=== PATIENT | female | born 1945 | race Caucasian/White ===

== ENCOUNTER → 2017-07-26 | Outpatient (CLI) | payer MEDICARE, BC ==
--- NOTE | 2017-07-27 11:03 | MM ---
Reason for exam: screening (asymptomatic). Last mammogram was performed 1 year ago. History: Patient is postmenopausal. Took estrogen for 8 years. Took progesterone for 8 years. Physical Findings: A clinical breast exam by your physician is recommended on an annual basis and results should be correlated with mammographic findings. MG 3D Screening Mammo W/Cad Bilateral CC and MLO view(s) were taken. Prior study comparison: July 13, 2016, bilateral MG 3d screening mammo w/cad. July 09, 2015, bilateral MG screening mammo w CAD. There are scattered fibroglandular densities. There is no discrete abnormality. No significant changes when compared with prior studies. ASSESSMENT: Negative, BI-RAD 1 RECOMMENDATION: Routine screening mammogram of both breasts in 1 year.
== END | disposition home or self-care (01) ==
LOC: RADMAMWWP 10:38
PROVIDERS: ATTEND Internal Medicine Geriatric Medicine
DX: Z12.31 Encounter for screening mammogram for malignant neoplasm of breast (principal)
CPT/HCPCS: 77063; G0202

== ENCOUNTER → 2018-08-17 | Outpatient (CLI) | payer MEDICARE, BC ==
--- NOTE | 2018-08-18 11:09 | MM ---
Reason for exam: screening (asymptomatic). Last mammogram was performed 1 year and 1 month ago. History: Patient is postmenopausal. Took estrogen for 8 years. Took progesterone for 8 years. Physical Findings: A clinical breast exam by your physician is recommended on an annual basis and results should be correlated with mammographic findings. MG 3D Screening Mammo W/Cad Bilateral CC and MLO view(s) were taken. Prior study comparison: July 26, 2017, bilateral MG 3d screening mammo w/cad. July 13, 2016, bilateral MG 3d screening mammo w/cad. There are scattered fibroglandular densities. Stable benign calcifications. There is no discrete abnormality. No significant changes when compared with prior studies. ASSESSMENT: Benign, BI-RAD 2 RECOMMENDATION: Routine screening mammogram of both breasts in 1 year.
== END ==
LOC: RADMAMWWP 07:04
PROVIDERS: ATTEND Internal Medicine Geriatric Medicine
DX: Z12.31 Encounter for screening mammogram for malignant neoplasm of breast (principal)
CPT/HCPCS: 77063; 77067

== ENCOUNTER → 2018-11-29 | Outpatient (CLI) | payer MEDICARE, BC ==
--- NOTE | 2018-11-29 09:19 | US ---
EXAMINATION TYPE: US abdomen complete DATE OF EXAM: 11/29/2018 COMPARISON: NONE CLINICAL HISTORY: R10.9 Abdominal pain. RUQ pain after greasy foods, vomiting EXAM MEASUREMENTS: Liver Length: 18.8 cm Gallbladder Wall: 0.3 cm CBD: 0.6 cm Spleen: 10.5 cm Right Kidney: 10.4 x 4.0 x 5.6 cm Left Kidney: 9.9 x 5.4 x 4.3 cm Technical limitations due to patient's body habitus and large amount of overlying bowel content Pancreas: Obscured by bowel gas Liver: enlarged, attenuating, heterogeneous Gallbladder: mobile stones Evidence for sonographic Boateng's sign: no CBD: wnl Spleen: appears wnl Right Kidney: no evidence of hydronephrosis Left Kidney: no evidence of hydronephrosis Upper IVC: wnl Abd Aorta: wnl IMPRESSION: 1. Hepatomegaly with heterogeneous appearance of liver can be seen with hepatic steatosis, diffuse he patocellular disease or hepatitis correlate clinically. 2. Cholelithiasis. Common bile duct measures at the upper limits of normal and 6 mm.
== END | disposition home or self-care (01) ==
LOC: RADUSWWP 08:29
PROVIDERS: ATTEND Internal Medicine Geriatric Medicine
DX: K80.20 Calculus of gallbladder without cholecystitis without obstruction (principal); R16.0 Hepatomegaly, not elsewhere classified
CPT/HCPCS: 76700

== ENCOUNTER → 2019-09-17 | Outpatient (CLI) | payer MEDICARE ==
--- NOTE | 2019-09-18 08:57 | MM ---
Reason for exam: screening (asymptomatic). Last mammogram was performed 1 year and 1 month ago. History: Patient is postmenopausal. Took estrogen for 8 years. Took progesterone for 8 years. Physical Findings: A clinical breast exam by your physician is recommended on an annual basis and results should be correlated with mammographic findings. MG 3D Screening Mammo W/Cad Bilateral CC and MLO view(s) were taken. Prior study comparison: August 17, 2018, bilateral MG 3d screening mammo w/cad. July 26, 2017, bilateral MG 3d screening mammo w/cad. There are scattered fibroglandular densities. Finding: There are typically benign round, regional, grouped calcifications in both breasts. There is no discrete abnormality. ASSESSMENT: Benign, BI-RAD 2 RECOMMENDATION: Routine screening mammogram of both breasts in 1 year.
== END | disposition home or self-care (01) ==
LOC: RADMAMWWP 10:41
PROVIDERS: ATTEND Internal Medicine Geriatric Medicine
DX: Z12.31 Encounter for screening mammogram for malignant neoplasm of breast (principal)
CPT/HCPCS: 77063; 77067

== ENCOUNTER → 2020-10-22 | Outpatient (CLI) | payer MEDICARE ==
--- NOTE | 2020-10-22 14:36 | XR ---
Lumbar spine HISTORY: Low back pain 3 views of the lumbar spine There is marked degenerative disc change present. There is likely an underlying scoliotic curvature i n the thoracic lumbar spine. Lumbar vertebral bodies show preserved height. There is multilevel loss of disc height and vacuum disc phenomenon. Extensive spondylosis is present, sclerosis present in the posterior elements. Postop change noted to the left hip. Surgical clips present right upper quadrant . IMPRESSION: Degenerative disc disease, facet arthropathy, probable underlying scoliosis. Consider spi nal stenosis. Alternate imaging may be of benefit.
== END | disposition home or self-care (01) ==
LOC: RADXRMAIN 12:43
PROVIDERS: ATTEND Internal Medicine Geriatric Medicine
DX: M51.36 Other intervertebral disc degeneration, lumbar region (principal); M47.816 Spondylosis without myelopathy or radiculopathy, lumbar region
CPT/HCPCS: 72100

== ENCOUNTER → 2020-11-21 | Outpatient (CLI) | payer MEDICARE ==
--- NOTE | 2020-11-27 10:28 | MM ---
Reason for exam: screening (asymptomatic). Last mammogram was performed 1 year and 2 months ago. History: Patient is postmenopausal. Took estrogen for 8 years. Took progesterone for 8 years. Physical Findings: A clinical breast exam by your physician is recommended on an annual basis and results should be correlated with mammographic findings. MG 3D Screening Mammo W/Cad Bilateral CC and MLO view(s) were taken. Prior study comparison: September 17, 2019, bilateral MG 3d screening mammo w/cad. August 17, 2018, bilateral MG 3d screening mammo w/cad. There are scattered fibroglandular densities. Benign dermal calcifications at the right axilla. No significant changes when compared with prior studies. ASSESSMENT: Negative, BI-RAD 1 RECOMMENDATION: Routine screening mammogram of both breasts in 1 year.
== END | disposition home or self-care (01) ==
LOC: RADMAMWWP 13:18
PROVIDERS: ATTEND Internal Medicine Geriatric Medicine
DX: Z12.31 Encounter for screening mammogram for malignant neoplasm of breast (principal)
CPT/HCPCS: 77063; 77067

== ENCOUNTER → 2021-03-04 | Outpatient (CLI) | payer MEDICARE | END | disposition home or self-care (01) | LOC: LABWHC1 09:18 | PROVIDERS: ATTEND Neurological Surgery | DX: Z20.822 Contact with and (suspected) exposure to COVID-19 (principal); M48.062 Spinal stenosis, lumbar region with neurogenic claudication; M51.06 Intervertebral disc disorders with myelopathy, lumbar region; M47.896 Other spondylosis, lumbar region | CPT/HCPCS: U0003; C9803 ==

== ENCOUNTER → 2022-01-08 | Outpatient (CLI) | payer MEDICARE ==
--- NOTE | 2022-01-11 10:01 | BD ---
EXAMINATION TYPE: Axial Bone Density DATE OF EXAM: 01/08/2022 COMPARISON: DEXA scan 2015 CLINICAL HISTORY: 76 years year old Female. ICD-10 CODE: M81.0 OSTEOPOROSIS Height: 64 Weight: 253.5 FRAX RISK QUESTIONS: Alcohol (3 or more units per day): NO Family History (Parent hip fracture): NO Glucocorticoids (More than 3mos): NO (History of Fracture in Adulthood: NO Secondary Osteoporosis: 1. Type 1 Diabetes: NO 2. Hyperthyroidism: NO 3. Menopause before 45: NO 4. Malnutrition: NO 5. Chronic liver disease: NO Rheumatoid Arthritis: NO Current Tobacco Use: NO RISK FACTORS HISTORY OF: Hip Fracture (Right/Left): NO Spine Fracture: NO History of Wrist Fracture: YES LEFT When: 1957 AND 2017 Surgery to Spine/Hip(right/left)/Wrist (right/left): LT HIP 2012, SPINE 2020 Family History of Osteoporosis: NO Active: NO Diet low in dairy products/other sources of calcium: NO Postmenopausal woman: YES Take estrogen and/or progesterone medications: NO Lost more than 2 inches in height since high school: YES Frequent falls: NO Poor Health: YES Hyperparathyroidism: NO Adrenal Insufficiency: NO MEDICATIONS: Prednisone or other steroids: NO Thyroid Medications: NO Osteoporosis Medications: NO Additional Medications: ZINC, MAGNESIUM, MED LIST SCANNED INTO PACS Additional History: EXAM MEASUREMENTS: Bone mineral density about the R hip (g/cm2): 0.954 T Score values are as follows: -----R Neck: -0.6 -----R Total: -0.3 Bone mineral density has: DECREASED 9.5 % since study of: 08/02/2016 Bone mineral density about the R Wrist (g/cm2): 0.549 T Score values are as follows: -----Dist. R+U: 1.9 -----Prox. R+U: 1.0 -----Radius total: 1.8 BASELINE WRIST STUDY FRAX%s: The graph provided illustrates a 10.7% chance for a major osteoporotic fx and a 1.6% chance f or the hips probability for fx in 10 years time. IMPRESSION: Normal (Values between +1 and -1 indicate normal bone mass). Consider repeating this study in 5 year s or sooner if there is some new clinical indication. NOTE: T-SCORE=SD OF THE YOUNG ADULT MEAN.
--- NOTE | 2022-01-12 13:55 | MM ---
Reason for Exam: Screening (asymptomatic). Last mammogram was performed 1 year(s) and 2 month(s) ago. Patient History: Menarche at age 12. First Full-Term at age 22. Postmenopausal. Patient used Estrogen for 8 years. Patient used Progesterone for 8 years. Risk Values: Anitha 5 year model risk: 1.4%. NCI Lifetime model risk: 2.5%. Film Views: Bilateral CC views were taken. Bilateral MLO views were taken. Prior Study Comparison: 08/17/2018 Bilateral Screening Mammogram, [facility]. 09/17/2019 Bilateral Screening Mammogram, [facility]. 11/21/2020 Bilateral Screening Mammogram, [facility]. Tissue Density: There are scattered fibroglandular densities. Findings: Analyzed By CAD. There are benign appearing regional round calcifications bilaterally. No discrete abnormality. Overall Assessment: Benign, BI-RAD 2 Management: Screening Mammogram of both breasts in 1 year.
== END | disposition home or self-care (01) ==
LOC: RADBDWWP 15:23
PROVIDERS: ATTEND Internal Medicine Geriatric Medicine
DX: Z12.31 Encounter for screening mammogram for malignant neoplasm of breast (principal); Z78.0 Asymptomatic menopausal state
CPT/HCPCS: 77063; 77067; 77080

== ENCOUNTER → 2024-05-28 | Outpatient (CLI) | payer MEDICARE ==
--- NOTE | 2024-05-28 15:34 | US ---
EXAMINATION TYPE: US kidneys/renal and bladder DATE OF EXAM: 05/28/2024 COMPARISON: NONE CLINICAL INDICATION: Female, 78 years old with history of N39.9 DISORDER OF URINARY SYSTEM, UNSPECIFI ED; urinary incontinence EXAM MEASUREMENTS: Right Kidney: 10.0 x 4.6 x 4.4 cm Left Kidney: 9.1 x 4.7 x 5.7 cm Right Kidney: superior pole lesion which is hypoechoic = 2.9 x 2.3 x 1.9cm Left Kidney: No hydronephrosis or masses seen, smaller in size Bladder: wnl Bilateral Jets seen: yes There is no evidence for hydronephrosis at this point in time. No nephrolithiasis is seen. The urin tashi bladder is anechoic. Bilateral ureteral jets are seen. IMPRESSION: 1. No evidence for obstructive uropathy. 2. Hypoechoic right upper pole renal structure possibly representing cysts. Consider MRI renal mass protocol or CT renal mass protocol. [facility], , 05/28/2024 3:32 PM
== END | disposition home or self-care (01) ==
LOC: RADUSWWP 14:11
PROVIDERS: ATTEND Urology
DX: N39.9 Disorder of urinary system, unspecified
CPT/HCPCS: 76770

== ENCOUNTER 2024-08-08 11:14 | Emergency (ER) | payer MEDICARE ==
--- NOTE | 2024-08-08 11:56 | ED ---
Skin/Abscess/FB HPI - General Stated complaint: hematoma drainage Time Seen by Provider: 08/08/24 11:55 Source: RN notes reviewed - History of Present Illness Initial comments: This is an 78-year-old female presenting with hematoma to right chest wall x 6 weeks. States she was seen by her PCP Dr. Bernal for this 2 weeks ago and she was told this was a hematoma caused by an injury. States hematoma is growing in size and becoming painful and believes it needs to be drained. Denies drainage, fever, chills. Denies blood thinners. No known injury or trauma. - Related Data Allergies Allergy/AdvReac Type Severity Reaction Status Date / Time No Known Allergies Allergy Verified 08/08/24 12:20 Review of Systems ROS Statement: Those systems with pertinent positive or pertinent negative responses have been documented in the HPI. ROS Other: All systems not noted in ROS Statement are negative. General Exam - General Exam Comments Initial Comments: Visual Physical Exam General: Well-appearing, nontoxic, no acute distress. Head: Normocephalic, atraumatic Eyes: PERRLA, EOMI ENT: Airway patent Chest: Nonlabored breathing Skin: No visual rash, normal skin tone Neuro: Alert and oriented 3 Musculoskeletal: No gross abnormalities General appearance: alert, in no apparent distress Head exam: Present: atraumatic, normocephalic, normal inspection Eye exam: Present: normal appearance, PERRL, EOMI. Absent: scleral icterus, conjunctival injection, periorbital swelling Respiratory exam: Present: normal lung sounds bilaterally. Absent: respiratory distress, wheezes, rales, rhonchi, stridor Cardiovascular Exam: Present: regular rate, normal rhythm, normal heart sounds. Absent: systolic murmur, diastolic murmur, rubs, gallop, clicks Neurological exam: Present: alert, oriented X3 Psychiatric exam: Present: normal affect, normal mood Skin exam: Present: warm, dry, intact, normal color, other (There is a fluctuant mass that is approximately 5 x 5 cm in size present on right chest wall near axilla. Minimal tenderness to palpation, no erythema, warmth, or drainage. No overlying skin changes). Absent: rash Course Vital Signs 08/08/24 12:14 Temperature 98.4 F Pulse Rate 77 Respiratory 16 Rate Blood Pressure 132/71 O2 Sat by Pulse 97 Oximetry Medical Decision Making - Medical Decision Making I completed the quick note portion of this chart signed María Mckeon PA-C Was pt. sent in by a medical professional or institution ([facility], [employer], urgent care, hospital, or prison...) When possible be specific @ -No Did you speak to anyone other than the patient for history (EMS, parent, family, police, friend...)? What history was obtained from this source @ -No Did you review nursing and triage notes (agree or disagree)? Why? @ -I reviewed and agree with nursing and triage notes Were old charts reviewed (outside hosp., previous admission, EMS record, old EKG, old radiological studies, urgent care reports/EKG's, prison records)? Report findings @ -No old charts were reviewed Differential Diagnosis (chest pain, altered mental status, abdominal pain women, abdominal pain men, vaginal bleeding, weakness, fever, dyspnea, syncope, headache, dizziness, GI bleed, back pain, seizure, CVA, palpatations, mental health, musculoskeletal)? @ -Differential Musculoskeletal Seroma, abscess, hematoma, muscular strain, contusion, ligament sprain, fracture, arthritis, septic arthritis, bursitis, cellulitis, muscle spasm, nerve compression, DVT, arterial occlusion, herpes zoster, electrolyte abnormality, tumor.... This is not meant to be in all inclusive list EKG interpreted by me (3pts min.). @ -None X-rays interpreted by me (1pt min.). @ -None done CT interpreted by me (1pt min.). @ -CT revealed multiloculated fluid collection extending into pectoralis muscle U/S interpreted by me (1pt. min.). @ -Ultrasound reveals complex fluid collection right chest wall What testing was considered but not performed or refused? (CT, X-rays, U/S, labs)? Why? @ -None What meds were considered but not given or refused? Why? @ -None Did you discuss the management of the patient with other professionals (pro fessionals i.e. [facility], [employer], lab, RT, psych nurse, socially responsible investment adviser, inventory control planner, teacher, liaison officer, ed case manager)? Give summary @ -No Was smoking cessation discussed for >3mins.? @ -No Was critical care preformed (if so, how long)? @ -No Were there social determinants of health that impacted care today? How? (Homelessness, low income, unemployed, alcoholism, drug addiction, transportation, low edu. Level, literacy, decrease access to med. care, long-term, rehab)? @ -No Was there de-escalation of care discussed even if they declined (Discuss DNR or withdrawal of care, Hospice)? DNR status @ -No What co-morbidities impacted this encounter? (DM, HTN, Smoking, COPD, CAD, Cancer, CVA, ARF, Chemo, Hep., AIDS, mental health diagnosis, sleep apnea, morbid obesity)? @ -None Was patient admitted / discharged? Hospital course, mention meds given and route, prescriptions, significant lab abnormalities, going to OR and other pertinent info. @ -Discharge. This is an 78-year-old female presenting with mass on right chest wall x 6 weeks. Neurovascularly intact. Examination reveals fluctuant mass with no erythema, drainage, or warmth. No sign of bacterial infection. Ultrasound reveals complex fluid collection right chest wall, CT recommended for further evaluation at this time. CT revealed multiloculated fluid collection extending into the pectoralis muscle. Results discussed with patient. Di agnosis of seroma discussed with patient. Appropriate return precautions and follow-up care discussed. Case was discussed with my ED attending Dr. Diaz. Undiagnosed new problem with uncertain prognosis? @ -No Drug Therapy requiring intensive monitoring for toxicity (Heparin, Nitro, Insulin, Cardizem)? @ -No Were any procedures done? @ -No Diagnosis/symptom? @ -Seroma of chest wall Acute, or Chronic, or Acute on Chronic? @ -Acute Uncomplicated (without systemic symptoms) or Complicated (systemic symptoms)? @ -Uncomplicated Side effects of treatment? @ -No Exacerbation, Progression, or Severe Exacerbation? @ -No Poses a threat to life or bodily function? How? (Chest pain, [place], [place], pneumonia, PE, COPD, DKA, ARF, appy, cholecystitis, CVA, Diverticulitis, Homicidal, Suicidal, threat to staff... and all critical care pts) @ -No - Lab Data Result diagrams: 08/08/24 12:47 08/08/24 12:47 Lab Results 08/08/24 08/08/24 08/08/24 Range/Units 12:47 12:47 12:47 WBC 10.6 (3.8-10.6) k/uL RBC 4.17 (3.80-5.40) m/uL Hgb 13.0 (11.4-16.0) gm/dL Hct 39.5 (34.0-46.0) % MCV 94.9 (80.0-100.0) fL MCH 31.3 (25.0-35.0) pg MCHC 33.0 (31.0-37.0) g/dL RDW 12.7 (11.5-15.5) % Plt Count 282 (150-450) k/uL MPV 7.0 Neutrophils % 80 % Lymphocytes % 13 % Monocytes % 4 % Eosinophils % 2 % Basophils % 0 % Neutrophils # 8.5 H (1.3-7.7) k/uL Lymphocytes # 1.4 (1.0-4.8) k/uL Monocytes # 0.4 (0-1.0) k/uL Eosinophils # 0.2 (0-0.7) k/uL Basophils # 0.0 (0-0.2) k/uL PT 10.3 (10.0-12.5) sec INR 0.9 (<1.2) APTT 26.0 (22.0-30.0) sec Sodium 131 L (137-145) mmol/L Potassium 3.7 (3.5-5.1) mmol/L Chloride 93 L (98-107) mmol/L Carbon Dioxide 29 (22-30) mmol/L Anion Gap 9 mmol/L BUN 22 H (7-17) mg/dL Creatinine 0.73 (0.52-1.04) mg/dL Est GFR (CKD-EPI)AfAm >90 (>60 ml/min/1.73 sqM) Est GFR (CKD-EPI)NonAf 78 (>60 ml/min/1.73 sqM) Glucose 121 H (74-99) mg/dL Calcium 10.2 (8.4-10.2) mg/dL Total Bilirubin 0.8 (0.2-1.3) mg/dL AST 25 (14-36) U/L ALT 25 (4-34) U/L Alkaline Phosphatase 66 (38-126) U/L Total Protein 7.0 (6.3-8.2) g/dL Albumin 4.4 (3.5-5.0) g/dL Disposition Clinical Impression: Seroma Disposition: HOME SELF-CARE Condition: Stable Instructions (If sedation given, give patient instructions): Seroma (DC) Additional Instructions: Follow-up with Dr. Yip. Please return to the Emergency Department if sympto ms worsen or any other concerns. Is patient prescribed a controlled substance at d/c from ED?: No Referrals: Kulwant Bernal MD [Primary Care Provider] - 1-2 days Giovanny Yip MD [STAFF PHYSICIAN] - 1-2 days Time of Disposition: 17:26
[2024-08-08 12:20] VITALS: BP 132/71; PULSE 77; RESP 16; TEMP 98.4
[2024-08-08 13:03] LABS: Basophils % (A) 0 %; Eosinophils # (A) 0.2 k/uL (0-0.7); Eosinophils % (A) 2 %; HCT 39.5 % (34.0-46.0); Lymphocytes # (A) 1.4 k/uL (1.0-4.8); Lymphocytes % (A) 13 %; MCH 31.3 pg (25.0-35.0); MCV 94.9 fL (80.0-100.0); Monocytes # (A) 0.4 k/uL (0-1.0); Monocytes % (A) 4 %; Neutrophils # (A) 8.5 k/uL (1.3-7.7); Neutrophils % (A) 80 %; Platelet Count 282 k/uL (150-450); RBC 4.17 m/uL (3.80-5.40); RDW 12.7 % (11.5-15.5); WBC 10.6 k/uL (3.8-10.6)
[2024-08-08 13:07] LABS: ALT 25 U/L (4-34); AST 25 U/L (14-36); African American GFR (CKD) >90 (>60 ml/min/1.73 sqM); Albumin 4.4 g/dL (3.5-5.0); Alkaline Phosphatase 66 U/L (38-126); Anion Gap 9 mmol/L; Blood Urea Nitrogen 22 mg/dL (7-17); Calcium 10.2 mg/dL (8.4-10.2); Carbon Dioxide 29 mmol/L (22-30); Chloride 93 mmol/L (98-107); Glucose 121 mg/dL (74-99); Non-African American GFR(CKD) 78 (>60 ml/min/1.73 sqM); Potassium 3.7 mmol/L (3.5-5.1); Sodium 131 mmol/L (137-145); Total Bilirubin 0.8 mg/dL (0.2-1.3)
[2024-08-08 13:43] LABS: INR 0.9 (<1.2); Prothrombin Time 10.3 sec (10.0-12.5)
--- NOTE | 2024-08-08 15:21 | US ---
EXAMINATION TYPE: US mass soft tissue chest/back DATE OF EXAM: 08/08/2024 COMPARISON: NONE CLINICAL INDICATION: Female, 78 years old with history of mass right axilla/upper chest; Patient stat es 5/6 weeks ago there was bruising and a lump at upper right chest. No injury. TECHNIQUE: Sonographic images taken with grayscale and color Doppler imaging of the upper chest. FINDINGS: Area of concern scanned. Complex fluid collection identified. IMPRESSION: Complex fluid collection area of concern in the right axilla. Correlate clinically findings could rep resent resolving hematoma/seroma. Further evaluation with cross-sectional imaging with IV contrast re commended. [facility], , 08/08/2024 3:19 PM
[2024-08-08] MEDS ORDERED: RX INFO: IV CONTRAST WAS GIVEN 1 EACH MISC MISCELLANE PRN (15:33)
--- NOTE | 2024-08-08 16:20 | CT ---
EXAMINATION TYPE: CT chest w con DATE OF EXAM: 08/08/2024 4:06 PM COMPARISON: Ultrasound same day. CLINICAL INDICATION: Female, 78 years old with history of mass on right chest wall/axilla; PHH, Mass on right chest wall/axilla. TECHNIQUE: Multiple axial images were obtained through the chest. Sagittal and coronal reformats were created for review. MIP was performed on a separate workstation. Contrast used:100 ml mL of Isovue 300 with IV Contrast (None if empty) Oral contrast used: (None if empty) CT DLP: 458.6 mGycm, Automated exposure control for dose reduction was used. FINDINGS: LUNGS/ PLEURA: No focal consolidation, pneumothorax or pleural effusion. AIRWAY: Patent and unremarkable. HEART: Size within normal limits. MEDIASTINUM: No gross evidence of adenopathy. VASCULATURE: No aortic aneurysm. MUSCULOSKELETAL: No acute osseous abnormalities severe degeneration changes of the shoulder with acet abularization and possible joint effusion extending into the chest seen on axial imaging.. Left shoul lauren arthroplasty changes. Moderate to severe degeneration changes of the spine. SOFT TISSUES/LYMPH NODES: Multiloculated right axillary/anterior chest wall fluid collection extendin g into the right pectoralis muscle. This is simple fluid density. Given patient history this is favor ed represent seroma and/or resolving hematoma. LOWER NECK: No significant findings. UPPER ABDOMEN: The gallbladder is surgically absent. IMPRESSION: Multiloculated right axillary/anterior chest wall fluid collection extending into the right pectorali s muscle. Given the severe degeneration changes of the right shoulder findings favored to represent s equela of right shoulder joint effusion. MRI recommended right shoulder for confirmation on an outpat ient basis. No evidence for acute thoracic process. [facility], , 08/08/2024 4:18 PM
== END 2024-08-08 17:41 | disposition home or self-care (01) ==
LOC: EC 11:14
DX: L76.34 Postprocedural seroma of skin and subcutaneous tissue following other procedure (principal)
CPT/HCPCS: 36415; 80053; 85025; 85610; 85730; 76604; 71260; 99284; Q9967

== ENCOUNTER 2025-01-30 11:10 | Inpatient (IN) | payer MEDICARE ==
--- NOTE | 2025-01-30 11:22 | ED ---
Fall HPI - General Stated Complaint: Fall Time Seen by Provider: 01/30/25 11:18 Source: RN notes reviewed, old records reviewed Mode of arrival: ambulatory Limitations: no limitations - History of Present Illness Initial Comments: This is an 79-year-old female who is present after fall. Patient states sometime in the middle of the night last night she would assume after midnight but early had a fall who laid on the ground for multiple hours. Left knee pain symptomatic abrasions to her inner thighs and did hit her head unsure of loss of consciousness but she does think likely so. 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 Witnessed: no Place Fall Occurred: home Prolonged Down Time?: no Symptoms Prior to Fall: none Location: head Location - Extremities: Left: Knee Severity: severe Severity scale (1-10): 10 Context: tripped/slipped Associated Symptoms: headache - Related Data Home Medications Medication Instructions Recorded Confirmed ALPRAZolam [Xanax] 0.25 mg PO BID 01/30/25 01/30/25 Acetaminophen/Diphenhydramine 1 tab PO HS 01/30/25 01/30/25 [Tylenol PM 500-25mg] Ascorbic Acid [Vitamin C] 500 mg PO DAILY 01/30/25 01/30/25 Baclofen 10 mg PO BID 01/30/25 01/30/25 Cholecalciferol [Vitamin D3 (125 125 mcg PO DAILY 01/30/25 01/30/25 Mcg = 5000 Iu)] Cyanocobalamin (Vitamin B-12) 1,000 mcg PO DAILY 01/30/25 01/30/25 [Vitamin B-12] Diclofenac Sodium Gel [Voltaren 1% 1 applic TOPICAL BID 01/30/25 01/30/25 Gel] Famotidine [Pepcid] 20 mg PO DAILY 01/30/25 01/30/25 Fesoterodine Fumarate 8 mg PO HS 01/30/25 01/30/25 [Fesoterodine Fumarate ER] Folic Acid 0.4 mg PO DAILY 01/30/25 01/30/25 Gabapentin [Neurontin] 600 mg PO BID 01/30/25 01/30/25 HYDROcodone/APAP 10-325MG [[place] 1 tab PO Q6HR PRN 01/30/25 01/30/25 10-325] Hydrocortisone Cream 1 applic TOPICAL DAILY PRN 01/30/25 01/30/25 [Hydrocortisone 2.5% Cream] Latanoprost [Latanoprost 0.005%] 1 drop BOTH EYES HS 01/30/25 01/30/25 Lovastatin [Mevacor] 20 mg PO W/SUPPER 01/30/25 01/30/25 Magnesium Oxide [Magnesium] 500 mg PO DAILY 01/30/25 01/30/25 Naproxen Sodium [Aleve] 220 mg PO BID 01/30/25 01/30/25 Nystatin 100,000 Unit/gm Powd 1 applic TOPICAL BID 01/30/25 01/30/25 [Mycostatin Powder] Olopatadine HCl [Pataday] 1 drop BOTH EYES DAILY 01/30/25 01/30/25 Selenomethionine [Selenium] 200 mcg PO DAILY 01/30/25 01/30/25 Theraworx Muscle And Spasm Relief 1 applic TOPICAL HS 01/30/25 01/30/25 Foam Triamcinolone 0.5% Cream [Kenalog 1 applic TOPICAL BID 01/30/25 01/30/25 0.5% Cream] Ubidecarenone [Co Q-10] 30 mg PO DAILY 01/30/25 01/30/25 Zinc 15mg 1 tab PO DAILY 01/30/25 01/30/25 hydroCHLOROthiazide [Hydrodiuril] 25 mg PO DAILY 01/30/25 01/30/25 Allergies Allergy/AdvReac Type Severity Reaction Status Date / Time No Known Allergies Allergy Verified 08/08/24 12:20 Review of Systems ROS Statement: Those systems with pertinent positive or pertinent negative responses have been documented in the HPI. ROS Other: All systems not noted in ROS Statement are negative. Past Medical History Past Medical History: Hypertension Additional Past Medical History / Comment(s): neuropathy, chronic back issues History of Any Multi-Drug Resistant Organisms: None Reported Past Surgical History: Orthopedic Surgery Past Psychological History: No Psychological Hx Reported Smoking Status: Never smoker Past Alcohol Use History: None Reported Past Drug Use History: None Reported General Exam - General Exam Comments Initial Comments: Significant facial swelling right eye ecchymosis right eye swollen shut Significant abrasions in her thighs General appearance: alert, in no apparent distress Head exam: Present: atraumatic, normocephalic, normal inspection Eye exam: Present: normal appearance, PERRL, EOMI. Absent: scleral icterus, conjunctival injection, periorbital swelling ENT exam: Present: normal exam, mucous membranes moist Neck exam: Present: normal inspection. Absent: tenderness, meningismus, lymphadenopathy Respiratory exam: Present: normal lung sounds bilaterally. Absent: respiratory distress, wheezes, rales, rhonchi, stridor Cardiovascular Exam: Present: normal rhythm, tachycardia, normal heart sounds. Absent: systolic murmur, diastolic murmur, rubs, gallop, clicks GI/Abdominal exam: Present: soft, normal bowel sounds. Absent: distended, tenderness, guarding, rebound, rigid Extremities exam: Present: normal inspection, full ROM, normal capillary refill. Absent: tenderness, pedal edema, joint swelling, calf tenderness Back exam: Present: normal inspection Neurological exam: Present: alert, oriented X3, CN II-XII intact Psychiatric exam: Present: normal affect, normal mood Skin exam: Present: warm, dry, intact, normal color. Absent: rash Course Vital Signs 01/30/25 01/30/25 01/30/25 11:19 11:40 12:22 Temperature 97.7 F Pulse Rate 104 H 105 H 101 H Respiratory 20 24 16 Rate Blood Pressure 109/86 86/65 102/73 O2 Sat by Pulse 95 98 98 Oximetry 01/30/25 01/30/25 12:51 13:18 Temperature Pulse Rate 101 H 91 Respiratory 26 H 18 Rate Blood Pressure 102/73 99/42 O2 Sat by Pulse 96 Oximetry - Reevaluation(s) Reevaluation #1: 01/30/25 14:20 Medical records reviewed 01/30/25 14:20 Patient has no significant prior cardiac history Reevaluation #2: 01/30/25 14:20 Patient denies current chest pain Patient's pain is improved persistent left knee pain Reevaluation #3: 01/30/25 14:20 Patient informed of results questions answered Reevaluation #4: Was pt. sent in by a medical professional or institution (, PA, AGENCY DEVELOPMENT MANAGER, urgent care, hospital, or long term...) When possible be specific @ -no Did you speak to anyone other than the patient for history (EMS, parent, family, police, friend...)? What history was obtained from this source @ -no Did you review nursing and triage notes (agree or disagree)? Why? @ -agree Are old charts reviewed (outside hosp., previous admission, EMS record, old EKG, old radiological studies, urgent care reports/EKG's, long term records)? Report findings @ -yes Differential Diagnosis (chest pain, altered mental status, abdominal pain women, abdominal pain men, vaginal bleeding, weakness, fever, dyspnea, syncope, headache, dizziness, GI bleed, back pain, seizure, CVA, palpatations, mental health, musculoskeletal)? @ -prior EKG interpreted by me (3pts min.). @ -yes X-rays interpreted by me (1pt min.). @ -yes negative for acute disease CT interpreted by me (1pt min.). @ -US negative for acute disease U/S interpreted by me (1pt. min.). @ -no What testing was considered but not performed or refused? (CT, X-rays, U/S, labs)? Why? @ -none What meds were considered but not given or refused? Why? @ -none Did you discuss the management of the patient with other professionals (professionals i.e. , PA, AGENCY DEVELOPMENT MANAGER, lab, RT, psych nurse, sexual assault social worker, retail department supervisor, teacher, community cultural development officer, egg caser)? Give summary @ -no Was smoking cessation discussed for >3mins.? @ -no Was critical care preformed (if so, how long)? @ -yes31 Were there social determinants of health that impacted care today? How? (Homelessness, low income, unemployed, alcoholism, drug addiction, [employer], low edu. Level, literacy, decrease access to med. care, long-term, rehab)? @ -none Was there de-escalation of care discussed even if they declined (Discuss DNR or withdrawal of care, Hospice)? DNR status @ -no What co-morbidities impacted this encounter? (DM, HTN, Smoking, COPD, CAD, Cancer, CVA, ARF, Chemo, Hep., AIDS, mental health diagnosis, sleep apnea, morbid obesity)? @ -none Was patient admitted / discharged? Hospital course, mention meds given and route, prescriptions, significant lab abnormalities, going to OR and other pertinent info. @ - 79 female to the ER for evaluation at this point patient will be admitted for acute non-STEMI elevated troponin and c fall. Significant rhabdomyolysis with debility, fall with injury but no traumatic injury noted Admitted Undiagnosed new problem with uncertain prognosis? @ -no Drug Therapy requiring intensive monitoring for toxicity (Heparin, Nitro, Insulin, Cardizem)? @ -no Were any procedures done? @ -no Diagnosis/symptom? @ -Fall, weakness, rhabdomyolysis, elevated troponin Acute, or Chronic, or Acute on Chronic? @ -Acute Uncomplicated (without systemic symptoms) or Complicated (systemic symptoms)? @ -Complicated Side effects of treatment? @ -no Exacerbation, Progression, or Severe Exacerbation? @ -exacerbation Poses a threat to life or bodily function? How? (Chest pain, [place], [place], pneumonia, PE, COPD, DKA, ARF, appy, cholecystitis, CVA, Diverticulitis, Homicidal, Suicidal, threat to staff... and all critical care pts) @ -yes extremes of age Reevaluation #5: Differential Weakness: Hypoglycemia, shock, sepsis, hyponatremia, anemia, infection, FL, ETOH, adverse medicine reaction, overdose, stroke, this is not meant to be an all-inclusive list. - Consultations Consultation #1: Spoke with Dr. Chung who will take patient to the Information Systems Manager regarding troponin and EKG changes Consultation #2: Spoke with [facility] who agrees to admit this patient Medical Decision Making - Medical Decision Making 79 female to the ER for evaluation at this point patient will be admitted for acute non-STEMI elevated troponin and c fall. Fall with injury but no traumatic injury noted - Lab Data Result diagrams: 02/09/25 08:19 02/09/25 08:19 Lab Results 01/30/25 01/30/25 01/30/25 Range/Units 11:27 11:27 11:27 WBC 25.36 H (4.50-10.00) 10*3/uL RBC 5.05 (4.10-5.20) 10*6/uL Hgb 15.7 H (12.0-15.0) g/dL Hct 47.0 H (37.2-46.3) % MCV 93.1 (80.0-97.0) fL MCH 31.1 (27.0-32.0) pg MCHC 33.4 (32.0-37.0) g/dL Plt Count 301 (140-440) 10*3/uL MPV 9.8 (9.5-12.2) fL Immature Gran % (Auto) 0.9 % Neutrophils % 91.7 % Lymphocytes % 2.1 % Monocytes % 5.1 % Eosinophils % 0.0 % Basophils % 0.2 % Immature Gran # 0.23 H (0.00-0.04) 10*3/uL Neutrophils # 23.27 H (1.80-7.70) 10*3/uL Lymphocytes # 0.52 L (0.90-5.00) 10*3/uL Monocytes # 1.30 H (0.20-1.00) 10*3/uL Eosinophils # 0.00 L (0.04-0.35) 10*3/uL Basophils # 0.04 (0.00-0.10) 10*3/uL PT 10.3 (10.0-12.5) sec INR 0.9 (<1.2) APTT 22.4 (22.0-30.0) sec Sodium 136 L (137-145) mmol/L Potassium 4.5 (3.5-5.1) mmol/L Chloride 96 L (98-107) mmol/L Carbon Dioxide 20 L (22-30) mmol/L Anion Gap 20 mmol/L BUN 33 H (7-17) mg/dL Creatinine 1.38 H (0.52-1.04) mg/dL Est GFR (CKD-EPI)AfAm 41 (>60 ml/min/1.73 sqM) Est GFR (CKD-EPI)NonAf 36 (>60 ml/min/1.73 sqM) Glucose 162 H (74-99) mg/dL Lactic Ac Sepsis Rflx Plasma Lactic Acid Ajay (0.7-2.0) mmol/L Calcium 11.1 H (8.4-10.2) mg/dL Phosphorus 4.6 H (2.5-4.5) mg/dL Magnesium 2.6 H (1.6-2.3) mg/dL Total Bilirubin 1.4 H (0.2-1.3) mg/dL AST 514 H (14-36) U/L ALT 133 H (4-34) U/L Alkaline Phosphatase 77 (38-126) U/L Creatine Kinase 88367 H* (30-135) U/L Troponin I (0.000-0.034) ng/mL NT-Pro-B Natriuret Pep 1540 pg/mL Total Protein 8.6 H (6.3-8.2) g/dL Albumin 5.1 H (3.5-5.0) g/dL Urine Color Urine Appearance (Clear) Urine pH (5.0-8.0) Ur Specific [place] (1.001-1.035) Urine Protein (Negative) Urine Glucose (UA) (Negative) Urine Ketones (Negative) Urine Blood (Negative) Urine Nitrite (Negative) Urine Bilirubin (Negative) Urine Urobilinogen (<2.0) mg/dL Ur Leukocyte Esterase (Negative) Urine RBC (0-5) /hpf Urine WBC (0-5) /hpf Ur Squamous Epith Cells (0-4) /hpf Urine Bacteria (None) /hpf Hyaline Casts (0-2) /lpf Urine Mucus (None) /hpf Urine Yeast (Budding) (None) /hpf 01/30/25 01/30/25 01/30/25 Range/Units 11:27 11:27 11:47 WBC (4.50-10.00) 10*3/uL RBC (4.10-5.20) 10*6/uL Hgb (12.0-15.0) g/dL Hct (37.2-46.3) % MCV (80.0-97.0) fL MCH (27.0-32.0) pg MCHC (32.0-37.0) g/dL Plt Count (140-440) 10*3/uL MPV (9.5-12.2) fL Immature Gran % (Auto) % Neutrophils % % Lymphocytes % % Monocytes % % Eosinophils % % Basophils % % Immature Gran # (0.00-0.04) 10*3/uL Neutrophils # (1.80-7.70) 10*3/uL Lymphocytes # (0.90-5.00) 10*3/uL Monocytes # (0.20-1.00) 10*3/uL Eosinophils # (0.04-0.35) 10*3/uL Basophils # (0.00-0.10) 10*3/uL PT (10.0-12.5) sec INR (<1.2) APTT (22.0-30.0) sec Sodium (137-145) mmol/L Potassium (3.5-5.1) mmol/L Chloride (98-107) mmol/L Carbon Dioxide (22-30) mmol/L Anion Gap mmol/L BUN (7-17) mg/dL Creatinine (0.52-1.04) mg/dL Est GFR (CKD-EPI)AfAm (>60 ml/min/1.73 sqM) Est GFR (CKD-EPI)NonAf (>60 ml/min/1.73 sqM) Glucose (74-99) mg/dL Lactic Ac Sepsis Rflx Plasma Lactic Acid Ajay 4.6 H* (0.7-2.0) mmol/L Calcium (8.4-10.2) mg/dL Phosphorus (2.5-4.5) mg/dL Magnesium (1.6-2.3) mg/dL Total Bilirubin (0.2-1.3) mg/dL AST (14-36) U/L ALT (4-34) U/L Alkaline Phosphatase (38-126) U/L Creatine Kinase (30-135) U/L Troponin I 6.070 H* (0.000-0.034) ng/mL NT-Pro-B Natriuret Pep pg/mL Total Protein (6.3-8.2) g/dL Albumin (3.5-5.0) g/dL Urine Color Yellow Urine Appearance Cloudy H (Clear) Urine pH 5.5 (5.0-8.0) Ur Specific [place] 1.024 (1.001-1.035) Urine Protein 1+ H (Negative) Urine Glucose (UA) Negative (Negative) Urine Ketones Negative (Negative) Urine Blood Large H (Negative) Urine Nitrite Negative (Negative) Urine Bilirubin Negative (Negative) Urine Urobilinogen <2.0 (<2.0) mg/dL Ur Leukocyte Esterase Large H (Negative) Urine RBC 13 H (0-5) /hpf Urine WBC >182 H (0-5) /hpf Ur Squamous Epith Cells 1 (0-4) /hpf Urine Bacteria Rare H (None) /hpf Hyaline Casts 10 H (0-2) /lpf Urine Mucus Rare H (None) /hpf Urine Yeast (Budding) Occasional H (None) /hpf 01/30/25 Range/Units 12:02 WBC (4.50-10.00) 10*3/uL RBC (4.10-5.20) 10*6/uL Hgb (12.0-15.0) g/dL Hct (37.2-46.3) % MCV (80.0-97.0) fL MCH (27.0-32.0) pg MCHC (32.0-37.0) g/dL Plt Count (140-440) 10*3/uL MPV (9.5-12.2) fL Immature Gran % (Auto) % Neutrophils % % Lymphocytes % % Monocytes % % Eosinophils % % Basophils % % Immature Gran # (0.00-0.04) 10*3/uL Neutrophils # (1.80-7.70) 10*3/uL Lymphocytes # (0.90-5.00) 10*3/uL Monocytes # (0.20-1.00) 10*3/uL Eosinophils # (0.04-0.35) 10*3/uL Basophils # (0.00-0.10) 10*3/uL PT (10.0-12.5) sec INR (<1.2) APTT (22.0-30.0) sec Sodium (137-145) mmol/L Potassium (3.5-5.1) mmol/L Chloride (98-107) mmol/L Carbon Dioxide (22-30) mmol/L Anion Gap mmol/L BUN (7-17) mg/dL Creatinine (0.52-1.04) mg/dL Est GFR (CKD-EPI)AfAm (>60 ml/min/1.73 sqM) Est GFR (CKD-EPI)NonAf (>60 ml/min/1.73 sqM) Glucose (74-99) mg/dL Lactic Ac Sepsis Rflx Y Plasma Lactic Acid Ajay (0.7-2.0) mmol/L Calcium (8.4-10.2) mg/dL Phosphorus (2.5-4.5) mg/dL Magnesium (1.6-2.3) mg/dL Total Bilirubin (0.2-1.3) mg/dL AST (14-36) U/L ALT (4-34) U/L Alkaline Phosphatase (38-126) U/L Creatine Kinase (30-135) U/L Troponin I (0.000-0.034) ng/mL NT-Pro-B Natriuret Pep pg/mL Total Protein (6.3-8.2) g/dL Albumin (3.5-5.0) g/dL Urine Color Urine Appearance (Clear) Urine pH (5.0-8.0) Ur Specific [place] (1.001-1.035) Urine Protein (Negative) Urine Glucose (UA) (Negative) Urine Ketones (Negative) Urine Blood (Negative) Urine Nitrite (Negative) Urine Bilirubin (Negative) Urine Urobilinogen (<2.0) mg/dL Ur Leukocyte Esterase (Negative) Urine RBC (0-5) /hpf Urine WBC (0-5) /hpf Ur Squamous Epith Cells (0-4) /hpf Urine Bacteria (None) /hpf Hyaline Casts (0-2) /lpf Urine Mucus (None) /hpf Urine Yeast (Budding) (None) /hpf - EKG Data -: EKG Interpreted by Me (EKG is sinus tachycardia 107 ME 164 QRS 83 QTc 395) Rate: normal (EKG is sinus tachycardia 100 ME 156 QRS 97 QTc 431) - Radiology Data Radiology results: report reviewed (CT brain C-spine chest and pelvis x-rays negative for acute disease), image reviewed Critical Care Time Critical Care Time: Yes Total Critical Care Time: 31 Disposition Clinical Impression: Fall, CHF (congestive heart failure), Pulmonary edema, Left knee pain, Contusion of face, Contusion of right eyelid, NSTEMI (non-ST elevated myocardial infarction), UTI (urinary tract infection), Weakness, Rhabdomyolysis, Leukocytosis Disposition: ADMITTED IP TO THIS [facility] Condition: Serious Is patient prescribed a controlled substance at d/c from ED?: No Time of Disposition: 13:10
[2025-01-30] MEDS: SODIUM CHLORIDE 0.9% 1,000 ML IV ONE ×2 (11:31→13:32)
[2025-01-30] MEDS: ONDANSETRON 4 MG/2 ML VIAL IVP STA (11:32)
[2025-01-30] MEDS: MORPHINE SULFATE 4 MG/ML SYRINGE IV STA (11:35)
[2025-01-30 11:40] LABS: Basophils # (A) 0.04 10*3/uL (0.00-0.10); Basophils % (A) 0.2 %; HGB 15.7 g/dL (12.0-15.0); Lymphocytes # (A) 0.52 10*3/uL (0.90-5.00); Lymphocytes % (A) 2.1 %; MCH 31.1 pg (27.0-32.0); MCHC 33.4 g/dL (32.0-37.0); MCV 93.1 fL (80.0-97.0); Mean Platelet Volume 9.8 fL (9.5-12.2); Monocytes % (A) 5.1 %; Neutrophils # (A) 23.27 10*3/uL (1.80-7.70); Neutrophils % (A) 91.7 %; Platelet Count 301 10*3/uL (140-440); RBC 5.05 10*6/uL (4.10-5.20); RDW 13.1 % (11.5-14.5); WBC 25.36 10*3/uL (4.50-10.00)
[2025-01-30 11:52] LABS: INR 0.9 (<1.2); Partial Thromboplastin Time 22.4 sec (22.0-30.0); Prothrombin Time 10.3 sec (10.0-12.5)
[2025-01-30 11:55] LABS: ALT 133 U/L (4-34); AST 514 U/L (14-36); Albumin 5.1 g/dL (3.5-5.0); Alkaline Phosphatase 77 U/L (38-126); Anion Gap 20 mmol/L; Blood Urea Nitrogen 33 mg/dL (7-17); Calcium 11.1 mg/dL (8.4-10.2); Carbon Dioxide 20 mmol/L (22-30); Chloride 96 mmol/L (98-107); Glucose 162 mg/dL (74-99); Magnesium 2.6 mg/dL (1.6-2.3); Phosphorus 4.6 mg/dL (2.5-4.5); Potassium 4.5 mmol/L (3.5-5.1); Sodium 136 mmol/L (137-145); Total Bilirubin 1.4 mg/dL (0.2-1.3); Total Protein 8.6 g/dL (6.3-8.2)
[2025-01-30 12:00] LABS: African American GFR (CKD) 41 (>60 ml/min/1.73 sqM); Non-African American GFR(CKD) 36 (>60 ml/min/1.73 sqM)
[2025-01-30 12:03] LABS: NT-Pro-B-Type Natriuretic Pept 1540 pg/mL
[2025-01-30 12:07] LABS: Appearance,Urine Cloudy (Clear); Bacteria,Urine Rare /hpf; Bilirubin,Urine Negative (Negative); Blood,Urine Large (Negative); Budding Yeast,Urine Occasional /hpf; Color,Urine Yellow; Glucose,Urine (UA) Negative (Negative); Hyaline Casts,Urine 10 /lpf (0-2); Ketones,Urine Negative (Negative); Leukocyte Esterase,Urine Large (Negative); Mucus,Urine Rare /hpf; Nitrite,Urine Negative (Negative); PH, Urine 5.5 (5.0-8.0); Protein,Urine 1+ (Negative); RBC,Urine 13 /hpf (0-5); Specific Gravity,Urine 1.024 (1.001-1.035); Squamous Epithelial Cell,Urine 1 /hpf (0-4); Urobilinogen,Urine <2.0 mg/dL (<2.0); WBC,Urine >182 /hpf (0-5)
--- NOTE | 2025-01-30 12:25 | XR ---
EXAMINATION TYPE: XR pelvis AP view DATE OF EXAM: 01/30/2025 CLINICAL INDICATION: Female, 79 years old with history of fall, pain TECHNIQUE: A single AP view of the pelvis is obtained. COMPARISON: None. FINDINGS: There is no acute displaced fracture evident in the pelvis. The sacroiliac joints appear symmetric and unremarkable. Pubic symphysis is intact. Moderate axial joint space loss right hip. Met allic hardware from left hip arthroplasty is partially imaged. The overlying soft tissue appears unre markable. IMPRESSION: There is no acute displaced fracture in the pelvis. [facility], , 01/30/2025 12:22 PM
--- NOTE | 2025-01-30 12:26 | XR ---
EXAMINATION TYPE: XR chest 1V DATE OF EXAM: 01/30/2025 COMPARISON: Chest CT August 08, 2024 CLINICAL INDICATION: Female, 79 years old with history of fall; pain TECHNIQUE: Single frontal supine view of the chest is obtained. FINDINGS: There is persistent cardiomegaly with central vascular congestion. No pleural effusion or pneumothorax seen bilaterally. Advanced degenerative change bilateral glenohumeral joints is seen IMPRESSION: Possible fluid overload state. Correlate clinically. [facility], , 01/30/2025 12:24 PM
--- NOTE | 2025-01-30 12:43 | CT ---
EXAMINATION TYPE: CT brain chaparrita wo con DATE OF EXAM: 01/30/2025 12:12 PM COMPARISON: None. CLINICAL INDICATION: Female, 79 years old with history of fall, PAIN AFTER FALL, pain TECHNIQUE: CT of the brain is performed utilizing 3 mm thick sections through the posterior fossa and 3 mm thick sections through the remaining calvarium. Study is performed within 24 hours of arrival to the hospital. Contrast used: mL of , (none if empty) CT DLP: 1205.3 mGycm, Automated exposure control for dose reduction was used. FINDINGS: No abnormal hyperdensity is present to suggest an acute intracranial hemorrhage. No mass lesion is evident. No acute infarcts are evident. Ventricles and sulci are mildly prominent for the patient age. Paranasal sinuses and mastoid air cells within the [id number] are clear. IMPRESSIONS: 1. No acute intracranial process. Follow-up MRI can be performed as clinically indicated. 2. Age-related atrophy CT cervical spine. COMPARISON: None TECHNIQUE: CT of the cervical spine is performed in the axial plane at 2 mm thick sections. Reconstr ucted images in the coronal, and sagittal plane are reviewed on the computer. FINDINGS: No acute fractures are evident. Vertebral body alignment is normal. Disc space narrowing is present C4-5 C5-6. Anterior vertebral body spurring is present at these level s. Vertebral body heights are preserved. No spinal canal stenosis is evident. Uncovertebral joint hypertrophy is present C4-5 with moderate bilateral foraminal stenosis. Moderate foraminal stenosis is also present C5-6. IMPRESSION: 1. No acute posttraumatic changes cervical spine. 2. Degenerative uncovertebral joint changes contributing to foraminal stenosis C4-5 and C5-6. [facility], , 01/30/2025 12:41 PM
--- NOTE | 2025-01-30 12:56 | CT ---
EXAMINATION TYPE: CT facial bones wo con DATE OF EXAM: 01/30/2025 12:12 PM COMPARISON: None. CLINICAL INDICATION: Female, 79 years old with history of fall, PAIN AFTER FALL. TECHNIQUE: The paranasal sinuses are examined in the axial plane at 2 mm thick sections. Reconstruct ed images in the coronal plane were obtained. Contrast used: mL of , (none if empty) Oral contrast used: (none if empty) CT DLP: 1205.3 mGycm, Automated exposure control for dose reduction was used. FINDINGS: There is dental amalgam scatter artifact. The maxillary sinuses are clear. The ethmoid air cells are clear. The sphenoid sinuses are clear. The frontal sinuses are clear. Nasal bones are intact. Maxillary spine is intact. No acute fractures are evident. Zygomatic arches a re normal. Greater wings of sphenoid are normal. Temporomandibular junctions are normal. The septum is evaluated. There is septal deviation to the left. The ostiomeatal units are patent. There is a right yoni bullosa. Hyperostosis frontalis internus is present, normal variant. IMPRESSION: 1. No acute posttraumatic osseous abnormality. [facility], , 01/30/2025 12:53 PM
[2025-01-30] MEDS ORDERED: NITROGLYCERIN SL TABS 0.4 MG TAB SUBLINGUAL PRN (13:03)
[2025-01-30] MEDS ORDERED: ALPRAZolam 0.25 MG TAB PO PRN (13:03)
[2025-01-30] MEDS ORDERED: HEPARIN SODIUM 1,000 UN/ML (10ML VL) IV PRN (13:04)
[2025-01-30] MEDS: HEPARIN SODIUM 1,000 UN/ML (10ML VL) IV ONE (13:13)
[2025-01-30] MEDS: ASPIRIN 325 MG TAB PO STA (13:14)
[2025-01-30] MEDS: HYDROmorphone 1 MG/ML 1 ML SYRINGE IVP STA (13:14)
[2025-01-30] MEDS: ATORVASTATIN 80 MG TAB PO STA (13:14)
[2025-01-30] MEDS ORDERED: ONDANSETRON 4 MG/2 ML VIAL IVP PRN (13:20)
[2025-01-30] MEDS ORDERED: NALOXONE 0.4 MG/ML 1 ML VIAL IV PRN (13:20)
[2025-01-30] MEDS: HEPARIN SODIUM (1,000 UNIT/ML) 1,000 UNIT in SODIUM CHLORIDE 0.9% 1,000 ML IRRIGATION ONE (13:44)
[2025-01-30] MEDS: HEPARIN SODIUM,PORCINE (1 ML) 2,500 UNIT in SODIUM CHLORIDE 0.9% 250 ML IRRIGATION ONE (13:45)
[2025-01-30] MEDS: MIDAZOLAM 2 MG/2 ML VIAL IVP ONE (13:54)
[2025-01-30] MEDS: fentaNYL (PF) 50 MCG/ML 2 ML AMP IVP ONE (13:55)
[2025-01-30] MEDS: LIDOCAINE 1% INJ 10MG/ML (20 ML MDV) SQ ONE (14:00)
[2025-01-30] MEDS: VERAPAMIL SYRINGE (5 MG/10 ML) INTRAARTER ONE (14:01)
[2025-01-30] MEDS: HEPARIN SODIUM 1,000 UN/ML (10ML VL) IVP ONE (14:08)
[2025-01-30] MEDS: IOPAMIDOL-370 100ML BTL INJ ONE (14:15)
[2025-01-30] MEDS ORDERED: RX INFO: IV CONTRAST WAS GIVEN 1 EACH MISC MISCELLANE PRN (14:19)
--- NOTE | 2025-01-30 15:02 | P.CRDCN ---
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 She has a past medical history of hypertension. Patient apparently has had complaints of weakness that were generalized and going on for some time. She had contacted her physician and physical therapy was set up. Her family noticed that over the past week she has had significant weakness where she sometimes drags her right leg. Patient apparently had a fall getting out of bed or into bed. Patient states she blacked out. Patient was found on the floor and her right leg was wedged and causing her pain now. Blood pressure 99/42, heart rate 101 Dr. Chung discussed findings and recommendations for cardiac catheterization today which patient is agreeable to move forward with today. Blood pressure 99/42, heart rate 91, pulse ox 96% on 2 L nasal cannula. -EKG: Sinus rhythm with ST elevation and V3 does not meet criteria for acute ST elevated DE -Chest x-ray: Possible fluid overload state. -Laboratory studies: Troponin 6.07. proBNP 1540. CK 44,157. Magnesium 2.6, total bilirubin 1.4, AST 514, ALT 133. Lactic acid initially 4.6 and repeat 1.6. BUN 33 and creatinine 1.38. Sodium 136. WBC 25.3, hemoglobin 15.7 -Home cardiac medications: Not available at the time of this dictation. Review Of Systems: At the time of my exam: CONSTITUTIONAL: Denies fever or chills. Reports weakness HEENT: Denies blurred vision, vision changes, or eye pain. Denies hemoptysis CARDIOVASCULAR: Denies chest pain. Denies orthopnea. Denies PND. Denies palpitations RESPIRATORY: Denies shortness of breath. GASTROINTESTINAL: Denies abdominal pain. Denies nausea or vomiting. HEMATOLOGIC: Denies bleeding disorders. GENITOURINARY: Denies any blood in urine. SKIN: Denies puritis. Denies rash. Physical examination: Gen: This is 79-year-old female in no acute respiratory distress. VS: reviewed HEENT: Head has laceration to the right eyelid, normocephalic. Pupils equal, round. Sclerae is anicteric. Soft c-collar in place. NECK: Supple. No JVD. LUNGS: Clear to auscultation. No wheezes or rhonchi. No intercostal retractions. HEART: Regular rate and rhythm. No murmur. ABDOMEN: Soft No tenderness. EXTREMITIES: No pedal edema. No calf tenderness. NEUROLOGICAL: Patient is awake, alert and oriented x3. Assessment: Syncopal episode NSTEMI Lactic acidosis Closed head injury Hypotensive Acute kidney injury Rhabdomyolysis Leukocytosis Elevated liver function tests Plan: Start patient on heparin drip Schedule patient for cardiac catheterization today with Dr. Chung Obtain 2-D echocardiogram and Doppler study to assess cardiac structure and function Further recommendations to follow based upon clinical course Thank you kindly for this consultation. Nurse practitioner note has been reviewed, I agree with documented findings and plan of care. Patient was seen and examined. Past Medical History Past Medical History: Hypertension Additional Past Medical History / Comment(s): neuropathy, chronic back issues History of Any Multi-Drug Resistant Organisms: None Reported Past Surgical History: Orthopedic Surgery Past Psychological History: No Psychological Hx Reported Smoking Status: Never smoker Past Alcohol Use History: None Reported Past Drug Use History: None Reported Medications and Allergies Allergies Allergy/AdvReac Type Severity Reaction Status Date / Time No Known Allergies Allergy Verified 08/08/24 12:20 Physical Exam Vitals: Vital Signs Temp Pulse Resp BP Pulse Ox 01/30/25 12:22 101 H 16 102/73 98 01/30/25 11:40 105 H 24 86/65 98 01/30/25 11:19 97.7 F 104 H 20 109/86 95 Intake and Output 01/29/25 01/30/25 01/30/25 22:59 06:59 14:59 Other: Weight 104.326 kg Results 01/30/25 11:27 01/30/25 11:27 Cardiac Enzymes 01/30/25 01/30/25 Range/Units 11:27 11:27 AST 514 H (14-36) U/L Troponin I 6.070 H* (0.000-0.034) ng/mL Coagulation 01/30/25 Range/Units 11:27 PT 10.3 (10.0-12.5) sec APTT 22.4 (22.0-30.0) sec CBC 01/30/25 Range/Units 11:27 WBC 25.36 H (4.50-10.00) 10*3/uL RBC 5.05 (4.10-5.20) 10*6/uL Hgb 15.7 H (12.0-15.0) g/dL Hct 47.0 H (37.2-46.3) % Plt Count 301 (140-440) 10*3/uL Comprehensive Metabolic Panel 01/30/25 Range/Units 11:27 Sodium 136 L (137-145) mmol/L Potassium 4.5 (3.5-5.1) mmol/L Chloride 96 L (98-107) mmol/L Carbon Dioxide 20 L (22-30) mmol/L BUN 33 H (7-17) mg/dL Creatinine 1.38 H (0.52-1.04) mg/dL Glucose 162 H (74-99) mg/dL Calcium 11.1 H (8.4-10.2) mg/dL AST 514 H (14-36) U/L ALT 133 H (4-34) U/L Alkaline Phosphatase 77 (38-126) U/L Total Protein 8.6 H (6.3-8.2) g/dL Albumin 5.1 H (3.5-5.0) g/dL Current Medications Generic Name Dose Route Start Last Admin Trade Name Freq PRN Reason Stop Dose Admin Ceftriaxone Sodium 2 gm/ 50 mls @ 100 mls/hr 01/30/25 12:42 Sodium Chloride IVPB 01/30/25 13:11 ONCE STA Protocol Intake and Output 01/29/25 01/30/25 01/30/25 22:59 06:59 14:59 Other: Weight 104.326 kg Patient Weight 01/31/25 06:59 Weight 104.326 kg 01/30/25 11:27 01/30/25 11:27
[2025-01-30] MEDS: SODIUM CHLORIDE 0.9% 1,000 ML IV SCH (15:08)
--- NOTE | 2025-01-30 16:49 | P.CARDCATH ---
Description of Procedure: PROCEDURES PERFORMED: Left heart catheterization, bilateral coronary angiography, ultrasound guided arterial access INDICATION: non-STEMI CONSENT:The risks, benefits and alternative therapies for the above-mentioned procedure and for both sedation/analgesia as well as necessary blood product administration, if indicated, as they pertain to this patient were discussed with the patient. The patient has indicated understanding and acceptance of the risks and procedures discussed. PROCEDURE: After the risks, benefits and alternatives of the above mentioned procedure explained in detail with the patient, informed consent was obtained. Patient was taken to the catheterization lab and prepped and draped in usual fashion. Ultrasound guidance was used to assess for arterial access. 1% lidocaine was used to anesthetize the right radial artery. A 6-Egyptian sheath was placed in the right radial artery using modified Seldinger technique and ultrasound guidance. Left coronary angiography was performed with a 5-Egyptian JL 3.5 catheter and right coronary angiography was performed with a 5-Egyptian FR5 catheter in various views. A 5-Egyptian FR5 catheter was inserted into the left ventricle and pressure measurements were obtained. The right radial sheath was removed and a TR band was placed with hemostasis achieved. The patient tolerated the procedure well. Patient was transported back to the post catheterization holding area in stable condition. Conscious Sedation: Patient was monitored under the direct supervision of myself for conscious sedation using Versed and fentanyl for a total duration of 9 minutes HEMODYNAMICS: aorta: 95/62 LV: 91/5, LVEDP 12 SELECTIVE CORONARY ARTERIOGRAPHY: LEFT MAIN: The left main is a large caliber vessel which bifurcates into the LAD and circumflex. There is no significant stenosis. LEFT ANTERIOR DESCENDING CORONARY ARTERY: LAD is a large caliber vessel which wraps around to the apex. There is no significant stenosis. LEFT CIRCUMFLEX CORONARY ARTERY: Left circumflex is a moderate caliber vessel without significant stenosis. RIGHT CORONARY ARTERY: The right coronary artery is a large caliber vessel which gives off a PDA and PLV branch and is the dominant vessel. There is no significant stenosis. FINAL IMPRESSION: 1. Normal coronary arteries as described above. 2. Normal left sided filling pressures PLAN: 1. Aggressive risk factor modification per most recent ACC/AHA guidelines.
[2025-01-30] MEDS: HEPARIN SOD,PORK IN 0.45% NACL 25,000 UNIT in 0.45% NACL 1 250ML.BAG IV SCH (17:44)
[2025-01-30 19:19] LABS: Partial Thromboplastin Time 22.8 sec (22.0-30.0)
[2025-01-30 19:43] LABS: Basophils # (A) 0.04 10*3/uL (0.00-0.10); Basophils % (A) 0.2 %; HCT 45.8 % (37.2-46.3); HGB 15.6 g/dL (12.0-15.0); Lymphocytes # (A) 0.81 10*3/uL (0.90-5.00); MCH 32.6 pg (27.0-32.0); MCHC 34.1 g/dL (32.0-37.0); MCV 95.8 fL (80.0-97.0); Mean Platelet Volume 10.3 fL (9.5-12.2); Monocytes # (A) 1.28 10*3/uL (0.20-1.00); Monocytes % (A) 6.3 %; Neutrophils # (A) 18.23 10*3/uL (1.80-7.70); Platelet Count 235 10*3/uL (140-440); RBC 4.78 10*6/uL (4.10-5.20); RDW 13.4 % (11.5-14.5); WBC 20.46 10*3/uL (4.50-10.00)
[2025-01-30] MEDS: LATANOPROST 0.005% OPHTH DROPS 2.5 ML BTL BOTH EYES SCH (19:48)
[2025-01-30] MEDS: NYSTATIN 100,000 UNIT/GM POWD 15 GM TOPICAL SCH (19:49)
[2025-01-30 19:51] LABS: Prothrombin Time 11.3 sec (10.0-12.5)
[2025-01-30] MEDS: HYDROmorphone 1 MG/ML 1 ML SYRINGE IVP PRN (23:13)
[2025-01-31 06:55] LABS: Basophils # (A) 0.04 10*3/uL (0.00-0.10); Basophils % (A) 0.2 %; Eosinophils # (A) 0.06 10*3/uL (0.04-0.35); Eosinophils % (A) 0.3 %; HCT 44.9 % (37.2-46.3); HGB 14.7 g/dL (12.0-15.0); Lymphocytes # (A) 0.94 10*3/uL (0.90-5.00); Lymphocytes % (A) 4.7 %; MCH 31.1 pg (27.0-32.0); MCHC 32.7 g/dL (32.0-37.0); MCV 95.1 fL (80.0-97.0); Mean Platelet Volume 11.2 fL (9.5-12.2); Monocytes # (A) 1.15 10*3/uL (0.20-1.00); Monocytes % (A) 5.7 %; Neutrophils # (A) 17.91 10*3/uL (1.80-7.70); Neutrophils % (A) 88.7 %; Platelet Count 252 10*3/uL (140-440); RBC 4.72 10*6/uL (4.10-5.20); RDW 13.5 % (11.5-14.5); WBC 20.19 10*3/uL (4.50-10.00)
[2025-01-31 06:56] LABS: Basophils # (A) 0.04 10*3/uL (0.00-0.10); Basophils % (A) 0.2 %; HCT 43.9 % (37.2-46.3); HGB 14.5 g/dL (12.0-15.0); Lymphocytes # (A) 1.13 10*3/uL (0.90-5.00); Lymphocytes % (A) 4.9 %; MCH 31.5 pg (27.0-32.0); MCV 95.4 fL (80.0-97.0); Mean Platelet Volume 10.6 fL (9.5-12.2); Monocytes # (A) 1.38 10*3/uL (0.20-1.00); Neutrophils # (A) 20.38 10*3/uL (1.80-7.70); Neutrophils % (A) 88.4 %; Platelet Count 252 10*3/uL (140-440); RDW 13.8 % (11.5-14.5); WBC 23.04 10*3/uL (4.50-10.00)
[2025-01-31] MEDS ORDERED: HEPARIN SODIUM,PORCINE (1 ML) 2,500 UNIT in SODIUM CHLORIDE 0.9% 250 ML IRRIGATION PRN (07:00)
[2025-01-31] MEDS ORDERED: HEPARIN SODIUM,PORCINE 10,000 UNIT in SODIUM CHLORIDE 0.9% 1,000 ML IRRIGATION PRN (07:00)
[2025-01-31 07:09] LABS: INR 0.9 (<1.2); Prothrombin Time 10.1 sec (10.0-12.5)
[2025-01-31 07:16] LABS: ALT 636 U/L (4-34); African American GFR (CKD) 22 (>60 ml/min/1.73 sqM); Albumin 3.3 g/dL (3.5-5.0); Alkaline Phosphatase 101 U/L (38-126); Anion Gap 17 mmol/L; Blood Urea Nitrogen 55 mg/dL (7-17); Calcium 8.8 mg/dL (8.4-10.2); Carbon Dioxide 17 mmol/L (22-30); Chloride 97 mmol/L (98-107); Glucose 131 mg/dL (74-99); Magnesium 2.8 mg/dL (1.6-2.3); Non-African American GFR(CKD) 19 (>60 ml/min/1.73 sqM); Potassium 4.4 mmol/L (3.5-5.1); Sodium 131 mmol/L (137-145); Total Bilirubin 1.1 mg/dL (0.2-1.3)
[2025-01-31 08:17] LABS: AST 2062 U/L (14-36)
[2025-01-31 09:58] LABS: Glucose,Whole Blood 148 mg/dL (70-110)
[2025-01-31] MEDS: SODIUM CHLORIDE 0.9% 250 ML IV ONE (09:59)
[2025-01-31] MEDS: SODIUM CHLORIDE 0.9% 1,000 ML IV ONE ×2 (10:15→15:09)
[2025-01-31] MEDS: SODIUM CHLORIDE 0.9% 500 ML 500 ML IV ONE ×2 (10:16→18:06)
[2025-01-31 10:41] LABS: Glucose,Whole Blood 132 mg/dL (70-110)
[2025-01-31] MEDS ORDERED: Magnesium Replacement Protocol 1 EACH MISC MISCELLANE PRN (10:43)
[2025-01-31] MEDS ORDERED: Potassium Replacement Protocol 1 EACH MISC MISCELLANE PRN (10:43)
[2025-01-31] MEDS: KETOTIFEN 0.025% OPHTH DROPS 5 ML BTL BOTH EYES SCH (11:00)
[2025-01-31] MEDS: ASCORBIC ACID 500 MG TAB PO SCH (11:00)
[2025-01-31] MEDS: FAMOTIDINE 20 MG TAB PO SCH (11:00)
[2025-01-31] MEDS: FOLIC ACID 1 MG TAB PO SCH (11:00)
[2025-01-31] MEDS: CHOLECALCIFEROL 125 MCG (5000 IU) TABLET PO SCH (11:00)
--- NOTE | 2025-01-31 11:05 | XR ---
EXAMINATION TYPE: XR chest 1V portable DATE OF EXAM: 01/31/2025 CLINICAL INDICATION: Female, 79 years old with history of shortness of breath, progress study. TECHNIQUE: Single AP portable upright view of the chest is obtained. COMPARISON: Chest x-ray from one day earlier FINDINGS: There is persistent cardiomegaly with central vascular congestion. No pleural effusion or pneumothorax seen bilaterally. Advanced degenerative change right glenohumeral joint is redemonstrate d. Subluxation is present. IMPRESSION: Possible fluid overload state. Correlate clinically. No significant change from one day earlier. [facility], , 01/31/2025 11:03 AM
[2025-01-31] MEDS: DEXTROSE 5% IN WATER 1,000 ML with SODIUM BICARB (1 MEQ/ML) 150 ML IV SCH (11:22)
--- NOTE | 2025-01-31 13:13 | P.CNPUL ---
History of Present Illness Consult date: 01/31/25 Chief complaint: Hypotension History of present illness: This is a 79-year-old female patient who originally came into the hospital because of a fall, acute rhabdomyolysis and acute kidney injury. The patient was noted to be extremely weak and she fell while trying to get out of her bed. She was found on the floor and for that reason the patient was brought into the emergency department. The initial blood work showed acute rhabdomyolysis with a CPK level of 44,001 157. The patient had an acute kidney injury with a creatinine of 1.38 note that her baseline creatinine has been within normal limits. Initial lactic acid level was 4.6. proBNP level was 1540. Troponin was at 6.07. EKG showed Q waves of the anterior leads and normal sinus rhythm. The white cell count was at 25 with a hemoglobin of 16.7. UA was consistent with underlying infection. Patient was given a cardiac catheterization the patient was found to have normal coronaries and filling pressures. This morning, the patient was found to be quite lethargic and hypotensive. Based on that, emergency services were activated and the patient was seen at the bedside and the patient will be transferred to the ICU. Obviously, there is a concern for underlying sepsis. Lactic is elevated at 23, there is a concern for underlying urine tract infection. The patient has also developed worsening renal function and her urine output is quite diminished and [employer] looking color. BUN is 55 with a creatinine of 2.3. Sodium is at 131 with a potassium level of 4.4. Serum bicarbonate 17. Abnormal LFTs with an AST of 2062 and ALT of 636. Blood sugar is at 148. The patient is currently on oxygen at 2 L with a pulse ox of 95 to 97%. Chest x-ray was also done this morning and it showed mild pulm vascular congestion. There are some cardiomegaly. Advanced gener ative changes involving the right glenohumeral joint. Also, the patient underwent a CAT scan of the head and cervical spine at time of admission and it showed no acute posttraumatic changes in the cervical spine. Degenerative changes involving the cervical spine at the level of C4-C5 and C5-C6 without evidence of any fracture. The pelvic x-ray showed no evidence of any fractures. CAT scan of the face was also done and it showed no evidence of any posttraumatic bony abnormalities. The patient clinically is quite lethargic. She is confused. She has diminished level of consciousness. Based on all this, the patient will be transferred to the intensive care unit. Echocardiogram was done and results are still pending for now. Review of Systems ROS unobtainable: due to mental status Past Medical History Past Medical History: Hypertension Additional Past Medical History / Comment(s): neuropathy, chronic back issues History of Any Multi-Drug Resistant Organisms: None Reported Past Surgical History: Orthopedic Surgery Past Psychological History: No Psychological Hx Reported Smoking Status: Never smoker Past Alcohol Use History: None Reported Past Drug Use History: None Reported Medications and Allergies Home Medications Medication Instructions Recorded Confirmed Type ALPRAZolam [Xanax] 0.25 mg PO BID 01/30/25 01/30/25 History Acetaminophen/Diphenhydramine 1 tab PO HS 01/30/25 01/30/25 History [Tylenol PM 500-25mg] Ascorbic Acid [Vitamin C] 500 mg PO DAILY 01/30/25 01/30/25 History Baclofen 10 mg PO BID 01/30/25 01/30/25 History Cholecalciferol [Vitamin D3 (125 125 mcg PO DAILY 01/30/25 01/30/25 History Mcg = 5000 Iu)] Cyanocobalamin (Vitamin B-12) 1,000 mcg PO DAILY 01/30/25 01/30/25 History [Vitamin B-12] Diclofenac Sodium Gel [Voltaren 1% 1 applic TOPICAL BID 01/30/25 01/30/25 History Gel] Famotidine [Pepcid] 20 mg PO DAILY 01/30/25 01/30/25 History Fesoterodine Fumarate 8 mg PO HS 01/30/25 01/30/25 History [Fesoterodine Fumarate ER] Folic Acid 0.4 mg PO DAILY 01/30/25 01/30/25 History Gabapentin [Neurontin] 600 mg PO BID 01/30/25 01/30/25 History HYDROcodone/APAP 10-325MG [[place] 1 tab PO Q6HR PRN 01/30/25 01/30/25 History 10-325] Hydrocortisone Cream 1 applic TOPICAL DAILY PRN 01/30/25 01/30/25 History [Hydrocortisone 2.5% Cream] Latanoprost [Latanoprost 0.005%] 1 drop BOTH EYES HS 01/30/25 01/30/25 History Lovastatin [Mevacor] 20 mg PO W/SUPPER 01/30/25 01/30/25 History Magnesium Oxide [Magnesium] 500 mg PO DAILY 01/30/25 01/30/25 History Naproxen Sodium [Aleve] 220 mg PO BID 01/30/25 01/30/25 History Nystatin 100,000 Unit/gm Powd 1 applic TOPICAL BID 01/30/25 01/30/25 History [Mycostatin Powder] Olopatadine HCl [Pataday] 1 drop BOTH EYES DAILY 01/30/25 01/30/25 History Selenomethionine [Selenium] 200 mcg PO DAILY 01/30/25 01/30/25 History Theraworx Muscle And Spasm Relief 1 applic TOPICAL HS 01/30/25 01/30/25 History Foam Triamcinolone 0.5% Cream [Kenalog 1 applic TOPICAL BID 01/30/25 01/30/25 History 0.5% Cream] Ubidecarenone [Co Q-10] 30 mg PO DAILY 01/30/25 01/30/25 History Zinc 15mg 1 tab PO DAILY 01/30/25 01/30/25 History hydroCHLOROthiazide [Hydrodiuril] 25 mg PO DAILY 01/30/25 01/30/25 History Allergies Allergy/AdvReac Type Severity Reaction Status Date / Time No Known Allergies Allergy Verified 08/08/24 12:20 Physical Exam Vitals: Vital Signs Temp Pulse Pulse Resp BP BP BP 01/31/25 12:30 90 22 98/66 01/31/25 12:15 90 22 103/66 01/31/25 12:00 98.5 F 89 20 105/62 01/31/25 11:45 87 20 107/55 01/31/25 11:30 87 20 100/70 01/31/25 11:15 86 17 104/64 01/31/25 11:00 89 19 114/59 01/31/25 10:58 89 17 01/31/25 10:13 72/47 01/31/25 10:10 01/31/25 10:06 67/42 01/31/25 09:42 68/46 01/31/25 09:20 98.9 F 92 18 74/54 66/47 01/31/25 08:15 01/31/25 04:00 97.5 F L 90 19 92/66 01/31/25 02:04 84 20 92/66 01/31/25 02:00 84 20 01/30/25 23:27 84 20 84/65 01/30/25 20:00 98.3 F 88 20 79/63 01/30/25 16:00 97.4 F L 91 16 88/70 01/30/25 14:29 88 16 95/63 01/30/25 13:18 91 18 99/42 Pulse Ox 01/31/25 12:30 96 01/31/25 12:15 97 01/31/25 12:00 95 01/31/25 11:45 97 01/31/25 11:30 96 01/31/25 11:15 96 01/31/25 11:00 95 01/31/25 10:58 94 L 01/31/25 10:13 01/31/25 10:10 96 01/31/25 10:06 01/31/25 09:42 01/31/25 09:20 96 01/31/25 08:15 94 L 01/31/25 04:00 95 01/31/25 02:04 99 01/31/25 02:00 01/30/25 23:27 99 01/30/25 20:00 98 01/30/25 16:00 96 01/30/25 14:29 100 01/30/25 13:18 96 Intake and Output 01/30/25 01/31/25 01/31/25 22:59 06:59 14:59 Intake Total 540 240 270 Output Total 150 125 Balance 540 90 145 Intake: Intake, IV Titration 300 270 Amount Dextrose 5% in Water 1, 200 000 ml @ 100 mls/hr IV . [id number] DHRUV with Sodium Bicarb (1 Meq/ml) 150 ml Rx#:[id number] Sodium Chloride 0.9% 1, 300 000 ml @ 80 mls/hr IV . [id number] DHRUV Rx#:[id number] Sodium Chloride 0.9% 1, 20 000 ml @ 999 mls/hr IV . Q1H1M ONE Rx#:[id number] cefTRIAXone 2 gm In 50 Sodium Chloride 0.9% 50 ml @ 100 mls/hr IVPB Q24H DHRUV Rx#:[id number] Oral 240 240 Output: Urine 150 125 Other: Voiding Method Indwelling Catheter Indwelling Catheter Weight 100.5 kg The patient appeared lethargic and weak and altered and has diminished level of consciousness. Breathing is nonlabored and the patient is currently on 2 L of oxygen by nasal cannula. Head exam is unremarkable. No scleral icterus or corneal arcus noted. Signs of bruising over the forehead related to her recent fall and trauma. No obvious deformities. Neck is without jugular venous distension, thyromegaly, or carotid bruits. Carotid upstrokes are brisk bilaterally. Lungs are clear to auscultation and percussion. 0 crackles in the lung base bilaterally. Cardiac exam reveals the PMI to be normally sized and situated. Rhythm is regular. First and second heart sounds normal. No murmurs, rubs or gallops. Abdominal exam reveals normal bowel sounds, no masses, no organomegaly and no aortic enlargement. Extremities are nonedematous and both femoral and pedal pulses are normal. Examination of the skin revealed no evidence of significant rashes, suspicious appearing nevi or other concerning lesions. Areas of skin abrasion in the lower extremities bilaterally related to her fall. Neurologically, the patient is lethargic and sleepy and has diminished level of consciousness. She is withdrawing to painful stimulation. Pupils are equal reactive to light. No facial asymmetry. Results - Laboratory Findings CBC and BMP: 01/31/25 05:50 01/31/25 05:50 PT/INR, D-dimer PT 10.1 sec (10.0-12.5) 01/31/25 05:50 INR 0.9 (<1.2) 01/31/25 05:50 Abnormal lab findings: Abnormal Labs 01/30/25 01/30/25 01/30/25 11:27 11:27 11:27 WBC 25.36 H Hgb 15.7 H Hct 47.0 H MCH Immature Gran # 0.23 H Neutrophils # 23.27 H Lymphocytes # 0.52 L Monocytes # 1.30 H Eosinophils # 0.00 L Sodium 136 L Chloride 96 L Carbon Dioxide 20 L BUN 33 H Creatinine 1.38 H Glucose 162 H POC Glucose (mg/dL) Plasma Lactic Acid Ajay 4.6 H* Calcium 11.1 H Phosphorus 4.6 H Magnesium 2.6 H Total Bilirubin 1.4 H AST 514 H ALT 133 H Creatine Kinase 82251 H* Troponin I Total Protein 8.6 H Albumin 5.1 H Urine Appearance Urine Protein Urine Blood Ur Leukocyte Esterase Urine RBC Urine WBC Urine Bacteria Hyaline Casts Urine Mucus Urine Yeast (Budding) 01/30/25 01/30/25 01/30/25 11:27 11:47 19:23 WBC 20.46 H Hgb 15.6 H Hct MCH 32.6 H Immature Gran # 0.10 H Neutrophils # 18.23 H Lymphocytes # 0.81 L Monocytes # 1.28 H Eosinophils # 0.00 L Sodium Chloride Carbon Dioxide BUN Creatinine Glucose POC Glucose (mg/dL) Plasma Lactic Acid Ajay Calcium Phosphorus Magnesium Total Bilirubin AST ALT Creatine Kinase Troponin I 6.070 H* Total Protein Albumin Urine Appearance Cloudy H Urine Protein 1+ H Urine Blood Large H Ur Leukocyte Esterase Large H Urine RBC 13 H Urine WBC >182 H Urine Bacteria Rare H Hyaline Casts 10 H Urine Mucus Rare H Urine Yeast (Budding) Occasional H 01/31/25 01/31/25 01/31/25 05:50 05:50 05:50 WBC 20.19 H 23.04 H Hgb Hct MCH Immature Gran # 0.09 H 0.11 H Neutrophils # 17.91 H 20.38 H Lymphocytes # Monocytes # 1.15 H 1.38 H Eosinophils # 0.00 L Sodium 131 L Chloride 97 L Carbon Dioxide 17 L BUN 55 H Creatinine 2.30 H Glucose 131 H POC Glucose (mg/dL) Plasma Lactic Acid Ajay Calcium Phosphorus Magnesium 2.8 H Total Bilirubin AST 2062 H ALT 636 H Creatine Kinase Troponin I Total Protein 6.0 L Albumin 3.3 L Urine Appearance Urine Protein Urine Blood Ur Leukocyte Esterase Urine RBC Urine WBC Urine Bacteria Hyaline Casts Urine Mucus Urine Yeast (Budding) 01/31/25 01/31/25 09:56 10:38 WBC Hgb Hct MCH Immature Gran # Neutrophils # Lymphocytes # Monocytes # Eosinophils # Sodium Chloride Carbon Dioxide BUN Creatinine Glucose POC Glucose (mg/dL) 148 H 132 H Plasma Lactic Acid Ajay Calcium Phosphorus Magnesium Total Bilirubin AST ALT Creatine Kinase Troponin I Total Protein Albumin Urine Appearance Urine Protein Urine Blood Ur Leukocyte Esterase Urine RBC Urine WBC Urine Bacteria Hyaline Casts Urine Mucus Urine Yeast (Budding) - Diagnostic Findings Chest x-ray: image reviewed Assessment and Plan Plan: Hypotension, likely septic in nature. The patient presented to the hospital following a fall and she was putting generalized weakness. Initially, she was suspected to have an acute cardiac event and the patient was given a cardiac catheterization that showed normal coronaries. Obviously, the patient has a septic picture and she has leukocytosis and underlying urine tract infection with sepsis is clinically suspected. She is currently hypotensive. Acute fall related to generalized weakness, likely secondary to sepsis. No significant fractures and a CAT scan of the cervical spine and the brain showed no acute abnormalities. X-ray of the pelvis showed no evidence of any fractures. Altered mentation secondary to above Acute rhabdomyolysis, likely secondary to fall/sepsis and the CPK is significant elevated Acute kidney injury, rule out ATN secondary to rhabdomyolysis. In addition, the patient was deprived from IV fluids and she was given contrast during cardiac catheterization which obviously made her renal function worse. Noted she had an acute kidney injury at the time of admission knowing that the patient had a normal GFR recently. Anion gap metabolic acidosis secondary to above Acute leukocytosis secondary to above Shock liver secondary to above Plan Transfer this patient to the intensive care unit Titrate oxygen flow to maintain saturation above 90%, currently on 2 L start the patient on IV Rocephin Start the patient IV fluids. Give a liter of bolus immediately of normal saline and start the patient on bicarb infusion at rate of 100 cc an hour Pressors if needed. This will be decided in the intensive care rate based on the patient's blood pressure Keep the Griffiths catheter in place and monitor urine output Obtain ultrasound of the kidneys to rule out hydronephrosis Echocardiogram has been done and results are still in progress avoid nephrotoxic agents May stop the IV heparin for now and transition this patient to subcu heparin 5000 units every 8 hours Monitor mentation Will continue to follow and make further recommendations based on progress. Will establish IV access. Time with Patient: Greater than 30
--- NOTE | 2025-01-31 15:35 | P.HPIM ---
History of Present Illness H&P Date: 01/31/25 Patient is a 79-year-old female with hypertension here for evaluation after a fall. Patient reported that night before admission, patient fell after getting out of her into bed and that she lost consciousness. She was found on the floor with her right leg wedged with associated pain. She has been complaining of generalized weakness for about a few weeks now and it has worsened over the past week to the point that she drags her right leg. She denied chest pain, shortness of breath, palpitations, headaches, facial asymmetry, speech changes, abdominal pain, extremity swelling. He On admission: Vitals: Temp 97.7 F, pulse rate 104, RR 20, BP 109/86, oxygen 95% on room air Labs: WBC 25.3, hemoglobin 15.7, platelet count 301,000, sodium 136, potassium 4.5, bicarb 20, BUN 33, creatinine 1.3, glucose 162, lactic acid 4.6, calcium 11.1, phosphorus 4.6, magnesium 2.6, AST 514, ALT 133, alk phos 77, total bilirubin 1.4, creatinine kinase 44,157, troponin 6, proBNP 1540, albumin 15.1. Urinalysis shows cloudy appearance +1 protein, large blood, large leukocyte esterase, WBC greater than 182, hyaline cast 10, occasional urine yeast.. Imaging: Pelvic x-ray showed no acute displaced fracture. Chest x-ray showed possible fluid overloaded state with persistent cardiomegaly and central vas cular congestion. Head cervical spine CT showed no acute intracranial process with age-related atrophy, no acute posttraumatic changes in the cervical spine, with degenerative and vertebral joint changes. Face CT showed no acute posttraumatic osseous abnormality. EKG showed sinus tachycardia with a rate of 107, normal axis, ST elevation noted on lead III, notable intraventricular delay in V2 and V6, QTc 495 MS. Second EKG showed sinus tachycardia with occasional PVC, rate of [address]-T changes, QTc 431 MS. ED documentation reviewed. Review of systems: Pertinent positives and negatives as discussed in HPI, a complete review of systems was performed and all other systems are negative. Physical examination: Vital signs reviewed General: non toxic, no distress, appears at stated age, cooperative but slow to respond Derm: no unusual rashes/lesions, warm Head: atraumatic, normocephalic, symmetric Eyes: EOMI, anicteric sclera, pupils equal round reactive to light ENT: Nose and ears atraumatic Neck: No cervical lymphadenopathy, trachea midline, supple Mouth: no lip lesion, mucus membranes moist Cardiovascular: S1S2 reg, no murmur Lungs: CTA bilateral, no rhonchi, no rales, no accessory muscle use Abdominal: soft, nondistended, nontender to palpation, no guarding Ext: muscle strength 5 out of 5 in all 4 extremities grossly, no gross muscle atrophy, no contractures, positive dorsalis pedis pulse bilateral, no edema Neuro: CN II-XI grossly intact, no gross focal neuro deficits, lethargic Psych: Alert and oriented x 2, appropriate affect and mood Assessment/Plan: The patient is admitted with an anticipated greater than 2 midnight stay for evaluation of syncope, CATHIE and sepsis Active: #. Syncope rule out cardiac causes #. Mechanical fall secondary to above #. NSTEMI s/p cardiac cath #. Lactic acidosis, resolved Pelvic x-ray, head CT, cervical spine CT and face CT so no acute fractures or osseous abnormality. Chest x-ray shows some volume overload EKG showed sinus tachycardia with a rate of 107, normal axis, ST elevation noted on lead III, notable intraventricular delay in V2 and V6, QTc 495 MS. Second EKG showed sinus tachycardia with occasional PVC, rate of [address]-T changes, QTc 431 MS. proBNP 1540 Continue cardiac monitoring Supplemental oxygen as needed Echocardiogram ordered Heparin drip initiated. Now discontinued High-dose aspirin given in the ED Lipitor 80 given in the ED Consult cardiology. Heart cath done showed normal coronary arteries #. CATHIE, secondary to ATN #. SIRS criteria met, possibly urinary source #. Rhabdomyolysis BUN 33, creatinine 1.38 on admission. Has elevated to 50 BUN 55 and creatinine 2.3 Urinalysis shows cloudy appearance +1 protein, large blood, large leukocyte esterase, 13 RBC, WBC greater than 182, hy[place] 10 [place] [address] Initiate IV fluids with 0.9 normal saline 100 cc/h Monitor urine output and renal function Blood cultures and urine cultures ordered Continue with IV Ceftriaxone daily #. Shocked liver secondary to above On admission AST 514 and ALT 133 Hold statins, NSAIDs and opioids for now Liver ultrasound ordered Chronic Conditions: #. Hypertension #. Anxiety Hold statins, gabapentin and NSAIDs for now Hold antihypertensives for now as blood pressure is labile DVT ppx: Heparin SQ every 8 hours CODE STATUS: Full Discussed with: patient and family Anticipated discharge place: pending clinical course Poornima Pat MD PGY-1 Internal Medicine Dictation was produced using [employer] dictation software. please excuse any grammatical, word or spelling errors. Attestation: I have seen and examined this patient with my resident, assessment and plan disc ussed with the resident, agree with assessment and plan as written above. Dr. Hernandez Past Medical History Past Medical History: Hypertension Additional Past Medical History / Comment(s): neuropathy, chronic back issues History of Any Multi-Drug Resistant Organisms: None Reported Past Surgical History: Orthopedic Surgery Past Psychological History: No Psychological Hx Reported Smoking Status: Never smoker Past Alcohol Use History: None Reported Past Drug Use History: None Reported Medications and Allergies Home Medications Medication Instructions Recorded Confirmed Type ALPRAZolam [Xanax] 0.25 mg PO BID 01/30/25 01/30/25 History Acetaminophen/Diphenhydramine 1 tab PO HS 01/30/25 01/30/25 History [Tylenol PM 500-25mg] Ascorbic Acid [Vitamin C] 500 mg PO DAILY 01/30/25 01/30/25 History Baclofen 10 mg PO BID 01/30/25 01/30/25 History Cholecalciferol [Vitamin D3 (125 125 mcg PO DAILY 01/30/25 01/30/25 History Mcg = 5000 Iu)] Cyanocobalamin (Vitamin B-12) 1,000 mcg PO DAILY 01/30/25 01/30/25 History [Vitamin B-12] Diclofenac Sodium Gel [Voltaren 1% 1 applic TOPICAL BID 01/30/25 01/30/25 Histor y Gel] Famotidine [Pepcid] 20 mg PO DAILY 01/30/25 01/30/25 History Fesoterodine Fumarate 8 mg PO HS 01/30/25 01/30/25 History [Fesoterodine Fumarate ER] Folic Acid 0.4 mg PO DAILY 01/30/25 01/30/25 History Gabapentin [Neurontin] 600 mg PO BID 01/30/25 01/30/25 History HYDROcodone/APAP 10-325MG [[place] 1 tab PO Q6HR PRN 01/30/25 01/30/25 History 10-325] Hydrocortisone Cream 1 applic TOPICAL DAILY PRN 01/30/25 01/30/25 History [Hydrocortisone 2.5% Cream] Latanoprost [Latanoprost 0.005%] 1 drop BOTH EYES HS 01/30/25 01/30/25 History Lovastatin [Mevacor] 20 mg PO W/SUPPER 01/30/25 01/30/25 History Magnesium Oxide [Magnesium] 500 mg PO DAILY 01/30/25 01/30/25 History Naproxen Sodium [Aleve] 220 mg PO BID 01/30/25 01/30/25 History Nystatin 100,000 Unit/gm Powd 1 applic TOPICAL BID 01/30/25 01/30/25 History [Mycostatin Powder] Olopatadine HCl [Pataday] 1 drop BOTH EYES DAILY 01/30/25 01/30/25 History Selenomethionine [Selenium] 200 mcg PO DAILY 01/30/25 01/30/25 History Theraworx Muscle And Spasm Relief 1 applic TOPICAL HS 01/30/25 01/30/25 History Foam Triamcinolone 0.5% Cream [Kenalog 1 applic TOPICAL BID 01/30/25 01/30/25 History 0.5% Cream] Ubidecarenone [Co Q-10] 30 mg PO DAILY 01/30/25 01/30/25 History Zinc 15mg 1 tab PO DAILY 01/30/25 01/30/25 History hydroCHLOROthiazide [Hydrodiuril] 25 mg PO DAILY 01/30/25 01/30/25 History Allergies Allergy/AdvReac Type Severity Reaction Status Date / Time No Known Allergies Allergy Verified 08/08/24 12:20 Physical Exam Vitals: Vital Signs Temp Pulse Pulse Resp BP BP Pulse Ox 01/31/25 08:15 94 L 01/31/25 04:00 97.5 F L 90 19 92/66 95 01/31/25 02:04 84 20 92/66 99 01/31/25 02:00 84 20 01/30/25 23:27 84 20 84/65 99 01/30/25 20:00 98.3 F 88 20 79/63 98 01/30/25 16:00 97.4 F L 91 16 88/70 96 01/30/25 14:29 88 16 95/63 100 01/30/25 13:18 91 18 99/42 96 01/30/25 12:22 101 H 16 102/73 98 01/30/25 11:40 105 H 24 86/65 98 01/30/25 11:19 97.7 F 104 H 20 109/86 95 Intake and Output 01/30/25 01/31/25 01/31/25 22:59 06:59 14:59 Intake Total 540 240 Output Total 150 Balance 540 90 Intake: Intake, IV Titration 300 Amount Sodium Chloride 0.9% 1, 300 000 ml @ 80 mls/hr IV . [id number] PENDING SALE TO [facility] Rx#:[id number] Oral 240 240 Output: Urine 150 Other: Voiding Method Indwelling Catheter Indwelling Catheter Weight 100.5 kg Results CBC & Chem 7: 01/31/25 05:50 01/31/25 05:50 Labs: Abnormal Lab Results - Last 24 Hours (Table) 01/30/25 01/30/25 01/30/25 Range/Units 11:27 11:27 11:27 WBC 25.36 H (4.50-10.00) 10*3/uL Hgb 15.7 H (12.0-15.0) g/dL Hct 47.0 H (37.2-46.3) % MCH (27.0-32.0) pg Immature Gran # 0.23 H (0.00-0.04) 10*3/uL Neutrophils # 23.27 H (1.80-7.70) 10*3/uL Lymphocytes # 0.52 L (0.90-5.00) 10*3/uL Monocytes # 1.30 H (0.20-1.00) 10*3/uL Eosinophils # 0.00 L (0.04-0.35) 10*3/uL Sodium 136 L (137-145) mmol/L Chloride 96 L (98-107) mmol/L Carbon Dioxide 20 L (22-30) mmol/L BUN 33 H (7-17) mg/dL Creatinine 1.38 H (0.52-1.04) mg/dL Glucose 162 H (74-99) mg/dL Plasma Lactic Acid Ajay 4.6 H* (0.7-2.0) mmol/L Calcium 11.1 H (8.4-10.2) mg/dL Phosphorus 4.6 H (2.5-4.5) mg/dL Magnesium 2.6 H (1.6-2.3) mg/dL Total Bilirubin 1.4 H (0.2-1.3) mg/dL AST 514 H (14-36) U/L ALT 133 H (4-34) U/L Creatine Kinase 39483 H* (30-135) U/L Troponin I (0.000-0.034) ng/mL Total Protein 8.6 H (6.3-8.2) g/dL Albumin 5.1 H (3.5-5.0) g/dL Urine Appearance (Clear) Urine Protein (Negative) Urine Blood (Negative) Ur Leukocyte Esterase (Negative) Urine RBC (0-5) /hpf Urine WBC (0-5) /hpf Urine Bacteria (None) /hpf Hyaline Casts (0-2) /lpf Urine Mucus (None) /hpf Urine Yeast (Budding) (None) /hpf 01/30/25 01/30/25 01/30/25 Range/Units 11:27 11:47 19:23 WBC 20.46 H (4.50-10.00) 10*3/uL Hgb 15.6 H (12.0-15.0) g/dL Hct (37.2-46.3) % MCH 32.6 H (27.0-32.0) pg Immature Gran # 0.10 H (0.00-0.04) 10*3/uL Neutrophils # 18.23 H (1.80-7.70) 10*3/uL Lymphocytes # 0.81 L (0.90-5.00) 10*3/uL Monocytes # 1.28 H (0.20-1.00) 10*3/uL Eosinophils # 0.00 L (0.04-0.35) 10*3/uL Sodium (137-145) mmol/L Chloride (98-107) mmol/L Carbon Dioxide (22-30) mmol/L BUN (7-17) mg/dL Creatinine (0.52-1.04) mg/dL Glucose (74-99) mg/dL Plasma Lactic Acid Ajay (0.7-2.0) mmol/L Calcium (8.4-10.2) mg/dL Phosphorus (2.5-4.5) mg/dL Magnesium (1.6-2.3) mg/dL Total Bilirubin (0.2-1.3) mg/dL AST (14-36) U/L ALT (4-34) U/L Creatine Kinase (30-135) U/L Troponin I 6.070 H* (0.000-0.034) ng/mL Total Protein (6.3-8.2) g/dL Albumin (3.5-5.0) g/dL Urine Appearance Cloudy H (Clear) Urine Protein 1+ H (Negative) Urine Blood Large H (Negative) Ur Leukocyte Esterase Large H (Negative) Urine RBC 13 H (0-5) /hpf Urine WBC >182 H (0-5) /hpf Urine Bacteria Rare H (None) /hpf Hyaline Casts 10 H (0-2) /lpf Urine Mucus Rare H (None) /hpf Urine Yeast (Budding) Occasional H (None) /hpf 01/31/25 01/31/25 01/31/25 Range/Units 05:50 05:50 05:50 WBC 20.19 H 23.04 H (4.50-10.00) 10*3/uL Hgb (12.0-15.0) g/dL Hct (37.2-46.3) % MCH (27.0-32.0) pg Immature Gran # 0.09 H 0.11 H (0.00-0.04) 10*3/uL Neutrophils # 17.91 H 20.38 H (1.80-7.70) 10*3/uL Lymphocytes # (0.90-5.00) 10*3/uL Monocytes # 1.15 H 1.38 H (0.20-1.00) 10*3/uL Eosinophils # 0.00 L (0.04-0.35) 10*3/uL Sodium 131 L (137-145) mmol/L Chloride 97 L (98-107) mmol/L Carbon Dioxide 17 L (22-30) mmol/L BUN 55 H (7-17) mg/dL Creatinine 2.30 H (0.52-1.04) mg/dL Glucose 131 H (74-99) mg/dL Plasma Lactic Acid Ajay (0.7-2.0) mmol/L Calcium (8.4-10.2) mg/dL Phosphorus (2.5-4.5) mg/dL Magnesium 2.8 H (1.6-2.3) mg/dL Total Bilirubin (0.2-1.3) mg/dL AST 2062 H (14-36) U/L ALT 636 H (4-34) U/L Creatine Kinase (30-135) U/L Troponin I (0.000-0.034) ng/mL Total Protein 6.0 L (6.3-8.2) g/dL Albumin 3.3 L (3.5-5.0) g/dL Urine Appearance (Clear) Urine Protein (Negative) Urine Blood (Negative) Ur Leukocyte Esterase (Negative) Urine RBC (0-5) /hpf Urine WBC (0-5) /hpf Urine Bacteria (None) /hpf Hyaline Casts (0-2) /lpf Urine Mucus (None) /hpf Urine Yeast (Budding) (None) /hpf
--- NOTE | 2025-01-31 15:47 | P.PN ---
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 She has a past medical history of hypertension. Patient apparently has had complaints of weakness that were generalized and going on for some time. She had contacted her physician and physical therapy was set up. Her family noticed that over the past week she has had significant weakness where she sometimes drags her right leg. Patient apparently had a fall getting out of bed or into bed. Patient states she blacked out. Patient was found on the floor and her right leg was wedged and causing her pain now. Blood pressure 99/42, heart rate 101 Dr. Chung discussed findings and recommendations for cardiac catheterization today which patient is agreeable to move forward with today. Blood pressure 99/42, heart rate 91, pulse ox 96% on 2 L nasal cannula. -EKG: Sinus rhythm with ST elevation and V3 does not meet criteria for acute ST elevated ME -Chest x-ray: Possible fluid overload state. -Laboratory studies: Troponin 6.07. proBNP 1540. CK 44,157. Magnesium 2.6, total bilirubin 1.4, AST 514, ALT 133. Lactic acid initially 4.6 and repeat 1.6. BUN 33 and creatinine 1.38. Sodium 136. WBC 25.3, hemoglobin 15.7 -Home cardiac medications: Not available at the time of this dictation. 01/31 patient seen and examined. Patient underwent a heart catheterization yesterday which showed normal coronary arteries and LVEDP 12. She is somewhat altered and only minimally responsive. She had a more significant episode of hypotension with blood pressures in the 60s systolic and has had acute kidney injury. CPK has increased as well up to 140,000. Not making much urine. She was given fluid boluses with improvement in blood pressure with blood pressure 109/61. Preliminary echo report shows EF 15%. Physical examination: Gen: This is 79-year-old female in no acute respiratory distress. VS: reviewed HEENT: Head has laceration to the right eyelid, normocephalic. Pupils equal, round. Sclerae is anicteric. Soft c-collar in place. NECK: Supple. No JVD. LUNGS: Clear to auscultation. No wheezes or rhonchi. No intercostal retractions. HEART: Regular rate and rhythm. No murmur. ABDOMEN: Soft No tenderness. EXTREMITIES: No pedal edema. No calf tenderness. NEUROLOGICAL: Patient is awake, alert and oriented x3. Assessment: Syncopal episode NSTEMI Lactic acidosis Closed head injury Hypotensive Acute kidney injury Rhabdomyolysis Leukocytosis Elevated liver function tests nonischemic cardiomyopathy, likely Takotsubo's cardiomyopathy Plan: patient with kidney injury, worsening hypotension. Echo showed severe decreased EF with what appears to be some basal sparing and likely consistent with Takotsubo's cardiomyopathy. Continue with IV fluids with LVEDP yesterday 12. Beta hira if blood pressure improves however hold for now. Prognosis guarded. Objective - Vital Signs Vital signs: Vital Signs Temp 98.5 F 01/31/25 12:00 Pulse 82 01/31/25 15:15 Resp 18 01/31/25 15:15 BP 104/57 01/31/25 15:15 Pulse Ox 99 01/31/25 15:15 FiO2 Intake & Output 01/30/25 01/31/25 01/31/25 18:59 06:59 18:59 Intake Total 450 201 1985 Output Total 150 125 Balance 768 200 5264 Weight 104.326 kg 100.5 kg Intake: IV 100 1000 Sodium Chloride 0.9% 1, 1000 000 ml @ 999 mls/hr IV . Q1H1M ONE Rx#:[id number] Intake, IV Titration 300 600 Amount Dextrose 5% in Water 1, 500 000 ml @ 100 mls/hr IV . [id number] D[facility]UV with Sodium Bicarb (1 Meq/ml) 150 ml Rx#:[id number] Sodium Chloride 0.9% 1, 300 000 ml @ 80 mls/hr IV . [id number] D[facility] Rx#:[id number] Sodium Chloride 0.9% 1, 50 000 ml @ 999 mls/hr IV . Q1H1M ONE Rx#:[id number] cefTRIAXone 2 gm In 50 Sodium Chloride 0.9% 50 ml @ 100 mls/hr IVPB Q24H D[facility] Rx#:[id number] Oral 480 Output: Urine 150 125 Other: Voiding Method Indwelling Catheter Indwelling Catheter - Labs CBC & Chem 7: 01/31/25 05:50 01/31/25 05:50 Labs: Abnormal Lab Results - Last 24 Hours (Table) 01/30/25 01/31/25 01/31/25 Range/Units 19:23 05:50 05:50 WBC 20.46 H 20.19 H (4.50-10.00) 10*3/uL Hgb 15.6 H (12.0-15.0) g/dL MCH 32.6 H (27.0-32.0) pg Immature Gran # 0.10 H 0.09 H (0.00-0.04) 10*3/uL Neutrophils # 18.23 H 17.91 H (1.80-7.70) 10*3/uL Lymphocytes # 0.81 L (0.90-5.00) 10*3/uL Monocytes # 1.28 H 1.15 H (0.20-1.00) 10*3/uL Eosinophils # 0.00 L (0.04-0.35) 10*3/uL Sodium 131 L (137-145) mmol/L Chloride 97 L (98-107) mmol/L Carbon Dioxide 17 L (22-30) mmol/L BUN 55 H (7-17) mg/dL Creatinine 2.30 H (0.52-1.04) mg/dL Glucose 131 H (74-99) mg/dL POC Glucose (mg/dL) (70-110) mg/dL Magnesium 2.8 H (1.6-2.3) mg/dL AST 2062 H (14-36) U/L ALT 636 H (4-34) U/L Creatine Kinase (30-135) U/L Total Protein 6.0 L (6.3-8.2) g/dL Albumin 3.3 L (3.5-5.0) g/dL 01/31/25 01/31/25 01/31/25 Range/Units 05:50 09:56 10:38 WBC 23.04 H (4.50-10.00) 10*3/uL Hgb (12.0-15.0) g/dL MCH (27.0-32.0) pg Immature Gran # 0.11 H (0.00-0.04) 10*3/uL Neutrophils # 20.38 H (1.80-7.70) 10*3/uL Lymphocytes # (0.90-5.00) 10*3/uL Monocytes # 1.38 H (0.20-1.00) 10*3/uL Eosinophils # 0.00 L (0.04-0.35) 10*3/uL Sodium (137-145) mmol/L Chloride (98-107) mmol/L Carbon Dioxide (22-30) mmol/L BUN (7-17) mg/dL Creatinine (0.52-1.04) mg/dL Glucose (74-99) mg/dL POC Glucose (mg/dL) 148 H 132 H (70-110) mg/dL Magnesium (1.6-2.3) mg/dL AST (14-36) U/L ALT (4-34) U/L Creatine Kinase (30-135) U/L Total Protein (6.3-8.2) g/dL Albumin (3.5-5.0) g/dL 01/31/25 Range/Units 12:54 WBC (4.50-10.00) 10*3/uL Hgb (12.0-15.0) g/dL MCH (27.0-32.0) pg Immature Gran # (0.00-0.04) 10*3/uL Neutrophils # (1.80-7.70) 10*3/uL Lymphocytes # (0.90-5.00) 10*3/uL Monocytes # (0.20-1.00) 10*3/uL Eosinophils # (0.04-0.35) 10*3/uL Sodium (137-145) mmol/L Chloride (98-107) mmol/L Carbon Dioxide (22-30) mmol/L BUN (7-17) mg/dL Creatinine (0.52-1.04) mg/dL Glucose (74-99) mg/dL POC Glucose (mg/dL) (70-110) mg/dL Magnesium (1.6-2.3) mg/dL AST (14-36) U/L ALT (4-34) U/L Creatine Kinase [id number] H* (30-135) U/L Total Protein (6.3-8.2) g/dL Albumin (3.5-5.0) g/dL
--- NOTE | 2025-01-31 17:58 | CA ---
Transthoracic Echo Report Name: Sarina Ndiaye Age: 79 Gender: F : 1945 Exam Date: 01/30/2025 15:11 Exam Location: [facility] Ht (in): 66 Wt (lb): 230 Ordering Physician: Denisha Estevez Attending/Referring Phys: [id number], Zenaida Plating Foreman Carolina Elizabeth RDCS Procedure CPT: Indications: LVF,NSTEMI Cardiac Hx: Technical Quality: Good Contrast 1: Definity Total Dose (mL): 2 Contrast 2: Total Dose (mL): MEASUREMENTS (Male / Female) Normal Values 2D ECHO LV Diastolic Diameter PLAX 4.8 cm 4.2 - 5.9 / 3.9 - 5.3 cm LV Systolic Diameter PLAX 4.6 cm IVS Diastolic Thickness 0.9 cm 0.6 - 1.0 / 0.6 - 0.9 cm LVPW Diastolic Thickness 0.8 cm 0.6 - 1.0 / 0.6 - 0.9 cm LV Relative Wall Thickness 0.4 RV Internal Dim ED PLAX 1.8 cm LA Systolic Diameter LX 3.7 cm 3.0 - 4.0 / 2.7 - 3.8 cm LV Diastolic Volume MOD 4C 108.3 cm??? LV Systolic Volume MOD 4C 84.6 cm??? LV Ejection Fraction MOD 4C 21.9 % LV Cardiac Index MOD 4C 960.8 cm???/min???m??? LV Diastolic Length 4C 7.5 cm LV Systolic Length 4C 7.5 cm M-MODE Aortic Root Diameter MM 3.3 cm LA Systolic Diameter MM 2.9 cm LA Ao Ratio MM 0.9 AV Cusp Separation MM 1.9 cm DOPPLER MV Area PHT 3.4 cm??? Mitral E Point Velocity 108.5 cm/s Mitral A Point Velocity 0.6 cm/s Mitral E to A Ratio 185.4 MV Deceleration Time 222.7 ms TR Peak Velocity 224.8 cm/s TR Peak Gradient 20.2 mmHg Right Ventricular Systolic Press 24.9 mmHg FINDINGS Left Ventricle Left ventricular ejection fraction is estimated at 10-15 %. Left ventricular wall thickness normal. Mild left ventricular dilatation. Severely reduced global left ventricular systolic function. Right Ventricle Mild right ventricular dilatation. Reduced right ventricular global systolic function. Right ventricular systolic pressure within normal limits. Right Atrium Normal right atrial size. Left Atrium Mild left atrial dilatation. Mitral Valve Mitral valve thickened. [id number] mitral regurgitation. No mitral stenosis. Aortic Valve Trileaflet aortic valve. Trace aortic regurgitation. No aortic stenosis. Tricuspid Valve Structurally normal tricuspid valve. Moderate tricuspid regurgitation. No tricuspid stenosis. Pulmonic Valve Structurally normal pulmonic valve. Mild pulmonic regurgitation. No pulmonic stenosis. Pericardium No pericardial effusion. Left pleural effusion. Aorta Normal size aortic root and proximal ascending aorta. CONCLUSIONS LVEF 10 to 15% Severely dilated LV cavity. Severe LV global systolic dysfunction. No evidence of LV thrombus RV appears dilated with reduced systolic function. Mild LA dilatation with elevated LA filling pressures Moderate mitral regurgitation No pericardial effusion. Evidence of left pleural effusion seen Previewed by: Dr Geovani Herrera (Electronically Signed) Final Date: 31 January 2025 17:58
--- NOTE | 2025-01-31 19:58 | XR ---
EXAMINATION TYPE: XR chest 1V portable DATE OF EXAM: 01/31/2025 7:28 PM COMPARISON: Chest radiographs from 01/31/2025 CLINICAL INDICATION: Female, 79 years old with history of post central line insertion; [facility] TECHNIQUE: XR chest 1V portable Frontal view of the chest. FINDINGS: Lungs/Pleura: There is no evidence of pleural effusion, focal consolidation, or pneumothorax. Pulmonary vascularity: Unremarkable. Heart/mediastinum: Cardiomediastinal silhouette is unremarkable. Musculoskeletal: No acute osseous pathology. Left shoulder arthroplasty appears intact. Other findings: None Lines/Tubes:Left central venous catheter with distal tip at the cavoatrial junction. IMPRESSION: Hazy airspace opacities throughout left lung not significantly changed chronic left-sided pulmonary e juan. [facility], , 01/31/2025 7:56 PM
[2025-01-31] MEDS: HEPARIN SODIUM,PORCINE 5,000 UNIT/ML 1 ML VIAL SQ SCH (21:19)
[2025-01-31] MEDS: SODIUM CHLORIDE 0.9% 1,000 ML IV SCH (21:42)
[2025-02-01] MEDS: NOREPINEPHRINE 8 MG in SODIUM CHLORIDE 0.9% 250 ML IV SCH (04:58)
--- NOTE | 2025-02-01 05:44 | XR ---
EXAMINATION TYPE: XR chest 1V portable DATE OF EXAM: 02/01/2025 CLINICAL INDICATION: Female, 79 years old with history of CHF; fluid overload, progress study. TECHNIQUE: Single AP portable semiupright view of the chest is obtained. COMPARISON: Chest x-ray from one day earlier FINDINGS: Stable left-sided central venous catheter. There is persistent central vascular congestion. No pleural effusion or pneumothorax seen bilaterally . Cardiac silhouette size is stable and upper limits of normal. Advanced degenerative change right gl enohumeral joint is redemonstrated. Subluxation is redemonstrated. IMPRESSION: Suspect continued fluid overload state. Correlate clinically. No significant change from one day earlier. [facility], , 02/01/2025 5:41 AM
[2025-02-01 07:07] LABS: HCT 37.7 % (37.2-46.3); HGB 12.6 g/dL (12.0-15.0); MCH 31.7 pg (27.0-32.0); MCHC 33.4 g/dL (32.0-37.0); MCV 94.7 fL (80.0-97.0); Mean Platelet Volume 10.6 fL (9.5-12.2); Platelet Count 208 10*3/uL (140-440); RBC 3.98 10*6/uL (4.10-5.20); RDW 13.7 % (11.5-14.5); WBC 19.13 10*3/uL (4.50-10.00)
--- NOTE | 2025-02-01 07:26 | US ---
EXAMINATION TYPE: US abdomen limited DATE OF EXAM: 02/01/2025 COMPARISON: Renal US 05/01/2024 ABD US 11/29/2018 CLINICAL INDICATION: Female, 79 years old with history of elevated liver enzymes; TECHNIQUE: Grayscale and color Doppler imaging of the right upper quadrant was performed. FINDINGS: EXAM MEASUREMENTS: Liver Length: 17.1 cm Gallbladder Wall: Surgically absent cm CBD: 0.3 cm Right Kidney: 11.6 x 6.5 x 6.1 cm PROJECTION ENGINEER NOTES: Pancreas: Echogenic with lobulated boarder suspect atrophy Liver: wnl Gallbladder: Surgically absent Evidence for sonographic Boateng's sign: No CBD: wnl Right Kidney: wnl IMPRESSION: No intrahepatic mass or intrahepatic ductal dilatation. [facility], , 02/01/2025 7:23 AM
[2025-02-01 07:27] LABS: Anion Gap 14 mmol/L; Blood Urea Nitrogen 73 mg/dL (7-17); Calcium 7.2 mg/dL (8.4-10.2); Carbon Dioxide 23 mmol/L (22-30); Chloride 96 mmol/L (98-107); Glucose 118 mg/dL (74-99); Magnesium 2.6 mg/dL (1.6-2.3); Potassium 4.4 mmol/L (3.5-5.1); Sodium 133 mmol/L (137-145)
[2025-02-01 07:32] LABS: African American GFR (CKD) 16 (>60 ml/min/1.73 sqM); Non-African American GFR(CKD) 14 (>60 ml/min/1.73 sqM)
[2025-02-01 08:53] LABS: Band Neutrophils % 6 %; Monocytes # (M) 1.15 k/uL (0-1.0); Neutrophils # (M) 15.68 k/uL (1.3-7.7); Neutrophils % (M) 76 %; Nucleated Red Blood Cells 0 /100 WBC (0-0); Total Cells Counted 100
[2025-02-01 08:55] LABS: RBC Morphology Normal
[2025-02-01] MEDS: SODIUM CHLORIDE 0.9% 1,000 ML IV ONE (10:04)
--- NOTE | 2025-02-01 12:12 | P.PN ---
Subjective Progress Note Date: 02/01/25 The patient was seen and evaluated this morning. Hemodynamically the patient does have soft blood pressure. The heart catheterization showed no evidence of obstructive CAD. The echo showed severe cardiomyopathy with moderate mitral regurgitation and no evidence of any LV thrombus. The kidney function is worse today than yesterday. CK continues to be severely elevated. The physical examination is remarkable for regular rhythm with diminished breathing sounds bilaterally and mild bilateral lower extremities edema. Chest x-ray was reviewed and showed evidence of fluid overload versus bilateral pneumonia. Assessment: Syncopal episode NSTEMI Lactic acidosis Closed head injury Hypotensive Acute kidney injury Rhabdomyolysis Leukocytosis Elevated liver function tests nonischemic cardiomyopathy, likely Takotsubo's cardiomyopathy Plan: Continue the current medical regimen Consider starting the patient on cardiomyopathy medications once the pressure permitting and once the kidney function also improving Consider mechanical support if needed Follow-up with the patient Objective - Vital Signs Vital signs: Vital Signs Temp 97.6 F 02/01/25 11:00 Pulse 92 02/01/25 11:00 Resp 25 H 02/01/25 11:00 BP 98/51 02/01/25 11:00 Pulse Ox 98 02/01/25 11:00 FiO2 2 01/31/25 23:15 Intake & Output 01/31/25 02/01/25 02/01/25 18:59 06:59 18:59 Intake Total 2420 1353 1175 Output Total 145 20 60 Balance 2275 1333 1115 Weight 103.8 kg Intake: IV 1500 33 1065 Sodium Chloride 0.9% 1, 1500 1000 000 ml @ 999 mls/hr IV . Q1H1M ONE Rx#:[id number] cefTRIAXone 1 gm In 50 Sodium Chloride 0.9% 50 ml @ 100 mls/hr IVPB Q24HR DHRUV Rx#:[id number] pressure bag 33 15 Intake, IV Titration 920 1320 110 Amount Dextrose 5% in Water 1, 800 1200 100 000 ml @ 100 mls/hr IV . [id number] DHRUV with Sodium Bicarb (1 Meq/ml) 150 ml Rx#:[id number] Sodium Chloride 0.9% 1, 70 120 10 000 ml @ 999 mls/hr IV . Q1H1M ONE Rx#:[id number] cefTRIAXone 2 gm In 50 Sodium Chloride 0.9% 50 ml @ 100 mls/hr IVPB Q24H DHRUV Rx#:[id number] Output: Urine 145 20 60 Uretheral (Griffiths) 20 Other: Voiding Method Indwelling Catheter Indwelling Catheter Indwelling Catheter - Labs CBC & Chem 7: 02/01/25 06:30 02/01/25 06:30 Labs: Abnormal Lab Results - Last 24 Hours (Table) 01/31/25 02/01/25 02/01/25 Range/Units 12:54 06:30 06:30 WBC 19.13 H (4.50-10.00) 10*3/uL RBC 3.98 L (4.10-5.20) 10*6/uL Immature Gran # 0.11 H (0.00-0.04) 10*3/uL Neutrophils # (Manual) 15.68 H (1.3-7.7) k/uL Monocytes # (Manual) 1.15 H (0-1.0) k/uL Sodium 133 L (137-145) mmol/L Chloride 96 L (98-107) mmol/L BUN 73 H (7-17) mg/dL Creatinine 3.05 H (0.52-1.04) mg/dL Glucose 118 H (74-99) mg/dL Calcium 7.2 L (8.4-10.2) mg/dL Magnesium 2.6 H (1.6-2.3) mg/dL Creatine Kinase 557219 H* 17003 H* (30-135) U/L
--- NOTE | 2025-02-01 12:21 | US ---
EXAMINATION TYPE: US kidneys/renal and bladder DATE OF EXAM: 02/01/2025 COMPARISON: Prior renal ultrasound May 28, 2024 CLINICAL INDICATION: Female, 79 years old with history of CATHIE; Abnormal labs. Portable ICU patient. Bladder antony. TECHNIQUE: Grayscale imaging of the bilateral kidneys and urinary bladder: FINDINGS: EXAM MEASUREMENTS: Right Kidney: 10.1 x 4.5 x 3.9 cm Left Kidney: 8.6 x 4.5 x 5.1 cm Right Kidney: Prominent renal pelvis Left Kidney: No prominent hydronephrosis or masses seen, limited visualization Bladder: Not visualized Suboptimal study. No nephrolithiasis is seen. No masses are identified. The urinary bladder is dec ompressed by Antony. IMPRESSION: Suboptimal study. Possible mild right-sided hydronephrosis versus extrarenal pelvis. No l eft-sided hydronephrosis. [facility], , 02/01/2025 12:19 PM
[2025-02-01] MEDS: FUROSEMIDE 10 MG/ML 10 ML VIAL IV STA (13:13)
--- NOTE | 2025-02-01 14:55 | P.NPCON ---
History of Present Illness - Reason for Consult acute renal failure - History of Present Illness Patient is an 79-year-old female who was admitted to the hospital with history of fall due to weakness. She had been on the floor for about 8 hours. Patient was noted to have significant rhabdomyolysis with CK level at [id number] Serum creatinine was 1.3 on admission and increased to 2.3 yesterday. Severe hypotension noted with systolic blood pressure as low as 66 mmHg. Since troponin was elevated patient was also taken to cardiac catheterization and she was found to have normal coronaries. It appears that patient did not receive any fluids initially until she came to the ICU where she was resuscitated with about 3 L of fluid boluses. Urine output remains negligible with 0 cc recorded for several hours. UA suggestive of UTI and patient has been started on IV antibiotics. She is also maintained on Levophed. Past Medical History Past Medical History: Hypertension Additional Past Medical History / Comment(s): neuropathy, chronic back issues History of Any Multi-Drug Resistant Organisms: None Reported Past Surgical History: Orthopedic Surgery Past Psychological History: No Psychological Hx Reported Smoking Status: Never smoker Past Alcohol Use History: None Reported Past Drug Use History: None Reported Medications and Allergies Home Medications Medication Instructions Recorded Confirmed Type ALPRAZolam [Xanax] 0.25 mg PO BID 01/30/25 01/30/25 History Acetaminophen/Diphenhydramine 1 tab PO HS 01/30/25 01/30/25 History [Tylenol PM 500-25mg] Ascorbic Acid [Vitamin C] 500 mg PO DAILY 01/30/25 01/30/25 History Baclofen 10 mg PO BID 01/30/25 01/30/25 History Cholecalciferol [Vitamin D3 (125 125 mcg PO DAILY 01/30/25 01/30/25 History Mcg = 5000 Iu)] Cyanocobalamin (Vitamin B-12) 1,000 mcg PO DAILY 01/30/25 01/30/25 History [Vitamin B-12] Diclofenac Sodium Gel [Voltaren 1% 1 applic TOPICAL BID 01/30/25 01/30/25 History Gel] Famotidine [Pepcid] 20 mg PO DAILY 01/30/25 01/30/25 History Fesoterodine Fumarate 8 mg PO HS 01/30/25 01/30/25 History [Fesoterodine Fumarate ER] Folic Acid 0.4 mg PO DAILY 01/30/25 01/30/25 History Gabapentin [Neurontin] 600 mg PO BID 01/30/25 01/30/25 History HYDROcodone/APAP 10-325MG [[place] 1 tab PO Q6HR PRN 01/30/25 01/30/25 History 10-325] Hydrocortisone Cream 1 applic TOPICAL DAILY PRN 01/30/25 01/30/25 History [Hydrocortisone 2.5% Cream] Latanoprost [Latanoprost 0.005%] 1 drop BOTH EYES HS 01/30/25 01/30/25 History Lovastatin [Mevacor] 20 mg PO W/SUPPER 01/30/25 01/30/25 History Magnesium Oxide [Magnesium] 500 mg PO DAILY 01/30/25 01/30/25 History Naproxen Sodium [Aleve] 220 mg PO BID 01/30/25 01/30/25 History Nystatin 100,000 Unit/gm Powd 1 applic TOPICAL BID 01/30/25 01/30/25 History [Mycostatin Powder] Olopatadine HCl [Pataday] 1 drop BOTH EYES DAILY 01/30/25 01/30/25 History Selenomethionine [Selenium] 200 mcg PO DAILY 01/30/25 01/30/25 History Theraworx Muscle And Spasm Relief 1 applic TOPICAL HS 01/30/25 01/30/25 History Foam Triamcinolone 0.5% Cream [Kenalog 1 applic TOPICAL BID 01/30/25 01/30/25 History 0.5% Cream] Ubidecarenone [Co Q-10] 30 mg PO DAILY 01/30/25 01/30/25 History Zinc 15mg 1 tab PO DAILY 01/30/25 01/30/25 History hydroCHLOROthiazide [Hydrodiuril] 25 mg PO DAILY 01/30/25 01/30/25 History Allergies Allergy/AdvReac Type Severity Reaction Status Date / Time No Known Allergies Allergy Verified 08/08/24 12:20 Physical Exam Vitals: Vital Signs Temp Pulse Pulse Resp BP BP Pulse Ox 02/01/25 13:00 93 21 128/58 96 02/01/25 12:00 92 18 109/49 97 02/01/25 11:00 97.6 F 92 25 H 98/51 98 02/01/25 10:00 96 27 H 105/53 96 02/01/25 09:00 94 23 109/57 98 06 08:54 97 02/01/25 08:00 97.7 F 93 26 H 101/50 99 06 07:30 93 20 100/56 97 02/01/25 07:00 98 26 H 109/53 99 02/01/25 06:30 98 22 110/56 99 02/01/25 06:00 94 23 99/48 98 06 05:30 92 19 97/50 97 02/01/25 05:00 97 24 102/55 98 02/01/25 04:30 28 H 104/58 98 02/01/25 04:00 98.1 F 96 24 105/63 99 02/01/25 03:30 92 19 102/56 100 02/01/25 03:15 95 23 112/58 99 02/01/25 03:00 93 24 106/52 99 02/01/25 02:45 95 21 101/52 98 02/01/25 02:30 96 23 97/50 98 02/01/25 02:15 92 21 97/48 100 02/01/25 02:00 93 21 100/53 99 02/01/25 01:45 95 22 103/59 100 02/01/25 01:30 33 H 107/52 98 02/01/25 01:15 99 27 H 108/59 99 02/01/25 01:00 95 24 108/43 99 02/01/25 00:45 95 24 110/57 99 02/01/25 00:30 93 24 103/56 99 02/01/25 00:23 94 24 103/56 98 02/01/25 00:15 94 24 107/56 99 02/01/25 00:00 98.9 F 96 17 102/50 98 05 23:45 96 24 110/45 99 05 23:30 94 17 110/63 99 0605 23:15 16 105/74 99 01/31/25 23:00 96 21 101/89 100 05 22:45 95 18 106/59 100 01/31/25 22:30 93 22 71/45 100 0525 22:15 91 20 94/54 100 05 22:00 95 24 135/104 100 01/31/25 21:45 23 96/54 98 06/05/25 21:30 92 12 106/85 89 L 01/31/25 21:15 93 23 114/60 97 01/31/25 21:00 93 23 104/65 99 01/31/25 20:45 92 21 102/63 98 01/31/25 20:30 92 13 105/59 99 01/31/25 20:15 89 18 104/64 99 01/31/25 20:00 92 22 106/56 100 01/31/25 19:45 92 22 101/66 98 01/31/25 19:30 92 22 116/64 99 01/31/25 19:15 87 20 112/59 100 01/31/25 19:00 89 15 115/64 100 01/31/25 18:45 87 20 112/90 98 01/31/25 18:30 89 14 100/71 100 01/31/25 18:15 91 23 109/57 100 01/31/25 18:00 90 90 19 103/65 103/65 100 01/31/25 17:45 90 23 97/59 100 01/31/25 17:30 89 22 100/63 100 01/31/25 17:15 87 23 101/65 100 01/31/25 17:00 87 21 105/60 100 01/31/25 16:45 86 19 101/59 99 01/31/25 16:30 87 21 111/68 99 01/31/25 16:15 89 21 114/63 99 01/31/25 16:00 96.8 F L 86 17 116/57 99 01/31/25 15:45 87 22 109/61 99 01/31/25 15:30 87 18 103/62 100 01/31/25 15:15 82 18 104/57 99 01/31/25 15:00 88 19 110/56 99 01/31/25 14:45 89 22 104/60 100 FiO2 02/01/25 13:00 02/01/25 12:00 02/01/25 11:00 02/01/25 10:00 02/01/25 09:00 02/01/25 08:54 02/01/25 08:00 02/01/25 07:30 02/01/25 07:00 02/01/25 06:30 02/01/25 06:00 02/01/25 05:30 02/01/25 05:00 02/01/25 04:30 02/01/25 04:00 02/01/25 03:30 02/01/25 03:15 02/01/25 03:00 02/01/25 02:45 02/01/25 02:30 02/01/25 02:15 02/01/25 02:00 02/01/25 01:45 02/01/25 01:30 02/01/25 01:15 02/01/25 01:00 02/01/25 00:45 02/01/25 00:30 02/01/25 00:23 02/01/25 00:15 02/01/25 00:00 01/31/25 23:45 01/31/25 23:30 01/31/25 23:15 2 01/31/25 23:00 2 01/31/25 22:45 2 01/31/25 22:30 2 01/31/25 22:15 2 01/31/25 22:00 2 01/31/25 21:45 2 01/31/25 21:30 01/31/25 21:15 01/31/25 21:00 01/31/25 20:45 01/31/25 20:30 01/31/25 20:15 01/31/25 20:00 01/31/25 19:45 01/31/25 19:30 01/31/25 19:15 01/31/25 19:00 01/31/25 18:45 01/31/25 18:30 01/31/25 18:15 01/31/25 18:00 01/31/25 17:45 01/31/25 17:30 01/31/25 17:15 01/31/25 17:00 01/31/25 16:45 01/31/25 16:30 01/31/25 16:15 01/31/25 16:00 01/31/25 15:45 01/31/25 15:30 01/31/25 15:15 01/31/25 15:00 01/31/25 14:45 Intake and Output 01/31/25 02/01/25 02/01/25 22:59 06:59 14:59 Intake Total 3708 904 1781 Output Total 20 20 60 Balance 2359 884 1721 Intake: IV 1509 24 1671 Dextrose 5% in Water 1, 600 000 ml @ 100 mls/hr IV . [id number] DHRUV with Sodium Bicarb (1 Meq/ml) 150 ml Rx#:[id number] Sodium Chloride 0.9% 1, 1500 1000 000 ml @ 999 mls/hr IV . Q1H1M ONE Rx#:[id number] cefTRIAXone 1 gm In 50 Sodium Chloride 0.9% 50 ml @ 100 mls/hr IVPB Q24HR DHRUV Rx#:[id number] pressure bag 9 24 21 Intake, IV Titration 870 880 110 Amount Dextrose 5% in Water 1, 800 800 100 000 ml @ 100 mls/hr IV . [id number] DHRUV with Sodium Bicarb (1 Meq/ml) 150 ml Rx#:[id number] Sodium Chloride 0.9% 1, 70 80 10 000 ml @ 999 mls/hr IV . Q1H1M ONE Rx#:[id number] Output: Urine 20 20 60 Uretheral (Griffiths) 20 Other: Voiding Method Indwelling Catheter Indwelling Catheter Indwelling Catheter Weight 103.8 kg Patient is comfortable, no acute distress Bruising noted on right eyelid Examination of the heart S1 and S2 Examination of the lungs bilateral breath sounds are heard Abdomen is soft nontender Examination of lower extremities shows no significant edema [employer] exam shows patient is moving all 4 extremities Results - Lab Results Most recent lab results Calcium 7.2 mg/dL (8.4-10.2) L 02/01/25 06:30 Phosphorus 4.6 mg/dL (2.5-4.5) H 01/30/25 11:27 Magnesium 2.6 mg/dL (1.6-2.3) H 02/01/25 06:30 02/01/25 06:30 02/01/25 06:30 Assessment and Plan Assessment: 1. Acute kidney injury, ATN, oliguric secondary to hypotension and rhabdomyolysis. Patient also received IV contrast for cardiac catheterization which will exaggerate the acute kidney injury over the next 2 to 3 days. Currently maintained on IV hydration. UA suggestive of UTI. Check ultrasound of the kidneys 2. Severe rhabdomyolysis status post fall 3. Anion gap metabolic acidosis associated with acute kidney injury and hypotension 4. UTI maintained on antibiotics. Urine culture is pending. 5. Mental status changes secondary to sepsis 6. Cardiomyopathy with ejection fraction of 10 to 15% Plan: Continue with IV bicarb and continue with fluid resuscitation. IV Lasix x 1 later on today to help with urine Continue to avoid nephrotoxic agents Repeat labs in a.m. Thank you for the consultation. I will continue to follow the patient with you during her hospitalization.
--- NOTE | 2025-02-01 15:32 | P.PN ---
Subjective Progress Note Date: 02/01/25 This is a 79-year-old female patient who originally came into the hospital because of a fall, acute rhabdomyolysis and acute kidney injury. The patient was noted to be extremely weak and she fell while trying to get out of her bed. She was found on the floor and for that reason the patient was brought into the emergency department. The initial blood work showed acute rhabdomyolysis with a CPK level of 44,001 157. The patient had an acute kidney injury with a creatinine of 1.38 note that her baseline creatinine has been within normal limits. Initial lactic acid level was 4.6. proBNP level was 1540. Troponin was at 6.07. EKG showed Q waves of the anterior leads and normal sinus rhythm. The white cell count was at 25 with a hemoglobin of 16.7. UA was consistent with underlying infection. Patient was given a cardiac catheterization the patient was found to have normal coronaries and filling pressures. This morning, the patient was found to be quite lethargic and hypotensive. Based on that, emergency services were activated and the patient was seen at the bedside and the patient will be transferred to the ICU. Obviously, there is a concern for underlying sepsis. Lactic is elevated at 23, there is a concern for underlying urine tract infection. The patient has also developed worsening renal function and her urine output is quite diminished and [employer] looking color. BUN is 55 with a creatinine of 2.3. Sodium is at 131 with a potassium level of 4.4. Serum bicarbonate 17. Abnormal LFTs with an AST of 2062 and ALT of 636. Blood sugar is at 148. The patient is currently on oxygen at 2 L with a pulse ox of 95 to 97%. Chest x-ray was also done this morning and it showed mild pulm vascular congestion. There are some cardiomegaly. Advanced generative changes involving the right glenohumeral joint. Also, the patient underwent a CAT scan of the head and cervical spine at time of admission and it showed no acute posttraumatic changes in the cervical spine. Degenerative changes involving the cervical spine at the level of C4-C5 and C5-C6 without evidence of any fracture. The pelvic x-ray showed no evidence of any fractures. CAT scan of the face was also done and it showed no evidence of any posttraumatic bony abnormalities. The patient clinically is quite lethargic. She is confused. She has diminished level of consciousness. Based on all this, the patient will be transferred to the intensive care unit. Echocardiogram was done and results are still pending for now. 02/01/2025, the patient is being seen for a follow-up. On today's evaluation, the patient remains quite lethargic and somnolent. The patient got transferred to the intensive care unit for sepsis and acute kidney injury and hypotension. This morning, the patient remains on room air oxygen. The patient was given several boluses of IV fluid yesterday and the patient's fluid balance is +3.6 L over the past 24 hours. She is currently on a bicarb infusion running at 100 cc an hour. CVP remains low at 5. The patient did not require any pressors and the patient is currently receiving no inotropes. Cultures are still pending for now. Meanwhile, the patient was covered with IV Rocephin. The white cell count is currently down to 19 with a hemoglobin of 6 and a platelet count of 208. BUN is 73 with a creatinine of 3.05 and the patient's urine output remains low less than 10 cc an hour. Serum bicarb is at 23. Sodium is at 133 and potassium is at 4.4. CPK level peaked at 840,000 and currently is down to 75,000. Nephrology on the case. Cardiology is also on the case as the patient has undergone cardiac catheterization and she revealed normal coronaries. Jaleel padilla, the echocardiogram showed systolic heart failure with impairment of LV function and the patient has an ejection fraction of 10 to 15%. The patient also has severe global LV dysfunction, no evidence of any LV thrombus, RV is dilated and reduced RV systolic function and moderate degree of mitral regurgitation was also noted. The patient had a follow-up chest x-ray today that showed cardiomegaly and some mild pulm vascular congestion. No significant change compared to yesterday. Ultrasound of the kidneys showed no evidence of hydronephrosis on the left, possible mild right-sided hydronephrosis was noted. Objective - Vital Signs Vital signs: Vital Signs Temp 98.1 F 02/01/25 04:00 Pulse 93 02/01/25 07:30 Resp 20 02/01/25 07:30 BP 100/56 02/01/25 07:30 Pulse Ox 97 02/01/25 08:54 FiO2 2 01/31/25 23:15 Intake & Output 01/31/25 02/01/25 02/01/25 18:59 06:59 18:59 Intake Total 2420 1353 113 Output Total 145 20 20 Balance 2275 1333 93 Weight 103.8 kg Intake: IV 1500 33 3 Sodium Chloride 0.9% 1, 1500 000 ml @ 999 mls/hr IV . Q1H1M ONE Rx#:[id number] pressure bag 33 3 Intake, IV Titration 920 1320 110 Amount Dextrose 5% in Water 1, 800 1200 100 000 ml @ 100 mls/hr IV . [id number] DHRUV with Sodium Bicarb (1 Meq/ml) 150 ml Rx#:[id number] Sodium Chloride 0.9% 1, 70 120 10 000 ml @ 999 mls/hr IV . Q1H1M ONE Rx#:[id number] cefTRIAXone 2 gm In 50 Sodium Chloride 0.9% 50 ml @ 100 mls/hr IVPB Q24H DHRUV Rx#:[id number] Output: Urine 145 20 20 Uretheral (Griffiths) 20 Other: Voiding Method Indwelling Catheter Indwelling Catheter - Exam The patient appeared lethargic and weak and altered and has diminished level of consciousness. Breathing is nonlabored and the patient is currently on room air oxygen. The patient has a subclavian left sided triple-lumen catheter. CVP is currently at 5. Head exam is unremarkable. No scleral icterus or corneal arcus noted. Signs of bruising over the forehead related to her recent fall and trauma. No obvious deformities. Neck is without jugular venous distension, thyromegaly, or carotid bruits. Carotid upstrokes are brisk bilaterally. Lungs are clear to auscultation and percussion. 0 crackles in the lung base bilaterally. Cardiac exam reveals the PMI to be normally sized and situated. Rhythm is regular. First and second heart sounds normal. No murmurs, rubs or gallops. Abdominal exam reveals normal bowel sounds, no masses, no organomegaly and no aortic enlargement. Extremities are nonedematous and both femoral and pedal pulses are normal. Examination of the skin revealed no evidence of significant rashes, suspicious appearing nevi or other concerning lesions. Areas of skin abrasion in the lower extremities bilaterally related to her fall. Neurologically, the patient is lethargic and sleepy and has diminished level of consciousness. She is withdrawing to painful stimulation. Pupils are equal reactive to light. No facial asymmetry. - Labs CBC & Chem 7: 02/01/25 06:30 02/01/25 06:30 Labs: Abnormal Lab Results - Last 24 Hours (Table) 01/31/25 01/31/25 01/31/25 Range/Units 09:56 10:38 12:54 WBC (4.50-10.00) 10*3/uL RBC (4.10-5.20) 10*6/uL Immature Gran # (0.00-0.04) 10*3/uL Neutrophils # (Manual) (1.3-7.7) k/uL Monocytes # (Manual) (0-1.0) k/uL Sodium (137-145) mmol/L Chloride (98-107) mmol/L BUN (7-17) mg/dL Creatinine (0.52-1.04) mg/dL Glucose (74-99) mg/dL POC Glucose (mg/dL) 148 H 132 H (70-110) mg/dL Calcium (8.4-10.2) mg/dL Magnesium (1.6-2.3) mg/dL Creatine Kinase [id number] H* (30-135) U/L 02/01/25 02/01/25 Range/Units 06:30 06:30 WBC 19.13 H (4.50-10.00) 10*3/uL RBC 3.98 L (4.10-5.20) 10*6/uL Immature Gran # 0.11 H (0.00-0.04) 10*3/uL Neutrophils # (Manual) 15.68 H (1.3-7.7) k/uL Monocytes # (Manual) 1.15 H (0-1.0) k/uL Sodium 133 L (137-145) mmol/L Chloride 96 L (98-107) mmol/L BUN 73 H (7-17) mg/dL Creatinine 3.05 H (0.52-1.04) mg/dL Glucose 118 H (74-99) mg/dL POC Glucose (mg/dL) (70-110) mg/dL Calcium 7.2 L (8.4-10.2) mg/dL Magnesium 2.6 H (1.6-2.3) mg/dL Creatine Kinase 52781 H* (30-135) U/L Assessment and Plan Plan: Hypotension, likely septic in nature. The patient presented to the hospital following a fall and she was putting generalized weakness. Initially, she was suspected to have an acute cardiac event and the patient was given a cardiac catheterization that showed normal coronaries. Obviously, the patient has a septic picture and she has leukocytosis and underlying urine tract infection with sepsis is clinically suspected. The patient was assisted with IV fluids. The patient was given a total of 2 L bolus and the patient remains on a bicarb i nfusion. Another liter of normal saline is to be given today. CVP is at 5. Patient also has severe cardiomyopathy with an ejection fraction of 10 to 15% Systolic heart failure with LV ejection fraction of 10 to 15% and moderate MR. There is also evidence of right-sided heart failure. Cardiac catheterization shows no evidence of any coronary artery disease. Acute fall related to generalized weakness, likely secondary to sepsis. No significant fractures and a CAT scan of the cervical spine and the brain showed no acute abnormalities. X-ray of the pelvis showed no evidence of any fractur es. Altered mentation secondary to above, stable and neurologic function is impaired. Nonfocal on examination. Acute rhabdomyolysis, likely secondary to fall/sepsis and the CPK is significant elevated Acute kidney injury, rule out ATN secondary to rhabdomyolysis. In addition, the patient was deprived from IV fluids and she was given contrast during cardiac catheterization which obviously made her renal function worse. Noted she had an acute kidney injury at the time of admission knowing that the patient had a normal GFR recently. The patient has interval worsening renal function. Urine output remains low. Nephrology on the case. The patient remains in acute rhabdomyolysis. Anion gap metabolic acidosis secondary to above, improved Acute leukocytosis secondary to above Shock liver secondary to above Plan Keep the patient intensive care unit Titrate oxygen flow to maintain saturation above 90%, currently on room air oxygen Continue IV Rocephin, pending further urine and blood cultures Give another liter of normal saline Continue bicarb infusion at rate of 100 cc an hour Pressors if needed Keep the Griffiths catheter in place and monitor urine output Ultrasound the kidneys shows questionable hydronephrosis on the right. None on the left. Echocardiogram was noted avoid nephrotoxic agents subcu heparin 5000 units every 8 hours Monitor mentation Will continue to follow and make further recommendations based on progress. continue to follow make further recommendations based on her progress. Condition remains critical and this evaluation was done at 35 minutes. Time with Patient: Greater than 30
--- NOTE | 2025-02-01 15:33 | P.PCN ---
Date of Procedure: 02/01/25 Preoperative Diagnosis: Septic shock Postoperative Diagnosis: Septic shock Procedure(s) Performed: Triple-lumen catheter insertion Anesthesia: local Surgeon: Haley Landaverde Estimated Blood Loss (ml): 0 Pathology: other Condition: critical Disposition: ICU Operative Findings: Indication: Hemodynamic monitoring/Intravenous access. A time-out was completed verifying correct patient, procedure, site, positioning, and implant(s) or special equipment if applicable. The patient was placed in a dependent position appropriate for triple lumen catheter placement based on the vein to be cannulated. The patient's left subclavian area was prepped and draped in sterile fashion. 1% Lidocaine was used to anesthetize the surrounding skin area. A triple lumen 9F Cordis catheter was introduced into the subclavian vein using Seldinger technique. The catheter was threaded smoothly over the guide wire and appropriate blood return was obtained. Each lumen of the catheter was evacuated of air and flushed with sterile saline. The catheter was then sutured in place to the skin and a sterile dressing applied. Perfusion to the extremity distal to the point of catheter insertion was checked and found to be adequate.
--- NOTE | 2025-02-01 15:41 | P.PN ---
Subjective Progress Note Date: 02/01/25 Patient is a 79-year-old female with hypertension here for evaluation after a fall. Patient reported that night before admission, patient fell after getting out of her into bed and that she lost consciousness. She was found on the floor with her right leg wedged with associated pain. She has been complaining of generalized weakness for about a few weeks now and it has worsened over the past week to the point that she drags her right leg. She denied chest pain, shortness of breath, palpitations, headaches, facial asymmetry, speech changes, abdominal pain, extremity swelling. On admission: Vitals: Temp 97.7 F, pulse rate 104, RR 20, BP 109/86, oxygen 95% on room air Labs: WBC 25.3, hemoglobin 15.7, platelet count 301,000, sodium 136, potassium 4.5, bicarb 20, BUN 33, creatinine 1.3, glucose 162, lactic acid 4.6, calcium 11.1, phosphorus 4.6, magnesium 2.6, AST 514, ALT 133, alk phos 77, total bilirubin 1.4, creatinine kinase 44,157, troponin 6, proBNP 1540, albumin 15.1. Urinalysis shows cloudy appearance +1 protein, large blood, large leukocyte esterase, WBC greater than 182, hyaline cast 10, occasional urine yeast.. Imaging: Pelvic x-ray showed no acute displaced fracture. Chest x-ray showed possible fluid overloaded state with persistent cardiomegaly and central vascular congestion. Head cervical spine CT showed no acute intracranial process with age-related atrophy, no acute posttraumatic changes in the cervical spine, with degenerative and vertebral joint changes. Face CT showed no acute posttraumatic osseous abnormality. EKG showed sinus tachycardia with a rate of 107, normal axis, ST elevation noted on lead III, notable intraventricular delay in V2 and V6, QTc 495 MS. Second EKG showed sinus tachycardia with occasional PVC, rate of [address]-T changes, QTc 431 MS. 02/01/2025 patient seen and examined at bedside. Rapid response was recalled yeste rday on 01/30 as patient was hypotensive on the cardiac stepdown floor. Fluid bolus was given but patient had marginal response. She was also quite lethargic on reevaluation. Pulmonology decided to admit patient to the ICU due to concerns for hypotension related to sepsis. Still having labile BP. Still low UO with positive fluid balance. Still lethargic but cooperative. Labs: WBC 19.13, hemoglobin 12.6, platelet count 208,000, sodium 133, potassium 4.4, chloride 96, bicarb 23, BUN 73, glucose 118, calcium 72, magnesium 2.6 Imaging; liver ultrasound ordered showed no intrahepatic mass or ductal dilation. Echocardiogram showed LV ejection fraction of 10 to 15% with severely reduced global LV systolic dysfunction, RV dilated with reduced systolic function, moderate mitral regurgitation, mild LA dilatation with elevated LA filling pressures Review of systems: Pertinent positives and negatives as discussed in HPI, a complete review of systems was performed and all other systems are negative. Physical examination: Vital signs reviewed General: non toxic, no distress, appears at stated age, cooperative but slow to respond Derm: no unusual rashes/lesions, warm Head: atraumatic, normocephalic, symmetric Eyes: EOMI, anicteric sclera, pupils equal round reactive to light ENT: Nose and ears atraumatic Neck: No cervical lymphadenopathy, trachea midline, supple Mouth: no lip lesion, mucus membranes moist Cardiovascular: S1S2 reg, no murmur Lungs: CTA bilateral, no rhonchi, no rales, no accessory muscle use Abdominal: soft, nondistended, nontender to palpation, no guarding Ext: muscle strength 5 out of 5 in all 4 extremities grossly, no gross muscle atrophy, no contractures, positive dorsalis pedis pulse bilateral, b/l lower ext +2 pitting edema Neuro: CN II-XI grossly intact, no gross focal neuro deficits, lethargic Psych: Alert and oriented x 2, appropriate affect and mood Assessment/Plan: The patient is admitted with an anticipated greater than 2 midnight stay for evaluation of syncope, CATHIE and sepsis Active: #. CATHIE, secondary to ATN #. Sepsis secondary to UTI #. Rhabdomyolysis #. Lactic acidosis, resolved #. Anion gap metabolic acidosis secondary to above WBC improved today at 19.3. Creatinine 3.05 Bicarb 17 -> 23 Urinalysis shows cloudy appearance +1 protein, large blood, large leukocyte esterase, 13 RBC, WBC greater than 182, hyaline [place] 10 [place] [id number] -> [id number] Currently on bicarb drip in the ICU Monitor urine output and renal function Blood cultures and urine cultures pending Myoglobin pending Renal US ordered Continue with IV Ceftriaxone daily Nephrology consulted #. Shocked liver secondary to above On admission AST 514 and ALT 133 Hold statins, NSAIDs and opioids for now Liver ultrasound unremarkable #. Syncope, likley due to sepsis #. Mechanical fall secondary to above #. NSTEMI s/p cardiac cath with no coronary occlusions #. Nonischemic cardiomyopathy Pelvic x-ray, head CT, cervical spine CT and face CT so no acute fractures or osseous abnormality. EKG showed sinus tachycardia with a rate of 107, normal axis, ST elevation noted on lead III, notable intraventricular delay in V2 and V6 Second EKG showed sinus tachycardia with occasional PVC, no noted ST-T changes proBNP 1540 Continue cardiac monitoring Supplemental oxygen as needed Echocardiogram showed LV ejection fraction of 10 to 15% with severely reduced global LV systolic dysfunction, RV dilated with reduced systolic function, moderate mitral regurgitation Consult cardiology. Heart cath done showed normal coronary arteries. Considering takotsubo cardiomyopathy Chronic Conditions: #. Hypertension #. Anxiety Hold statins, gabapentin and NSAIDs for now Hold antihypertensives for now as blood pressure is labile DVT ppx: Heparin SQ every 8 hours CODE STATUS: Full Discussed with: patient and family Anticipated discharge place: pending clinical course Poornima Pat MD PGY-1 Internal Medicine Dictation was produced using [employer] dictation software. please excuse any grammatical, word or spelling errors. Objective - Vital Signs Vital signs: Vital Signs Temp 98.1 F 02/01/25 04:00 Pulse 98 02/01/25 06:30 Resp 22 02/01/25 06:30 BP 110/56 02/01/25 06:30 Pulse Ox 99 02/01/25 06:30 FiO2 2 01/31/25 23:15 Intake & Output 01/31/25 02/01/25 02/01/25 18:59 06:59 18:59 Intake Total 2420 1240 Output Total 145 20 Balance 2275 1220 Weight 103.8 kg Intake: IV 1500 30 Sodium Chloride 0.9% 1, 1500 000 ml @ 999 mls/hr IV . Q1H1M ONE Rx#:[id number] pressure bag 30 Intake, IV Titration 920 1210 Amount Dextrose 5% in Water 1, 800 1100 000 ml @ 100 mls/hr IV . [id number] with Sodium Bicarb (1 Meq/ml) 150 ml Rx#:[id number] Sodium Chloride 0.9% 1, 70 110 000 ml @ 999 mls/hr IV . Q1H1M ONE Rx#:[id number] cefTRIAXone 2 gm In 50 Sodium Chloride 0.9% 50 ml @ 100 mls/hr IVPB Q24H [facility] Rx#:[id number] Output: Urine 145 20 Uretheral (Griffiths) 20 Other: Voiding Method Indwelling Catheter Indwelling Catheter - Labs CBC & Chem 7: 02/12/25 04:06 02/12/25 04:06 Labs: Abnormal Lab Results - Last 24 Hours (Table) 01/31/25 01/31/25 01/31/25 Range/Units 05:50 09:56 10:38 Sodium 131 L (137-145) mmol/L Chloride 97 L (98-107) mmol/L Carbon Dioxide 17 L (22-30) mmol/L BUN 55 H (7-17) mg/dL Creatinine 2.30 H (0.52-1.04) mg/dL Glucose 131 H (74-99) mg/dL POC Glucose (mg/dL) 148 H 132 H (70-110) mg/dL Magnesium 2.8 H (1.6-2.3) mg/dL AST 2062 H (14-36) U/L ALT 636 H (4-34) U/L Creatine Kinase (30-135) U/L Total Protein 6.0 L (6.3-8.2) g/dL Albumin 3.3 L (3.5-5.0) g/dL 01/31/25 Range/Units 12:54 Sodium (137-145) mmol/L Chloride (98-107) mmol/L Carbon Dioxide (22-30) mmol/L BUN (7-17) mg/dL Creatinine (0.52-1.04) mg/dL Glucose (74-99) mg/dL POC Glucose (mg/dL) (70-110) mg/dL Magnesium (1.6-2.3) mg/dL AST (14-36) U/L ALT (4-34) U/L Creatine Kinase [id number] H* (30-135) U/L Total Protein (6.3-8.2) g/dL Albumin (3.5-5.0) g/dL Assessment and Plan Assessment: Attestation Attestation/ Ship Worker Note: Attestation to progress Note, Participation (I saw and evaluated the patient with the Resident, and I reviewed and discussed the patient with the Resident and agree with the Resident's findings and plans as documented above., management reviewed and discussed), I agree with findings & plan, Provider Signature (SHAVON BOX, ISI Aranda. Time with Patient: Greater than 30
[2025-02-01] MEDS: bisacodyL 10 MG SUPP RECTAL STA (16:10)
[2025-02-01 16:15] LABS: Glucose,Whole Blood 115 mg/dL (70-110)
[2025-02-02 04:30] LABS: Anion Gap 11 mmol/L; Blood Urea Nitrogen 85 mg/dL (7-17); Calcium 6.8 mg/dL (8.4-10.2); Carbon Dioxide 27 mmol/L (22-30); Chloride 93 mmol/L (98-107); Glucose 103 mg/dL (74-99); Potassium 3.8 mmol/L (3.5-5.1); Sodium 131 mmol/L (137-145)
[2025-02-02 04:36] LABS: African American GFR (CKD) 11 (>60 ml/min/1.73 sqM); Non-African American GFR(CKD) 10 (>60 ml/min/1.73 sqM)
[2025-02-02 06:23] LABS: Basophils # (A) 0.13 10*3/uL (0.00-0.10); Basophils % (A) 0.6 %; Eosinophils # (A) 0.02 10*3/uL (0.04-0.35); Eosinophils % (A) 0.1 %; HCT 32.9 % (37.2-46.3); Lymphocytes # (A) 0.99 10*3/uL (0.90-5.00); Lymphocytes % (A) 4.9 %; MCH 31.3 pg (27.0-32.0); MCHC 33.4 g/dL (32.0-37.0); MCV 93.5 fL (80.0-97.0); Mean Platelet Volume 11.4 fL (9.5-12.2); Monocytes # (A) 1.11 10*3/uL (0.20-1.00); Monocytes % (A) 5.5 %; Neutrophils # (A) 17.78 10*3/uL (1.80-7.70); Neutrophils % (A) 88.3 %; Platelet Count 195 10*3/uL (140-440); RBC 3.52 10*6/uL (4.10-5.20); RDW 13.6 % (11.5-14.5); WBC 20.15 10*3/uL (4.50-10.00)
[2025-02-02] MEDS: FUROSEMIDE 10 MG/ML 10 ML VIAL IV STA (08:25)
--- NOTE | 2025-02-02 11:23 | P.PN ---
Subjective Progress Note Date: 02/02/25 This is a 79-year-old female patient who originally came into the hospital because of a fall, acute rhabdomyolysis and acute kidney injury. The patient was noted to be extremely weak and she fell while trying to get out of her bed. She was found on the floor and for that reason the patient was brought into the emergency department. The initial blood work showed acute rhabdomyolysis with a CPK level of 44,001 157. The patient had an acute kidney injury with a creatinine of 1.38 note that her baseline creatinine has been within normal limits. Initial lactic acid level was 4.6. proBNP level was 1540. Troponin was at 6.07. EKG showed Q waves of the anterior leads and normal sinus rhythm. The white cell count was at 25 with a hemoglobin of 16.7. UA was consistent with underlying infection. Patient was given a cardiac catheterization the patient was found to have normal coronaries and filling pressures. This morning, the patient was found to be quite lethargic and hypotensive. Based on that, emergency services were activated and the patient was seen at the bedside and the patient will be transferred to the ICU. Obviously, there is a concern for underlying sepsis. Lactic is elevated at 23, there is a concern for underlying urine tract infection. The patient has also developed worsening renal function and her urine output is quite diminished and [employer] looking color. BUN is 55 with a creatinine of 2.3. Sodium is at 131 with a potassium level of 4.4. Serum bicarbonate 17. Abnormal LFTs with an AST of 2062 and ALT of 636. Blood sugar is at 148. The patient is currently on oxygen at 2 L with a pulse ox of 95 to 97%. Chest x-ray was also done this morning and it showed mild pulm vascular congestion. There are some cardiomegaly. Advanced generative changes involving the right glenohumeral joint. Also, the patient underwent a CAT scan of the head and cervical spine at time of admission and it showed no acute posttraumatic changes in the cervical spine. Degenerative changes involving the cervical spine at the level of C4-C5 and C5-C6 without evidence of any fracture. The pelvic x-ray showed no evidence of any fractures. CAT scan of the face was also done and it showed no evidence of any posttraumatic bony abnormalities. The patient clinically is quite lethargic. She is confused. She has diminished level of consciousness. Based on all this, the patient will be transferred to the intensive care unit. Echocardiogram was done and results are still pending for now. 02/01/2025, the patient is being seen for a follow-up. On today's evaluation, the patient remains quite lethargic and somnolent. The patient got transferred to the intensive care unit for sepsis and acute kidney injury and hypotension. This morning, the patient remains on room air oxygen. The patient was given several boluses of IV fluid yesterday and the patient's fluid balance is +3.6 L over the past 24 hours. She is currently on a bicarb infusion running at 100 cc an hour. CVP remains low at 5. The patient did not require any pressors and the patient is currently receiving no inotropes. Cultures are still pending for now. Meanwhile, the patient was covered with IV Rocephin. The white cell count is currently down to 19 with a hemoglobin of 6 and a platelet count of 208. BUN is 73 with a creatinine of 3.05 and the patient's urine output remains low less than 10 cc an hour. Serum bicarb is at 23. Sodium is at 133 and potassium is at 4.4. CPK level peaked at 840,000 and currently is down to 75,000. Nephrology on the case. Cardiology is also on the case as the patient has undergone cardiac catheterization and she revealed normal coronaries. Jaleel padilla, the echocardiogram showed systolic heart failure with impairment of LV function and the patient has an ejection fraction of 10 to 15%. The patient also has severe global LV dysfunction, no evidence of any LV thrombus, RV is dilated and reduced RV systolic function and moderate degree of mitral regurgitation was also noted. The patient had a follow-up chest x-ray today that showed cardiomegaly and some mild pulm vascular congestion. No significant change compared to yesterday. Ultrasound of the kidneys showed no evidence of hydronephrosis on the left, possible mild right-sided hydronephrosis was noted. On 03/03/2025, the patient is being seen for a follow-up. The patient seems to be much more awake and interactive on today's evaluation. She remains however sluggish and slow in response. She seems to be following commands and answering questions. She is on room air oxygen. She remains on bicarb drip running no nephrotoxic agents at this point. Antibiotics is in the form of IV Rocephin. Urine output has been in order of 20 cc over the past 8 hours and the patient remains oliguric. The patient's CVP remains around 5-8. The patient is on no pressors. The patient is afebrile. Blood cultures still negative. White cell count of 20 with a hemoglobin 11 and a platelet count of 195. CPK is downtrending and is down to 43,000. BUN is 85 with a creatinine of 4.08. Sodium is 131 and a potassium of 3.8. The patient remains on a bicarb infusion Objective - Vital Signs Vital signs: Vital Signs Temp 98.2 F 02/02/25 04:00 Pulse 85 02/02/25 07:00 Resp 17 02/02/25 07:00 BP 97/47 02/02/25 07:00 Pulse Ox 95 02/02/25 07:00 FiO2 2 01/31/25 23:15 Intake & Output 02/01/25 02/02/25 02/02/25 18:59 06:59 18:59 Intake Total 2296 1203 250 Output Total 97 23 0 Balance 2199 1180 250 Weight 103.5 kg Intake: IV 2186 1203 100 Dextrose 5% in Water 1, 1100 1200 100 000 ml @ 100 mls/hr IV . [id number] DHRUV with Sodium Bicarb (1 Meq/ml) 150 ml Rx#:[id number] Sodium Chloride 0.9% 1, 1000 000 ml @ 999 mls/hr IV . Q1H1M ONE Rx#:[id number] cefTRIAXone 1 gm In 50 Sodium Chloride 0.9% 50 ml @ 100 mls/hr IVPB Q24HR DHRUV Rx#:[id number] pressure bag 36 3 Intake, IV Titration 110 Amount Dextrose 5% in Water 1, 100 000 ml @ 100 mls/hr IV . [id number] [id number] with Sodium Bicarb (1 Meq/ml) 150 ml Rx#:[id number] Sodium Chloride 0.9% 1, 10 000 ml @ 999 mls/hr IV . Q1H1M ONE Rx#:[id number] Oral 150 Output: Urine 97 23 0 Other: Voiding Method Indwelling Catheter Indwelling Catheter # Bowel Movements 1 0 - Exam The patient appeared lethargic and weak and altered and has diminished level of consciousness. Breathing is nonlabored and the patient is currently on room air oxygen. The patient has a subclavian left sided triple-lumen catheter. CVP is currently at 5. The patient is currently on room air oxygen. Head exam is unremarkable. No scleral icterus or corneal arcus noted. Signs of bruising over the forehead related to her recent fall and trauma. No obvious deformities. Neck is without jugular venous distension, thyromegaly, or carotid bruits. Carotid upstrokes are brisk bilaterally. Lungs are clear to auscultation and percussion. Minimal crackles in the lung base bilaterally. Cardiac exam reveals the PMI to be normally sized and situated. Rhythm is regular. First and second heart sounds normal. No murmurs, rubs or gallops. Abdominal exam reveals normal bowel sounds, no masses, no organomegaly and no aortic enlargement. Extremities are nonedematous and both femoral and pedal pulses are normal. Examination of the skin revealed no evidence of significant rashes, suspicious appearing nevi or other concerning lesions. Areas of skin abrasion in the lower extremities bilaterally related to her fall. Neurologically, the patient is lethargic and sleepy and has diminished level of consciousness. She is withdrawing to painful stimulation. Pupils are equal reactive to light. No facial asymmetry. However, overall, more interactive and more arousable compared to yesterday. - Labs CBC & Chem 7: 02/02/25 05:26 02/02/25 03:45 Labs: Abnormal Lab Results - Last 24 Hours (Table) 02/01/25 02/01/25 02/01/25 Range/Units 06:30 06:30 16:14 WBC (4.50-10.00) 10*3/uL RBC (4.10-5.20) 10*6/uL Hgb (12.0-15.0) g/dL Hct (37.2-46.3) % Immature Gran # (0.00-0.04) 10*3/uL Neutrophils # (1.80-7.70) 10*3/uL Neutrophils # (Manual) 15.68 H (1.3-7.7) k/uL Monocytes # (0.20-1.00) 10*3/uL Monocytes # (Manual) 1.15 H (0-1.0) k/uL Eosinophils # (0.04-0.35) 10*3/uL Basophils # (0.00-0.10) 10*3/uL Sodium (137-145) mmol/L Chloride (98-107) mmol/L BUN (7-17) mg/dL Creatinine 3.05 H (0.52-1.04) mg/dL Glucose (74-99) mg/dL POC Glucose (mg/dL) 115 H (70-110) mg/dL Calcium (8.4-10.2) mg/dL Creatine Kinase 02248 H* (30-135) U/L 02/02/25 02/02/25 Range/Units 03:45 05:26 WBC 20.15 H (4.50-10.00) 10*3/uL RBC 3.52 L (4.10-5.20) 10*6/uL Hgb 11.0 L (12.0-15.0) g/dL Hct 32.9 L (37.2-46.3) % Immature Gran # 0.12 H (0.00-0.04) 10*3/uL Neutrophils # 17.78 H (1.80-7.70) 10*3/uL Neutrophils # (Manual) (1.3-7.7) k/uL Monocytes # 1.11 H (0.20-1.00) 10*3/uL Monocytes # (Manual) (0-1.0) k/uL Eosinophils # 0.02 L (0.04-0.35) 10*3/uL Basophils # 0.13 H (0.00-0.10) 10*3/uL Sodium 131 L (137-145) mmol/L Chloride 93 L (98-107) mmol/L BUN 85 H (7-17) mg/dL Creatinine 4.08 H (0.52-1.04) mg/dL Glucose 103 H (74-99) mg/dL POC Glucose (mg/dL) (70-110) mg/dL Calcium 6.8 L (8.4-10.2) mg/dL Creatine Kinase (30-135) U/L Microbiology - Last 24 Hours (Table) 01/31/25 11:07 Blood Culture - Preliminary Blood Assessment and Plan Plan: Hypotension, likely septic/hypovolemic in nature. The patient presented to the hospital following a fall and she was putting generalized weakness. Initially, she was suspected to have an acute cardiac event and the patient was given a cardiac catheterization that showed normal coronaries. Obviously, the patient has a septic picture and she has leukocytosis and underlying urine tract infecti on with sepsis is clinically suspected. The patient was assisted with IV fluids. The patient is currently on no pressors. She is currently on a bicarb infusion. She is also on IV Rocephin. No pressors for now. Systolic heart failure with LV ejection fraction of 10 to 15% and moderate MR. There is also evidence of right-sided heart failure. Cardiac catheterization shows no evidence of any coronary artery disease. Acute fall related to generalized weakness, likely secondary to sepsis. No significant fractures and a CAT scan of the cervical spine and the brain showed no acute abnormalities. X-ray of the pelvis showed no evidence of any fractures. Altered mentation secondary to above, stable and neurologic function is impaired. Nonfocal on examination. More alert compared to yesterday. Acute rhabdomyolysis, likely secondary to fall/sepsis and the CPK is significant elevated, however the levels are downtrending Acute kidney injury, rule out ATN secondary to rhabdomyolysis. In addition, the patient was deprived from IV fluids and she was given contrast during cardiac catheterization which obviously made her renal function worse. Noted she had an acute kidney injury at the time of admission knowing that the patient had a normal GFR recently. The patient has interval worsening renal function. Urine output remains low. Nephrology on the case. The patient remains in acute rhabdomyolysis. Nephrology is on the case and the patient remains on a bicarb infusion Anion gap metabolic acidosis secondary to above, improved Acute leukocytosis secondary to above Shock liver secondary to above Plan Keep the patient intensive care unit Titrate oxygen flow to maintain saturation above 90%, currently on room air oxygen Continue IV Rocephin, pending further urine and blood cultures Continue bicarb infusion at rate of 100 cc an hour Pressors if needed Keep the Griffiths catheter in place and monitor urine output Ultrasound the kidneys shows questionable hydronephrosis on the right. None on the left. Consider hemodialysis the patient remains oliguric. The patient was given Lasix 80 mg IV push x 1 and assess her urine output. Echocardiogram was noted avoid nephrotoxic agents subcu heparin 5000 units every 8 hours Monitor mentation Will continue to follow and make further recommendations based on progress. continue to follow make further recommendations based on her progress. Condition remains critical and this evaluation was done at 35 minutes. Time with Patient: Greater than 30
--- NOTE | 2025-02-02 12:03 | P.PN ---
Subjective Patient is seen for follow-up for acute kidney injury and rhabdomyolysis. She remains on bicarb drip Urine output remains low with no response to IV Lasix. Serum creatinine is up to 4.0 mg/[place] [address] today. Objective - Vital Signs Vital signs: Vital Signs Temp 97.2 F L 02/02/25 08:00 Pulse 93 02/02/25 09:15 Resp 22 02/02/25 09:15 BP 96/41 02/02/25 09:15 Pulse Ox 94 L 02/02/25 09:15 FiO2 2 01/31/25 23:15 Intake & Output 02/01/25 02/02/25 02/02/25 18:59 06:59 18:59 Intake Total 2296 1203 846.631 Output Total 97 23 17 Balance 2199 1180 829.631 Weight 103.5 kg Intake: IV 2186 1203 353 Dextrose 5% in Water 1, 1100 1200 300 000 ml @ 100 mls/hr IV . [id number] [facility] with Sodium Bicarb (1 Meq/ml) 150 ml Rx#:[id number] Sodium Chloride 0.9% 1, 1000 000 ml @ 999 mls/hr IV . Q1H1M ONE Rx#:[id number] cefTRIAXone 1 gm In 50 50 Sodium Chloride 0.9% 50 ml @ 100 mls/hr IVPB Q24HR [facility] Rx#:[id number] pressure bag 36 3 3 Intake, IV Titration 110 3.631 Amount Dextrose 5% in Water 1, 100 000 ml @ 100 mls/hr IV . [id number] [facility] with Sodium Bicarb (1 Meq/ml) 150 ml Rx#:[id number] Norepinephrine 8 mg In 3.631 Sodium Chloride 0.9% 250 ml @ 0.03 MCG/KG/MIN 5. 834 mls/hr IV .Q24H [facility] Rx#:[id number] Sodium Chloride 0.9% 1, 10 000 ml @ 999 mls/hr IV . Q1H1M ONE Rx#:[id number] Oral 490 Output: Urine 97 23 17 Other: Voiding Method Indwelling Catheter Indwelling Catheter Indwelling Catheter # Bowel Movements 1 0 1 - Exam Patient is sleeping but arousable No acute distress Alert oriented x 3 Examination of the heart S1 and S2 Examination of the lungs bilateral breath sounds are heard Abdomen is soft obese Examination of lower extremities showed no significant edema [employer] exam grossly intact - Labs CBC & Chem 7: 02/02/25 05:26 02/02/25 03:45 Labs: Abnormal Lab Results - Last 24 Hours (Table) 02/01/25 02/02/25 02/02/25 Range/Units 16:14 03:45 05:26 WBC 20.15 H (4.50-10.00) 10*3/uL RBC 3.52 L (4.10-5.20) 10*6/uL Hgb 11.0 L (12.0-15.0) g/dL Hct 32.9 L (37.2-46.3) % Immature Gran # 0.12 H (0.00-0.04) 10*3/uL Neutrophils # 17.78 H (1.80-7.70) 10*3/uL Monocytes # 1.11 H (0.20-1.00) 10*3/uL Eosinophils # 0.02 L (0.04-0.35) 10*3/uL Basophils # 0.13 H (0.00-0.10) 10*3/uL Sodium 131 L (137-145) mmol/L Chloride 93 L (98-107) mmol/L BUN 85 H (7-17) mg/dL Creatinine 4.08 H (0.52-1.04) mg/dL Glucose 103 H (74-99) mg/dL POC Glucose (mg/dL) 115 H (70-110) mg/dL Calcium 6.8 L (8.4-10.2) mg/dL Creatine Kinase (30-135) U/L 02/02/25 Range/Units 05:26 WBC (4.50-10.00) 10*3/uL RBC (4.10-5.20) 10*6/uL Hgb (12.0-15.0) g/dL Hct (37.2-46.3) % Immature Gran # (0.00-0.04) 10*3/uL Neutrophils # (1.80-7.70) 10*3/uL Monocytes # (0.20-1.00) 10*3/uL Eosinophils # (0.04-0.35) 10*3/uL Basophils # (0.00-0.10) 10*3/uL Sodium (137-145) mmol/L Chloride (98-107) mmol/L BUN (7-17) mg/dL Creatinine (0.52-1.04) mg/dL Glucose (74-99) mg/dL POC Glucose (mg/dL) (70-110) mg/dL Calcium (8.4-10.2) mg/dL Creatine Kinase 02409 H* (30-135) U/L Microbiology - Last 24 Hours (Table) 02/01/25 00:25 Urine Culture - Preliminary Urine,Catheterized Gram Neg Bacilli 01/31/25 11:07 Blood Culture - Preliminary Blood Assessment and Plan Assessment: 1. Acute kidney injury, ATN, oliguric secondary to hypotension and rhabdomyolysis. Patient also received IV contrast for cardiac catheterization which will exaggerate the acute kidney injury over the next 2 to 3 days. Currently maintained on IV hydration. UA suggestive of UTI. Ultrasound of the kidneys shows mild right hydronephrosis versus extrarenal pelvis. 2. Severe rhabdomyolysis status post fall 3. Anion gap metabolic acidosis associated with acute kidney injury and hypotension 4. UTI maintained on antibiotics. Urine culture is pending. 5. Mental status changes secondary to sepsis 6. Cardiomyopathy with ejection fraction of 10 to 15% Plan: Continue with IV bicarb for 1 more day, then switch to normal saline Discussed renal replacement therapy with the patient. No acute indication for dialysis today. We will continue to monitor closely. Continue to avoid nephrotoxic agents Repeat labs in a.m.
--- NOTE | 2025-02-02 15:53 | P.PN ---
Subjective Progress Note Date: 02/02/25 Patient is a 79-year-old female with hypertension here for evaluation after a fall. Patient reported that night before admission, patient fell after getting out of her into bed and that she lost consciousness. She was found on the floor with her right leg wedged with associated pain. She has been complaining of generalized weakness for about a few weeks now and it has worsened over the past week to the point that she drags her right leg. She denied chest pain, shortness of breath, palpitations, headaches, facial asymmetry, speech changes, abdominal pain, extremity swelling. On admission: Vitals: Temp 97.7 F, pulse rate 104, RR 20, BP 109/86, oxygen 95% on room air Labs: WBC 25.3, hemoglobin 15.7, platelet count 301,000, sodium 136, potassium 4.5, bicarb 20, BUN 33, creatinine 1.3, glucose 162, lactic acid 4.6, calcium 11.1, phosphorus 4.6, magnesium 2.6, AST 514, ALT 133, alk phos 77, total bilirubin 1.4, creatinine kinase 44,157, troponin 6, proBNP 1540, albumin 15.1. Urinalysis shows cloudy appearance +1 protein, large blood, large leukocyte esterase, WBC greater than 182, hyaline cast 10, occasional urine yeast.. Imaging: Pelvic x-ray showed no acute displaced fracture. Chest x-ray showed possible fluid overloaded state with persistent cardiomegaly and central vascular congestion. Head cervical spine CT showed no acute intracranial process with age-related atrophy, no acute posttraumatic changes in the cervical spine, with degenerative and vertebral joint changes. Face CT showed no acute posttraumatic osseous abnormality. EKG showed sinus tachycardia with a rate of 107, normal axis, ST elevation noted on lead III, notable intraventricular delay in V2 and V6, QTc 495 MS. Second EKG showed sinus tachycardia with occasional PVC, rate of [address]-T changes, QTc 431 MS. 02/01/2025 patient seen and examined at bedside. Rapid response was recalled yesterday on 01/30 as patient was hypotensive on the cardiac stepdown floor. Fluid bolus was given but patient had marginal response. She was also quite lethargic on reevaluation. Pulmonology decided to admit patient to the ICU due to concerns for hypotension related to sepsis. Still having labile BP. Still low UO with positive fluid balance. Still lethargic but cooperative. Labs: WBC 19.13, hemoglobin 12.6, platelet count 208,000, sodium 133, potassium 4.4, chloride 96, bicarb 23, BUN 73, glucose 118, calcium 72, magnesium 2.6 Imaging; liver ultrasound ordered showed no intrahepatic mass or ductal dilation. Echocardiogram showed LV ejection fraction of 10 to 15% with severely reduced global LV systolic dysfunction, RV dilated with reduced systolic function, moderate mitral regurgitation, mild LA dilatation with elevated LA filling pressures 02/02/2025 patient seen and examined at bedside. Patient seen in the ICU. Still having low urine output with positive fluid balance. Blood pressures still labile. 1 L bolus 0.9 normal saline given 02/01 Labs: WBC 20.1, hemoglobin 11, platelet count 195,000, sodium 131, potassium 3.8, chloride 93, BUN 85, creatinine 4, glucose 103, calcium 6.8 Imaging: Renal US showed possible mild right hydronephrosis Review of systems: Pertinent positives and negatives as discussed in HPI, a complete review of systems was performed and all other systems are negative. Physical examination: Vital signs reviewed General: non toxic, no distress, appears at stated age, cooperative but slow to respond Derm: no unusual rashes/lesions, warm Head: atraumatic, normocephalic, symmetric Eyes: EOMI, anicteric sclera, pupils equal round reactive to light ENT: Nose and ears atraumatic Neck: No cervical lymphadenopathy, trachea midline, supple Mouth: no lip lesion, mucus membranes moist Cardiovascular: S1S2 reg, no murmur Lungs: fine rales on RL lung, no rhonchi, no rales, no accessory muscle use Abdominal: soft, nondistended, nontender to palpation, no guarding Ext: muscle strength 5 out of 5 in all 4 extremities grossly, no gross muscle atrophy, no contractures, positive dorsalis pedis pulse bilateral, b/l upper and lower ext +2 pitting edema Neuro: CN II-XI grossly intact, no gross focal neuro deficits, lethargic Psych: Alert and oriented x 2, appropriate affect and mood Assessment/Plan: The patient is admitted with an anticipated greater than 2 midnight stay for evaluation of syncope, CATHIE and sepsis Active: #. CATHIE, secondary to ATN #. Sepsis secondary to UTI #. Rhabdomyolysis #. Lactic acidosis, resolved #. Anion gap metabolic acidosis secondary to above WBC improved today at 19.3. Creatinine 3.05 Bicarb 17 -> 23 [place] [address] -> [id number] Currently on bicarb drip in the ICU Monitor urine output and renal function. Currently on antony cath Blood cultures pending Urine cultures pending Myoglobin pending Renal US showed possible mild right hydronephrosis vs extrarenal pelvis Continue with IV Ceftriaxone daily Nephrology consulted, rec appreciated Pulmonology consulted for ICU management of hypotnesion #. Shocked liver secondary to above On admission AST 514 and ALT 133. Uptrend on 01/31 Hold statins, NSAIDs and opioids for now Liver ultrasound unremarkable #. Syncope, likley due to sepsis #. Mechanical fall secondary to above #. NSTEMI s/p cardiac cath with no coronary occlusions #. Nonischemic cardiomyopathy Pelvic x-ray, head CT, cervical spine CT and face CT so no acute fractures or osseous abnormality. EKG showed sinus tachycardia with a rate of 107, normal axis, ST elevation noted on lead III, notable intraventricular delay in V2 and V6 Second EKG showed sinus tachycardia with occasional PVC, no noted ST-T changes proBNP 1540 Continue cardiac monitoring Supplemental oxygen as needed Echocardiogram showed LV ejection fraction of 10 to 15% with severely reduced global LV systolic dysfunction, RV dilated with reduced systolic function, moderate mitral regurgitation Consult cardiology. Heart cath done showed normal coronary arteries. Considering takotsubo cardiomyopathy Chronic Conditions: #. Hypertension #. Anxiety Hold statins, gabapentin and NSAIDs for now Hold antihypertensives for now as blood pressure is labile DVT ppx: Heparin SQ CODE STATUS: Full Discussed with: patient and family Anticipated discharge place: pending clinical course Poornima Pat MD PGY-1 Internal Medicine Dictation was produced using [employer] dictation software. please excuse any grammatical, word or spelling errors. Objective - Vital Signs Vital signs: Vital Signs Temp 98.2 F 02/02/25 04:00 Pulse 85 02/02/25 07:00 Resp 17 02/02/25 07:00 BP 97/47 02/02/25 07:00 Pulse Ox 95 02/02/25 07:00 FiO2 2 01/31/25 23:15 Intake & Output 02/01/25 02/02/25 02/02/25 18:59 06:59 18:59 Intake Total 2296 1203 250 Output Total 97 23 0 Balance 2199 1180 250 Weight 103.5 kg Intake: IV 2186 1203 100 Dextrose 5% in Water 1, 1100 1200 100 000 ml @ 100 mls/hr IV . [id number] [facility]UV with Sodium Bicarb (1 Meq/ml) 150 ml Rx#:[id number] Sodium Chloride 0.9% 1, 1000 000 ml @ 999 mls/hr IV . Q1H1M ONE Rx#:[id number] cefTRIAXone 1 gm In 50 Sodium Chloride 0.9% 50 ml @ 100 mls/hr IVPB Q24HR [facility] Rx#:[id number] pressure bag 36 3 Intake, IV Titration 110 Amount Dextrose 5% in Water 1, 100 000 ml @ 100 mls/hr IV . [id number] [facility] with Sodium Bicarb (1 Meq/ml) 150 ml Rx#:[id number] Sodium Chloride 0.9% 1, 10 000 ml @ 999 mls/hr IV . Q1H1M ONE Rx#:[id number] Oral 150 Output: Urine 97 23 0 Other: Voiding Method Indwelling Catheter Indwelling Catheter # Bowel Movements 1 0 - Labs CBC & Chem 7: 02/12/25 04:06 02/12/25 04:06 Labs: Abnormal Lab Results - Last 24 Hours (Table) 02/01/25 02/01/25 02/01/25 Range/Units 06:30 06:30 16:14 WBC (4.50-10.00) 10*3/uL RBC (4.10-5.20) 10*6/uL Hgb (12.0-15.0) g/dL Hct (37.2-46.3) % Immature Gran # (0.00-0.04) 10*3/uL Neutrophils # (1.80-7.70) 10*3/uL Neutrophils # (Manual) 15.68 H (1.3-7.7) k/uL Monocytes # (0.20-1.00) 10*3/uL Monocytes # (Manual) 1.15 H (0-1.0) k/uL Eosinophils # (0.04-0.35) 10*3/uL Basophils # (0.00-0.10) 10*3/uL Sodium 133 L (137-145) mmol/L Chloride 96 L (98-107) mmol/L BUN 73 H (7-17) mg/dL Creatinine 3.05 H (0.52-1.04) mg/dL Glucose 118 H (74-99) mg/dL POC Glucose (mg/dL) 115 H (70-110) mg/dL Calcium 7.2 L (8.4-10.2) mg/dL Magnesium 2.6 H (1.6-2.3) mg/dL Creatine Kinase 80774 H* (30-135) U/L 02/02/25 02/02/25 Range/Units 03:45 05:26 WBC 20.15 H (4.50-10.00) 10*3/uL RBC 3.52 L (4.10-5.20) 10*6/uL Hgb 11.0 L (12.0-15.0) g/dL Hct 32.9 L (37.2-46.3) % Immature Gran # 0.12 H (0.00-0.04) 10*3/uL Neutrophils # 17.78 H (1.80-7.70) 10*3/uL Neutrophils # (Manual) (1.3-7.7) k/uL Monocytes # 1.11 H (0.20-1.00) 10*3/uL Monocytes # (Manual) (0-1.0) k/uL Eosinophils # 0.02 L (0.04-0.35) 10*3/uL Basophils # 0.13 H (0.00-0.10) 10*3/uL Sodium 131 L (137-145) mmol/L Chloride 93 L (98-107) mmol/L BUN 85 H (7-17) mg/dL Creatinine 4.08 H (0.52-1.04) mg/dL Glucose 103 H (74-99) mg/dL POC Glucose (mg/dL) (70-110) mg/dL Calcium 6.8 L (8.4-10.2) mg/dL Magnesium (1.6-2.3) mg/dL Creatine Kinase (30-135) U/L Microbiology - Last 24 Hours (Table) 01/31/25 11:07 Blood Culture - Preliminary Blood Assessment and Plan Assessment: Attestation Attestation/ Guide Escort Note: Attestation to progress Note, Participation (I saw and evaluated the patient with the Resident, and I reviewed and discussed the patient with the Resident and agree with the Resident's findings and plans as documented above., management reviewed and discussed), I agree with findings & plan, Provider Signature (SHAVON BOX, ISI Aranda. Time with Patient: Greater than 30
--- NOTE | 2025-02-02 16:10 | P.PN ---
Subjective Progress Note Date: 02/02/25 The patient was seen and evaluated this morning. Hemodynamically the patient does have soft blood pressure. The heart catheterization showed no evidence of obstructive CAD. The echo showed severe cardiomyopathy with moderate mitral regurgitation and no evidence of any LV thrombus. The kidney function is worse today than yesterday. CK continues to be severely elevated. The physical examination is remarkable for regular rhythm with diminished breathing sounds bilaterally and mild bilateral lower extremities edema. Chest x-ray was reviewed and showed evidence of fluid overload versus bilateral pneumonia. Echo showed an EF of 10 to 15%, severe LV dilatation, moderate MR Progress note 02/02/2025 Hb 11, WBCs 20, BUN 85, creatinine 4.08 Positive fluid balance of 1.8 L. Urine output is minimal in last 24 hours No response to IV Lasix Assessment: nonischemic cardiomyopathy, likely Takotsubo's cardiomyopathy Syncope and fall Closed head injury CATHIE with oliguric ATN Severe rhabdomyolysis Elevated liver function tests Plan: Continue supportive ICU care. Keep her in ICU. Her kidney function has not improved and creatinine has got worse slightly. Urine output has been minimal. Monitor for fluid overload state. Avoid aggressive fluid hydration. Consider hemodialysis as per nephrology recommendation Will introduce low-dose metoprolol XL 12.5 mg daily On discharge do a LifeVest Once kidney function improves or patient gets from the other dialysis start GDMT Objective - Vital Signs Vital signs: Vital Signs Temp 97.6 F 02/02/25 16:00 Pulse 92 02/02/25 16:00 Resp 34 H 02/02/25 16:00 BP 99/53 02/02/25 16:00 Pulse Ox 98 02/02/25 16:00 FiO2 2 01/31/25 23:15 Intake & Output 02/01/25 02/02/25 02/02/25 18:59 06:59 18:59 Intake Total 2296 1203 1840.400 Output Total 97 23 34 Balance 2199 1180 1806.400 Weight 103.5 kg Intake: IV 2186 1203 1053 Dextrose 5% in Water 1, 1100 1200 1000 000 ml @ 100 mls/hr IV . [id number] [facility]UV with Sodium Bicarb (1 Meq/ml) 150 ml Rx#:[id number] Sodium Chloride 0.9% 1, 1000 000 ml @ 999 mls/hr IV . Q1H1M ONE Rx#:[id number] cefTRIAXone 1 gm In 50 50 Sodium Chloride 0.9% 50 ml @ 100 mls/hr IVPB Q24HR [facility] Rx#:[id number] pressure bag 36 3 3 Intake, IV Titration 110 57.400 Amount Dextrose 5% in Water 1, 100 000 ml @ 100 mls/hr IV . [id number] D[facility]UV with Sodium Bicarb (1 Meq/ml) 150 ml Rx#:[id number] Norepinephrine 8 mg In 57.400 Sodium Chloride 0.9% 250 ml @ 0.03 MCG/KG/MIN 5. 834 mls/hr IV .Q24H [facility] Rx#:[id number] Sodium Chloride 0.9% 1, 10 000 ml @ 999 mls/hr IV . Q1H1M ONE Rx#:[id number] Oral 730 Output: Urine 97 23 34 Other: Voiding Method Indwelling Catheter Indwelling Catheter Indwelling Catheter # Bowel Movements 1 0 1 - Labs CBC & Chem 7: 02/02/25 05:26 02/02/25 03:45 Labs: Abnormal Lab Results - Last 24 Hours (Table) 02/01/25 02/02/25 02/02/25 Range/Units 16:14 03:45 05:26 WBC 20.15 H (4.50-10.00) 10*3/uL RBC 3.52 L (4.10-5.20) 10*6/uL Hgb 11.0 L (12.0-15.0) g/dL Hct 32.9 L (37.2-46.3) % Immature Gran # 0.12 H (0.00-0.04) 10*3/uL Neutrophils # 17.78 H (1.80-7.70) 10*3/uL Monocytes # 1.11 H (0.20-1.00) 10*3/uL Eosinophils # 0.02 L (0.04-0.35) 10*3/uL Basophils # 0.13 H (0.00-0.10) 10*3/uL Sodium 131 L (137-145) mmol/L Chloride 93 L (98-107) mmol/L BUN 85 H (7-17) mg/dL Creatinine 4.08 H (0.52-1.04) mg/dL Glucose 103 H (74-99) mg/dL POC Glucose (mg/dL) 115 H (70-110) mg/dL Calcium 6.8 L (8.4-10.2) mg/dL Creatine Kinase (30-135) U/L 02/02/25 Range/Units 05:26 WBC (4.50-10.00) 10*3/uL RBC (4.10-5.20) 10*6/uL Hgb (12.0-15.0) g/dL Hct (37.2-46.3) % Immature Gran # (0.00-0.04) 10*3/uL Neutrophils # (1.80-7.70) 10*3/uL Monocytes # (0.20-1.00) 10*3/uL Eosinophils # (0.04-0.35) 10*3/uL Basophils # (0.00-0.10) 10*3/uL Sodium (137-145) mmol/L Chloride (98-107) mmol/L BUN (7-17) mg/dL Creatinine (0.52-1.04) mg/dL Glucose (74-99) mg/dL POC Glucose (mg/dL) (70-110) mg/dL Calcium (8.4-10.2) mg/dL Creatine Kinase 86309 H* (30-135) U/L Microbiology - Last 24 Hours (Table) 02/01/25 00:25 Urine Culture - Preliminary Urine,Catheterized Gram Neg Bacilli 01/31/25 11:07 Blood Culture - Preliminary Blood
[2025-02-02] MEDS: METOPROLOL SUCCINATE (ER) 25 MG TAB.ER.24H PO SCH (18:14)
[2025-02-03 07:01] LABS: HCT 31.7 % (37.2-46.3); HGB 10.9 g/dL (12.0-15.0); MCH 31.7 pg (27.0-32.0); MCHC 34.4 g/dL (32.0-37.0); MCV 92.2 fL (80.0-97.0); Platelet Count 200 10*3/uL (140-440); RBC 3.44 10*6/uL (4.10-5.20); RDW 13.4 % (11.5-14.5); WBC 22.71 10*3/uL (4.50-10.00)
[2025-02-03 07:29] LABS: Anion Gap 9 mmol/L; Blood Urea Nitrogen 93 mg/dL (7-17); Calcium 6.7 mg/dL (8.4-10.2); Carbon Dioxide 33 mmol/L (22-30); Chloride 87 mmol/L (98-107); Glucose 98 mg/dL (74-99); Magnesium 2.4 mg/dL (1.6-2.3); Potassium 4.3 mmol/L (3.5-5.1); Sodium 129 mmol/L (137-145)
[2025-02-03 07:36] LABS: African American GFR (CKD) 10 (>60 ml/min/1.73 sqM); Non-African American GFR(CKD) 8 (>60 ml/min/1.73 sqM)
[2025-02-03 08:04] LABS: Creatine Kinase 30365 U/L (30-135)
--- NOTE | 2025-02-03 10:33 | P.PN ---
Subjective Progress Note Date: 02/03/25 The patient was seen and evaluated this morning. Hemodynamically the patient does have soft blood pressure. The heart catheterization showed no evidence of obstructive CAD. The echo showed severe cardiomyopathy with moderate mitral regurgitation and no evidence of any LV thrombus. The kidney function is worse today than yesterday. CK continues to be severely elevated. Echo showed an EF of 10 to 15%, severe LV dilatation, moderate MR Progress note 02/02/2025 Hb 11, WBCs 20, BUN 85, creatinine 4.08 Positive fluid balance of 1.8 L. Urine output is minimal in last 24 hours No response to IV Lasix 02/03/2025 Hb 10, BUN 93, creatinine 4.5. Yesterday creatinine was 4.08 Positive fluid balance of 3.3 L yesterday, 79 mL of urine output in last 24 hours The physical examination is remarkable for regular rhythm with diminished breathing sounds bilaterally and mild bilateral lower extremities edema. Assessment: nonischemic cardiomyopathy, likely Takotsubo's cardiomyopathy Syncope and fall Closed head injury CATHIE with anuric ATN Severe rhabdomyolysis Elevated liver function tests Plan: Continue supportive ICU care. Keep her in ICU. Her kidney function has not improved and creatinine has got worse slightly. Urine output has been minimal. Monitor for fluid overload state. Avoid aggressive fluid hydration. Consider hemodialysis as per nephrology recommendation Will introduce low-dose metoprolol XL 12.5 mg daily On discharge do a LifeVest Once kidney function improves or patient gets from the other dialysis start GDMT with Entresto Prognosis guarded Objective - Vital Signs Vital signs: Vital Signs Temp 98.1 F 02/03/25 04:00 Pulse 82 02/03/25 07:00 Resp 24 02/03/25 07:00 BP 120/57 02/03/25 07:00 Pulse Ox 98 02/03/25 07:00 FiO2 2 01/31/25 23:15 Intake & Output 02/02/25 02/03/25 02/03/25 18:59 06:59 18:59 Intake Total 2140.400 1250.058 800 Output Total 49 30 0 Balance 2091.400 1220.058 800 Intake: IV 1353 1100 100 Dextrose 5% in Water 1, 1300 1100 100 000 ml @ 100 mls/hr IV . [id number] DHRUV with Sodium Bicarb (1 Meq/ml) 150 ml Rx#:[id number] cefTRIAXone 1 gm In 50 Sodium Chloride 0.9% 50 ml @ 100 mls/hr IVPB Q24HR [facility] Rx#:[id number] pressure bag 3 Intake, IV Titration 57.400 150.058 Amount Norepinephrine 8 mg In 57.400 150.058 Sodium Chloride 0.9% 250 ml @ 0.03 MCG/KG/MIN 5. 834 mls/hr IV .Q24H [facility] Rx#:[id number] Oral 730 700 Output: Urine 49 30 0 Other: Voiding Method Indwelling Catheter Indwelling Catheter # Voids 1 # Bowel Movements 1 - Labs CBC & Chem 7: 02/03/25 06:16 02/03/25 07:12 Labs: Abnormal Lab Results - Last 24 Hours (Table) 02/03/25 02/03/25 Range/Units 06:16 07:12 WBC 22.71 H (4.50-10.00) 10*3/uL RBC 3.44 L (4.10-5.20) 10*6/uL Hgb 10.9 L (12.0-15.0) g/dL Hct 31.7 L (37.2-46.3) % Sodium 129 L (137-145) mmol/L Chloride 87 L (98-107) mmol/L Carbon Dioxide 33 H (22-30) mmol/L BUN 93 H (7-17) mg/dL Creatinine 4.58 H (0.52-1.04) mg/dL Calcium 6.7 L (8.4-10.2) mg/dL Magnesium 2.4 H (1.6-2.3) mg/dL Creatine Kinase 98266 H* (30-135) U/L Microbiology - Last 24 Hours (Table) 01/31/25 11:07 Blood Culture - Preliminary Blood 02/01/25 00:25 Urine Culture - Preliminary Urine,Catheterized Gram Neg Bacilli
[2025-02-03] MEDS: SODIUM CHLORIDE 0.9% 1,000 ML IV SCH (11:03)
[2025-02-03] MEDS: FUROSEMIDE 10 MG/ML 10 ML VIAL IV STA (11:03)
--- NOTE | 2025-02-03 11:20 | OP ---
OPERATIVE REPORT DATE OF SERVICE : 02/03/2025 PREOPERATIVE DIAGNOSIS: Acute on chronic renal failure. PROCEDURE PERFORMED: Placement of ultrasound guided right femoral dialysis catheter. DESCRIPTION OF PROCEDURE: The patient's right groin was prepped and draped in a sterile manner. A 1% lidocaine was infiltrated in the groin area. Ultrasound-guided micropuncture introduced into the right femoral vein. Micropuncture guidewire was advanced. Then, we placed a 4- [place] sheath. Then, we passed a regular guidewire without any resistance. Dilator was advanced on the top of the guidewire. Then, we placed a dialysis catheter on the top of the guidewire. The guidewire was removed, flushed with heparin saline and hep- locked, secured with 3-0 nylon, dressing applied. The patient tolerated the procedure well. MMVALERIAL / IJN: [id number] / MTDD
--- NOTE | 2025-02-03 12:30 | P.PN ---
Subjective Patient is seen for follow-up for acute kidney injury and rhabdomyolysis. She remains on bicarb drip No significant urine output. No response to IV Lasix Serum creatinine at 4.5 [place] [address] today. Objective - Vital Signs Vital signs: Vital Signs Temp 98.1 F 02/03/25 04:00 Pulse 80 02/03/25 11:45 Resp 19 02/03/25 12:00 BP 108/60 02/03/25 12:00 Pulse Ox 95 02/03/25 12:00 FiO2 2 01/31/25 23:15 Intake & Output 02/02/25 02/03/25 02/03/25 18:59 06:59 18:59 Intake Total 2140.400 1250.058 800 Output Total 49 30 44 Balance 2091.400 1220.058 756 Intake: IV 1353 1100 100 Dextrose 5% in Water 1, 1300 1100 100 000 ml @ 100 mls/hr IV . [id number] DHRUV with Sodium Bicarb (1 Meq/ml) 150 ml Rx#:[id number] cefTRIAXone 1 gm In 50 Sodium Chloride 0.9% 50 ml @ 100 mls/hr IVPB Q24HR DHRUV Rx#:[id number] pressure bag 3 Intake, IV Titration 57.400 150.058 Amount Norepinephrine 8 mg In 57.400 150.058 Sodium Chloride 0.9% 250 ml @ 0.03 MCG/KG/MIN 5. 834 mls/hr IV .Q24H DHRUV Rx#:[id number] Oral 730 700 Output: Urine 49 30 44 Other: Voiding Method Indwelling Catheter Indwelling Catheter Indwelling Catheter # Voids 1 # Bowel Movements 1 - Exam Patient is sleeping but arousable No acute distress Alert oriented x 3 Examination of the heart S1 and S2 Examination of the lungs bilateral breath sounds are heard Abdomen is soft obese Examination of lower extremities showed no significant edema OLEOMARG[employer]INE [employer]ER exam grossly intact - Labs CBC & Chem 7: 02/03/25 06:16 02/03/25 07:12 Labs: Abnormal Lab Results - Last 24 Hours (Table) 02/03/25 02/03/25 Range/Units 06:16 07:12 WBC 22.71 H (4.50-10.00) 10*3/uL RBC 3.44 L (4.10-5.20) 10*6/uL Hgb 10.9 L (12.0-15.0) g/dL Hct 31.7 L (37.2-46.3) % Sodium 129 L (137-145) mmol/L Chloride 87 L (98-107) mmol/L Carbon Dioxide 33 H (22-30) mmol/L BUN 93 H (7-17) mg/dL Creatinine 4.58 H (0.52-1.04) mg/dL Calcium 6.7 L (8.4-10.2) mg/dL Magnesium 2.4 H (1.6-2.3) mg/dL Creatine Kinase 06318 H* (30-135) U/L Microbiology - Last 24 Hours (Table) 01/31/25 11:07 Blood Culture - Preliminary Blood 02/01/25 00:25 Urine Culture - Preliminary Urine,Catheterized Gram Neg Bacilli Assessment and Plan Assessment: 1. Acute kidney injury, ATN, oliguric secondary to hypotension and rhabdomyolysis. Patient also received IV contrast for cardiac catheterization which will exaggerate the acute kidney injury over the next 2 to 3 days. Currently maintained on IV hydration. UA suggestive of UTI. Ultrasound of the kidneys shows mild right hydronephrosis versus extrarenal pelvis. 2. Severe rhabdomyolysis status post fall 3. Anion gap metabolic acidosis associated with acute kidney injury and hypotension 4. UTI maintained on antibiotics. Urine culture is pending. 5. Mental status changes secondary to sepsis 6. Cardiomyopathy with ejection fraction of 10 to 15% Plan: Continue with IV fluids, switch to normal saline Discussed renal replacement therapy with the patient. No acute indication for dialysis today, will plan for first treatment of hemodialysis in a.m. temporary femoral dialysis catheter placed this morning Continue to avoid nephrotoxic agents Repeat labs in a.m.
--- NOTE | 2025-02-03 12:51 | P.PN ---
Subjective Progress Note Date: 02/03/25 This is a 79-year-old female patient who originally came into the hospital because of a fall, acute rhabdomyolysis and acute kidney injury. The patient was noted to be extremely weak and she fell while trying to get out of her bed. She was found on the floor and for that reason the patient was brought into the emergency department. The initial blood work showed acute rhabdomyolysis with a CPK level of 44,001 157. The patient had an acute kidney injury with a creatinine of 1.38 note that her baseline creatinine has been within normal limits. Initial lactic acid level was 4.6. proBNP level was 1540. Troponin was at 6.07. EKG showed Q waves of the anterior leads and normal sinus rhythm. The white cell count was at 25 with a hemoglobin of 16.7. UA was consistent with underlying infection. Patient was given a cardiac catheterization the patient was found to have normal coronaries and filling pressures. This morning, the patient was found to be quite lethargic and hypotensive. Based on that, emergency services were activated and the patient was seen at the bedside and the patient will be transferred to the ICU. Obviously, there is a concern for underlying sepsis. Lactic is elevated at 23, there is a concern for underlying urine tract infection. The patient has also developed worsening renal function and her urine output is quite diminished and [employer] looking color. BUN is 55 with a creatinine of 2.3. Sodium is at 131 with a potassium level of 4.4. Serum bicarbonate 17. Abnormal LFTs with an AST of 2062 and ALT of 636. Blood sugar is at 148. The patient is currently on oxygen at 2 L with a pulse ox of 95 to 97%. Chest x-ray was also done this morning and it showed mild pulm vascular congestion. There are some cardiomegaly. Advanced generative changes involving the right glenohumeral joint. Also, the patient underwent a CAT scan of the head and cervical spine at time of admission and it showed no acute posttraumatic changes in the cervical spine. Degenerative changes involving the cervical spine at the level of C4-C5 and C5-C6 without evidence of any fracture. The pelvic x-ray showed no evidence of any fractures. CAT scan of the face was also done and it showed no evidence of any posttraumatic bony abnormalities. The patient clinically is quite lethargic. She is confused. She has diminished level of consciousness. Based on all this, the patient will be transferred to the intensive care unit. Echocardiogram was done and results are still pending for now. 02/01/2025, the patient is being seen for a follow-up. On today's evaluation, the patient remains quite lethargic and somnolent. The patient got transferred to the intensive care unit for sepsis and acute kidney injury and hypotension. This morning, the patient remains on room air oxygen. The patient was given several boluses of IV fluid yesterday and the patient's fluid balance is +3.6 L over the past 24 hours. She is currently on a bicarb infusion running at 100 cc an hour. CVP remains low at 5. The patient did not require any pressors and the patient is currently receiving no inotropes. Cultures are still pending for now. Meanwhile, the patient was covered with IV Rocephin. The white cell count is currently down to 19 with a hemoglobin of 6 and a platelet count of 208. BUN is 73 with a creatinine of 3.05 and the patient's urine output remains low less than 10 cc an hour. Serum bicarb is at 23. Sodium is at 133 and potassium is at 4.4. CPK level peaked at 840,000 and currently is down to 75,000. Nephrology on the case. Cardiology is also on the case as the patient has undergone cardiac catheterization and she revealed normal coronaries. Jaleel padilla, the echocardiogram showed systolic heart failure with impairment of LV function and the patient has an ejection fraction of 10 to 15%. The patient also has severe global LV dysfunction, no evidence of any LV thrombus, RV is dilated and reduced RV systolic function and moderate degree of mitral regurgitation was also noted. The patient had a follow-up chest x-ray today that showed cardiomegaly and some mild pulm vascular congestion. No significant change compared to yesterday. Ultrasound of the kidneys showed no evidence of hydronephrosis on the left, possible mild right-sided hydronephrosis was noted. On 03/03/2025, the patient is being seen for a follow-up. The patient seems to be much more awake and interactive on today's evaluation. She remains however sluggish and slow in response. She seems to be following commands and answering questions. She is on room air oxygen. She remains on bicarb drip running no nephrotoxic agents at this point. Antibiotics is in the form of IV Rocephin. Urine output has been in order of 20 cc over the past 8 hours and the patient remains oliguric. The patient's CVP remains around 5-8. The patient is on no pressors. The patient is afebrile. Blood cultures still negative. White cell count of 20 with a hemoglobin 11 and a platelet count of 195. CPK is downtrending and is down to 43,000. BUN is 85 with a creatinine of 4.08. Sodium is 131 and a potassium of 3.8. The patient remains on a bicarb infusion On 02/03/2025, the patient is being seen for a follow-up. The patient remains an uric. The patient remains on a bicarb infusion. She has acute kidney injury due to rhabdomyolysis and contrast nephropathy and the patient has developed progressive worsening renal function. Creatinine is up to 4.5 with a BUN of 93. Sodium levels at 129. On today's blood work, the patient's white cell count is at 22 with a hemoglobin 10.9 and a platelet count of 200. CPK is down to 30,000. The patient is also on low-dose norepinephrine running at 0.05 mcg/kg/min. The patient received several doses of IV Lasix. No improvement in urine output. The patient has produced only 40 cc over the past 12 hours. She is on room air oxygen. She is arousable. She is lethargic. No focal neurological deficits. Nephrology on the case and the patient will have a temporary dialysis catheter inserted in preparation for renal replacement therapy within the next 24 to 48 hours. Meanwhile, urine culture is positive for gram-negative bacillus. Blood culture is still negative. The patient remains on IV Rocephin. Objective - Vital Signs Vital signs: Vital Signs Temp 98.1 F 02/03/25 04:00 Pulse 82 02/03/25 07:00 Resp 24 02/03/25 07:00 BP 120/57 02/03/25 07:00 Pulse Ox 98 02/03/25 07:00 FiO2 2 01/31/25 23:15 Intake & Output 02/02/25 02/03/25 02/03/25 18:59 06:59 18:59 Intake Total 2140.400 1250.058 800 Output Total 49 30 0 Balance 2091.400 1220.058 800 Intake: IV 1353 1100 100 Dextrose 5% in Water 1, 1300 1100 100 000 ml @ 100 mls/hr IV . [id number] DHRUV with Sodium Bicarb (1 Meq/ml) 150 ml Rx#:[id number] cefTRIAXone 1 gm In 50 Sodium Chloride 0.9% 50 ml @ 100 mls/hr IVPB Q24HR DHRUV Rx#:[id number] pressure bag 3 Intake, IV Titration 57.400 150.058 Amount Norepinephrine 8 mg In 57.400 150.058 Sodium Chloride 0.9% 250 ml @ 0.03 MCG/KG/MIN 5. 834 mls/hr IV .Q24H DHRUV Rx#:[id number] Oral 730 700 Output: Urine 49 30 0 Other: Voiding Method Indwelling Catheter Indwelling Catheter # Voids 1 # Bowel Movements 1 - Exam The patient appeared lethargic and weak and altered and has diminished level of consciousness. Breathing is nonlabored and the patient is currently on room air oxygen. The patient has a subclavian left sided triple-lumen catheter. . The patient is currently on room air oxygen. Head exam is unremarkable. No scleral icterus or corneal arcus noted. Signs of bruising over the forehead related to her recent fall and trauma. No obvious deformities. Neck is without jugular venous distension, thyromegaly, or carotid bruits. Carotid upstrokes are brisk bilaterally. Lungs are clear to auscultation and percussion. Minimal crackles in the lung base bilaterally. Cardiac exam reveals the PMI to be normally sized and situated. Rhythm is regular. First and second heart sounds normal. No murmurs, rubs or gallops. Abdominal exam reveals normal bowel sounds, no masses, no organomegaly and no a ortic enlargement. Extremities are nonedematous and both femoral and pedal pulses are normal. Examination of the skin revealed no evidence of significant rashes, suspicious appearing nevi or other concerning lesions. Areas of skin abrasion in the lower extremities bilaterally related to her fall. Neurologically, the patient is lethargic and sleepy and has diminished level of consciousness. She is withdrawing to painful stimulation. Pupils are equal reactive to light. No facial asymmetry. However, overall, more interactive and more arousable compared to yesterday. - Labs CBC & Chem 7: 02/03/25 06:16 02/03/25 07:12 Labs: Abnormal Lab Results - Last 24 Hours (Table) 02/02/25 02/03/25 02/03/25 Range/Units 05:26 06:16 07:12 WBC 22.71 H (4.50-10.00) 10*3/uL RBC 3.44 L (4.10-5.20) 10*6/uL Hgb 10.9 L (12.0-15.0) g/dL Hct 31.7 L (37.2-46.3) % Sodium 129 L (137-145) mmol/L Chloride 87 L (98-107) mmol/L Carbon Dioxide 33 H (22-30) mmol/L BUN 93 H (7-17) mg/dL Creatinine 4.58 H (0.52-1.04) mg/dL Calcium 6.7 L (8.4-10.2) mg/dL Magnesium 2.4 H (1.6-2.3) mg/dL Creatine Kinase 32156 H* 96102 H* (30-135) U/L Microbiology - Last 24 Hours (Table) 01/31/25 11:07 Blood Culture - Preliminary Blood 02/01/25 00:25 Urine Culture - Preliminary Urine,Catheterized Gram Neg Bacilli Assessment and Plan Plan: Hypotension, likely septic/hypovolemic in nature. The patient presented to the hospital following a fall and she was putting generalized weakness. Initially, she was suspected to have an acute cardiac event and the patient was given a car diac catheterization that showed normal coronaries. Obviously, the patient has a septic picture and she has leukocytosis and underlying urine tract infection with sepsis is clinically suspected. The patient was assisted with IV fluids. She is currently on a bicarb infusion. She is also on IV Rocephin. The patient is currently on low-dose norepinephrine running at 0.05 mcg/kg/min. She remains oliguric. Gram-negative urinary tract infection, currently on IV Rocephin Systolic heart failure with LV ejection fraction of 10 to 15% and moderate MR. There is also evidence of right-sided heart failure. Cardiac catheterization shows no evidence of any coronary artery disease. Acute fall related to generalized weakness, likely secondary to sepsis. No significant fractures and a CAT scan of the cervical spine and the brain showed no acute abnormalities. X-ray of the pelvis showed no evidence of any fractures. Altered mentation secondary to above, stable and neurologic function is im paired. Nonfocal on examination. More alert compared to yesterday. Acute rhabdomyolysis, likely secondary to fall/sepsis and the CPK is significant elevated, however the levels are downtrending Acute kidney injury, rule out ATN secondary to rhabdomyolysis. In addition, the patient was deprived from IV fluids and she was given contrast during cardiac catheterization which obviously made her renal function worse. Noted she had an acute kidney injury at the time of admission knowing that the patient had a normal GFR recently. The patient has interval worsening renal function. Urine output remains low. Nephrology on the case. The patient remains in acute rhabdomyolysis. Nephrology is on the case and the patient remains on a bicarb infusion. The patient will need renal replacement therapy. Anion gap metabolic acidosis secondary to above, improved Acute leukocytosis secondary to above Shock liver secondary to above Plan Keep the patient intensive care unit Titrate oxygen flow to maintain saturation above 90%, currently on room air oxygen, remains on room air oxygen. Continue IV Rocephin, pending further urine and blood cultures Continue bicarb infusion at rate of 100 cc an hour Continue norepinephrine. Keep the Griffiths catheter in place and monitor urine output Ultrasound the kidneys shows questionable hydronephrosis on the right. None on the left. No response to Lasix. The patient will have a temporary dialysis catheter inserted and hemodialysis being considered within the next 24 to 48 hours. Echocardiogram was noted avoid nephrotoxic agents subcu heparin 5000 units every 8 hours Monitor mentation Will continue to follow and make further recommendations based on progress. continue to follow make further recommendations based on her progress. Condition remains critical and this evaluation was done at 35 minutes. Time with Patient: Greater than 30
--- NOTE | 2025-02-03 21:54 | P.PN ---
Subjective Progress Note Date: 02/03/25 Patient is a 79-year-old female with hypertension here for evaluation after a fall. Patient reported that night before admission, patient fell after getting out of her into bed and that she lost consciousness. She was found on the floor with her right leg wedged with associated pain. She has been complaining of generalized weakness for about a few weeks now and it has worsened over the past week to the point that she drags her right leg. She denied chest pain, shortness of breath, palpitations, headaches, facial asymmetry, speech changes, abdominal pain, extremity swelling. On admission: Vitals: Temp 97.7 F, pulse rate 104, RR 20, BP 109/86, oxygen 95% on room air Labs: WBC 25.3, hemoglobin 15.7, platelet count 301,000, sodium 136, potassium 4.5, bicarb 20, BUN 33, creatinine 1.3, glucose 162, lactic acid 4.6, calcium 11.1, phosphorus 4.6, magnesium 2.6, AST 514, ALT 133, alk phos 77, total bilirubin 1.4, creatinine kinase 44,157, troponin 6, proBNP 1540, albumin 15.1. Urinalysis shows cloudy appearance +1 protein, large blood, large leukocyte esterase, WBC greater than 182, hyaline cast 10, occasional urine yeast.. Imaging: Pelvic x-ray showed no acute displaced fracture. Chest x-ray showed possible fluid overloaded state with persistent cardiomegaly and central vascular congestion. Head cervical spine CT showed no acute intracranial process with age-related atrophy, no acute posttraumatic changes in the cervical spine, with degenerative and vertebral joint changes. Face CT showed no acute posttraumatic osseous abnormality. EKG showed sinus tachycardia with a rate of 107, normal axis, ST elevation noted on lead III, notable intraventricular delay in V2 and V6, QTc 495 MS. Second EKG showed sinus tachycardia with occasional PVC, rate of [address]-T changes, QTc 431 MS. 02/01/2025 patient seen and examined at bedside. Rapid response was recalled yesterday on 01/30 as patient was hypotensive on the cardiac stepdown floor. Fluid bolus was given but patient had marginal response. She was also quite lethargic on reevaluation. Pulmonology decided to admit patient to the ICU due to concerns for hypotension related to sepsis. Still having labile BP. Still low UO with positive fluid balance. Still lethargic but cooperative. Labs: WBC 19.13, hemoglobin 12.6, platelet count 208,000, sodium 133, potassium 4.4, chloride 96, bicarb 23, BUN 73, glucose 118, calcium 72, magnesium 2.6 Imaging; liver ultrasound ordered showed no intrahepatic mass or ductal dilation. Echocardiogram showed LV ejection fraction of 10 to 15% with severely reduced global LV systolic dysfunction, RV dilated with reduced systolic function, moderate mitral regurgitation, mild LA dilatation with elevated LA filling pressures 02/02/2025 patient seen and examined at bedside. Patient seen in the ICU. Still having low urine output with positive fluid balance. Blood pressures still labile. 1 L bolus 0.9 normal saline given 02/01 Labs: WBC 20.1, hemoglobin 11, platelet count 195,000, sodium 131, potassium 3.8, chloride 93, BUN 85, creatinine 4, glucose 103, calcium 6.8 Imaging: Renal US showed possible mild right hydronephrosis 02/03/2025 Patient is in MICU. Awake alert with mild confusion. Lethargic and weak. Patient is on low-dose norepinephrine drip. Decreased urine output even after IV Lasix doses. Renal function is worsening. Nephrology is planning for renal replacement therapy. Otherwise patient is on antibiotics per urinary tract infection. Urine cultures showed Pseudomonas. Lab data showed WBC 22.7 hemoglobin 10.9 and platelets 200, sodium 129 potassium 4.3 chloride 87 bicarb is 33 BUN 93 and creatinine 4.58. CPK level 30,365 and calcium 6.7. Nephrology and critical care team is on board. Review of systems: Pertinent positives and negatives as discussed in HPI, a complete review of systems was performed and all other systems are negative. Physical examination: Vital signs reviewed General: non toxic, no distress, appears at stated age, cooperative but slow to respond Derm: no unusual rashes/lesions, warm Head: atraumatic, normocephalic, symmetric Eyes: EOMI, anicteric sclera, pupils equal round reactive to light ENT: Nose and ears atraumatic Neck: No cervical lymphadenopathy, trachea midline, supple Mouth: no lip lesion, mucus membranes moist Cardiovascular: S1S2 reg, no murmur Lungs: fine rales on RL lung, no rhonchi, no rales, no accessory muscle use Abdominal: soft, nondistended, nontender to palpation, no guarding Ext: muscle strength 5 out of 5 in all 4 extremities grossly, no gross muscle atrophy, no contractures, positive dorsalis pedis pulse bilateral, b/l upper and lower ext +2 pitting edema Neuro: CN II-XI grossly intact, no gross focal neuro deficits, lethargic Psych: Alert and oriented x 2, appropriate affect and mood Assessment/Plan: The patient is admitted with an anticipated greater than 2 midnight stay for evaluation of syncope, CATHIE and sepsis Active: #. CATHIE, secondary to ATN which is secondary to sepsis, acute rhabdomyolysis and contrast injury. Worsening renal function. #. Sepsis secondary to UTI. Urine culture showed Pseudomonas. #. Acute rhabdomyolysis. Status post fall #. Lactic acidosis, resolved #. Anion gap metabolic acidosis secondary to above # Altered mental status due to metabolic encephalopathy Creatinine 3.05-->4.58 Bicarb 17 -> 23 [place] [address] -> [address] Currently on bicarb drip in the ICU Monitor urine output and renal function. Currently on antony cath Blood cultures negative. Urine culture showed Pseudomonas. Myoglobin pending Renal US showed possible mild right hydronephrosis vs extrarenal pelvis Patient is currently on ceftriaxone 1 g daily. Will be given a dose of IV Levaquin renal dosing and ID consult for further evaluation. Nephrology is following., rec appreciated. Nephrology is considering [employer] in the next 24 to 48 hours. Pulmonology consulted for ICU management of hypotnesion #. Shocked liver secondary to above On admission AST 514 and ALT 133. Uptrend on 06 Hold statins, NSAIDs and opioids for now Liver ultrasound unremarkable #. Syncope, likley due to sepsis #. Mechanical fall secondary to above #. NSTEMI s/p cardiac cath with no coronary occlusions #. Nonischemic cardiomyopathy Pelvic x-ray, head CT, cervical spine CT and face CT so no acute fractures or osseous abnormality. EKG showed sinus tachycardia with a rate of 107, normal axis, ST elevation noted on lead III, notable intraventricular delay in V2 and V6 Second EKG showed sinus tachycardia with occasional PVC, no noted ST-T changes proBNP 1540 Continue cardiac monitoring Supplemental oxygen as needed Echocardiogram showed LV ejection fraction of 10 to 15% with severely reduced global LV systolic dysfunction, RV dilated with reduced systolic function, moderate mitral regurgitation Consult cardiology. Heart cath done showed normal coronary arteries. Considering takotsubo cardiomyopathy Chronic Conditions: #. Hypertension #. Anxiety Hold statins, gabapentin and NSAIDs for now Hold antihypertensives for now as blood pressure is labile DVT ppx: Heparin SQ CODE STATUS: Full Discussed with: patient and family Anticipated discharge place: pending clinical course Dictation was produced using [employer] dictation software. please excuse any grammatical, word or spelling errors. Objective - Vital Signs Vital signs: Vital Signs Temp 98.0 F 02/03/25 16:00 Pulse 79 02/03/25 19:00 Resp 16 02/03/25 19:00 BP 109/73 02/03/25 19:00 Pulse Ox 96 02/03/25 19:00 FiO2 2 01/31/25 23:15 Intake & Output 02/03/25 02/03/25 02/04/25 06:59 18:59 06:59 Intake Total 2955.951 0698.796 Output Total 30 54 Balance 2688.982 4072.796 Weight 110.7 kg Intake: IV 1100 1350 Dextrose 5% in Water 1, 1100 100 000 ml @ 100 mls/hr IV . [id number] DHRUV with Sodium Bicarb (1 Meq/ml) 150 ml Rx#:[id number] Sodium Chloride 0.9% 1, 1200 000 ml @ 100 mls/hr IV . Q10H DHRUV Rx#:[id number] cefTRIAXone 1 gm In 50 Sodium Chloride 0.9% 50 ml @ 100 mls/hr IVPB Q24HR DHRUV Rx#:[id number] Intake, IV Titration 150.058 100.796 Amount Norepinephrine 8 mg In 150.058 100.796 Sodium Chloride 0.9% 250 ml @ 0.03 MCG/KG/MIN 5. 834 mls/hr IV .Q24H DHRUV Rx#:[id number] Oral 700 Output: Urine 30 54 Other: Voiding Method Indwelling Catheter Indwelling Catheter # Voids 1 # Bowel Movements 1 - Labs CBC & Chem 7: 02/03/25 06:16 02/03/25 07:12 Labs: Abnormal Lab Results - Last 24 Hours (Table) 02/03/25 02/03/25 Range/Units 06:16 07:12 WBC 22.71 H (4.50-10.00) 10*3/uL RBC 3.44 L (4.10-5.20) 10*6/uL Hgb 10.9 L (12.0-15.0) g/dL Hct 31.7 L (37.2-46.3) % Sodium 129 L (137-145) mmol/L Chloride 87 L (98-107) mmol/L Carbon Dioxide 33 H (22-30) mmol/L BUN 93 H (7-17) mg/dL Creatinine 4.58 H (0.52-1.04) mg/dL Calcium 6.7 L (8.4-10.2) mg/dL Magnesium 2.4 H (1.6-2.3) mg/dL Creatine Kinase 70292 H* (30-135) U/L Microbiology - Last 24 Hours (Table) 01/31/25 11:07 Blood Culture - Preliminary Blood 02/01/25 00:25 Urine Culture - Final Urine,Catheterized Pseudomonas aeruginosa Assessment and Plan Time with Patient: Greater than 30
[2025-02-03] MEDS: LEVOFLOXACIN 250MG-D5W PMX 250 MG in DEXTROSE/WATER 1 50ML.BAG IVPB STA (22:38)
[2025-02-04 00:27] LABS: Hepatitis B Surface AB- Quant 3.5 mIU/mL
[2025-02-04 00:36] LABS: Hepatitis B Surface Antigen Nonreactive (Nonreactive)
[2025-02-04 05:42] LABS: Basophils # (A) 0.09 10*3/uL (0.00-0.10); Basophils % (A) 0.7 %; Eosinophils # (A) 0.37 10*3/uL (0.04-0.35); Eosinophils % (A) 2.8 %; HCT 29.8 % (37.2-46.3); Lymphocytes # (A) 1.09 10*3/uL (0.90-5.00); Lymphocytes % (A) 8.2 %; MCH 31.3 pg (27.0-32.0); MCHC 33.6 g/dL (32.0-37.0); MCV 93.1 fL (80.0-97.0); Mean Platelet Volume 10.7 fL (9.5-12.2); Monocytes # (A) 1.28 10*3/uL (0.20-1.00); Monocytes % (A) 9.7 %; Neutrophils % (A) 77.8 %; Platelet Count 192 10*3/uL (140-440); RDW 13.2 % (11.5-14.5); WBC 13.24 10*3/uL (4.50-10.00)
[2025-02-04 06:34] LABS: ALT 394 U/L (4-34); AST 735 U/L (14-36); Albumin 2.1 g/dL (3.5-5.0); Alkaline Phosphatase 124 U/L (38-126); Anion Gap 8 mmol/L; Blood Urea Nitrogen 96 mg/dL (7-17); Carbon Dioxide 32 mmol/L (22-30); Chloride 87 mmol/L (98-107); Glucose 70 mg/dL (74-99); Magnesium 2.3 mg/dL (1.6-2.3); Potassium 4.4 mmol/L (3.5-5.1); Sodium 127 mmol/L (137-145); Total Bilirubin 0.5 mg/dL (0.2-1.3); Total Protein 4.2 g/dL (6.3-8.2)
[2025-02-04 06:41] LABS: African American GFR (CKD) 9 (>60 ml/min/1.73 sqM); Non-African American GFR(CKD) 8 (>60 ml/min/1.73 sqM)
--- NOTE | 2025-02-04 08:20 | CONS ---
DATE OF CONSULTATION: 02/03/2025 HISTORY OF PRESENT ILLNESS: This is an 79-year-old female. I was called in for placement of dialysis catheter with high BUN and creatinine. The patient came with history of hypertension and fall at home and weakness in the right leg. CT of the head shows no intracranial bleed. MEDICAL HISTORY: History of hypertension. SURGICAL HISTORY: History of right total knee done in the past. PHYSICAL EXAMINATION: GENERAL: On exam, patient was seen in intensive care unit. NECK: Supple. No bruit appreciated. CHEST: A few rhonchi at the lung bases, first and second sounds present. ABDOMEN: Soft, nontender. EXTREMITIES: Femorals are 1+ bilaterally. PLAN: Placement of the dialysis catheter. Risks and complications discussed. MMODL / IJN: [id number] / MTDD
[2025-02-04 08:40] LABS: Creatine Kinase 25695 U/L (30-135)
[2025-02-04] MEDS: CEFEPIME 1 GM in SODIUM CHLORIDE 0.9% 50 ML IVPB SCH (12:29)
--- NOTE | 2025-02-04 14:42 | P.PN ---
Subjective Progress Note Date: 02/04/25 Principal diagnosis: Hypotension secondary to sepsis and hypovolemia and secondary to systolic congestive heart failure with ejection fraction of 10 to 15% with moderate mitral regurgitation. This is a 79-year-old female patient who originally came into the hospital because of a fall, acute rhabdomyolysis and acute kidney injury. The patient was noted to be extremely weak and she fell while trying to get out of her bed. She was found on the floor and for that reason the patient was brought into the emergency department. The initial blood work showed acute rhabdomyolysis with a CPK level of 44,001 157. The patient had an acute kidney injury with a creatinine of 1.38 note that her baseline creatinine has been within normal limits. Initial lactic acid level was 4.6. proBNP level was 1540. Troponin was at 6.07. EKG showed Q waves of the anterior leads and normal sinus rhythm. The white cell count was at 25 with a hemoglobin of 16.7. UA was consistent with underlying infection. Patient was given a cardiac catheterization the patient was found to have normal coronaries and filling pressures. This morning, the patient was found to be quite lethargic and hypotensive. Based on that, emergency services were activated and the patient was seen at the bedside and the patient will be transferred to the ICU. Obviously, there is a concern for underlying sepsis. Lactic is elevated at 23, there is a concern for underlying urine tract infection. The patient has also developed worsening renal function and her urine output is quite diminished and [employer] looking color. BUN is 55 with a creatinine of 2.3. Sodium is at 131 with a potassium level of 4.4. Serum bicarbonate 17. Abnormal LFTs with an AST of 2062 and ALT of 636. Blood sugar is at 148. The patient is currently on oxygen at 2 L with a pulse ox of 95 to 97%. Chest x-ray was also done this morning and it showed mild pulm vascular congestion. There are some cardiomegaly. Advanced gen erative changes involving the right glenohumeral joint. Also, the patient underwent a CAT scan of the head and cervical spine at time of admission and it showed no acute posttraumatic changes in the cervical spine. Degenerative changes involving the cervical spine at the level of C4-C5 and C5-C6 without evidence of any fracture. The pelvic x-ray showed no evidence of any fractures. CAT scan of the face was also done and it showed no evidence of any posttraumatic bony abnormalities. The patient clinically is quite lethargic. She is confused. She has diminished level of consciousness. Based on all this, the patient will be transferred to the intensive care unit. Echocardiogram was done and results are still pending for now. 02/01/2025, the patient is being seen for a follow-up. On today's evaluation, the patient remains quite lethargic and somnolent. The patient got transferred to the intensive care unit for sepsis and acute kidney injury and hypotension. This morning, the patient remains on room air oxygen. The patient was given several boluses of IV fluid yesterday and the patient's fluid balance is +3.6 L over the past 24 hours. She is currently on a bicarb infusion running at 100 cc an hour. CVP remains low at 5. The patient did not require any pressors and the patient is currently receiving no inotropes. Cultures are still pending for now. Meanwhile, the patient was covered with IV Rocephin. The white cell count is currently down to 19 with a hemoglobin of 6 and a platelet count of 208. BUN is 73 with a creatinine of 3.05 and the patient's urine output remains low less than 10 cc an hour. Serum bicarb is at 23. Sodium is at 133 and potassium is at 4.4. CPK level peaked at 840,000 and currently is down to 75,000. Nephrology on the case. Cardiology is also on the case as the patient has undergone cardiac catheterization and she revealed normal coronaries. Nevertheless, the echocardiogram showed systolic heart failure with impairment of LV function and the patient has an ejection fraction of 10 to 15%. The patient also has severe global LV dysfunction, no evidence of any LV thrombus, RV is dilated and reduced RV systolic function and moderate degree of mitral regurgitation was also noted. The patient had a follow-up chest x-ray today that showed cardiomegaly and some mild pulm vascular congestion. No significant change compared to yesterday. Ultrasound of the kidneys showed no evidence of hydronephrosis on the left, possible mild right-sided hydronephrosis was noted. On 03/03/2025, the patient is being seen for a follow-up. The patient seems to be much more awake and interactive on today's evaluation. She remains however sluggish and slow in response. She seems to be following commands and answering questions. She is on room air oxygen. She remains on bicarb drip running no nephrotoxic agents at this point. Antibiotics is in the form of IV Rocephin. Urine output has been in order of 20 cc over the past 8 hours and the patient remains oliguric. The patient's CVP remains around 5-8. The patient is on no pressors. The patient is afebrile. Blood cultures still negative. White cell count of 20 with a hemoglobin 11 and a platelet count of 195. CPK is downtrending and is down to 43,000. BUN is 85 with a creatinine of 4.08. Sodium is 131 and a potassium of 3.8. The patient remains on a bicarb infusion On 02/03/2025, the patient is being seen for a follow-up. The patient remains an uric. The patient remains on a bicarb infusion. She has acute kidney injury due to rhabdomyolysis and contrast nephropathy and the patient has developed progressive worsening renal function. Creatinine is up to 4.5 with a BUN of 93. Sodium levels at 129. On today's blood work, the patient's white cell count is at 22 with a hemoglobin 10.9 and a platelet count of 200. CPK is down to 30,000. The patient is also on low-dose norepinephrine running at 0.05 mcg/kg/min. The patient received several doses of IV Lasix. No improvement in urine output. The patient has produced only 40 cc over the past 12 hours. She is on room air oxygen. She is arousable. She is lethargic. No focal neurological deficits. Nephrology on the case and the patient will have a temporary dialysis catheter inserted in preparation for renal replacement therapy within the next 24 to 48 hours. Meanwhile, urine culture is positive for gram-negative bacillus. Blood culture is still negative. The patient remains on IV Rocephin. Patient was seen today on 02/04/2025, she is in the ICU receiving hemodialysis, her norepinephrine is on hold since 5 AM remains on IV fluid at 100 cc/h patient's echocardiogram showed ejection fraction of 10 to 15%. Patient is still receiving cefepime for her UTI, she is on room air, not in distress, she is recovering from her rhabdomyolysis and recovering from her urinary tract infection. Leukocytosis is improving WBC count is down to 13.2 today sodium is 127 potassium 4.4 BUN is 96 creatinine is 5, patient is on hemodialysis. Liver enzymes remain elevated CPK is trending down however remains high at 25 695. Objective - Vital Signs Vital signs: Vital Signs Temp 97.4 F L 02/04/25 08:00 Pulse 86 02/04/25 14:00 Resp 20 02/04/25 14:00 BP 114/51 02/04/25 14:00 Pulse Ox 94 L 02/04/25 14:00 FiO2 2 01/31/25 23:15 Intake & Output 02/03/25 02/04/25 02/04/25 18:59 06:59 18:59 Intake Total 2150.796 1168.962 800 Output Total 54 130 50 Balance 2096.796 1038.962 750 Weight 110.7 kg 111.3 kg Intake: IV 1350 1150 800 Dextrose 5% in Water 1, 100 000 ml @ 100 mls/hr IV . [id number] DHRUV with Sodium Bicarb (1 Meq/ml) 150 ml Rx#:[id number] Levofloxacin 250Mg-D5w 50 Pmx 250 mg In Dextrose/ Water 1 50ml.bag @ 50 mls /hr IVPB ONCE STA Rx#: [id number] Sodium Chloride 0.9% 1, 1200 1100 800 000 ml @ 100 mls/hr IV . Q10H DHRUV Rx#:[id number] cefTRIAXone 1 gm In 50 Sodium Chloride 0.9% 50 ml @ 100 mls/hr IVPB Q24HR DHRUV Rx#:[id number] Intake, IV Titration 100.796 18.962 Amount Norepinephrine 8 mg In 100.796 18.962 Sodium Chloride 0.9% 250 ml @ 0.03 MCG/KG/MIN 5. 834 mls/hr IV .Q24H DHRUV Rx#:[id number] Oral 700 Output: Urine 54 130 50 Other: Voiding Method Indwelling Catheter Indwelling Catheter Indwelling Catheter # Bowel Movements 1 1 - Exam General: 79-year-old female in no distress, on room air, on hemodialysis Derm: no unusual rashes/lesions, warm Head: atraumatic, normocephalic, symmetric Eyes: EOMI, anicteric sclera, pupils equal round reactive to light ENT: Nose and ears atraumatic Neck: No cervical lymphadenopathy, trachea midline, supple Mouth: no lip lesion, mucus membranes moist Cardiovascular: S1S2 reg, no murmur Lungs: Diminished breath sounds at the bases no crackles rhonchi or wheezes Abdominal: soft, nondistended, nontender to palpation, no guarding Ext: muscle strength 5 out of 5 in all 4 extremities grossly, no gross muscle atrophy, no contractures, positive dorsalis pedis pulse bilateral, b/l upper and lower ext +2 pitting edema Neuro: Alert oriented x 3 no focal deficit Psych: Normal mood, affect and normal mental status examination - Labs CBC & Chem 7: 02/04/25 05:18 02/04/25 05:18 Labs: Abnormal Lab Results - Last 24 Hours (Table) 01/31/25 02/04/25 02/04/25 Range/Units 05:50 05:18 05:18 WBC 13.24 H (4.50-10.00) 10*3/uL RBC 3.20 L (4.10-5.20) 10*6/uL Hgb 10.0 L (12.0-15.0) g/dL Hct 29.8 L (37.2-46.3) % Immature Gran # 0.11 H (0.00-0.04) 10*3/uL Neutrophils # 10.30 H (1.80-7.70) 10*3/uL Monocytes # 1.28 H (0.20-1.00) 10*3/uL Eosinophils # 0.37 H (0.04-0.35) 10*3/uL Sodium 127 L (137-145) mmol/L Chloride 87 L (98-107) mmol/L Carbon Dioxide 32 H (22-30) mmol/L BUN 96 H (7-17) mg/dL Creatinine 5.02 H (0.52-1.04) mg/dL Glucose 70 L (74-99) mg/dL Calcium 7.0 L (8.4-10.2) mg/dL AST 735 H (14-36) U/L ALT 394 H (4-34) U/L Creatine Kinase 52375 H* (30-135) U/L Myoglobin 204513 H (<=58) ng/mL Total Protein 4.2 L (6.3-8.2) g/dL Albumin 2.1 L (3.5-5.0) g/dL Microbiology - Last 24 Hours (Table) 01/31/25 11:07 Blood Culture - Preliminary Blood 02/01/25 00:25 Urine Culture - Final Urine,Catheterized Pseudomonas aeruginosa Assessment and Plan Assessment: Impression: Hypotension with hypovolemia, sepsis, and severe LV dysfunction with ejection fraction of 10 to 15% and moderate mitral regurgitation. Acute pseudomonal aeruginosa urinary tract infection acute toxic metabolic encephalopathy Acute rhabdomyolysis secondary to fall and sepsis Acute fall secondary to generalized weakness and possibly secondary to sepsis/urinary tract infection with sepsis Acute leukocytosis secondary to above Shock liver secondary to above Acute kidney injury secondary to rhabdomyolysis, patient also had cardiac catheterization obviously may have contributed to her worsening renal function patient is now on hemodialysis Recommendation: Continue to monitor the patient in the ICU Continue antibiotics, Rocephin was changed to cefepime to cover pseudomonal infection Continue hemodialysis Avoid nephrotoxic agents Keep monitoring urine output Patient is now off bicarb infusion Continue GI and DVT prophylaxis Will monitor in the ICU for the next 24 hours, and will likely transfer to cardiac floor in 24 hours. Overall prognosis remains guarded, patient remains relatively ill Will continue to follow Time with Patient: Less than 30
--- NOTE | 2025-02-04 14:42 | P.PN ---
Subjective Patient is seen for follow-up for acute kidney injury and rhabdomyolysis. She remains oliguric. Seen on hemodialysis Patient is awake, lethargic Tolerating treatment well. Serum creatinine at 5.0 [place] [address] today. Objective - Vital Signs Vital signs: Vital Signs Temp 97.4 F L 02/04/25 08:00 Pulse 86 02/04/25 14:00 Resp 20 02/04/25 14:00 BP 114/51 02/04/25 14:00 Pulse Ox 94 L 02/04/25 14:00 FiO2 2 01/31/25 23:15 Intake & Output 02/03/25 02/04/25 02/04/25 18:59 06:59 18:59 Intake Total 2150.796 1168.962 800 Output Total 54 130 50 Balance 2096.796 1038.962 750 Weight 110.7 kg 111.3 kg Intake: IV 1350 1150 800 Dextrose 5% in Water 1, 100 000 ml @ 100 mls/hr IV . [id number] DHRUV with Sodium Bicarb (1 Meq/ml) 150 ml Rx#:[id number] Levofloxacin 250Mg-D5w 50 Pmx 250 mg In Dextrose/ Water 1 50ml.bag @ 50 mls /hr IVPB ONCE STA Rx#: [id number] Sodium Chloride 0.9% 1, 1200 1100 800 000 ml @ 100 mls/hr IV . Q10H DHRUV Rx#:[id number] cefTRIAXone 1 gm In 50 Sodium Chloride 0.9% 50 ml @ 100 mls/hr IVPB Q24HR D[facility]UV Rx#:[id number] Intake, IV Titration 100.796 18.962 Amount Norepinephrine 8 mg In 100.796 18.962 Sodium Chloride 0.9% 250 ml @ 0.03 MCG/KG/MIN 5. 834 mls/hr IV .Q24H DHRUV Rx#:[id number] Oral 700 Output: Urine 54 130 50 Other: Voiding Method Indwelling Catheter Indwelling Catheter Indwelling Catheter # Bowel Movements 1 1 - Exam Patient is sleeping but arousable No acute distress AExamination of the heart S1 and S2 Examination of the lungs bilateral breath sounds are heard Abdomen is soft obese Examination of lower extremities showed trace edema [employer] INSULATION exam grossly intact - Labs CBC & Chem 7: 02/04/25 05:18 02/04/25 05:18 Labs: Abnormal Lab Results - Last 24 Hours (Table) 01/31/25 02/04/25 02/04/25 Range/Units 05:50 05:18 05:18 WBC 13.24 H (4.50-10.00) 10*3/uL RBC 3.20 L (4.10-5.20) 10*6/uL Hgb 10.0 L (12.0-15.0) g/dL Hct 29.8 L (37.2-46.3) % Immature Gran # 0.11 H (0.00-0.04) 10*3/uL Neutrophils # 10.30 H (1.80-7.70) 10*3/uL Monocytes # 1.28 H (0.20-1.00) 10*3/uL Eosinophils # 0.37 H (0.04-0.35) 10*3/uL Sodium 127 L (137-145) mmol/L Chloride 87 L (98-107) mmol/L Carbon Dioxide 32 H (22-30) mmol/L BUN 96 H (7-17) mg/dL Creatinine 5.02 H (0.52-1.04) mg/dL Glucose 70 L (74-99) mg/dL Calcium 7.0 L (8.4-10.2) mg/dL AST 735 H (14-36) U/L ALT 394 H (4-34) U/L Creatine Kinase 29982 H* (30-135) U/L Myoglobin 654117 H (<=58) ng/mL Total Protein 4.2 L (6.3-8.2) g/dL Albumin 2.1 L (3.5-5.0) g/dL Microbiology - Last 24 Hours (Table) 01/31/25 11:07 Blood Culture - Preliminary Blood 02/01/25 00:25 Urine Culture - Final Urine,Catheterized Pseudomonas aeruginosa Assessment and Plan Assessment: 1. Acute kidney injury, ATN, oliguric secondary to hypotension and rhabdomyolysis. Patient also received IV contrast for cardiac catheterization which will exaggerate the acute kidney injury over the next 2 to 3 days after exposure. Currently maintained on IV hydration. UA suggestive of UTI. Ultrasound of the kidneys shows mild right hydronephrosis versus extrarenal pelvis. 2. Severe rhabdomyolysis status post fall 3. Anion gap metabolic acidosis associated with acute kidney injury and hypotension 4. UTI maintained on antibiotics. Urine culture is pending. 5. Mental status changes secondary to sepsis 6. Cardiomyopathy with ejection fraction of 10 to 15% Plan: Continue with IV fluids Hemodialysis today and repeat in a.m. Continue to avoid nephrotoxic agents Repeat labs in a.m.
--- NOTE | 2025-02-04 16:42 | P.PN ---
Subjective Progress Note Date: 02/04/25 HPI: This lady is 79 years of age has nonischemic cardiomyopathy. She has rhabdomyolysis acute kidney injury and cardiac cath which must have exacerbated it. She is being considered for renal replacement therapy/dialysis. Right now she appears to be fairly stable. She will probably have a temporary dialysis catheter placed today. No chest pain or shortness of breath functional capacity is limited appears to be fairly stable. Obstructive CAD but has poor LV function nonischemic cardiomyopathy. PHYSICIAL EXAM: Vitals are stable JVD is evident S1-S2 with short systolic murmur lungs reveal diminished air entry fine basilar rales abdomen is soft lower extremities revealed diminished pulses Central nervous system grossly within normal limits. IMPRESSION: 1. Acute kidney injury following coronary angiogram rhabdomyolysis and dehydration. 2. Nonischemic cardiomyopathy nonobstructive CAD by catheterization. 3.. 4.. 5.. RECOMMENDATIONS: Continue current medications agree with the nephrology. Probable renal replacement therapy will have temporary dialysis catheter today prognosis remains guarded. Objective - Vital Signs Vital signs: Vital Signs Temp 97.4 F L 02/04/25 08:00 Pulse 87 02/04/25 15:00 Resp 20 02/04/25 15:00 BP 115/66 02/04/25 15:00 Pulse Ox 95 02/04/25 15:00 FiO2 2 01/31/25 23:15 Intake & Output 02/03/25 02/04/25 02/04/25 18:59 06:59 18:59 Intake Total 2150.796 1168.962 900 Output Total 54 130 50 Balance 2096.796 1038.962 850 Weight 110.7 kg 111.3 kg Intake: IV 1350 1150 900 Dextrose 5% in Water 1, 100 000 ml @ 100 mls/hr IV . [id number] DHURV with Sodium Bicarb (1 Meq/ml) 150 ml Rx#:[id number] Levofloxacin 250Mg-D5w 50 Pmx 250 mg In Dextrose/ Water 1 50ml.bag @ 50 mls /hr IVPB ONCE STA Rx#: [id number] Sodium Chloride 0.9% 1, 1200 1100 900 000 ml @ 100 mls/hr IV . Q10H D[facility]UV Rx#:[id number] cefTRIAXone 1 gm In 50 Sodium Chloride 0.9% 50 ml @ 100 mls/hr IVPB Q24HR [facility] Rx#:[id number] Intake, IV Titration 100.796 18.962 Amount Norepinephrine 8 mg In 100.796 18.962 Sodium Chloride 0.9% 250 ml @ 0.03 MCG/KG/MIN 5. 834 mls/hr IV .Q24H [facility]UV Rx#:[id number] Oral 700 Output: Urine 54 130 50 Other: Voiding Method Indwelling Catheter Indwelling Catheter Indwelling Catheter # Bowel Movements 1 1 - Labs CBC & Chem 7: 02/04/25 05:18 02/04/25 05:18 Labs: Abnormal Lab Results - Last 24 Hours (Table) 01/31/25 02/04/25 02/04/25 Range/Units 05:50 05:18 05:18 WBC 13.24 H (4.50-10.00) 10*3/uL RBC 3.20 L (4.10-5.20) 10*6/uL Hgb 10.0 L (12.0-15.0) g/dL Hct 29.8 L (37.2-46.3) % Immature Gran # 0.11 H (0.00-0.04) 10*3/uL Neutrophils # 10.30 H (1.80-7.70) 10*3/uL Monocytes # 1.28 H (0.20-1.00) 10*3/uL Eosinophils # 0.37 H (0.04-0.35) 10*3/uL Sodium 127 L (137-145) mmol/L Chloride 87 L (98-107) mmol/L Carbon Dioxide 32 H (22-30) mmol/L BUN 96 H (7-17) mg/dL Creatinine 5.02 H (0.52-1.04) mg/dL Glucose 70 L (74-99) mg/dL Calcium 7.0 L (8.4-10.2) mg/dL AST 735 H (14-36) U/L ALT 394 H (4-34) U/L Creatine Kinase 94617 H* (30-135) U/L Myoglobin 976652 H (<=58) ng/mL Total Protein 4.2 L (6.3-8.2) g/dL Albumin 2.1 L (3.5-5.0) g/dL Microbiology - Last 24 Hours (Table) 01/31/25 11:07 Blood Culture - Preliminary Blood 02/01/25 00:25 Urine Culture - Final Urine,Catheterized Pseudomonas aeruginosa
--- NOTE | 2025-02-04 16:59 | P.PN ---
Subjective Progress Note Date: 02/04/25 Patient is a 79-year-old female with hypertension here for evaluation after a fall. Patient reported that night before admission, patient fell after getting out of her into bed and that she lost consciousness. She was found on the floor with her right leg wedged with associated pain. She has been complaining of generalized weakness for about a few weeks now and it has worsened over the past week to the point that she drags her right leg. She denied chest pain, shortness of breath, palpitations, headaches, facial asymmetry, speech changes, abdominal pain, extremity swelling. On admission: Vitals: Temp 97.7 F, pulse rate 104, RR 20, BP 109/86, oxygen 95% on room air Labs: WBC 25.3, hemoglobin 15.7, platelet count 301,000, sodium 136, potassium 4.5, bicarb 20, BUN 33, creatinine 1.3, glucose 162, lactic acid 4.6, calcium 11.1, phosphorus 4.6, magnesium 2.6, AST 514, ALT 133, alk phos 77, total bilirubin 1.4, creatinine kinase 44,157, troponin 6, proBNP 1540, albumin 15.1. Urinalysis shows cloudy appearance +1 protein, large blood, large leukocyte esterase, WBC greater than 182, hyaline cast 10, occasional urine yeast.. Imaging: Pelvic x-ray showed no acute displaced fracture. Chest x-ray showed possible fluid overloaded state with persistent cardiomegaly and central vascular congestion. Head cervical spine CT showed no acute intracranial process with age-related atrophy, no acute posttraumatic changes in the cervical spine, with degenerative and vertebral joint changes. Face CT showed no acute posttraumatic osseous abnormality. EKG showed sinus tachycardia with a rate of 107, normal axis, ST elevation noted on lead III, notable intraventricular delay in V2 and V6, QTc 495 MS. Second EKG showed sinus tachycardia with occasional PVC, rate of [address]-T changes, QTc 431 MS. 02/01/2025 patient seen and examined at bedside. Rapid response was recalled yesterday on 01/30 as patient was hypotensive on the cardiac stepdown floor. Fluid bolus was given but patient had marginal response. She was also quite lethargic on reevaluation. Pulmonology decided to admit patient to the ICU due to concerns for hypotension related to sepsis. Still having labile BP. Still low UO with positive fluid balance. Still lethargic but cooperative. Labs: WBC 19.13, hemoglobin 12.6, platelet count 208,000, sodium 133, potassium 4.4, chloride 96, bicarb 23, BUN 73, glucose 118, calcium 72, magnesium 2.6 Imaging; liver ultrasound ordered showed no intrahepatic mass or ductal dilation. Echocardiogram showed LV ejection fraction of 10 to 15% with severely reduced global LV systolic dysfunction, RV dilated with reduced systolic function, moderate mitral regurgitation, mild LA dilatation with elevated LA filling pressures 02/02/2025 patient seen and examined at bedside. Patient seen in the ICU. Still having low urine output with positive fluid balance. Blood pressures still labile. 1 L bolus 0.9 normal saline given 02/01 Labs: WBC 20.1, hemoglobin 11, platelet count 195,000, sodium 131, potassium 3.8, chloride 93, BUN 85, creatinine 4, glucose 103, calcium 6.8 Imaging: Renal US showed possible mild right hydronephrosis 02/03/2025 Patient is in MICU. Awake alert with mild confusion. Lethargic and weak. Patient is on low-dose norepinephrine drip. Decreased urine output even after IV Lasix doses. Renal function is worsening. Nephrology is planning for renal replacement therapy. Otherwise patient is on antibiotics per urinary tract infection. Urine cultures showed Pseudomonas. Lab data showed WBC 22.7 hemoglobin 10.9 and platelets 200, sodium 129 potassium 4.3 chloride 87 bicarb is 33 BUN 93 and creatinine 4.58. CPK level 30,365 and calcium 6.7. Myoglobin elevated [id number] Nephrology and critical care team is on board. 02/04/2025 patient seen and examined at bedside. Patient still in the ICU. More alert and conversant today. Levophed weaned off this morning. UO improved. Labs: WBCs 13.2, hemoglobin 10, sodium 127, potassium 4.4, bicarb 23, BUN 96, creatinine 5, glucose 70, AST 735, ALT 394, alk phos 124, creatinine kinase 30674, albumin 2.1 Review of systems: Pertinent positives and negatives as discussed in HPI, a complete review of systems was performed and all other systems are negative. Physical examination: Vital signs reviewed General: non toxic, no distress, appears at stated age, cooperative and conversant Derm: no unusual rashes/lesions, warm, noted right yarsanism and left lower jaw bruises Head: atraumatic, normocephalic, symmetric Eyes: EOMI, anicteric sclera, pupils equal round reactive to light ENT: Nose and ears atraumatic Neck: No cervical lymphadenopathy, trachea midline, supple Mouth: no lip lesion, mucus membranes moist Cardiovascular: S1S2 reg, no murmur Lungs: fine rales on RL lung, no rhonchi, no rales, no accessory muscle use Abdominal: soft, nondistended, nontender to palpation, no guarding Ext: muscle strength 5 out of 5 in all 4 extremities grossly, no gross muscle atrophy, no contractures, positive dorsalis pedis pulse bilateral, b/l upper and lower ext +2 pitting edema Neuro: CN II-XI grossly intact, no gross focal neuro deficits Psych: Alert and oriented x 2, appropriate affect and mood Assessment/Plan: The patient is admitted with an anticipated greater than 2 midnight stay for ev aluation of syncope, CATHIE and sepsis Active: #. CATHIE, secondary to ATN which is secondary to sepsis, acute rhabdomyolysis and contrast injury. Worsening renal function. #. Sepsis secondary to complicated UTI. Urine culture showed Pseudomonas. #. Acute rhabdomyolysis. Status post fall, improving #. Lactic acidosis, resolved #. Anion gap metabolic acidosis secondary to above, improved # Acute metabolic encephalopathy secondary to above Creatinine 3.05-->4.58 -> 5.02 Urinalysis characteristic of UTI CK improving Monitor urine output and renal function. Currently on antony cath Blood cultures negative. Urine culture showed Pseudomonas. Myoglobin elevated [id number] Patient is now on Cefepime IV. IV levaquin given once 02/03 for antibiotics. D/c ceftriaxone IV 02/01 ID consult for further evaluation Nephrology is following, rec appreciated. Will proceed with [facility] [facility] has been consulted for temp cath placement Pulmonology consulted for ICU management of hypotnesion #. Shocked liver secondary to above AST 735, ALT 394 today. Continues to Uptrend since admission Hold statins, NSAIDs and opioids for now Liver ultrasound unremarkable #. Syncope, likley due to sepsis #. Mechanical fall secondary to above #. NSTEMI s/p cardiac cath with no coronary occlusions #. Nonischemic cardiomyopathy Pelvic x-ray, head CT, cervical spine CT and face CT so no acute fractures or osseous abnormality. EKG showed sinus tachycardia with a rate of 107, normal axis, ST elevation noted on lead III, notable intraventricular delay in V2 and V6 Second EKG showed sinus tachycardia with occasional PVC, no noted ST-T changes proBNP 1540 Continue cardiac monitoring Supplemental oxygen as needed Echocardiogram showed LV ejection fraction of 10 to 15% with severely reduced global LV systolic dysfunction, RV dilated with reduced systolic function, moderate mitral regurgitation Consult cardiology. Heart cath done showed normal coronary arteries. Chronic Conditions: #. Hypertension #. Anxiety Hold statins, gabapentin and NSAIDs for now Hold antihypertensives for now as blood pressure is labile DVT ppx: Heparin SQ CODE STATUS: Full Discussed with: patient and family Anticipated discharge place: pending clinical course Poornima Pat MD PGY-1 Internal Medicine Dictation was produced using [employer] dictation software. please excuse any grammatical, word or spelling errors. Objective - Vital Signs Vital signs: Vital Signs Temp 97.4 F L 02/04/25 08:00 Pulse 77 02/04/25 08:15 Resp 26 H 02/04/25 08:15 BP 109/57 02/04/25 08:15 Pulse Ox 97 02/04/25 08:15 FiO2 2 01/31/25 23:15 Intake & Output 02/03/25 02/04/25 02/04/25 18:59 06:59 18:59 Intake Total 2150.796 1168.962 200 Output Total 54 130 10 Balance 2096.796 1038.962 190 Weight 110.7 kg 111.3 kg Intake: IV 1350 1150 200 Dextrose 5% in Water 1, 100 000 ml @ 100 mls/hr IV . [id number] DHRUV with Sodium Bicarb (1 Meq/ml) 150 ml Rx#:[id number] Levofloxacin 250Mg-D5w 50 Pmx 250 mg In Dextrose/ Water 1 50ml.bag @ 50 mls /hr IVPB ONCE STA Rx#: [id number] Sodium Chloride 0.9% 1, 1200 1100 200 000 ml @ 100 mls/hr IV . Q10H D[facility]UV Rx#:[id number] cefTRIAXone 1 gm In 50 Sodium Chloride 0.9% 50 ml @ 100 mls/hr IVPB Q24HR D[facility]UV Rx#:[id number] Intake, IV Titration 100.796 18.962 Amount Norepinephrine 8 mg In 100.796 18.962 Sodium Chloride 0.9% 250 ml @ 0.03 MCG/KG/MIN 5. 834 mls/hr IV .Q24H [facility] Rx#:[id number] Oral 700 Output: Urine 54 130 10 Other: Voiding Method Indwelling Catheter Indwelling Catheter # Bowel Movements 1 1 - Labs CBC & Chem 7: 02/12/25 04:06 02/12/25 04:06 Labs: Abnormal Lab Results - Last 24 Hours (Table) 01/31/25 02/04/25 02/04/25 Range/Units 05:50 05:18 05:18 WBC 13.24 H (4.50-10.00) 10*3/uL RBC 3.20 L (4.10-5.20) 10*6/uL Hgb 10.0 L (12.0-15.0) g/dL Hct 29.8 L (37.2-46.3) % Immature Gran # 0.11 H (0.00-0.04) 10*3/uL Neutrophils # 10.30 H (1.80-7.70) 10*3/uL Monocytes # 1.28 H (0.20-1.00) 10*3/uL Eosinophils # 0.37 H (0.04-0.35) 10*3/uL Sodium 127 L (137-145) mmol/L Chloride 87 L (98-107) mmol/L Carbon Dioxide 32 H (22-30) mmol/L BUN 96 H (7-17) mg/dL Creatinine 5.02 H (0.52-1.04) mg/dL Glucose 70 L (74-99) mg/dL Calcium 7.0 L (8.4-10.2) mg/dL AST 735 H (14-36) U/L ALT 394 H (4-34) U/L Myoglobin 590275 H (<=58) ng/mL Total Protein 4.2 L (6.3-8.2) g/dL Albumin 2.1 L (3.5-5.0) g/dL Microbiology - Last 24 Hours (Table) 01/31/25 11:07 Blood Culture - Preliminary Blood 02/01/25 00:25 Urine Culture - Final Urine,Catheterized Pseudomonas aeruginosa Assessment and Plan Assessment: Attestation Attestation/ Sawmill Hand Note: Attestation to progress Note, Participation (I saw and evaluated the patient with the Resident, and I reviewed and discussed the p atient with the Resident and agree with the Resident's findings and plans as documented above., management reviewed and discussed), I agree with findings & plan, Provider Signature (SHAVON BOX, ISI Larios Time with Patient: Greater than 30
--- NOTE | 2025-02-04 22:50 | P.CONS ---
History of Present Illness - Reason for Consult Consult date: 02/04/25 Pseudomonas UTI Requesting physician: Jesse Hahn - Chief Complaint Weakness and fall x 1 day on admission - History of Present Illness Patient is 79-year-old female with a past medical history significant for hypertension neuropathy chronic back pain patient has been brought to the hospital about 5 days ago after the patient did have a fall lost balance feeling weak and apparently was on the ground for multiple hours patient on presentation to the hospital was afebrile and no fever has been recorded during this hospital stay patient was nontachycardic or hypotensive not hypoxic no need for supplemental oxygen patient did have elevated white count of 23,000 with a left shift BUN and creatinine has been elevated did have elevated CK and significant worsening of her kidney function patient did have a positive UA on 01/30/2025 with large leukocyte esterase more than 182 WBC and culture leg has been finalized with Pseudomonas aeruginosa as of 02/01/2025 infectious disease was consulted last night for Pseudomonas UTI patient not a very good historian when asked specifically for urinary symptoms except decreased urine output she has been feeling nauseated there been concern for some mental status changes but denies any headache vomiting or diarrhea Review of Systems Positive points has been mentioned in HPI complete review could not be obtained because of his underlying mental status Past Medical History Past Medical History: Hypertension Additional Past Medical History / Comment(s): neuropathy, chronic back issues History of Any Multi-Drug Resistant Organisms: None Reported Past Surgical History: Orthopedic Surgery Past Psychological History: No Psychological Hx Reported Smoking Status: Never smoker Past Alcohol Use History: None Reported Past Drug Use History: None Reported Medications and Allergies Home Medications Medication Instructions Recorded Confirmed Type ALPRAZolam [Xanax] 0.25 mg PO BID 01/30/25 01/30/25 History Acetaminophen/Diphenhydramine 1 tab PO HS 01/30/25 01/30/25 History [Tylenol PM 500-25mg] Ascorbic Acid [Vitamin C] 500 mg PO DAILY 01/30/25 01/30/25 History Baclofen 10 mg PO BID 01/30/25 01/30/25 History Cholecalciferol [Vitamin D3 (125 125 mcg PO DAILY 01/30/25 01/30/25 History Mcg = 5000 Iu)] Cyanocobalamin (Vitamin B-12) 1,000 mcg PO DAILY 01/30/25 01/30/25 History [Vitamin B-12] Diclofenac Sodium Gel [Voltaren 1% 1 applic TOPICAL BID 01/30/25 01/30/25 History Gel] Famotidine [Pepcid] 20 mg PO DAILY 01/30/25 01/30/25 History Fesoterodine Fumarate 8 mg PO HS 01/30/25 01/30/25 History [Fesoterodine Fumarate ER] Folic Acid 0.4 mg PO DAILY 01/30/25 01/30/25 History Gabapentin [Neurontin] 600 mg PO BID 01/30/25 01/30/25 History HYDROcodone/APAP 10-325MG [Gamerco 1 tab PO Q6HR PRN 01/30/25 01/30/25 History 10-325] Hydrocortisone Cream 1 applic TOPICAL DAILY PRN 01/30/25 01/30/25 History [Hydrocortisone 2.5% Cream] Latanoprost [Latanoprost 0.005%] 1 drop BOTH EYES HS 01/30/25 01/30/25 History Lovastatin [Mevacor] 20 mg PO W/SUPPER 01/30/25 01/30/25 History Magnesium Oxide [Magnesium] 500 mg PO DAILY 01/30/25 01/30/25 History Naproxen Sodium [Aleve] 220 mg PO BID 01/30/25 01/30/25 History Nystatin 100,000 Unit/gm Powd 1 applic TOPICAL BID 01/30/25 01/30/25 History [Mycostatin Powder] Olopatadine HCl [Pataday] 1 drop BOTH EYES DAILY 01/30/25 01/30/25 History Selenomethionine [Selenium] 200 mcg PO DAILY 01/30/25 01/30/25 History Theraworx Muscle And Spasm Relief 1 applic TOPICAL HS 01/30/25 01/30/25 History Foam Triamcinolone 0.5% Cream [Kenalog 1 applic TOPICAL BID 01/30/25 01/30/25 History 0.5% Cream] Ubidecarenone [Co Q-10] 30 mg PO DAILY 01/30/25 01/30/25 History Zinc 15mg 1 tab PO DAILY 01/30/25 01/30/25 History hydroCHLOROthiazide [Hydrodiuril] 25 mg PO DAILY 01/30/25 01/30/25 History Allergies Allergy/AdvReac Type Severity Reaction Status Date / Time No Known Allergies Allergy Verified 08/08/24 12:20 Physical Exam Vitals: Vital Signs Temp Pulse Resp BP Pulse Ox 02/04/25 10:00 72 24 107/60 100 02/04/25 09:45 71 20 110/62 93 L 02/04/25 09:30 72 21 116/61 98 02/04/25 09:15 18 103/59 98 02/04/25 09:00 70 16 101/66 99 02/04/25 08:45 75 20 104/68 99 02/04/25 08:30 76 20 101/50 98 02/04/25 08:15 77 26 H 109/57 97 02/04/25 08:00 97.4 F L 77 18 101/58 97 02/04/25 07:45 78 23 108/57 99 02/04/25 07:30 78 16 94/74 97 02/04/25 07:15 75 23 105/72 95 02/04/25 07:00 79 23 105/56 83 L 02/04/25 06:45 74 23 107/54 96 02/04/25 06:30 73 22 106/58 97 02/04/25 06:15 75 20 116/59 99 02/04/25 06:00 75 19 99/50 97 02/04/25 05:45 69 14 95/53 97 02/04/25 05:30 73 15 104/56 97 02/04/25 05:15 76 14 109/51 94 L 02/04/25 05:00 75 20 101/57 97 02/04/25 04:45 75 18 114/61 97 02/04/25 04:30 72 22 104/61 98 02/04/25 04:15 72 19 108/88 96 02/04/25 04:00 98.1 F 74 22 102/55 99 02/04/25 03:45 66 15 96/54 97 02/04/25 03:30 67 15 109/58 98 02/04/25 03:15 69 15 96/52 99 02/04/25 03:00 70 15 73/47 97 02/04/25 02:45 76 22 95/59 98 02/04/25 02:30 76 19 102/56 98 02/04/25 02:15 75 20 106/56 98 02/04/25 02:00 76 22 97/58 98 02/04/25 01:45 75 18 105/59 97 02/04/25 01:30 77 24 107/56 97 02/04/25 01:15 76 23 102/55 97 02/04/25 01:00 76 21 107/57 97 02/04/25 00:45 76 20 108/59 96 02/04/25 00:30 77 20 112/70 97 02/04/25 00:15 75 25 H 97/51 97 02/04/25 00:00 98.4 F 75 15 98/47 97 02/03/25 23:45 73 15 97/55 97 02/03/25 23:30 78 16 101/51 96 02/03/25 23:15 78 18 107/54 97 02/03/25 23:06 78 27 H 107/54 96 02/03/25 23:00 79 21 114/85 97 02/03/25 22:45 75 19 101/60 97 02/03/25 22:30 76 21 105/51 96 02/03/25 22:15 75 17 106/55 96 02/03/25 22:00 77 17 102/77 97 02/03/25 21:45 77 21 99/58 97 02/03/25 21:30 72 15 93/55 97 02/03/25 21:15 75 15 97/49 96 02/03/25 21:00 75 16 102/52 96 02/03/25 20:45 77 16 103/53 96 02/03/25 20:30 79 18 104/60 97 02/03/25 20:15 80 21 96 02/03/25 20:00 98.2 F 82 26 H 117/72 95 02/03/25 19:00 79 16 109/73 96 02/03/25 18:45 83 22 109/51 97 02/03/25 18:30 83 22 98/66 97 02/03/25 18:15 83 29 H 100/57 98 02/03/25 18:00 80 16 111/79 95 02/03/25 17:45 82 22 109/63 97 02/03/25 17:30 85 26 H 119/56 98 02/03/25 17:15 82 23 112/67 97 02/03/25 17:00 81 24 105/63 97 02/03/25 16:45 79 18 110/57 97 02/03/25 16:30 79 17 117/57 95 02/03/25 16:15 82 22 109/65 96 02/03/25 16:00 98.0 F 82 16 101/67 98 02/03/25 15:45 82 16 101/84 95 02/03/25 15:30 84 23 115/58 96 02/03/25 15:15 87 24 136/90 96 02/03/25 15:00 96 26 H 113/66 96 02/03/25 14:45 83 20 101/54 96 02/03/25 14:30 83 19 99/57 97 02/03/25 14:15 86 26 H 84/61 98 02/03/25 14:00 24 91/60 97 02/03/25 13:45 39 H 97/83 97 02/03/25 13:30 31 H 97/68 96 02/03/25 13:15 90 23 107/65 97 02/03/25 13:00 32 H 151/88 97 02/03/25 12:45 22 101/86 97 02/03/25 12:30 83 22 122/67 95 02/03/25 12:15 28 H 120/107 95 02/03/25 12:00 19 108/60 95 02/03/25 11:45 80 19 113/62 95 02/03/25 11:30 21 116/76 98 Intake and Output 02/03/25 02/04/25 02/04/25 22:59 06:59 14:59 Intake Total 885.784 811.376 400 Output Total 70 70 35 Balance 815.784 741.376 365 Intake: IV 850 800 400 Levofloxacin 250Mg-D5w 50 Pmx 250 mg In Dextrose/ Water 1 50ml.bag @ 50 mls /hr IVPB ONCE STA Rx#: [id number] Sodium Chloride 0.9% 1, 800 800 400 000 ml @ 100 mls/hr IV . Q10H DHRUV Rx#:[id number] Intake, IV Titration 35.784 11.376 Amount Norepinephrine 8 mg In 35.784 11.376 Sodium Chloride 0.9% 250 ml @ 0.03 MCG/KG/MIN 5. 834 mls/hr IV .Q24H DHRUV Rx#:[id number] Output: Urine 70 70 35 Other: Voiding Method Indwelling Catheter Indwelling Catheter Indwelling Catheter # Bowel Movements 1 Weight 111.3 kg GENERAL DESCRIPTION: Elderly female lying in bed, no distress. No tachypnea or accessory muscle of respiration use. HEENT: Shows Pallor , no scleral icterus. Oral mucous membrane is dry. NECK: Trachea central, no thyromegaly. LUNGS: Unlabored breathing. Decreased breath sound at the base HEART: S1, S2, regular rate and rhythm. No loud murmur ABDOMEN: Soft, no tenderness , EXTREMITIES: No edema of feet. SKIN: No rash, no masses palpable. NEUROLOGICAL: The patient is awake, alert, confused orientation could not be determined Results CBC & Chem 7: 02/04/25 05:18 02/04/25 05:18 Labs: Abnormal Lab Results - Last 24 Hours (Table) 01/31/25 02/04/25 02/04/25 Range/Units 05:50 05:18 05:18 WBC 13.24 H (4.50-10.00) 10*3/uL RBC 3.20 L (4.10-5.20) 10*6/uL Hgb 10.0 L (12.0-15.0) g/dL Hct 29.8 L (37.2-46.3) % Immature Gran # 0.11 H (0.00-0.04) 10*3/uL Neutrophils # 10.30 H (1.80-7.70) 10*3/uL Monocytes # 1.28 H (0.20-1.00) 10*3/uL Eosinophils # 0.37 H (0.04-0.35) 10*3/uL Sodium 127 L (137-145) mmol/L Chloride 87 L (98-107) mmol/L Carbon Dioxide 32 H (22-30) mmol/L BUN 96 H (7-17) mg/dL Creatinine 5.02 H (0.52-1.04) mg/dL Glucose 70 L (74-99) mg/dL Calcium 7.0 L (8.4-10.2) mg/dL AST 735 H (14-36) U/L ALT 394 H (4-34) U/L Creatine Kinase 69443 H* (30-135) U/L Myoglobin 730526 H (<=58) ng/mL Total Protein 4.2 L (6.3-8.2) g/dL Albumin 2.1 L (3.5-5.0) g/dL Microbiology - Last 24 Hours (Table) 01/31/25 11:07 Blood Culture - Preliminary Blood 02/01/25 00:25 Urine Culture - Final Urine,Catheterized Pseudomonas aeruginosa Assessment and Plan (1) UTI (urinary tract infection) Current Visit: Yes Status: Acute Code(s): N39.0 - URINARY TRACT INFECTION, SITE NOT SPECIFIED SNOMED Code(s): 67992196 Plan: 1patient presented hospital with weakness and fall in this patient who did have elevated white count on admission some mental status changes positive UA concerning for symptomatic UTI with urine growing Pseudomonas aeruginosa that is a sensitive pathogen 2-patient to continue with the cefepime 1 g every 24 hours dose adjusted to the kidney function We will follow on clinical condition and cultures to further adjust medication if needed Thank you for this consultation we will follow the patient along with you Dictation was produced using [employer] dictation software. please excuse any grammatical, word or spelling errors. Time with Patient: Greater than 30
[2025-02-05 06:05] LABS: Basophils # (A) 0.09 10*3/uL (0.00-0.10); Basophils % (A) 0.8 %; Eosinophils # (A) 0.28 10*3/uL (0.04-0.35); Eosinophils % (A) 2.5 %; HCT 31.5 % (37.2-46.3); HGB 10.4 g/dL (12.0-15.0); Lymphocytes # (A) 0.98 10*3/uL (0.90-5.00); Lymphocytes % (A) 8.9 %; Monocytes % (A) 11.8 %; Neutrophils # (A) 8.25 10*3/uL (1.80-7.70); Neutrophils % (A) 74.6 %; Platelet Count 190 10*3/uL (140-440); RBC 3.35 10*6/uL (4.10-5.20); RDW 13.3 % (11.5-14.5); WBC 11.06 10*3/uL (4.50-10.00)
[2025-02-05 06:34] LABS: Anion Gap 9 mmol/L; Blood Urea Nitrogen 70 mg/dL (7-17); Calcium 7.7 mg/dL (8.4-10.2); Carbon Dioxide 27 mmol/L (22-30); Chloride 94 mmol/L (98-107); Glucose 75 mg/dL (74-99); Potassium 4.4 mmol/L (3.5-5.1); Sodium 130 mmol/L (137-145)
[2025-02-05 06:59] LABS: African American GFR (CKD) 12 (>60 ml/min/1.73 sqM); Non-African American GFR(CKD) 10 (>60 ml/min/1.73 sqM)
--- NOTE | 2025-02-05 10:36 | P.PN ---
Subjective Progress Note Date: 02/05/25 02/04/25 HPI: This lady is 79 years of age has nonischemic cardiomyopathy. She has rhabdomyolysis acute kidney injury and cardiac cath which must have exacerbated it. She is being considered for renal replacement therapy/dialysis. Right now she appears to be fairly stable. She will probably have a temporary dialysis catheter placed today. No chest pain or shortness of breath functional capacity is limited appears to be fairly stable. Obstructive CAD but has poor LV function nonischemic cardiomyopathy. PHYSICIAL EXAM: Vitals are stable JVD is evident S1-S2 with short systolic murmur lungs reveal diminished air entry fine basilar rales abdomen is soft lower extremities revealed diminished pulses Central nervous system grossly within normal limits. IMPRESSION: 1. Acute kidney injury following coronary angiogram rhabdomyolysis and dehydration. 2. Nonischemic cardiomyopathy nonobstructive CAD by catheterization. 3.. 4.. 5.. RECOMMENDATIONS: Continue current medications agree with the nephrology. Probable renal replacement therapy will have temporary dialysis catheter today prognosis remains guarded. 02/05/25 This patient is alert oriented she seems to be feeling a bit better. She had 500 cc of fluid taken out yesterday with the dialysis. She has kidney injury rhabdomyolysis cardiac catheter related contrast injury but creatinine seems to be better. She is going to have dialysis again today. Cardiac muñoz I have no new suggestions. Agree with the current management. I will add metoprolol to tartrate 12.5 mg twice daily. She remains in sinus rhythm. PHYSICIAL EXAM: Vitals are stable JVD is evident S1-S2 with short systolic murmur lungs reveal diminished air entry fine basilar rales abdomen is soft lower extremities revealed diminished pulses Central nervous system grossly within normal limits. IMPRESSION: 1. Acute kidney injury following coronary angiogram rhabdomyolysis and dehydration. 2. Nonischemic cardiomyopathy nonobstructive CAD by catheterization. Recommendations: Will increase metoprolol to tartrate to 12.5 mg twice daily and discontinue metoprolol succinate. Agree with dialysis. Patient is showing modest improvement continue current therapy Objective - Vital Signs Vital signs: Vital Signs Temp 98.0 F 02/05/25 08:00 Pulse 84 02/05/25 10:00 Resp 26 H 02/05/25 10:00 BP 103/57 02/05/25 10:00 Pulse Ox 95 02/05/25 10:00 FiO2 2 01/31/25 23:15 Intake & Output 02/04/25 02/05/25 02/05/25 18:59 06:59 18:59 Intake Total 1700 1200 640 Output Total 1560 102 20 Balance 140 1098 620 Weight 114.8 kg Intake: IV 1200 1200 400 Sodium Chloride 0.9% 1, 1200 1200 400 000 ml @ 100 mls/hr IV . Q10H [facility] Rx#:[id number] Oral 240 Hemodialysis 500 Output: Urine 60 102 20 Hemodialysis 1000 Hemodialysis Net Amount 500 Other: Voiding Method Indwelling Catheter Indwelling Catheter Indwelling Catheter # Bowel Movements 1 - Labs CBC & Chem 7: 02/05/25 05:39 02/05/25 05:39 Labs: Abnormal Lab Results - Last 24 Hours (Table) 02/05/25 02/05/25 02/05/25 Range/Units 05:39 05:39 05:39 WBC 11.06 H (4.50-10.00) 10*3/uL RBC 3.35 L (4.10-5.20) 10*6/uL Hgb 10.4 L (12.0-15.0) g/dL Hct 31.5 L (37.2-46.3) % Immature Gran # 0.16 H (0.00-0.04) 10*3/uL Neutrophils # 8.25 H (1.80-7.70) 10*3/uL Monocytes # 1.30 H (0.20-1.00) 10*3/uL Sodium 130 L (137-145) mmol/L Chloride 94 L (98-107) mmol/L BUN 70 H (7-17) mg/dL Creatinine 3.96 H (0.52-1.04) mg/dL Calcium 7.7 L (8.4-10.2) mg/dL Creatine Kinase 32398 H* (30-135) U/L
--- NOTE | 2025-02-05 12:18 | P.PN ---
Subjective Progress Note Date: 02/05/25 Principal diagnosis: Hypotension secondary to sepsis and hypovolemia and secondary to systolic congestive heart failure with ejection fraction of 10 to 15% with moderate mitral regurgitation. This is a 79-year-old female patient who originally came into the hospital because of a fall, acute rhabdomyolysis and acute kidney injury. The patient was noted to be extremely weak and she fell while trying to get out of her bed. She was found on the floor and for that reason the patient was brought into the emergency department. The initial blood work showed acute rhabdomyolysis with a CPK level of 44,001 157. The patient had an acute kidney injury with a creatinine of 1.38 note that her baseline creatinine has been within normal limits. Initial lactic acid level was 4.6. proBNP level was 1540. Troponin was at 6.07. EKG showed Q waves of the anterior leads and normal sinus rhythm. The white cell count was at 25 with a hemoglobin of 16.7. UA was consistent with underlying infection. Patient was given a cardiac catheterization the patient was found to have normal coronaries and filling pressures. This morning, the patient was found to be quite lethargic and hypotensive. Based on that, emergency services were activated and the patient was seen at the bedside and the patient will be transferred to the ICU. Obviously, there is a concern for underlying sepsis. Lactic is elevated at 23, there is a concern for underlying urine tract infection. The patient has also developed worsening renal function and her urine output is quite diminished and [employer] looking color. BUN is 55 with a creatinine of 2.3. Sodium is at 131 with a potassium level of 4.4. Serum bicarbonate 17. Abnormal LFTs with an AST of 2062 and ALT of 636. Blood sugar is at 148. The patient is currently on oxygen at 2 L with a pulse ox of 95 to 97%. Chest x-ray was also done this morning and it showed mild pulm vascular congestion. There are some cardiomegaly. Advanced gen erative changes involving the right glenohumeral joint. Also, the patient underwent a CAT scan of the head and cervical spine at time of admission and it showed no acute posttraumatic changes in the cervical spine. Degenerative changes involving the cervical spine at the level of C4-C5 and C5-C6 without evidence of any fracture. The pelvic x-ray showed no evidence of any fractures. CAT scan of the face was also done and it showed no evidence of any posttraumatic bony abnormalities. The patient clinically is quite lethargic. She is confused. She has diminished level of consciousness. Based on all this, the patient will be transferred to the intensive care unit. Echocardiogram was done and results are still pending for now. 02/01/2025, the patient is being seen for a follow-up. On today's evaluation, the patient remains quite lethargic and somnolent. The patient got transferred to the intensive care unit for sepsis and acute kidney injury and hypotension. This morning, the patient remains on room air oxygen. The patient was given several boluses of IV fluid yesterday and the patient's fluid balance is +3.6 L over the past 24 hours. She is currently on a bicarb infusion running at 100 cc an hour. CVP remains low at 5. The patient did not require any pressors and the patient is currently receiving no inotropes. Cultures are still pending for now. Meanwhile, the patient was covered with IV Rocephin. The white cell count is currently down to 19 with a hemoglobin of 6 and a platelet count of 208. BUN is 73 with a creatinine of 3.05 and the patient's urine output remains low less than 10 cc an hour. Serum bicarb is at 23. Sodium is at 133 and potassium is at 4.4. CPK level peaked at 840,000 and currently is down to 75,000. Nephrology on the case. Cardiology is also on the case as the patient has undergone cardiac catheterization and she revealed normal coronaries. Nevertheless, the echocardiogram showed systolic heart failure with impairment of LV function and the patient has an ejection fraction of 10 to 15%. The patient also has severe global LV dysfunction, no evidence of any LV thrombus, RV is dilated and reduced RV systolic function and moderate degree of mitral regurgitation was also noted. The patient had a follow-up chest x-ray today that showed cardiomegaly and some mild pulm vascular congestion. No significant change compared to yesterday. Ultrasound of the kidneys showed no evidence of hydronephrosis on the left, possible mild right-sided hydronephrosis was noted. On 03/03/2025, the patient is being seen for a follow-up. The patient seems to be much more awake and interactive on today's evaluation. She remains however sluggish and slow in response. She seems to be following commands and answering questions. She is on room air oxygen. She remains on bicarb drip running no nephrotoxic agents at this point. Antibiotics is in the form of IV Rocephin. Urine output has been in order of 20 cc over the past 8 hours and the patient remains oliguric. The patient's CVP remains around 5-8. The patient is on no pressors. The patient is afebrile. Blood cultures still negative. White cell count of 20 with a hemoglobin 11 and a platelet count of 195. CPK is downtrending and is down to 43,000. BUN is 85 with a creatinine of 4.08. Sodium is 131 and a potassium of 3.8. The patient remains on a bicarb infusion On 02/03/2025, the patient is being seen for a follow-up. The patient remains an uric. The patient remains on a bicarb infusion. She has acute kidney injury due to rhabdomyolysis and contrast nephropathy and the patient has developed progressive worsening renal function. Creatinine is up to 4.5 with a BUN of 93. Sodium levels at 129. On today's blood work, the patient's white cell count is at 22 with a hemoglobin 10.9 and a platelet count of 200. CPK is down to 30,000. The patient is also on low-dose norepinephrine running at 0.05 mcg/kg/min. The patient received several doses of IV Lasix. No improvement in urine output. The patient has produced only 40 cc over the past 12 hours. She is on room air oxygen. She is arousable. She is lethargic. No focal neurological deficits. Nephrology on the case and the patient will have a temporary dialysis catheter inserted in preparation for renal replacement therapy within the next 24 to 48 hours. Meanwhile, urine culture is positive for gram-negative bacillus. Blood culture is still negative. The patient remains on IV Rocephin. Patient was seen today on 02/04/2025, she is in the ICU receiving hemodialysis, her norepinephrine is on hold since 5 AM remains on IV fluid at 100 cc/h patient's echocardiogram showed ejection fraction of 10 to 15%. Patient is still receiving cefepime for her UTI, she is on room air, not in distress, she is recovering from her rhabdomyolysis and recovering from her urinary tract infection. Leukocytosis is improving WBC count is down to 13.2 today sodium is 127 potassium 4.4 BUN is 96 creatinine is 5, patient is on hemodialysis. Liver enzymes remain elevated CPK is trending down however remains high at 25 695. Patient seen today on 02/05/2025, patient continues to do relatively well, she is off all pressors, she is hemodynamically stable, patient had her last hemodialysis yesterday, she is on room air, WBC count is coming down to 11.0 hemoglobin 10.4, electrolytes are normal BUN is 70 creatinine 3.96 CPK is coming down further it is 13,000 today, liver enzymes are improving ALT is down to 394 from 636 few days ago. AST is improving down to 735 from over 2000 few days ago patient seems to be comfortable, she is not in any distress, hence I will make arrangement to transfer the patient out of the ICU to a monitored bed and selective Objective - Vital Signs Vital signs: Vital Signs Temp 98.3 F 02/05/25 12:00 Pulse 90 02/05/25 12:00 Resp 31 H 02/05/25 12:00 BP 124/68 02/05/25 12:00 Pulse Ox 97 02/05/25 12:00 FiO2 2 01/31/25 23:15 Intake & Output 02/04/25 02/05/25 02/05/25 18:59 06:59 18:59 Intake Total 1700 1200 1080 Output Total 1560 102 25 Balance 140 1098 1055 Weight 114.8 kg Intake: IV 1200 1200 600 Sodium Chloride 0.9% 1, 1200 1200 600 000 ml @ 100 mls/hr IV . Q10H DHRUV Rx#:[id number] Oral 480 Hemodialysis 500 Output: Urine 60 102 25 Hemodialysis 1000 Hemodialysis Net Amount 500 Other: Voiding Method Indwelling Catheter Indwelling Catheter Indwelling Catheter # Bowel Movements 1 - Exam General: 79-year-old female in no distress, on room air Derm: no unusual rashes/lesions, warm Head: atraumatic, normocephalic, symmetric Eyes: EOMI, anicteric sclera, pupils equal round reactive to light ENT: Nose and ears atraumatic Neck: No cervical lymphadenopathy, trachea midline, supple Mouth: no lip lesion, mucus membranes moist Cardiovascular: S1S2 reg, no murmur Lungs: Diminished breath sounds at the bases no crackles rhonchi or wheezes Abdominal: soft, nondistended, nontender to palpation, no guarding Ext: muscle strength 5 out of 5 in all 4 extremities grossly, no gross muscle atrophy, no contractures, positive dorsalis pedis pulse bilateral, b/l upper and lower ext +2 pitting edema Neuro: Alert oriented x 3 no focal deficit Psych: Normal mood, affect and normal mental status examination - Labs CBC & Chem 7: 02/05/25 05:39 02/05/25 05:39 Labs: Abnormal Lab Results - Last 24 Hours (Table) 02/05/25 02/05/25 02/05/25 Range/Units 05:39 05:39 05:39 WBC 11.06 H (4.50-10.00) 10*3/uL RBC 3.35 L (4.10-5.20) 10*6/uL Hgb 10.4 L (12.0-15.0) g/dL Hct 31.5 L (37.2-46.3) % Immature Gran # 0.16 H (0.00-0.04) 10*3/uL Neutrophils # 8.25 H (1.80-7.70) 10*3/uL Monocytes # 1.30 H (0.20-1.00) 10*3/uL Sodium 130 L (137-145) mmol/L Chloride 94 L (98-107) mmol/L BUN 70 H (7-17) mg/dL Creatinine 3.96 H (0.52-1.04) mg/dL Calcium 7.7 L (8.4-10.2) mg/dL Creatine Kinase 09721 H* (30-135) U/L Assessment and Plan Assessment: Impression: Hypotension with hypovolemia, sepsis, and severe LV dysfunction with ejection fraction of 10 to 15% and moderate mitral regurgitation. Acute pseudomonal aeruginosa urinary tract infection acute toxic metabolic encephalopathy Acute rhabdomyolysis secondary to fall and sepsis Acute fall secondary to generalized weakness and possibly secondary to sepsis/urinary tract infection with sepsis Acute leukocytosis secondary to above Shock liver secondary to above Acute kidney injury secondary to rhabdomyolysis, patient also had cardiac catheterization obviously may have contributed to her worsening renal function patient is now on hemodialysis Recommendation: Patient could be transferred out of the ICU today. Continue antibiotics, cefepime for pseudomonal infection Continue hemodialysis Avoid nephrotoxic agents Keep monitoring urine output Patient is now off bicarb infusion Continue GI and DVT prophylaxis Overall prognosis remains guarded, considering her multiple comorbidities Will continue to follow Time with Patient: Less than 30
--- NOTE | 2025-02-05 12:27 | P.PN ---
Subjective Patient is seen for follow-up for acute kidney injury and rhabdomyolysis. She remains oliguric with no significant urine output Seen on hemodialysis Patient is awake, lethargic Tolerating treatment [place] [address] today. Objective - Vital Signs Vital signs: Vital Signs Temp 98.3 F 02/05/25 12:00 Pulse 90 02/05/25 12:00 Resp 31 H 02/05/25 12:00 BP 124/68 02/05/25 12:00 Pulse Ox 97 02/05/25 12:00 FiO2 2 01/31/25 23:15 Intake & Output 02/04/25 02/05/25 02/05/25 18:59 06:59 18:59 Intake Total 1700 1200 1080 Output Total 1560 102 25 Balance 140 1098 1055 Weight 114.8 kg Intake: IV 1200 1200 600 Sodium Chloride 0.9% 1, 1200 1200 600 000 ml @ 100 mls/hr IV . 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 - Labs CBC & Chem 7: 02/05/25 05:39 02/05/25 05:39 Labs: Abnormal Lab Results - Last 24 Hours (Table) 02/05/25 02/05/25 02/05/25 Range/Units 05:39 05:39 05:39 WBC 11.06 H (4.50-10.00) 10*3/uL RBC 3.35 L (4.10-5.20) 10*6/uL Hgb 10.4 L (12.0-15.0) g/dL Hct 31.5 L (37.2-46.3) % Immature Gran # 0.16 H (0.00-0.04) 10*3/uL Neutrophils # 8.25 H (1.80-7.70) 10*3/uL Monocytes # 1.30 H (0.20-1.00) 10*3/uL Sodium 130 L (137-145) mmol/L Chloride 94 L (98-107) mmol/L BUN 70 H (7-17) mg/dL Creatinine 3.96 H (0.52-1.04) mg/dL Calcium 7.7 L (8.4-10.2) mg/dL Creatine Kinase 96070 H* (30-135) U/L Assessment and Plan Assessment: 1. Acute kidney injury, ATN, oliguric secondary to hypotension and rhabdomyolysis. Patient also received IV contrast for cardiac catheterization which will exaggerate the acute kidney injury over the next 2 to 3 days after exposure. Currently maintained on IV hydration. UA suggestive of UTI. Ultrasound of the kidneys shows mild right hydronephrosis versus extrarenal pelvis. Started hemodialysis on 02/04/2025 2. Severe rhabdomyolysis status post fall 3. Anion gap metabolic acidosis associated with acute kidney injury and hypotension 4. UTI maintained on antibiotics. Urine culture is pending. 5. Mental status changes secondary to sepsis 6. Cardiomyopathy with ejection fraction of 10 to 15% Plan: Continue with IV fluids, decrease rate Hemodialysis today and repeat in a.m. Continue to avoid nephrotoxic agents Repeat labs in a.m.
--- NOTE | 2025-02-05 16:02 | P.PN ---
Subjective Progress Note Date: 02/05/25 Patient is a 79-year-old female with hypertension here for evaluation after a fall. Patient reported that night before admission, patient fell after getting out of her into bed and that she lost consciousness. She was found on the floor with her right leg wedged with associated pain. She has been complaining of generalized weakness for about a few weeks now and it has worsened over the past week to the point that she drags her right leg. She denied chest pain, shortness of breath, palpitations, headaches, facial asymmetry, speech changes, abdominal pain, extremity swelling. On admission: Vitals: Temp 97.7 F, pulse rate 104, RR 20, BP 109/86, oxygen 95% on room air Labs: WBC 25.3, hemoglobin 15.7, platelet count 301,000, sodium 136, potassium 4.5, bicarb 20, BUN 33, creatinine 1.3, glucose 162, lactic acid 4.6, calcium 11.1, phosphorus 4.6, magnesium 2.6, AST 514, ALT 133, alk phos 77, total bilirubin 1.4, creatinine kinase 44,157, troponin 6, proBNP 1540, albumin 15.1. Urinalysis shows cloudy appearance +1 protein, large blood, large leukocyte esterase, WBC greater than 182, hyaline cast 10, occasional urine yeast.. Imaging: Pelvic x-ray showed no acute displaced fracture. Chest x-ray showed possible fluid overloaded state with persistent cardiomegaly and central vascular congestion. Head cervical spine CT showed no acute intracranial process with age-related atrophy, no acute posttraumatic changes in the cervical spine, with degenerative and vertebral joint changes. Face CT showed no acute posttraumatic osseous abnormality. EKG showed sinus tachycardia with a rate of 107, normal axis, ST elevation noted on lead III, notable intraventricular delay in V2 and V6, QTc 495 MS. Second EKG showed sinus tachycardia with occasional PVC, rate of [address]-T changes, QTc 431 MS. 02/01/2025 patient seen and examined at bedside. Rapid response was recalled yesterday on 01/30 as patient was hypotensive on the cardiac stepdown floor. Fluid bolus was given but patient had marginal response. She was also quite lethargic on reevaluation. Pulmonology decided to admit patient to the ICU due to concerns for hypotension related to sepsis. Still having labile BP. Still low UO with positive fluid balance. Still lethargic but cooperative. Labs: WBC 19.13, hemoglobin 12.6, platelet count 208,000, sodium 133, potassium 4.4, chloride 96, bicarb 23, BUN 73, glucose 118, calcium 72, magnesium 2.6 Imaging; liver ultrasound ordered showed no intrahepatic mass or ductal dilation. Echocardiogram showed LV ejection fraction of 10 to 15% with severely reduced global LV systolic dysfunction, RV dilated with reduced systolic function, moderate mitral regurgitation, mild LA dilatation with elevated LA filling pressures 02/02/2025 patient seen and examined at bedside. Patient seen in the ICU. Still having low urine output with positive fluid balance. Blood pressures still labile. 1 L bolus 0.9 normal saline given 02/01 Labs: WBC 20.1, hemoglobin 11, platelet count 195,000, sodium 131, potassium 3.8, chloride 93, BUN 85, creatinine 4, glucose 103, calcium 6.8 Imaging: Renal US showed possible mild right hydronephrosis 02/03/2025 Patient is in MICU. Awake alert with mild confusion. Lethargic and weak. Patient is on low-dose norepinephrine drip. Decreased urine output even after IV Lasix doses. Renal function is worsening. Nephrology is planning for renal replacement therapy. Otherwise patient is on antibiotics per urinary tract infection. Urine cultures showed Pseudomonas. Lab data showed WBC 22.7 hemoglobin 10.9 and platelets 200, sodium 129 potassium 4.3 chloride 87 bicarb is 33 BUN 93 and creatinine 4.58. CPK level 30,365 and calcium 6.7. Myoglobin elevated [id number] Nephrology and critical care team is on board. 02/04/2025 patient seen and examined at bedside. Patient still in the ICU. More alert and conversant today. Levophed weaned off this morning. UO improved. Labs: WBCs 13.2, hemoglobin 10, sodium 127, potassium 4.4, bicarb 23, BUN 96, creatinine 5, glucose 70, AST 735, ALT 394, alk phos 124, creatinine kinase 46166, albumin 2.1 02/05/2025 patient seen and examined at bedside. Patient still in the ICU. Did not require any pressor support overnight. Dialysis was done yesterday 500 mL fluid was taken off. UO still low but improving. More awake and alert today. Labs: WBC 11.06, hemoglobin 10.1, MCV 94, platelet count 1 90,000, sodium 130, potassium 4.4, bicarb 27, BUN 70, creatinine 3.96, glucose 75, [place] [address] Review of systems: Pertinent positives and negatives as discussed in HPI, a complete review of systems was performed and all other systems are negative. Physical examination: Vital signs reviewed General: non toxic, no distress, appears at stated age, cooperative and conversant Derm: no unusual rashes/lesions, warm, noted right mormonism and left lower jaw bruises Head: atraumatic, normocephalic, symmetric Eyes: EOMI, anicteric sclera, pupils equal round reactive to light ENT: Nose and ears atraumatic Neck: No cervical lymphadenopathy, trachea midline, supple Mouth: no lip lesion, mucus membranes moist Cardiovascular: S1S2 reg, no murmur Lungs: fine rales on RL lung, no rhonchi, no rales, no accessory muscle use Abdominal: soft, nondistended, nontender to palpation, no guarding Ext: muscle strength 5 out of 5 in all 4 extremities grossly, no gross muscle atrophy, no contractures, positive dorsalis pedis pulse bilateral, b/l upper and lower ext +2 pitting edema Neuro: CN II-XI grossly intact, no gross focal neuro deficits Psych: Alert and oriented x 2, appropriate affect and mood Assessment/Plan: The patient is admitted with an anticipated greater than 2 midnight stay for evaluation of syncope, CATHIE and sepsis Active: #. CATHIE, secondary to ATN which is secondary to sepsis, acute rhabdomyolysis and contrast injury. Improvring #. Sepsis secondary to complicated UTI. Urine culture showed Pseudomonas. #. Acute rhabdomyolysis. Status post fall, improving #. Lactic acidosis, resolved #. Anion gap metabolic acidosis secondary to above, improved # Acute metabolic encephalopathy secondary to above Creatinine 3.05-->4.58 -> 5.02 -> 3.96 CK improving Monitor urine output and renal function Blood cultures negative. Urine culture showed Pseudomonas. Myoglobin elevated Patient is now on Cefepime IV. IV levaquin given once 02/03 for antibiotics. D/c ceftriaxone IV 02/01 ID consult for further evaluation Nephrology is following, rec appreciated. Dialysis removed 500mL fluid yesterday. Planned for dialysis today and tomorrow. Vascular has been consulted for temp cath placement Pulmonology consulted for ICU management of hypotnesion #. Shocked liver secondary to above Hold statins, NSAIDs and opioids for now Liver ultrasound unremarkable #. Syncope, likley due to sepsis #. Mechanical fall secondary to above #. NSTEMI s/p cardiac cath with no coronary occlusions #. Nonischemic cardiomyopathy Pelvic x-ray, head CT, cervical spine CT and face CT so no acute fractures or osseous abnormality. EKG showed sinus tachycardia with a rate of 107, normal axis, ST elevation noted on lead III, notable intraventricular delay in V2 and V6 Second EKG showed sinus tachycardia with occasional PVC, no noted ST-T changes proBNP 1540 Continue cardiac monitoring Supplemental oxygen as needed Echocardiogram showed LV ejection fraction of 10 to 15% with severely reduced global LV systolic dysfunction, RV dilated with reduced systolic function, moderate mitral regurgitation Consult cardiology. Heart cath done showed normal coronary arteries. Chronic Conditions: #. Hypertension #. Anxiety Hold statins, gabapentin and NSAIDs for now DVT ppx: Heparin SQ CODE STATUS: Full Discussed with: patient and family Anticipated discharge place: pending clinical course Poornima Pat MD PGY-1 Internal Medicine Dictation was produced using [email or web address] dictation software. please excuse any grammatical, word or spelling errors. Objective - Vital Signs Vital signs: Vital Signs Temp 98.0 F 02/05/25 08:00 Pulse 84 02/05/25 10:00 Resp 26 H 02/05/25 10:00 BP 103/57 02/05/25 10:00 Pulse Ox 95 02/05/25 10:00 FiO2 2 01/31/25 23:15 Intake & Output 02/04/25 02/05/25 02/05/25 18:59 06:59 18:59 Intake Total 1700 1200 640 Output Total 1560 102 20 Balance 140 1098 620 Weight 114.8 kg Intake: IV 1200 1200 400 Sodium Chloride 0.9% 1, 1200 1200 400 000 ml @ 100 mls/hr IV . Q10H DHRUV Rx#:[id number] Oral 240 Hemodialysis 500 Output: Urine 60 102 20 Hemodialysis 1000 Hemodialysis Net Amount 500 Other: Voiding Method Indwelling Catheter Indwelling Catheter Indwelling Catheter # Bowel Movements 1 - Labs CBC & Chem 7: 02/12/25 04:06 02/12/25 04:06 Labs: Abnormal Lab Results - Last 24 Hours (Table) 02/05/25 02/05/25 02/05/25 Range/Units 05:39 05:39 05:39 WBC 11.06 H (4.50-10.00) 10*3/uL RBC 3.35 L (4.10-5.20) 10*6/uL Hgb 10.4 L (12.0-15.0) g/dL Hct 31.5 L (37.2-46.3) % Immature Gran # 0.16 H (0.00-0.04) 10*3/uL Neutrophils # 8.25 H (1.80-7.70) 10*3/uL Monocytes # 1.30 H (0.20-1.00) 10*3/uL Sodium 130 L (137-145) mmol/L Chloride 94 L (98-107) mmol/L BUN 70 H (7-17) mg/dL Creatinine 3.96 H (0.52-1.04) mg/dL Calcium 7.7 L (8.4-10.2) mg/dL Creatine Kinase 43079 H* (30-135) U/L Assessment and Plan Assessment: Attestation Attestation/ Public Health Technologist Note: Attestation to progress Note, Participation (I saw and evaluated the patient with the Resident, and I reviewed and discussed the patient with the Resident and agree with the Resident's findings and plans as d ocumented above., management reviewed and discussed), I agree with findings & plan, Provider Signature (SHAVON BOX, ISI Larios Time with Patient: Greater than 30
--- NOTE | 2025-02-05 16:25 | P.PN ---
Subjective Progress Note Date: 02/05/25 Principal diagnosis: Reason for follow-up Pseudomonas UTI Patient is 79-year-old female with a past medical history significant for hypertension neuropathy chronic back pain patient has been brought to the hospital after the patient did have a fall noticed to been rhabdomyolysis also found to have UTI urine with a Pseudomonas for this consultation. On today's evaluation that is 02/05/2025, Patient is afebrile this morning patient denies having any chest pain shortness of breath or cough, the patient is currently on room air, patient denies any abdominal pain no diarrhea no nausea no vomiting. Patient white count is down to 11.06, creatinine is 3.96 Objective - Vital Signs Vital signs: Vital Signs Temp 98.0 F 02/05/25 12:54 Pulse 92 02/05/25 14:00 Resp 18 02/05/25 14:00 BP 145/70 02/05/25 14:00 Pulse Ox 97 02/05/25 12:00 FiO2 2 01/31/25 23:15 Intake & Output 02/04/25 02/05/25 02/05/25 18:59 06:59 18:59 Intake Total 1700 1200 1580 Output Total 6096 914 5810 Balance 140 1098 -77 Weight 114.8 kg Intake: IV 1200 1200 700 Sodium Chloride 0.9% 1, 1200 1200 700 000 ml @ 100 mls/hr IV . Q10H [facility] Rx#:[id number] Oral 480 Hemodialysis 500 400 Output: Urine 60 102 57 Hemodialysis 1000 1000 Hemodialysis Net Amount 500 600 Other: Voiding Method Indwelling Catheter Indwelling Catheter Indwelling Catheter # Bowel Movements 1 - Exam GENERAL DESCRIPTION: An elderly FEmale lying in bed in no distress RESPIRATORY SYSTEM: Unlabored breathing , decreased breath sounds at bases HEART: S1 S2 regular rate and rhythm , ABDOMEN: Soft , no tenderness EXTREMITIES: Swelling to the leg no redness - Labs CBC & Chem 7: 02/05/25 05:39 02/05/25 05:39 Labs: Abnormal Lab Results - Last 24 Hours (Table) 02/05/25 02/05/25 02/05/25 Range/Units 05:39 05:39 05:39 WBC 11.06 H (4.50-10.00) 10*3/uL RBC 3.35 L (4.10-5.20) 10*6/uL Hgb 10.4 L (12.0-15.0) g/dL Hct 31.5 L (37.2-46.3) % Immature Gran # 0.16 H (0.00-0.04) 10*3/uL Neutrophils # 8.25 H (1.80-7.70) 10*3/uL Monocytes # 1.30 H (0.20-1.00) 10*3/uL Sodium 130 L (137-145) mmol/L Chloride 94 L (98-107) mmol/L BUN 70 H (7-17) mg/dL Creatinine 3.96 H (0.52-1.04) mg/dL Calcium 7.7 L (8.4-10.2) mg/dL Creatine Kinase 29902 H* (30-135) U/L Assessment and Plan (1) UTI (urinary tract infection) Current Visit: Yes Status: Acute Code(s): N39.0 - URINARY TRACT INFECTION, SITE NOT SPECIFIED SNOMED Code(s): 55417035 Plan: 1patient presented hospital with weakness and fall in this patient who did have elevated white count on admission some mental status changes positive UA concerning for symptomatic UTI with urine growing Pseudomonas aeruginosa that is a sensitive pathogen 2-patient is afebrile white count is trending down to continue cefepime 1 g every 24 hours dose adjusted to the kidney function and monitor clinical course closely Dictation was produced using [employer] dictation software. please excuse any grammatical, word or spelling errors. Time with Patient: Less than 30
[2025-02-05] MEDS: METOPROLOL TARTRATE 12.5 MG TAB PO SCH (19:53)
[2025-02-06 05:47] LABS: Basophils % (A) 0.7 %; Eosinophils # (A) 0.47 10*3/uL (0.04-0.35); Eosinophils % (A) 3.4 %; HCT 29.1 % (37.2-46.3); HGB 9.8 g/dL (12.0-15.0); MCH 31.8 pg (27.0-32.0); MCHC 33.7 g/dL (32.0-37.0); MCV 94.5 fL (80.0-97.0); Mean Platelet Volume 10.9 fL (9.5-12.2); Monocytes # (A) 1.19 10*3/uL (0.20-1.00); Monocytes % (A) 8.5 %; Neutrophils # (A) 10.43 10*3/uL (1.80-7.70); Neutrophils % (A) 74.6 %; Platelet Count 183 10*3/uL (140-440); RBC 3.08 10*6/uL (4.10-5.20); RDW 13.3 % (11.5-14.5); WBC 13.98 10*3/uL (4.50-10.00)
[2025-02-06 06:27] LABS: ALT 317 U/L (4-34); Albumin 2.1 g/dL (3.5-5.0); Anion Gap 8 mmol/L; Blood Urea Nitrogen 61 mg/dL (7-17); Calcium 8.2 mg/dL (8.4-10.2); Carbon Dioxide 26 mmol/L (22-30); Chloride 95 mmol/L (98-107); Glucose 83 mg/dL (74-99); Sodium 129 mmol/L (137-145); Total Bilirubin 0.9 mg/dL (0.2-1.3); Total Protein 4.4 g/dL (6.3-8.2)
[2025-02-06 06:33] LABS: African American GFR (CKD) 14 (>60 ml/min/1.73 sqM); Non-African American GFR(CKD) 13 (>60 ml/min/1.73 sqM)
[2025-02-06 06:35] LABS: AST 487 U/L (14-36); Alkaline Phosphatase 130 U/L (38-126); Potassium 4.1 mmol/L (3.5-5.1)
--- NOTE | 2025-02-06 11:34 | P.PN ---
Subjective HISTORY OF PRESENT ILLNESS: HPI: This lady is 79 years of age has nonischemic cardiomyopathy. She has rhabdomyolysis acute kidney injury and cardiac cath which must have exacerbated it. She is being considered for renal replacement therapy/dialysis. Right now she appears to be fairly stable. She will probably have a temporary dialysis catheter placed today. No chest pain or shortness of breath functional capacity is limited appears to be fairly stable. Obstructive CAD but has poor LV function nonischemic cardiomyopathy. 02/05/25 This patient is alert oriented she seems to be feeling a bit better. She had 500 cc of fluid taken out yesterday with the dialysis. She has kidney injury rhabdomyolysis cardiac catheter related contrast injury but creatinine seems to be better. She is going to have dialysis again today. Cardiac muñoz I have no new suggestions. Agree with the current management. I will add metoprolol to tartrate 12.5 mg twice daily. She remains in sinus rhythm. 02/06/2025 Patient examined this morning at the bedside. Patient currently denies chest pain or pressure. She denies shortness of breath. She is currently undergoing hemodialysis. She does have a Griffiths catheter with urine output noted. Creatini ne today 3.30, down from 3.96. PHYSICAL EXAM: VITAL SIGNS: Reviewed. GENERAL: Well-developed in no acute distress. NECK: Supple. No JVD or thyromegaly LUNGS: Respirations even and unlabored. Lungs essentially clear to auscultation bilaterally. HEART: Regular rate and rhythm. S1 and S2 heard. EXTREMITIES: Normal range of motion. No clubbing or cyanosis. Peripheral pulses intact. No lower extremity edema ASSESSMENT: Non-STEMI, status post cardiac catheterization revealing nonobstructive CAD Nonischemic cardiomyopathy, EF 15% Acute kidney injury requiring initiation of hemodialysis Rhabdomyolysis Transaminitis Leukocytosis Sepsis Syncope History of hypertension History of anxiety Morbid obesity: BMI 40.9 PLAN: Statin remains on hold secondary to transaminitis Continue metoprolol tartrate 12.5 mg twice a day Continue telemetry monitoring Continue hemodialysis per nephrology Further recommendations pending patient course Nurse practitioner note has been reviewed by physician. Signing provider agrees with the documented findings, assessment, and plan of care documented by HIMS CLERK as a scribe. Objective - Vital Signs Vital signs: Vital Signs Temp 97.7 F 02/06/25 07:47 Pulse 64 02/06/25 11:06 Resp 19 02/06/25 07:47 BP 131/61 02/06/25 11:06 Pulse Ox 94 L 02/06/25 07:47 FiO2 2 01/31/25 23:15 Intake & Output 02/05/25 02/06/25 02/06/25 18:59 06:59 18:59 Intake Total 1820 240 Output Total 1689 Balance 131 240 Weight 115 kg Intake: IV 700 Sodium Chloride 0.9% 1, 700 000 ml @ 100 mls/hr IV . Q10H [facility] Rx#:[id number] Oral 720 240 Hemodialysis 400 Output: Urine 89 Hemodialysis 1000 Hemodialysis Net Amount 600 Other: Voiding Method Indwelling Catheter Indwelling Catheter Indwelling Catheter # Bowel Movements 4 1 1 - Labs CBC & Chem 7: 02/06/25 05:33 02/06/25 05:33 Labs: Abnormal Lab Results - Last 24 Hours (Table) 02/06/25 02/06/25 Range/Units 05:33 05:33 WBC 13.98 H (4.50-10.00) 10*3/uL RBC 3.08 L (4.10-5.20) 10*6/uL Hgb 9.8 L (12.0-15.0) g/dL Hct 29.1 L (37.2-46.3) % Immature Gran # 0.39 H (0.00-0.04) 10*3/uL Neutrophils # 10.43 H (1.80-7.70) 10*3/uL Monocytes # 1.19 H (0.20-1.00) 10*3/uL Eosinophils # 0.47 H (0.04-0.35) 10*3/uL Sodium 129 L (137-145) mmol/L Chloride 95 L (98-107) mmol/L BUN 61 H (7-17) mg/dL Creatinine 3.30 H (0.52-1.04) mg/dL Calcium 8.2 L (8.4-10.2) mg/dL AST 487 H (14-36) U/L ALT 317 H (4-34) U/L Alkaline Phosphatase 130 H (38-126) U/L Total Protein 4.4 L (6.3-8.2) g/dL Albumin 2.1 L (3.5-5.0) g/dL Microbiology - Last 24 Hours (Table) 01/31/25 11:07 Blood Culture - Final Blood
--- NOTE | 2025-02-06 12:05 | P.PN ---
Subjective Progress Note Date: 02/06/25 Principal diagnosis: Reason for follow-up Pseudomonas UTI Patient is 79-year-old female with a past medical history significant for hypertension neuropathy chronic back pain patient has been brought to the hospital after the patient did have a fall noticed to been rhabdomyolysis also found to have UTI urine with a Pseudomonas for this consultation. On today's evaluation that is 02/06/2025,the patient denies any fever or any chills, patient is breathing comfortably on room air, the patient denies chest pain and no significant cough, patient denies abdominal pain, no nausea vomiting or diarrhea. Still complaining of some weakness. Patient white count is 13.98, creatinine 3.30 stool for C. difficile negative Objective - Vital Signs Vital signs: Vital Signs Temp 98.2 F 02/06/25 11:42 Pulse 91 02/06/25 11:42 Resp 18 02/06/25 11:42 BP 112/54 02/06/25 11:42 Pulse Ox 94 L 02/06/25 07:47 FiO2 2 01/31/25 23:15 Intake & Output 02/05/25 02/06/25 02/06/25 18:59 06:59 18:59 Intake Total 1820 640 Output Total 1689 2400 Balance 131 -1760 Weight 115 kg Intake: IV 700 Sodium Chloride 0.9% 1, 700 000 ml @ 100 mls/hr IV . Q10H [facility] Rx#:[id number] Oral 720 240 Hemodialysis 400 400 Output: Urine 89 Hemodialysis 1000 1400 Hemodialysis Net Amount 600 1000 Other: Voiding Method Indwelling Catheter Indwelling Catheter Indwelling Catheter # Bowel Movements 4 1 1 - Exam GENERAL DESCRIPTION: An elderly FEmale lying in bed in no distress RESPIRATORY SYSTEM: Unlabored breathing , decreased breath sounds at bases HEART: S1 S2 regular rate and rhythm , ABDOMEN: Soft , no tenderness EXTREMITIES: Swelling to the leg no redness - Labs CBC & Chem 7: 02/06/25 05:33 02/06/25 05:33 Labs: Abnormal Lab Results - Last 24 Hours (Table) 02/06/25 02/06/25 Range/Units 05:33 05:33 WBC 13.98 H (4.50-10.00) 10*3/uL RBC 3.08 L (4.10-5.20) 10*6/uL Hgb 9.8 L (12.0-15.0) g/dL Hct 29.1 L (37.2-46.3) % Immature Gran # 0.39 H (0.00-0.04) 10*3/uL Neutrophils # 10.43 H (1.80-7.70) 10*3/uL Monocytes # 1.19 H (0.20-1.00) 10*3/uL Eosinophils # 0.47 H (0.04-0.35) 10*3/uL Sodium 129 L (137-145) mmol/L Chloride 95 L (98-107) mmol/L BUN 61 H (7-17) mg/dL Creatinine 3.30 H (0.52-1.04) mg/dL Calcium 8.2 L (8.4-10.2) mg/dL AST 487 H (14-36) U/L ALT 317 H (4-34) U/L Alkaline Phosphatase 130 H (38-126) U/L Total Protein 4.4 L (6.3-8.2) g/dL Albumin 2.1 L (3.5-5.0) g/dL Microbiology - Last 24 Hours (Table) 01/31/25 11:07 Blood Culture - Final Blood Assessment and Plan (1) UTI (urinary tract infection) Current Visit: Yes Status: Acute Code(s): N39.0 - URINARY TRACT INFECTION, SITE NOT SPECIFIED SNOMED Code(s): 98028570 (2) Leukocytosis Current Visit: Yes Status: Acute Code(s): D72.829 - ELEVATED WHITE BLOOD CELL COUNT, UNSPECIFIED SNOMED Code(s): 050298305 Plan: 1patient presented hospital with weakness and fall in this patient who did have elevated white count on admission some mental status changes positive UA concerning for symptomatic UTI with urine growing Pseudomonas aeruginosa that is a sensitive pathogen 2-patient is afebrile white count is slightly up today to 13,000 we will monitor closely for now continue with the cefepime and continue supportive care Dictation was produced using [employer] dictation software. please excuse any grammatical, word or spelling errors. Time with Patient: Less than 30
--- NOTE | 2025-02-06 12:53 | P.PN ---
Subjective Patient is seen for follow-up for acute kidney injury and rhabdomyolysis. She remains oliguric with no significant urine output Seen on hemodialysis Patient is awake, lethargic [place]olerating [place] [address] Objective - Vital Signs Vital signs: Vital Signs Temp 98.2 F 02/06/25 11:42 Pulse 91 02/06/25 11:42 Resp 18 02/06/25 11:42 BP 112/54 02/06/25 11:42 Pulse Ox 94 L 02/06/25 07:47 FiO2 2 01/31/25 23:15 Intake & Output 02/05/25 02/06/25 02/06/25 18:59 06:59 18:59 Intake Total 1820 640 Output Total 1689 2400 Balance 131 -1760 Weight 115 kg Intake: IV 700 Sodium Chloride 0.9% 1, 700 000 ml @ 100 mls/hr IV . Q10H [facility] Rx#:[id number] Oral 720 240 Hemodialysis 400 400 Output: Urine 89 Hemodialysis 1000 1400 Hemodialysis Net Amount 600 1000 Other: Voiding Method Indwelling Catheter Indwelling Catheter Indwelling Catheter # Bowel Movements 4 1 1 - Exam Patient is awake, comfortable No acute distress AExamination of the heart S1 and S2 Examination of the lungs bilateral breath sounds are heard Abdomen is soft obese Examination of lower extremities showed 1+ edema RN TRANSITIONAL exam grossly intact - Labs CBC & Chem 7: 02/06/25 05:33 02/06/25 05:33 Labs: Abnormal Lab Results - Last 24 Hours (Table) 02/06/25 02/06/25 Range/Units 05:33 05:33 WBC 13.98 H (4.50-10.00) 10*3/uL RBC 3.08 L (4.10-5.20) 10*6/uL Hgb 9.8 L (12.0-15.0) g/dL Hct 29.1 L (37.2-46.3) % Immature Gran # 0.39 H (0.00-0.04) 10*3/uL Neutrophils # 10.43 H (1.80-7.70) 10*3/uL Monocytes # 1.19 H (0.20-1.00) 10*3/uL Eosinophils # 0.47 H (0.04-0.35) 10*3/uL Sodium 129 L (137-145) mmol/L Chloride 95 L (98-107) mmol/L BUN 61 H (7-17) mg/dL Creatinine 3.30 H (0.52-1.04) mg/dL Calcium 8.2 L (8.4-10.2) mg/dL AST 487 H (14-36) U/L ALT 317 H (4-34) U/L Alkaline Phosphatase 130 H (38-126) U/L Total Protein 4.4 L (6.3-8.2) g/dL Albumin 2.1 L (3.5-5.0) g/dL Microbiology - Last 24 Hours (Table) 01/31/25 11:07 Blood Culture - Final Blood Assessment and Plan Assessment: 1. Acute kidney injury, ATN, oliguric secondary to hypotension and rhabdomyolysis. Patient also received IV contrast for cardiac catheterization. Currently maintained on IV hydration. UA suggestive of UTI. Ultrasound of the kidneys shows mild right hydronephrosis versus extrarenal pelvis. Started hemodialysis on 02/04/2025 2. Severe rhabdomyolysis status post fall 3. Anion gap metabolic acidosis associated with acute kidney injury and hypotension 4. UTI maintained on antibiotics. Urine culture is pending. 5. Mental status changes secondary to sepsis 6. Cardiomyopathy with ejection fraction of 10 to 15% Plan: DC IV fluids Hemodialysis today Continue to avoid nephrotoxic agents Repeat labs in a.m.
--- NOTE | 2025-02-06 15:25 | P.PN ---
Subjective Progress Note Date: 02/06/25 This is a 79-year-old female patient who originally came into the hospital because of a fall, acute rhabdomyolysis and acute kidney injury. The patient was noted to be extremely weak and she fell while trying to get out of her bed. She was found on the floor and for that reason the patient was brought into the emergency department. The initial blood work showed acute rhabdomyolysis with a CPK level of 44,001 157. The patient had an acute kidney injury with a creatinine of 1.38 note that her baseline creatinine has been within normal limits. Initial lactic acid level was 4.6. proBNP level was 1540. Troponin was at 6.07. EKG showed Q waves of the anterior leads and normal sinus rhythm. The white cell count was at 25 with a hemoglobin of 16.7. UA was consistent with underlying infection. Patient was given a cardiac catheterization the patient was found to have normal coronaries and filling pressures. This morning, the patient was found to be quite lethargic and hypotensive. Based on that, emergency services were activated and the patient was seen at the bedside and the patient will be transferred to the ICU. Obviously, there is a concern for underlying sepsis. Lactic is elevated at 23, there is a concern for underlying urine tract infection. The patient has also developed worsening renal function and her urine output is quite diminished and [employer] looking color. BUN is 55 with a creatinine of 2.3. Sodium is at 131 with a potassium level of 4.4. Serum bicarbonate 17. Abnormal LFTs with an AST of 2062 and ALT of 636. Blood sugar is at 148. The patient is currently on oxygen at 2 L with a pulse ox of 95 to 97%. Chest x-ray was also done this morning and it showed mild pulm vascular congestion. There are some cardiomegaly. Advanced generative changes involving the right glenohumeral joint. Also, the patient underwent a CAT scan of the head and cervical spine at time of admission and it showed no acute posttraumatic changes in the cervical spine. Degenerative changes involving the cervical spine at the level of C4-C5 and C5-C6 without evidence of any fracture. The pelvic x-ray showed no evidence of any fractures. CAT scan of the face was also done and it showed no evidence of any posttraumatic bony abnormalities. The patient clinically is quite lethargic. She is confused. She has diminished level of consciousness. Based on all this, the patient will be transferred to the intensive care unit. Echocardiogram was done and results are still pending for now. 02/01/2025, the patient is being seen for a follow-up. On today's evaluation, the patient remains quite lethargic and somnolent. The patient got transferred to the intensive care unit for sepsis and acute kidney injury and hypotension. This morning, the patient remains on room air oxygen. The patient was given several boluses of IV fluid yesterday and the patient's fluid balance is +3.6 L over the past 24 hours. She is currently on a bicarb infusion running at 100 cc an hour. CVP remains low at 5. The patient did not require any pressors and the patient is currently receiving no inotropes. Cultures are still pending for now. Meanwhile, the patient was covered with IV Rocephin. The white cell count is currently down to 19 with a hemoglobin of 6 and a platelet count of 208. BUN is 73 with a creatinine of 3.05 and the patient's urine output remains low less than 10 cc an hour. Serum bicarb is at 23. Sodium is at 133 and potassium is at 4.4. CPK level peaked at 840,000 and currently is down to 75,000. Nephrology on the case. Cardiology is also on the case as the patient has undergone cardiac catheterization and she revealed normal coronaries. Never theless, the echocardiogram showed systolic heart failure with impairment of LV function and the patient has an ejection fraction of 10 to 15%. The patient also has severe global LV dysfunction, no evidence of any LV thrombus, RV is dilated and reduced RV systolic function and moderate degree of mitral regurgitation was also noted. The patient had a follow-up chest x-ray today that showed cardiomegaly and some mild pulm vascular congestion. No significant change compared to yesterday. Ultrasound of the kidneys showed no evidence of hydronephrosis on the left, possible mild right-sided hydronephrosis was noted. On 03/03/2025, the patient is being seen for a follow-up. The patient seems to be much more awake and interactive on today's evaluation. She remains however sluggish and slow in response. She seems to be following commands and answering questions. She is on room air oxygen. She remains on bicarb drip running no nephrotoxic agents at this point. Antibiotics is in the form of IV Rocephin. Urine output has been in order of 20 cc over the past 8 hours and the patient remains oliguric. The patient's CVP remains around 5-8. The patient is on no pressors. The patient is afebrile. Blood cultures still negative. White cell count of 20 with a hemoglobin 11 and a platelet count of 195. CPK is downtrending and is down to 43,000. BUN is 85 with a creatinine of 4.08. Sodium is 131 and a potassium of 3.8. The patient remains on a bicarb infusion On 02/03/2025, the patient is being seen for a follow-up. The patient remains an uric. The patient remains on a bicarb infusion. She has acute kidney injury due to rhabdomyolysis and contrast nephropathy and the patient has developed progressive worsening renal function. Creatinine is up to 4.5 with a BUN of 93. Sodium levels at 129. On today's blood work, the patient's white cell count is at 22 with a hemoglobin 10.9 and a platelet count of 200. CPK is down to 30,000. The patient is also on low-dose norepinephrine running at 0.05 mcg/kg/min. The patient received several doses of IV Lasix. No improvement in urine output. The patient has produced only 40 cc over the past 12 hours. She is on room air oxygen. She is arousable. She is lethargic. No focal neurological deficits. Nephrology on the case and the patient will have a temporary dialysis catheter inserted in preparation for renal replacement therapy within the next 24 to 48 hours. Meanwhile, urine culture is positive for gram-negative bacillus. Blood culture is still negative. The patient remains on IV Rocephin. Patient was seen today on 02/04/2025, she is in the ICU receiving hemodialysis, her norepinephrine is on hold since 5 AM remains on IV fluid at 100 cc/h patient's echocardiogram showed ejection fraction of 10 to 15%. Patient is still receiving cefepime for her UTI, she is on room air, not in distress, she is recovering from her rhabdomyolysis and recovering from her urinary tract infection. Leukocytosis is improving WBC count is down to 13.2 today sodium is 127 potassium 4.4 BUN is 96 creatinine is 5, patient is on hemodialysis. Liver enzymes remain elevated CPK is trending down however remains high at 25 695. Patient seen today on 02/05/2025, patient continues to do relatively well, she is off all pressors, she is hemodynamically stable, patient had her last hemodialysis yesterday, she is on room air, WBC count is coming down to 11.0 hemoglobin 10.4, electrolytes are normal BUN is 70 creatinine 3.96 CPK is coming down further it is 13,000 today, liver enzymes are improving ALT is down to 394 from 636 few days ago. AST is improving down to 735 from over 2000 few days ago patient seems to be comfortable, she is not in any distress, hence I will make arrangement to transfer the patient out of the ICU to a monitored bed and selective The patient is seen today February 06, 2025 in follow-up on the selective care unit. She was transferred out of the ICU yesterday. She is currently resting in bed. Maintaining O2 saturations in the 90s on room air oxygen. She is currently receiving hemodialysis. White count 13.9. Hemoglobin 9.8. Platelets 183. Sodium 129. Potassium 4.1. Bicarb 26. BUN 61. Creatinine 3.30. Glucose 83. AST 487. ALT 317. C. difficile screen was negative. She remains on cefepime. Heparin for DVT prophylaxis. Objective - Vital Signs Vital signs: Vital Signs Temp 98.5 F 02/06/25 12:12 Pulse 71 02/06/25 12:12 Resp 18 02/06/25 12:12 BP 132/69 02/06/25 12:12 Pulse Ox 95 02/06/25 12:12 FiO2 2 01/31/25 23:15 Intake & Output 02/05/25 02/06/25 02/06/25 18:59 06:59 18:59 Intake Total 1820 640 Output Total 1689 2400 Balance 131 -1760 Weight 115 kg 115 kg Intake: IV 700 Sodium Chloride 0.9% 1, 700 000 ml @ 100 mls/hr IV . Q10H [facility] Rx#:[id number] Oral 720 240 Hemodialysis 400 400 Output: Urine 89 Hemodialysis 1000 1400 Hemodialysis Net Amount 600 1000 Other: Voiding Method Indwelling Catheter Indwelling Catheter Indwelling Catheter # Bowel Movements 4 1 1 - Exam General: Alert, 79-year-old female, resting in bed, in no distress, on room air oxygen Derm: no unusual rashes/lesions, warm Head: atraumatic, normocephalic, symmetric Eyes: EOMI, anicteric sclera, pupils equal round reactive to light ENT: Nose and ears atraumatic Neck: No cervical lymphadenopathy, trachea midline, supple Mouth: no lip lesion, mucus membranes moist Cardiovascular: S1S2 reg, no murmur Lungs: Diminished breath sounds at the bases no crackles rhonchi or wheezes Abdominal: soft, nondistended, nontender to palpation, no guarding Ext: muscle strength 5 out of 5 in all 4 extremities grossly, no gross muscle atrophy, no contractures, positive dorsalis pedis pulse bilateral, b/l upper and lower ext +2 pitting edema Neuro: Alert oriented x 3 no focal deficit Psych: Normal mood, affect and normal mental status examination - Labs CBC & Chem 7: 02/06/25 05:33 02/06/25 05:33 Labs: Abnormal Lab Results - Last 24 Hours (Table) 02/06/25 02/06/25 Range/Units 05:33 05:33 WBC 13.98 H (4.50-10.00) 10*3/uL RBC 3.08 L (4.10-5.20) 10*6/uL Hgb 9.8 L (12.0-15.0) g/dL Hct 29.1 L (37.2-46.3) % Immature Gran # 0.39 H (0.00-0.04) 10*3/uL Neutrophils # 10.43 H (1.80-7.70) 10*3/uL Monocytes # 1.19 H (0.20-1.00) 10*3/uL Eosinophils # 0.47 H (0.04-0.35) 10*3/uL Sodium 129 L (137-145) mmol/L Chloride 95 L (98-107) mmol/L BUN 61 H (7-17) mg/dL Creatinine 3.30 H (0.52-1.04) mg/dL Calcium 8.2 L (8.4-10.2) mg/dL AST 487 H (14-36) U/L ALT 317 H (4-34) U/L Alkaline Phosphatase 130 H (38-126) U/L Total Protein 4.4 L (6.3-8.2) g/dL Albumin 2.1 L (3.5-5.0) g/dL Microbiology - Last 24 Hours (Table) 01/31/25 11:07 Blood Culture - Final Blood Assessment and Plan Assessment: Hypotension with hypovolemia, sepsis, secondary to urinary tract infection Severe LV dysfunction with ejection fraction of 10 to 15% and moderate mitral regurgitation. Acute pseudomonal aeruginosa urinary tract infection Acute toxic metabolic encephalopathy Acute rhabdomyolysis secondary to fall and sepsis Acute fall secondary to generalized weakness and possibly secondary to sepsis/urinary tract infection with sepsis Acute leukocytosis secondary to above Shock liver secondary to above Acute kidney injury secondary to rhabdomyolysis, patient also had cardiac catheterization obviously may have contributed to her worsening renal function patient is now on hemodialysis Plan: The patient was seen and evaluated Labs and medications reviewed Stable and on room air oxygen Receiving hemodialysis today Remains on cefepime Heparin for DVT prophylaxis Plan is for [facility] at discharge I have personally seen and examined the patient, performed the documentation and the assessment and plan as written. Number of minutes spent on the visit: 10 Dictation was produced using [employer] dictation software. Please excuse any grammatical, word or spelling errors.
--- NOTE | 2025-02-06 16:08 | P.PN ---
Subjective Progress Note Date: 02/06/25 Patient is a 79-year-old female with hypertension here for evaluation after a fall. Patient reported that night before admission, patient fell after getting out of her into bed and that she lost consciousness. She was found on the floor with her right leg wedged with associated pain. She has been complaining of generalized weakness for about a few weeks now and it has worsened over the past week to the point that she drags her right leg. She denied chest pain, shortness of breath, palpitations, headaches, facial asymmetry, speech changes, abdominal pain, extremity swelling. On admission: Vitals: Temp 97.7 F, pulse rate 104, RR 20, BP 109/86, oxygen 95% on room air Labs: WBC 25.3, hemoglobin 15.7, platelet count 301,000, sodium 136, potassium 4.5, bicarb 20, BUN 33, creatinine 1.3, glucose 162, lactic acid 4.6, calcium 11.1, phosphorus 4.6, magnesium 2.6, AST 514, ALT 133, alk phos 77, total bilirubin 1.4, creatinine kinase 44,157, troponin 6, proBNP 1540, albumin 15.1. Urinalysis shows cloudy appearance +1 protein, large blood, large leukocyte esterase, WBC greater than 182, hyaline cast 10, occasional urine yeast.. Imaging: Pelvic x-ray showed no acute displaced fracture. Chest x-ray showed possible fluid overloaded state with persistent cardiomegaly and central vascular congestion. Head cervical spine CT showed no acute intracranial process with age-related atrophy, no acute posttraumatic changes in the cervical spine, with degenerative and vertebral joint changes. Face CT showed no acute posttraumatic osseous abnormality. EKG showed sinus tachycardia with a rate of 107, normal axis, ST elevation noted on lead III, notable intraventricular delay in V2 and V6, QTc 495 MS. Second EKG showed sinus tachycardia with occasional PVC, rate of [address]-T changes, QTc 431 MS. 02/01/2025 patient seen and examined at bedside. Rapid response was recalled yesterday on 01/30 as patient was hypotensive on the cardiac stepdown floor. Fluid bolus was given but patient had marginal response. She was also quite lethargic on reevaluation. Pulmonology decided to admit patient to the ICU due to concerns for hypotension related to sepsis. Still having labile BP. Still low UO with positive fluid balance. Still lethargic but cooperative. Labs: WBC 19.13, hemoglobin 12.6, platelet count 208,000, sodium 133, potassium 4.4, chloride 96, bicarb 23, BUN 73, glucose 118, calcium 72, magnesium 2.6 Imaging; liver ultrasound ordered showed no intrahepatic mass or ductal dilation. Echocardiogram showed LV ejection fraction of 10 to 15% with severely reduced global LV systolic dysfunction, RV dilated with reduced systolic function, moderate mitral regurgitation, mild LA dilatation with elevated LA filling pressures 02/02/2025 patient seen and examined at bedside. Patient seen in the ICU. Still having low urine output with positive fluid balance. Blood pressures still labile. 1 L bolus 0.9 normal saline given 02/01 Labs: WBC 20.1, hemoglobin 11, platelet count 195,000, sodium 131, potassium 3.8, chloride 93, BUN 85, creatinine 4, glucose 103, calcium 6.8 Imaging: Renal US showed possible mild right hydronephrosis 02/03/2025 Patient is in MICU. Awake alert with mild confusion. Lethargic and weak. Patient is on low-dose norepinephrine drip. Decreased urine output even after IV Lasix doses. Renal function is worsening. Nephrology is planning for renal replacement therapy. Otherwise patient is on antibiotics per urinary tract infection. Urine cultures showed Pseudomonas. Lab data showed WBC 22.7 hemoglobin 10.9 and platelets 200, sodium 129 potassium 4.3 chloride 87 bicarb is 33 BUN 93 and creatinine 4.58. CPK level 30,365 and calcium 6.7. Myoglobin elevated [id number] Nephrology and critical care team is on board. 02/04/2025 patient seen and examined at bedside. Patient still in the ICU. More alert and conversant today. Levophed weaned off this morning. UO improved. Labs: WBCs 13.2, hemoglobin 10, sodium 127, potassium 4.4, bicarb 23, BUN 96, creatinine 5, glucose 70, AST 735, ALT 394, alk phos 124, creatinine kinase 47934, albumin 2.1 02/05/2025 patient seen and examined at bedside. Patient still in the ICU. Did not require any pressor support overnight. Dialysis was done yesterday 500 mL fluid was taken off. UO still low but improving. More awake and alert today. Labs: WBC 11.06, hemoglobin 10.1, MCV 94, platelet count 1 90,000, sodium 130, potassium 4.4, bicarb 27, BUN 70, creatinine 3.96, glucose 75, [place] [address] 02/06/2025 patient seen and examined at bedside. Patient has been downgraded to stepdown unit. UO improving. Dialysis again today Labs: WBC 13.9, hemoglobin 9.8, MCV 94.5, platelet count 1 83,000, sodium 129, potassium 4.1, chloride 95, bicarb 26, BUN 61, creatinine 3.3, glucose 83, calcium 8.2, AST 487, ALT 317, alk phos 130, albumin 2.1 Review of systems: Pertinent positives and negatives as discussed in HPI, a complete review of systems was performed and all other systems are negative. Physical examination: Vital signs reviewed General: non toxic, no distress, appears at stated age, cooperative and conversant Derm: no unusual rashes/lesions, warm, noted right methodist and left lower jaw bruises Head: atraumatic, normocephalic, symmetric Eyes: EOMI, anicteric sclera, pupils equal round reactive to light ENT: Nose and ears atraumatic Neck: No cervical lymphadenopathy, trachea midline, supple Mouth: no lip lesion, mucus membranes moist Cardiovascular: S1S2 reg, no murmur Lungs: fine rales on RL lung, no rhonchi, no rales, no accessory muscle use Abdominal: soft, nondistended, nontender to palpation, no guarding Ext: muscle strength 5 out of 5 in all 4 extremities grossly, no gross muscle atrophy, no contractures, positive dorsalis pedis pulse bilateral, b/l upper and lower ext +2 pitting edema Neuro: CN II-XI grossly intact, no gross focal neuro deficits Psych: Alert and oriented x 2, appropriate affect and mood Assessment/Plan: The patient is admitted with an anticipated greater than 2 midnight stay for evaluation of syncope, CATHIE and sepsis Active: #. CATHIE, secondary to ATN which is secondary to sepsis, acute rhabdomyolysis and contrast injury. Improvring #. Sepsis secondary to complicated UTI. Urine culture showed Pseudomonas. #. Acute rhabdomyolysis. Status post fall, improving #. Lactic acidosis, resolved #. Anion gap metabolic acidosis secondary to above, improved # Acute metabolic encephalopathy secondary to above Creatinine 3.05-->4.58 -> 5.02 -> 3.96 -> 3.3 CK improving. Myoglobin elevated Monitor urine output and renal function Blood cultures negative. Urine culture showed Pseudomonas. Patient is now on Cefepime IV. IV levaquin given once 02/03 for antibiotics. D/c ceftriaxone IV 02/01 ID consult for further evaluation Nephrology is following, rec appreciated. Dialysis today Vascular has been consulted for temp cath placement Pulmonology consulted for ICU management of hypotnesion #. Shocked liver secondary to above, improved AST 487, ALT 317 have improved Liver ultrasound unremarkable #. Syncope, likley due to sepsis #. Mechanical fall secondary to above #. NSTEMI s/p cardiac cath with no coronary occlusions #. Nonischemic cardiomyopathy Pelvic x-ray, head CT, cervical spine CT and face CT so no acute fractures or osseous abnormality. EKG showed sinus tachycardia with a rate of 107, normal axis, ST elevation noted on lead III, notable intraventricular delay in V2 and V6 Second EKG showed sinus tachycardia with occasional PVC, no noted ST-T changes proBNP 1540 Continue cardiac monitoring Supplemental oxygen as needed Echocardiogram showed LV ejection fraction of 10 to 15% with severely reduced global LV systolic dysfunction, RV dilated with reduced systolic function, moderate mitral regurgitation Consult cardiology. Heart cath done showed normal coronary arteries. metoprolol tartrate 12.5mg ordered Chronic Conditions: #. Hypertension #. Anxiety Hold statins, gabapentin and NSAIDs for now DVT ppx: Heparin SQ CODE STATUS: Full Discussed with: patient and family Anticipated discharge place: pending clinical course Poornima Pat MD PGY-1 Internal Medicine Dictation was produced using [employer] dictation software. please excuse any grammatical, word or spelling errors. Attestation: I have seen and examined this patient with my resident, assessment and plan discussed with the resident, agree with assessment and plan as written above. Dr. Hernandez Objective - Vital Signs Vital signs: Vital Signs Temp 97.7 F 02/06/25 07:47 Pulse 97 02/06/25 07:47 Resp 19 02/06/25 07:47 BP 112/69 02/06/25 07:47 Pulse Ox 94 L 02/06/25 07:47 FiO2 2 01/31/25 23:15 Intake & Output 02/05/25 02/06/25 02/06/25 18:59 06:59 18:59 Intake Total 1820 Output Total 1689 Balance 131 Weight 115 kg Intake: IV 700 Sodium Chloride 0.9% 1, 700 000 ml @ 100 mls/hr IV . Q10H [facility] Rx#:[id number] Oral 720 Hemodialysis 400 Output: Urine 89 Hemodialysis 1000 Hemodialysis Net Amount 600 Other: Voiding Method Indwelling Catheter Indwelling Catheter Indwelling Catheter # Bowel Movements 4 1 1 - Labs CBC & Chem 7: 02/06/25 05:33 02/06/25 05:33 Labs: Abnormal Lab Results - Last 24 Hours (Table) 02/06/25 02/06/25 Range/Units 05:33 05:33 WBC 13.98 H (4.50-10.00) 10*3/uL RBC 3.08 L (4.10-5.20) 10*6/uL Hgb 9.8 L (12.0-15.0) g/dL Hct 29.1 L (37.2-46.3) % Immature Gran # 0.39 H (0.00-0.04) 10*3/uL Neutrophils # 10.43 H (1.80-7.70) 10*3/uL Monocytes # 1.19 H (0.20-1.00) 10*3/uL Eosinophils # 0.47 H (0.04-0.35) 10*3/uL Sodium 129 L (137-145) mmol/L Chloride 95 L (98-107) mmol/L BUN 61 H (7-17) mg/dL Creatinine 3.30 H (0.52-1.04) mg/dL Calcium 8.2 L (8.4-10.2) mg/dL AST 487 H (14-36) U/L ALT 317 H (4-34) U/L Alkaline Phosphatase 130 H (38-126) U/L Total Protein 4.4 L (6.3-8.2) g/dL Albumin 2.1 L (3.5-5.0) g/dL Microbiology - Last 24 Hours (Table) 01/31/25 11:07 Blood Culture - Final Blood
[2025-02-07 07:02] LABS: Basophils # (A) 0.05 10*3/uL (0.00-0.10); Basophils % (A) 0.4 %; Eosinophils # (A) 0.48 10*3/uL (0.04-0.35); Eosinophils % (A) 3.4 %; HCT 29.5 % (37.2-46.3); HGB 9.7 g/dL (12.0-15.0); Lymphocytes # (A) 1.33 10*3/uL (0.90-5.00); Lymphocytes % (A) 9.5 %; MCH 30.9 pg (27.0-32.0); MCHC 32.9 g/dL (32.0-37.0); MCV 93.9 fL (80.0-97.0); Mean Platelet Volume 11.2 fL (9.5-12.2); Monocytes # (A) 1.03 10*3/uL (0.20-1.00); Monocytes % (A) 7.3 %; Neutrophils # (A) 10.56 10*3/uL (1.80-7.70); Neutrophils % (A) 75.1 %; Platelet Count 212 10*3/uL (140-440); RBC 3.14 10*6/uL (4.10-5.20); RDW 13.4 % (11.5-14.5); WBC 14.06 10*3/uL (4.50-10.00)
[2025-02-07 07:17] LABS: African American GFR (CKD) 17 (>60 ml/min/1.73 sqM); Anion Gap 5 mmol/L; Blood Urea Nitrogen 42 mg/dL (7-17); Calcium 8.2 mg/dL (8.4-10.2); Carbon Dioxide 28 mmol/L (22-30); Chloride 95 mmol/L (98-107); Glucose 74 mg/dL (74-99); Non-African American GFR(CKD) 15 (>60 ml/min/1.73 sqM); Potassium 3.8 mmol/L (3.5-5.1); Sodium 128 mmol/L (137-145)
[2025-02-07] MEDS: ALPRAZolam 0.5 MG TAB PO PRN (09:16)
--- NOTE | 2025-02-07 13:11 | P.PN ---
Subjective HISTORY OF PRESENT ILLNESS: HPI: This lady is 79 years of age has nonischemic cardiomyopathy. She has rhabdomyolysis acute kidney injury and cardiac cath which must have exacerbated it. She is being considered for renal replacement therapy/dialysis. Right now she appears to be fairly stable. She will probably have a temporary dialysis catheter placed today. No chest pain or shortness of breath functional capacity is limited appears to be fairly stable. Obstructive CAD but has poor LV function nonischemic cardiomyopathy. 02/05/25 This patient is alert oriented she seems to be feeling a bit better. She had 500 cc of fluid taken out yesterday with the dialysis. She has kidney injury rhabdomyolysis cardiac catheter related contrast injury but creatinine seems to be better. She is going to have dialysis again today. Cardiac muñoz I have no new suggestions. Agree with the current management. I will add metoprolol to tartrate 12.5 mg twice daily. She remains in sinus rhythm. 02/06/2025 Patient examined this morning at the bedside. Patient currently denies chest pain or pressure. She denies shortness of breath. She is currently undergoing hemodialysis. She does have a Griffiths catheter with urine output noted. Creatini ne today 3.30, down from 3.96. 02/07/2025 Patient examined this morning at the bedside. Patient appears more confused today. She denies chest pain or shortness of breath. Vital signs are stable. Telemetry reveals sinus mechanism. PHYSICAL EXAM: VITAL SIGNS: Reviewed. GENERAL: Well-developed in no acute distress. NECK: Supple. No JVD or thyromegaly LUNGS: Respirations even and unlabored. Lungs essentially clear to auscultation bilaterally. HEART: Regular rate and rhythm. S1 and S2 heard. EXTREMITIES: Normal range of motion. No clubbing or cyanosis. Peripheral pulses intact. No lower extremity edema ASSESSMENT: Non-STEMI, status post cardiac catheterization revealing nonobstructive CAD Nonischemic cardiomyopathy, EF 15% Acute kidney injury requiring initiation of hemodialysis Rhabdomyolysis Transaminitis Leukocytosis Sepsis Syncope History of hypertension History of anxiety Morbid obesity: BMI 40.9 PLAN: Statin remains on hold secondary to transaminitis Continue metoprolol tartrate 12.5 mg twice a day Continue telemetry monitoring Continue hemodialysis per nephrology Repeat limited echo to reassess LV function Further recommendations pending patient course Nurse practitioner note has been reviewed by physician. Signing provider agrees with the documented findings, assessment, and plan of care documented by WARDROBE STYLIST as a scribe. Objective - Vital Signs Vital signs: Vital Signs Temp 98.2 F 02/07/25 11:12 Pulse 78 02/07/25 11:12 Resp 18 02/07/25 11:12 BP 124/74 02/07/25 11:12 Pulse Ox 99 02/07/25 11:12 FiO2 2 01/31/25 23:15 Intake & Output 02/06/25 02/07/25 02/07/25 18:59 06:59 18:59 Intake Total 1000 780 480 Output Total 2400 3 Balance -1400 777 480 Weight 115 kg 117 kg Intake: Oral 600 780 480 Hemodialysis 400 Output: Urine 3 Hemodialysis 1400 Hemodialysis Net Amount 1000 Other: Voiding Method Indwelling Catheter Indwelling Catheter Indwelling Catheter # Bowel Movements 1 2 - Labs CBC & Chem 7: 02/07/25 05:36 02/07/25 05:36 Labs: Abnormal Lab Results - Last 24 Hours (Table) 02/07/25 02/07/25 Range/Units 05:36 05:36 WBC 14.06 H (4.50-10.00) 10*3/uL RBC 3.14 L (4.10-5.20) 10*6/uL Hgb 9.7 L (12.0-15.0) g/dL Hct 29.5 L (37.2-46.3) % Immature Gran # 0.61 H (0.00-0.04) 10*3/uL Neutrophils # 10.56 H (1.80-7.70) 10*3/uL Monocytes # 1.03 H (0.20-1.00) 10*3/uL Eosinophils # 0.48 H (0.04-0.35) 10*3/uL Sodium 128 L (137-145) mmol/L Chloride 95 L (98-107) mmol/L BUN 42 H (7-17) mg/dL Creatinine 2.85 H (0.52-1.04) mg/dL Calcium 8.2 L (8.4-10.2) mg/dL
[2025-02-07] MEDS: traMADol 50 MG TAB PO PRN (13:20)
--- NOTE | 2025-02-07 14:37 | P.PN ---
Subjective Patient is seen for follow-up for acute kidney injury and rhabdomyolysis. She remains oliguric although urine output documented at 200 mL which is an improvement. Patient is [place] [id number] Objective - Vital Signs Vital signs: Vital Signs Temp 98.2 F 02/07/25 11:12 Pulse 78 02/07/25 12:56 Resp 18 02/07/25 12:56 BP 124/74 02/07/25 11:12 Pulse Ox 99 02/07/25 11:12 FiO2 2 01/31/25 23:15 Intake & Output 02/06/25 02/07/25 02/07/25 18:59 06:59 18:59 Intake Total 1000 780 580 Output Total 2400 3 200 Balance -1400 777 380 Weight 115 kg 117 kg Intake: Oral 600 780 580 Hemodialysis 400 Output: Urine 3 200 Hemodialysis 1400 Hemodialysis Net Amount 1000 Other: Voiding Method Indwelling Catheter Indwelling Catheter Indwelling Catheter # Bowel Movements 1 1 - Labs CBC & Chem 7: 02/07/25 05:36 02/07/25 05:36 Labs: Abnormal Lab Results - Last 24 Hours (Table) 02/07/25 02/07/25 Range/Units 05:36 05:36 WBC 14.06 H (4.50-10.00) 10*3/uL RBC 3.14 L (4.10-5.20) 10*6/uL Hgb 9.7 L (12.0-15.0) g/dL Hct 29.5 L (37.2-46.3) % Immature Gran # 0.61 H (0.00-0.04) 10*3/uL Neutrophils # 10.56 H (1.80-7.70) 10*3/uL Monocytes # 1.03 H (0.20-1.00) 10*3/uL Eosinophils # 0.48 H (0.04-0.35) 10*3/uL Sodium 128 L (137-145) mmol/L Chloride 95 L (98-107) mmol/L BUN 42 H (7-17) mg/dL Creatinine 2.85 H (0.52-1.04) mg/dL Calcium 8.2 L (8.4-10.2) mg/dL Assessment and Plan Assessment: 1. Acute kidney injury, ATN, oliguric secondary to hypotension and rh abdomyolysis. Patient also received IV contrast for cardiac catheterization. Currently maintained on IV hydration. UA suggestive of UTI. Ultrasound of the kidneys shows mild right hydronephrosis versus extrarenal pelvis. Started hemodialysis on 02/04/2025 2. Severe rhabdomyolysis status post fall 3. Anion gap metabolic acidosis associated with acute kidney injury and hypotension 4. UTI maintained on antibiotics. Urine culture is pending. 5. Mental status changes secondary to sepsis 6. Cardiomyopathy with ejection fraction of 10 to 15% Plan: Hemodialysis in a.m. Continue to monitor for recovery of renal function Continue to avoid nephrotoxic agents Repeat labs in a.m. Repeat CK levels
--- NOTE | 2025-02-07 16:31 | P.PN ---
Subjective Progress Note Date: 02/07/25 Principal diagnosis: Reason for follow-up Pseudomonas UTI Patient is 79-year-old female with a past medical history significant for hypertension neuropathy chronic back pain patient has been brought to the hospital after the patient did have a fall noticed to been rhabdomyolysis also found to have UTI urine with a Pseudomonas for this consultation. On today's evaluation that is 02/07/2025,the patient remains to be afebrile, patient is on room air not requiring supplemental oxygen and denies any shortness of breath no chest pain or cough.Patient denies having any nausea or vomiting, no abdominal pain however has developed significant diarrhea. Patient white count is 14.06, creatinine is 2.85 stool for C. difficile is negative blood culture negative Objective - Vital Signs Vital signs: Vital Signs Temp 98.2 F 02/07/25 11:12 Pulse 78 02/07/25 11:12 Resp 18 02/07/25 11:12 BP 124/74 02/07/25 11:12 Pulse Ox 99 02/07/25 11:12 FiO2 2 01/31/25 23:15 Intake & Output 02/06/25 02/07/25 02/07/25 18:59 06:59 18:59 Intake Total 1000 780 480 Output Total 2400 3 Balance -1400 777 480 Weight 115 kg 117 kg Intake: Oral 600 780 480 Hemodialysis 400 Output: Urine 3 Hemodialysis 1400 Hemodialysis Net Amount 1000 Other: Voiding Method Indwelling Catheter Indwelling Catheter Indwelling Catheter # Bowel Movements 1 2 - Exam GENERAL DESCRIPTION: An elderly FEmale lying in bed in no distress RESPIRATORY SYSTEM: Unlabored breathing , decreased breath sounds at bases HEART: S1 S2 regular rate and rhythm , ABDOMEN: Soft , no tenderness EXTREMITIES: Swelling to the leg no redness - Labs CBC & Chem 7: 02/07/25 05:36 02/07/25 05:36 Labs: Abnormal Lab Results - Last 24 Hours (Table) 02/07/25 02/07/25 Range/Units 05:36 05:36 WBC 14.06 H (4.50-10.00) 10*3/uL RBC 3.14 L (4.10-5.20) 10*6/uL Hgb 9.7 L (12.0-15.0) g/dL Hct 29.5 L (37.2-46.3) % Immature Gran # 0.61 H (0.00-0.04) 10*3/uL Neutrophils # 10.56 H (1.80-7.70) 10*3/uL Monocytes # 1.03 H (0.20-1.00) 10*3/uL Eosinophils # 0.48 H (0.04-0.35) 10*3/uL Sodium 128 L (137-145) mmol/L Chloride 95 L (98-107) mmol/L BUN 42 H (7-17) mg/dL Creatinine 2.85 H (0.52-1.04) mg/dL Calcium 8.2 L (8.4-10.2) mg/dL Assessment and Plan (1) UTI (urinary tract infection) Current Visit: Yes Status: Acute Code(s): N39.0 - URINARY TRACT INFECTION, SITE NOT SPECIFIED SNOMED Code(s): 68098625 (2) Leukocytosis Current Visit: Yes Status: Acute Code(s): D72.829 - ELEVATED WHITE BLOOD CELL COUNT, UNSPECIFIED SNOMED Code(s): 509028679 Plan: 1patient presented hospital with weakness and fall in this patient who did have elevated white count on admission some mental status changes positive UA concerning for symptomatic UTI with urine growing Pseudomonas aeruginosa that is a sensitive pathogen 2-patient is afebrile white count is slightly up did have significant diarrhea however stool for C. difficile x 2 has been negative we will add Questran for symptomatic relief and may consider transition antibiotic to oral Cipro total duration should be at least 7 days discussed with the resident physician Dictation was produced using [employer] dictation software. please excuse any grammatical, word or spelling errors. Time with Patient: Less than 30
--- NOTE | 2025-02-07 17:19 | P.PN ---
Subjective Progress Note Date: 02/07/25 Patient is a 79-year-old female with hypertension here for evaluation after a fall. Patient reported that night before admission, patient fell after getting out of her into bed and that she lost consciousness. She was found on the floor with her right leg wedged with associated pain. She has been complaining of generalized weakness for about a few weeks now and it has worsened over the past week to the point that she drags her right leg. She denied chest pain, shortness of breath, palpitations, headaches, facial asymmetry, speech changes, abdominal pain, extremity swelling. On admission: Vitals: Temp 97.7 F, pulse rate 104, RR 20, BP 109/86, oxygen 95% on room air Labs: WBC 25.3, hemoglobin 15.7, platelet count 301,000, sodium 136, potassium 4.5, bicarb 20, BUN 33, creatinine 1.3, glucose 162, lactic acid 4.6, calcium 11.1, phosphorus 4.6, magnesium 2.6, AST 514, ALT 133, alk phos 77, total bilirubin 1.4, creatinine kinase 44,157, troponin 6, proBNP 1540, albumin 15.1. Urinalysis shows cloudy appearance +1 protein, large blood, large leukocyte esterase, WBC greater than 182, hyaline cast 10, occasional urine yeast.. Imaging: Pelvic x-ray showed no acute displaced fracture. Chest x-ray showed possible fluid overloaded state with persistent cardiomegaly and central vascular congestion. Head cervical spine CT showed no acute intracranial process with age-related atrophy, no acute posttraumatic changes in the cervical spine, with degenerative and vertebral joint changes. Face CT showed no acute posttraumatic osseous abnormality. EKG showed sinus tachycardia with a rate of 107, normal axis, ST elevation noted on lead III, notable intraventricular delay in V2 and V6, QTc 495 MS. Second EKG showed sinus tachycardia with occasional PVC, rate of [address]-T changes, QTc 431 MS. 02/01/2025 patient seen and examined at bedside. Rapid response was recalled yesterday on 01/30 as patient was hypotensive on the cardiac stepdown floor. Fluid bolus was given but patient had marginal response. She was also quite lethargic on reevaluation. Pulmonology decided to admit patient to the ICU due to concerns for hypotension related to sepsis. Still having labile BP. Still low UO with positive fluid balance. Still lethargic but cooperative. Labs: WBC 19.13, hemoglobin 12.6, platelet count 208,000, sodium 133, potassium 4.4, chloride 96, bicarb 23, BUN 73, glucose 118, calcium 72, magnesium 2.6 Imaging; liver ultrasound ordered showed no intrahepatic mass or ductal dilation. Echocardiogram showed LV ejection fraction of 10 to 15% with severely reduced global LV systolic dysfunction, RV dilated with reduced systolic function, moderate mitral regurgitation, mild LA dilatation with elevated LA filling pressures 02/02/2025 patient seen and examined at bedside. Patient seen in the ICU. Still having low urine output with positive fluid balance. Blood pressures still labile. 1 L bolus 0.9 normal saline given 02/01 Labs: WBC 20.1, hemoglobin 11, platelet count 195,000, sodium 131, potassium 3.8, chloride 93, BUN 85, creatinine 4, glucose 103, calcium 6.8 Imaging: Renal US showed possible mild right hydronephrosis 02/03/2025 Patient is in MICU. Awake alert with mild confusion. Lethargic and weak. Patient is on low-dose norepinephrine drip. Decreased urine output even after IV Lasix doses. Renal function is worsening. Nephrology is planning for renal replacement therapy. Otherwise patient is on antibiotics per urinary tract infection. Urine cultures showed Pseudomonas. Lab data showed WBC 22.7 hemoglobin 10.9 and platelets 200, sodium 129 potassium 4.3 chloride 87 bicarb is 33 BUN 93 and creatinine 4.58. CPK level 30,365 and calcium 6.7. Myoglobin elevated [id number] Nephrology and critical care team is on board. 02/04/2025 patient seen and examined at bedside. Patient still in the ICU. More alert and conversant today. Levophed weaned off this morning. UO improved. Labs: WBCs 13.2, hemoglobin 10, sodium 127, potassium 4.4, bicarb 23, BUN 96, creatinine 5, glucose 70, AST 735, ALT 394, alk phos 124, creatinine kinase 90629, albumin 2.1 02/05/2025 patient seen and examined at bedside. Patient still in the ICU. Did not require any pressor support overnight. Dialysis was done yesterday 500 mL fluid was taken off. UO still low but improving. More awake and alert today. Labs: WBC 11.06, hemoglobin 10.1, MCV 94, platelet count 1 90,000, sodium 130, potassium 4.4, bicarb 27, BUN 70, creatinine 3.96, glucose 75[place] [id number] 02/06/2025 patient seen and examined at bedside. Patient has been downgraded to stepdown unit. UO improving. Dialysis again today Labs: WBC 13.9, hemoglobin 9.8, MCV 94.5, platelet count 1 83,000, sodium 129, potassium 4.1, chloride 95, bicarb 26, BUN 61, creatinine 3.3, glucose 83, calcium 8.2, AST 487, ALT 317, alk phos 130, albumin 2.1 02/07/2025 patient seen and examined at bedside. Patient had hemodialysis removed 1 L of fluid yesterday. UO still low despite improvement of creatinine levels. Patient having about 13 episodes of diarrhea overnight. Labs: WBC 14.06, hemoglobin 9.7, MCV 93.9, platelet count 212,000, sodium 128, potassium 3.8, chloride 95, BUN 42, creatinine 2.8, glucose 74, calcium 8.2 Review of systems: Pertinent positives and negatives as discussed in HPI, a complete review of systems was performed and all other systems are negative. Physical examination: Vital signs reviewed General: non toxic, no distress, appears at stated age, cooperative and convers ant Derm: no unusual rashes/lesions, warm, noted right gnosticism and left lower jaw bruises Head: atraumatic, normocephalic, symmetric Eyes: EOMI, anicteric sclera, pupils equal round reactive to light ENT: Nose and ears atraumatic Neck: No cervical lymphadenopathy, trachea midline, supple Mouth: no lip lesion, mucus membranes moist Cardiovascular: S1S2 reg, no murmur Lungs: fine rales on RL lung, no rhonchi, no rales, no accessory muscle use Abdominal: soft, nondistended, nontender to palpation, no guarding Ext: muscle strength 5 out of 5 in all 4 extremities grossly, no gross muscle atrophy, no contractures, positive dorsalis pedis pulse bilateral, b/l upper and lower ext +2 pitting edema Neuro: CN II-XI grossly intact, no gross focal neuro deficits Psych: Alert and oriented x 2, appropriate affect and mood Assessment/Plan: The patient is admitted with an anticipated greater than 2 midnight stay for evaluation of syncope, CATHIE and sepsis Active: #. CATHIE, secondary to ATN which is secondary to sepsis, acute rhabdomyolysis and contrast injury. Improvring #. Sepsis secondary to complicated UTI. Urine culture showed Pseudomonas. #. Acute rhabdomyolysis. Status post fall, improving #. Lactic acidosis, resolved #. Anion gap metabolic acidosis secondary to above, improved # Acute metabolic encephalopathy secondary to above Creatinine now 2.8 CK improving. Myoglobin elevated Monitor urine output and renal function Blood cultures negative. Urine culture showed Pseudomonas. Patient is now on Cefepime IV. IV levaquin given once 02/03 for antibiotics. D/c ceftriaxone IV 02/01 ID consult for further evaluation. recommended transition to oral Ciprofloxacin for antibiotics on discharge. Nephrology is following, rec appreciated. Dialysis tomorrow Vascular consulted for temp cath placement Pulmonology consulted for ICU management of hypotnesion. Now downgraded to stepdown unit #. Diarrhea, rule out C. Diff C. Diff EIA negative on 02/05. Repeat today Added Loperamide po prn #. Shocked liver secondary to above, improved AST 487, ALT 317 have improved Liver ultrasound unremarkable #. Syncope, likley due to sepsis #. Mechanical fall secondary to above #. NSTEMI s/p cardiac cath with no coronary occlusions #. Nonischemic cardiomyopathy Pelvic x-ray, head CT, cervical spine CT and face CT so no acute fractures or osseous abnormality. EKG showed sinus tachycardia with a rate of 107, normal axis, ST elevation noted on lead III, notable intraventricular delay in V2 and V6 Second EKG showed sinus tachycardia with occasional PVC, no noted ST-T changes proBNP 1540 Continue cardiac monitoring Supplemental oxygen as needed Echocardiogram showed LV ejection fraction of 10 to 15% with severely reduced global LV systolic dysfunction Consult cardiology. Heart cath done showed normal coronary arteries. metoprolol tartrate 12.5mg BID ordered. Plan to repeat echo. Chronic Conditions: #. Hypertension #. Anxiety Hold statins, gabapentin and NSAIDs for now DVT ppx: Heparin SQ CODE STATUS: Full Discussed with: patient and family Anticipated discharge place: pending clinical course Poornima Pat MD PGY-1 Internal Medicine Dictation was produced using [employer] dictation software. please excuse any grammatical, word or spelling errors. Attestation: I have seen and examined this patient with my resident, assessment and plan discussed with the resident, agree with assessment and plan as written above. Dr. Hernandez Objective - Vital Signs Vital signs: Vital Signs Temp 97.8 F 02/07/25 04:00 Pulse 94 02/07/25 04:00 Resp 18 02/07/25 04:00 BP 100/62 02/07/25 04:00 Pulse Ox 94 L 02/07/25 04:00 FiO2 2 01/31/25 23:15 Intake & Output 02/06/25 02/07/25 02/07/25 18:59 06:59 18:59 Intake Total 1000 780 Output Total 2400 3 2 Balance -1400 777 -2 Weight 115 kg 117 kg Intake: Oral 600 780 Hemodialysis 400 Output: Urine 3 2 Hemodialysis 1400 Hemodialysis Net Amount 1000 Other: Voiding Method Indwelling Catheter Indwelling Catheter # Bowel Movements 1 - Labs CBC & Chem 7: 02/07/25 05:36 02/07/25 05:36 Labs: Abnormal Lab Results - Last 24 Hours (Table) 02/07/25 02/07/25 Range/Units 05:36 05:36 WBC 14.06 H (4.50-10.00) 10*3/uL RBC 3.14 L (4.10-5.20) 10*6/uL Hgb 9.7 L (12.0-15.0) g/dL Hct 29.5 L (37.2-46.3) % Immature Gran # 0.61 H (0.00-0.04) 10*3/uL Neutrophils # 10.56 H (1.80-7.70) 10*3/uL Monocytes # 1.03 H (0.20-1.00) 10*3/uL Eosinophils # 0.48 H (0.04-0.35) 10*3/uL Sodium 128 L (137-145) mmol/L Chloride 95 L (98-107) mmol/L BUN 42 H (7-17) mg/dL Creatinine 2.85 H (0.52-1.04) mg/dL Calcium 8.2 L (8.4-10.2) mg/dL
--- NOTE | 2025-02-07 18:13 | CA ---
Transthoracic Echo Report Name: Sarina Ndiaye Age: 79 Gender: F : 1945 Exam Date: 02/07/2025 13:30 Exam Location: [facility] Ht (in): 66 Wt (lb): 257 Ordering Physician: Lorena Oquendo Attending/Referring Phys: [id number], Azra Arch Support Technician Carolina Elizabeth, JASON Procedure CPT: Indications: cardiomyopathy, 15%, reassess LV function Cardiac Hx: Technical Quality: Fair Contrast 1: Definity Total Dose (mL): 2 Contrast 2: Total Dose (mL): MEASUREMENTS (Male / Female) Normal Values 2D ECHO LV Diastolic Diameter PLAX 5.3 cm 4.2 - 5.9 / 3.9 - 5.3 cm LV Systolic Diameter PLAX 3.4 cm IVS Diastolic Thickness 1.0 cm 0.6 - 1.0 / 0.6 - 0.9 cm LVPW Diastolic Thickness 1.1 cm 0.6 - 1.0 / 0.6 - 0.9 cm LV Relative Wall Thickness 0.4 RV Internal Dim ED PLAX 2.2 cm LA Systolic Diameter LX 4.3 cm 3.0 - 4.0 / 2.7 - 3.8 cm LV Diastolic Volume MOD BP 122.1 cm??? 67 - 155 / 56 - 104 cm??? LV Systolic Volume MOD BP 62.3 cm??? 22 - 58 / 19 - 49 cm??? LV Ejection Fraction MOD BP 49.0 % >= 55 % LV Cardiac Index MOD BP 2177.8 cm???/min???m??? LV Diastolic Volume MOD 4C 115.6 cm??? LV Systolic Volume MOD 4C 64.3 cm??? LV Ejection Fraction MOD 4C 44.4 % LV Cardiac Index MOD 4C 1869.9 cm???/min???m??? LV Diastolic Length 4C 8.1 cm LV Systolic Length 4C 7.1 cm LV Diastolic Volume MOD 2C 126.1 cm??? LV Systolic Volume MOD 2C 60.8 cm??? LV Ejection Fraction MOD 2C 51.8 % LV Cardiac Index MOD 2C 2379.8 cm???/min???m??? LV Diastolic Length 2C 8.3 cm LV Systolic Length 2C 6.9 cm LA Volume 61.3 cm??? 18 - 58 / 22 - 52 cm??? LA Volume Index 25.7 cm???/m??? 16 - 28 cm???/m??? M-MODE Aortic Root Diameter MM 3.3 cm LA Systolic Diameter MM 4.1 cm LA Ao Ratio MM 1.2 AV Cusp Separation MM 1.8 cm FINDINGS Left Ventricle Left ventricular ejection fraction is estimated at 25-30 %. Anteroapical and anteroseptal severe hypokinesis.left ventricular cavity size normal. Right Ventricle Normal right ventricular size and function. Right Atrium Mild right atrial dilatation. Left Atrium Mildly increased left atrial diameter. Mildly increased left atrial volume. Mitral Valve Aortic Valve Tricuspid Valve Pulmonic Valve Pericardium No pericardial effusion. No pleural effusion. Aorta Normal size aortic root and proximal ascending aorta. CONCLUSIONS Limited echo. Definity ECHO contrast used for improved visualization of the endocardial borders (inadequate visualization of two or more contiguous segments). Severely impaired systolic function with segmental wall motion abnormality Previewed by: Dr. Suly José MD (Electronically Signed) Final Date: 07 February 2025 18:12
--- NOTE | 2025-02-08 11:10 | P.PN ---
Subjective HISTORY OF PRESENT ILLNESS: HPI: This lady is 79 years of age has nonischemic cardiomyopathy. She has rhabdomyolysis acute kidney injury and cardiac cath which must have exacerbated it. She is being considered for renal replacement therapy/dialysis. Right now she appears to be fairly stable. She will probably have a temporary dialysis catheter placed today. No chest pain or shortness of breath functional capacity is limited appears to be fairly stable. Obstructive CAD but has poor LV function nonischemic cardiomyopathy. 02/05/25 This patient is alert oriented she seems to be feeling a bit better. She had 500 cc of fluid taken out yesterday with the dialysis. She has kidney injury rhabdomyolysis cardiac catheter related contrast injury but creatinine seems to be better. She is going to have dialysis again today. Cardiac muñoz I have no new suggestions. Agree with the current management. I will add metoprolol to tartrate 12.5 mg twice daily. She remains in sinus rhythm. 02/06/2025 Patient examined this morning at the bedside. Patient currently denies chest pain or pressure. She denies shortness of breath. She is currently undergoing hemodialysis. She does have a Griffiths catheter with urine output noted. Creatini ne today 3.30, down from 3.96. 02/07/2025 Patient examined this morning at the bedside. Patient appears more confused today. She denies chest pain or shortness of breath. Vital signs are stable. Telemetry reveals sinus mechanism. 02/08/2025 Patient examined this morning at the bedside. Patient without complaints of chest pain or shortness of breath. Repeat echo revealed ejection fraction 25 to 30% PHYSICAL EXAM: VITAL SIGNS: Reviewed. GENERAL: Well-developed in no acute distress. NECK: Supple. No JVD or thyromegaly LUNGS: Respirations even and unlabored. Lungs essentially clear to auscultation bilaterally. HEART: Regular rate and rhythm. S1 and S2 heard. EXTREMITIES: Normal range of motion. No clubbing or cyanosis. Peripheral pulses intact. No lower extremity edema ASSESSMENT: Non-STEMI, status post cardiac catheterization revealing nonobstructive CAD Nonischemic cardiomyopathy, EF 15%, repeat echo reveals 25 to 30% Acute kidney injury requiring initiation of hemodialysis Rhabdomyolysis Transaminitis Leukocytosis Sepsis Syncope History of hypertension History of anxiety Morbid obesity: BMI 40.9 PLAN: Statin remains on hold secondary to transaminitis Continue metoprolol tartrate 12.5 mg twice a day Continue telemetry monitoring Continue hemodialysis per nephrology No further inpatient recommendations from a cardiac standpoint We will sign off. Please reconsult if needed. Nurse practitioner note has been reviewed by physician. Signing provider agrees with the documented findings, assessment, and plan of care documented by CTE TEACHER as a scribe. Objective - Vital Signs Vital signs: Vital Signs Temp 98.0 F 02/08/25 10:20 Pulse 82 02/08/25 10:20 Resp 16 02/08/25 10:20 BP 98/54 02/08/25 10:20 Pulse Ox 95 02/08/25 08:00 FiO2 2 01/31/25 23:15 Intake & Output 02/07/25 02/08/25 02/08/25 18:59 06:59 18:59 Intake Total 817 880 Output Total 200 0 2400 Balance 617 0 -1520 Weight 117 kg Intake: Oral 817 480 Hemodialysis 400 Output: Urine 200 0 Hemodialysis 1400 Hemodialysis Net Amount 1000 Other: Voiding Method Indwelling Catheter Indwelling Catheter Indwelling Catheter # Bowel Movements 1 1 - Labs CBC & Chem 7: 02/07/25 05:36 02/07/25 05:36
[2025-02-08 12:54] LABS: Basophils # (A) 0.08 10*3/uL (0.00-0.10); Basophils % (A) 0.6 %; Eosinophils # (A) 0.38 10*3/uL (0.04-0.35); Eosinophils % (A) 2.8 %; HCT 32.3 % (37.2-46.3); HGB 10.6 g/dL (12.0-15.0); Lymphocytes # (A) 1.16 10*3/uL (0.90-5.00); Lymphocytes % (A) 8.6 %; MCH 31.3 pg (27.0-32.0); MCHC 32.8 g/dL (32.0-37.0); MCV 95.3 fL (80.0-97.0); Mean Platelet Volume 10.5 fL (9.5-12.2); Monocytes % (A) 5.9 %; Neutrophils # (A) 10.43 10*3/uL (1.80-7.70); Neutrophils % (A) 77.3 %; Platelet Count 206 10*3/uL (140-440); RBC 3.39 10*6/uL (4.10-5.20); RDW 13.4 % (11.5-14.5)
[2025-02-08 13:09] LABS: African American GFR (CKD) 27 (>60 ml/min/1.73 sqM); Anion Gap 6 mmol/L; Blood Urea Nitrogen 30 mg/dL (7-17); Calcium 8.5 mg/dL (8.4-10.2); Carbon Dioxide 24 mmol/L (22-30); Chloride 99 mmol/L (98-107); Creatine Kinase 856 U/L (30-135); Glucose 100 mg/dL (74-99); Non-African American GFR(CKD) 23 (>60 ml/min/1.73 sqM); Sodium 129 mmol/L (137-145)
[2025-02-08 13:27] LABS: Potassium 4.1 mmol/L (3.5-5.1)
--- NOTE | 2025-02-08 15:39 | P.PN ---
Subjective Progress Note Date: 02/08/25 Patient is a 79-year-old female with hypertension here for evaluation after a fall. Patient reported that night before admission, patient fell after getting out of her into bed and that she lost consciousness. She was found on the floor with her right leg wedged with associated pain. She has been complaining of generalized weakness for about a few weeks now and it has worsened over the past week to the point that she drags her right leg. She denied chest pain, shortness of breath, palpitations, headaches, facial asymmetry, speech changes, abdominal pain, extremity swelling. On admission: Vitals: Temp 97.7 F, pulse rate 104, RR 20, BP 109/86, oxygen 95% on room air Labs: WBC 25.3, hemoglobin 15.7, platelet count 301,000, sodium 136, potassium 4.5, bicarb 20, BUN 33, creatinine 1.3, glucose 162, lactic acid 4.6, calcium 11.1, phosphorus 4.6, magnesium 2.6, AST 514, ALT 133, alk phos 77, total bilirubin 1.4, creatinine kinase 44,157, troponin 6, proBNP 1540, albumin 15.1. Urinalysis shows cloudy appearance +1 protein, large blood, large leukocyte esterase, WBC greater than 182, hyaline cast 10, occasional urine yeast.. Imaging: Pelvic x-ray showed no acute displaced fracture. Chest x-ray showed possible fluid overloaded state with persistent cardiomegaly and central vascular congestion. Head cervical spine CT showed no acute intracranial process with age-related atrophy, no acute posttraumatic changes in the cervical spine, with degenerative and vertebral joint changes. Face CT showed no acute posttraumatic osseous abnormality. EKG showed sinus tachycardia with a rate of 107, normal axis, ST elevation noted on lead III, notable intraventricular delay in V2 and V6, QTc 495 MS. Second EKG showed sinus tachycardia with occasional PVC, rate of [address]-T changes, QTc 431 MS. 02/01/2025 patient seen and examined at bedside. Rapid response was recalled yesterday on 01/30 as patient was hypotensive on the cardiac stepdown floor. Fluid bolus was given but patient had marginal response. She was also quite lethargic on reevaluation. Pulmonology decided to admit patient to the ICU due to concerns for hypotension related to sepsis. Still having labile BP. Still low UO with positive fluid balance. Still lethargic but cooperative. Labs: WBC 19.13, hemoglobin 12.6, platelet count 208,000, sodium 133, potassium 4.4, chloride 96, bicarb 23, BUN 73, glucose 118, calcium 72, magnesium 2.6 Imaging; liver ultrasound ordered showed no intrahepatic mass or ductal dilation. Echocardiogram showed LV ejection fraction of 10 to 15% with severely reduced global LV systolic dysfunction, RV dilated with reduced systolic function, moderate mitral regurgitation, mild LA dilatation with elevated LA filling pressures 02/02/2025 patient seen and examined at bedside. Patient seen in the ICU. Still having low urine output with positive fluid balance. Blood pressures still labile. 1 L bolus 0.9 normal saline given 02/01 Labs: WBC 20.1, hemoglobin 11, platelet count 195,000, sodium 131, potassium 3.8, chloride 93, BUN 85, creatinine 4, glucose 103, calcium 6.8 Imaging: Renal US showed possible mild right hydronephrosis 02/03/2025 Patient is in MICU. Awake alert with mild confusion. Lethargic and weak. Patient is on low-dose norepinephrine drip. Decreased urine output even after IV Lasix doses. Renal function is worsening. Nephrology is planning for renal replacement therapy. Otherwise patient is on antibiotics per urinary tract infection. Urine cultures showed Pseudomonas. Lab data showed WBC 22.7 hemoglobin 10.9 and platelets 200, sodium 129 potassium 4.3 chloride 87 bicarb is 33 BUN 93 and creatinine 4.58. CPK level 30,365 and calcium 6.7. Myoglobin elevated [id number] Nephrology and critical care team is on board. 02/04/2025 patient seen and examined at bedside. Patient still in the ICU. More alert and conversant today. Levophed weaned off this morning. UO improved. Labs: WBCs 13.2, hemoglobin 10, sodium 127, potassium 4.4, bicarb 23, BUN 96, creatinine 5, glucose 70, AST 735, ALT 394, alk phos 124, creatinine kinase 88990, albumin 2.1 02/05/2025 patient seen and examined at bedside. Patient still in the ICU. Did not require any pressor support overnight. Dialysis was done yesterday 500 mL fluid was taken off. UO still low but improving. More awake and alert today. Labs: WBC 11.06, hemoglobin 10.1, MCV 94, platelet count 1 90,000, sodium 130, potassium 4.4, bicarb 27, BUN 70, creatinine 3.96, glucose 75[place] [id number] 02/06/2025 patient seen and examined at bedside. Patient has been downgraded to stepdown unit. UO improving. Dialysis again today Labs: WBC 13.9, hemoglobin 9.8, MCV 94.5, platelet count 1 83,000, sodium 129, potassium 4.1, chloride 95, bicarb 26, BUN 61, creatinine 3.3, glucose 83, calcium 8.2, AST 487, ALT 317, alk phos 130, albumin 2.1 02/07/2025 patient seen and examined at bedside. Patient had hemodialysis removed 1 L of fluid yesterday. UO still low despite improvement of creatinine levels. Patient having about 13 episodes of diarrhea overnight. Labs: WBC 14.06, hemoglobin 9.7, MCV 93.9, platelet count 212,000, sodium 128, potassium 3.8, chloride 95, BUN 42, creatinine 2.8, glucose 74, calcium 8.2 02/08/2025 patient seen and examined at bedside. For dialysis today. Removed 1L Still having diarrhea but has improved. UO still low Labs: WBC 13.5, hemoglobin 10.6, platelet count 206,000, sodium 129, potassium 4.1, BUN 30, creatinine 1.99, glucose 108, calcium 8.5, ending 2756. Repeat C. difficile negative. Imaging; echocardiogram showed severely impaired systolic function with segme ntal wall motion abnormality LVEF 25 to 30% Review of systems: Pertinent positives and negatives as discussed in HPI, a complete review of systems was performed and all other systems are negative. Physical examination: Vital signs reviewed General: non toxic, no distress, appears at stated age, cooperative and conversant Derm: no unusual rashes/lesions, warm, noted right mormon and left lower jaw bruises Head: atraumatic, normocephalic, symmetric Eyes: EOMI, anicteric sclera, pupils equal round reactive to light ENT: Nose and ears atraumatic Neck: No cervical lymphadenopathy, trachea midline, supple Mouth: no lip lesion, mucus membranes moist Cardiovascular: S1S2 reg, no murmur Lungs: fine rales on RL lung, no rhonchi, no rales, no accessory muscle use Abdominal: soft, nondistended, nontender to palpation, no guarding Ext: muscle strength 5 out of 5 in all 4 extremities grossly, no gross muscle atrophy, no contractures, positive dorsalis pedis pulse bilateral, b/l upper and lower ext +2 pitting edema Neuro: CN II-XI grossly intact, no gross focal neuro deficits Psych: Alert and oriented x 2, appropriate affect and mood Assessment/Plan: The patient is admitted with an anticipated greater than 2 midnight stay for evaluation of syncope, CATHIE and sepsis Active: #. CATHIE, secondary to ATN which is secondary to sepsis, acute rhabdomyolysis and contrast injury. Improvring #. Sepsis secondary to complicated UTI. Urine culture showed Pseudomonas. #. Acute rhabdomyolysis. Status post fall, improving #. Lactic acidosis, resolved #. Anion gap metabolic acidosis secondary to above, improved # Acute metabolic encephalopathy secondary to above Creatinine now 2.8 CK improving. Myoglobin elevated Monitor urine output and renal function Blood cultures negative. Urine culture showed Pseudomonas. Patient is now on Cefepime IV. ID consult for further evaluation. recommended transition to oral Ciprofloxacin for antibiotics on discharge. Nephrology is following, rec appreciated. Dialysis tomorrow Vascular consulted for temp cath placement Pulmonology consulted for ICU management of hypotnesion. Now downgraded to stepdown unit #. Diarrhea, ruled out C. Diff C. Diff EIA negative on 02/05. Negative on repeat Added Loperamide po prn #. Shocked liver secondary to above, improved AST 487, ALT 317 have improved Liver ultrasound unremarkable #. Syncope, likley due to sepsis #. Mechanical fall secondary to above #. NSTEMI s/p cardiac cath with no coronary occlusions #. Nonischemic cardiomyopathy EF 25-30% Pelvic x-ray, head CT, cervical spine CT and face CT so no acute fractures or osseous abnormality. EKG showed sinus tachycardia with a rate of 107, normal axis, ST elevation noted on lead III, notable intraventricular delay in V2 and V6 Second EKG showed sinus tachycardia with occasional PVC, no noted ST-T changes Continue cardiac monitoring Supplemental oxygen as needed Echocardiogram showed LV ejection fraction of 10 to 15% with severely reduced global LV systolic dysfunction. Today, echo showed improved LVEF 25 to 30% Consult cardiology. Heart cath done showed normal coronary arteries. metoprolol tartrate 12.5mg BID ordered. Plan to repeat echo. Chronic Conditions: #. Hypertension #. Anxiety Hold statins, gabapentin and NSAIDs for now DVT ppx: Heparin SQ CODE STATUS: Full Discussed with: patient and family Anticipated discharge place: pending clinical course Poornima Pat MD PGY-1 Internal Medicine Dictation was produced using [employer] dictation software. please excuse any grammatical, word or spelling errors. Attestation: I have seen and examined this patient with my resident, assessment and plan discussed with the resident, agree with assessment and plan as written above. Dr. Hernandez Objective - Vital Signs Vital signs: Vital Signs Temp 97.7 F 02/08/25 08:00 Pulse 79 02/08/25 08:00 Resp 16 02/08/25 08:00 BP 122/68 02/08/25 08:00 Pulse Ox 95 02/08/25 08:00 FiO2 2 01/31/25 23:15 Intake & Output 02/07/25 02/08/25 02/08/25 18:59 06:59 18:59 Intake Total 817 480 Output Total 200 0 Balance 617 0 480 Weight 117 kg Intake: Oral 817 480 Output: Urine 200 0 Other: Voiding Method Indwelling Catheter Indwelling Catheter Indwelling Catheter # Bowel Movements 1 1 - Labs CBC & Chem 7: 02/08/25 12:44 02/08/25 12:44
--- NOTE | 2025-02-08 16:01 | P.PN ---
Subjective Patient is seen for follow-up for acute kidney injury and rhabdomyolysis. Started hemodialysis on 02/03/2025 for severe oliguric renal failure. She remains oliguric although urine output documented at 200 mL which is an improvement. Patient is awake No significant complaints CK has decreased to 856 Seen on hemodialysis. Tolerating treatment well Objective - Vital Signs Vital signs: Vital Signs Temp 97.5 F L 02/08/25 12:00 Pulse 79 02/08/25 13:53 Resp 16 02/08/25 13:53 BP 123/79 02/08/25 12:00 Pulse Ox 95 02/08/25 12:00 FiO2 2 01/31/25 23:15 Intake & Output 02/07/25 02/08/25 02/08/25 18:59 06:59 18:59 Intake Total 817 880 Output Total 200 0 2400 Balance 617 0 -1520 Weight 117 kg Intake: Oral 817 480 Hemodialysis 400 Output: Urine 200 0 Hemodialysis 1400 Hemodialysis Net Amount 1000 Other: Voiding Method Indwelling Catheter Indwelling Catheter Indwelling Catheter # Bowel Movements 1 1 1 - Exam Patient is awake, comfortable No acute distress AExamination of the heart S1 and S2 Examination of the lungs bilateral breath sounds are heard Abdomen is soft obese Examination of lower extremities showed trace edema THERMODYNAMICS TEACHER exam grossly intact - Labs CBC & Chem 7: 02/08/25 12:44 02/08/25 12:44 Labs: Abnormal Lab Results - Last 24 Hours (Table) 02/08/25 02/08/25 Range/Units 12:44 12:44 WBC 13.50 H (4.50-10.00) 10*3/uL RBC 3.39 L (4.10-5.20) 10*6/uL Hgb 10.6 L (12.0-15.0) g/dL Hct 32.3 L (37.2-46.3) % Immature Gran # 0.65 H (0.00-0.04) 10*3/uL Neutrophils # 10.43 H (1.80-7.70) 10*3/uL Eosinophils # 0.38 H (0.04-0.35) 10*3/uL Sodium 129 L (137-145) mmol/L BUN 30 H (7-17) mg/dL Creatinine 1.99 H (0.52-1.04) mg/dL Glucose 100 H (74-99) mg/dL Creatine Kinase 856 H (30-135) U/L Assessment and Plan Assessment: 1. Acute kidney injury, ATN, oliguric secondary to hypotension and rhabdomyolysis. Patient also received IV contrast for cardiac catheterization. Currently maintained on IV hydration. UA suggestive of UTI. Ultrasound of the kidneys shows mild right hydronephrosis versus extrarenal pelvis. Started hemodialysis on 02/04/2025 2. Severe rhabdomyolysis status post fall 3. Anion gap metabolic acidosis associated with acute kidney injury and hypotension 4. UTI maintained on antibiotics. Urine culture is pending. 5. Mental status changes secondary to sepsis 6. Cardiomyopathy with ejection fraction of 10 to 15% Plan: Hemodialysis today Continue to monitor for recovery of renal function Continue to avoid nephrotoxic agents Repeat labs in a.m.
[2025-02-09 09:24] LABS: Basophils # (A) 0.08 10*3/uL (0.00-0.10); Basophils % (A) 0.6 %; Eosinophils # (A) 0.34 10*3/uL (0.04-0.35); Eosinophils % (A) 2.6 %; HGB 9.5 g/dL (12.0-15.0); Lymphocytes # (A) 1.41 10*3/uL (0.90-5.00); Lymphocytes % (A) 10.9 %; MCH 31.3 pg (27.0-32.0); MCHC 32.8 g/dL (32.0-37.0); MCV 95.4 fL (80.0-97.0); Mean Platelet Volume 10.8 fL (9.5-12.2); Monocytes % (A) 7.7 %; Neutrophils # (A) 9.63 10*3/uL (1.80-7.70); Neutrophils % (A) 74.4 %; Platelet Count 231 10*3/uL (140-440); RBC 3.04 10*6/uL (4.10-5.20); RDW 13.4 % (11.5-14.5); WBC 12.95 10*3/uL (4.50-10.00)
[2025-02-09 09:41] LABS: African American GFR (CKD) 18 (>60 ml/min/1.73 sqM); Anion Gap 4 mmol/L; Blood Urea Nitrogen 41 mg/dL (7-17); Calcium 8.4 mg/dL (8.4-10.2); Carbon Dioxide 28 mmol/L (22-30); Chloride 98 mmol/L (98-107); Glucose 84 mg/dL (74-99); Non-African American GFR(CKD) 16 (>60 ml/min/1.73 sqM); Potassium 4.2 mmol/L (3.5-5.1); Sodium 130 mmol/L (137-145)
[2025-02-09] MEDS: ASPIRIN 81 MG PO SCH (10:07)
--- NOTE | 2025-02-09 10:40 | P.PN ---
Subjective Progress Note Date: 02/09/25 Patient is seen for follow-up for acute kidney injury and rhabdomyolysis. Started hemodialysis on 02/03/2025 for severe oliguric renal failure. She remains oliguric although urine output documented at 200 mL which is an improvement. Patient is awake No significant complaints HD was done yesterday, tolerated 1.4 L UF Objective - Vital Signs Vital signs: Vital Signs Temp 98.1 F 02/09/25 03:07 Pulse 66 02/09/25 08:00 Resp 16 02/09/25 08:00 BP 122/74 02/09/25 08:00 Pulse Ox 97 02/09/25 08:00 FiO2 2 01/31/25 23:15 Intake & Output 02/08/25 02/09/25 02/09/25 18:59 06:59 18:59 Intake Total 1000 Output Total 2402 352 Balance -1402 -352 Weight 117 kg Intake: Oral 600 Hemodialysis 400 Output: Urine 350 Stool 2 2 Hemodialysis 1400 Hemodialysis Net Amount 1000 Other: Voiding Method Indwelling Catheter Indwelling Catheter # Bowel Movements 1 1 - Exam Patient is awake, comfortable No acute distress AExamination of the heart S1 and S2 Examination of the lungs bilateral breath sounds are heard Abdomen is soft obese Examination of lower extremities showed trace edema COLLECTION SUPPORT SPECIALIST exam grossly intact - Labs CBC & Chem 7: 02/09/25 08:19 02/09/25 08:19 Labs: Abnormal Lab Results - Last 24 Hours (Table) 02/08/25 02/08/25 02/09/25 Range/Units 12:44 12:44 08:19 WBC 13.50 H 12.95 H (4.50-10.00) 10*3/uL RBC 3.39 L 3.04 L (4.10-5.20) 10*6/uL Hgb 10.6 L 9.5 L (12.0-15.0) g/dL Hct 32.3 L 29.0 L (37.2-46.3) % Immature Gran # 0.65 H 0.49 H (0.00-0.04) 10*3/uL Neutrophils # 10.43 H 9.63 H (1.80-7.70) 10*3/uL Eosinophils # 0.38 H (0.04-0.35) 10*3/uL Sodium 129 L (137-145) mmol/L BUN 30 H (7-17) mg/dL Creatinine 1.99 H (0.52-1.04) mg/dL Glucose 100 H (74-99) mg/dL Creatine Kinase 856 H (30-135) U/L 02/09/25 Range/Units 08:19 WBC (4.50-10.00) 10*3/uL RBC (4.10-5.20) 10*6/uL Hgb (12.0-15.0) g/dL Hct (37.2-46.3) % Immature Gran # (0.00-0.04) 10*3/uL Neutrophils # (1.80-7.70) 10*3/uL Eosinophils # (0.04-0.35) 10*3/uL Sodium 130 L (137-145) mmol/L BUN 41 H (7-17) mg/dL Creatinine 2.73 H (0.52-1.04) mg/dL Glucose (74-99) mg/dL Creatine Kinase (30-135) U/L Assessment and Plan Assessment: 1. Acute kidney injury, ATN, oliguric secondary to hypotension and rhabdomyolysis. Patient also received IV contrast for cardiac catheterization. Currently maintained on IV hydration. UA suggestive of UTI. Ultrasound of the kidneys shows mild right hydronephrosis versus extrarenal pelvis. Started hemodialysis on 02/04/2025 2. Severe rhabdomyolysis status post fall 3. Anion gap metabolic acidosis associated with acute kidney injury and hypotension 4. UTI maintained on antibiotics. Urine culture is pending. 5. Mental status changes secondary to sepsis 6. Cardiomyopathy with ejection fraction of 10 to 15% Plan: Hemodialysis on Tuesday Continue to monitor for recovery of renal function Continue to avoid nephrotoxic agents Repeat labs in a.m.
--- NOTE | 2025-02-09 14:30 | P.PN ---
Subjective Progress Note Date: 02/08/25 Principal diagnosis: Reason for follow-up Pseudomonas UTI Patient is 79-year-old female with a past medical history significant for hypertension neuropathy chronic back pain patient has been brought to the hospital after the patient did have a fall noticed to been rhabdomyolysis also found to have UTI urine with a Pseudomonas for this consultation. On today's evaluation that is 02/08/2025, the patient continues to be afebrile, the patient is on room air and breathing comfortably, the Pt denies having any chest pain or cough, the patient denies having any abdominal pain no vomiting and diarrhea has slowed down. Patient did have a white count of 13.50, creatinine is 1.99 Objective - Vital Signs Vital signs: Vital Signs Temp 97.5 F L 02/08/25 12:00 Pulse 83 02/08/25 16:00 Resp 18 02/08/25 16:00 BP 110/66 02/08/25 16:00 Pulse Ox 95 02/08/25 16:00 FiO2 2 01/31/25 23:15 Intake & Output 02/08/25 02/08/25 02/09/25 06:59 18:59 06:59 Intake Total 1000 Output Total 0 2402 Balance 0 -1402 Weight 117 kg Intake: Oral 600 Hemodialysis 400 Output: Urine 0 Stool 2 Hemodialysis 1400 Hemodialysis Net Amount 1000 Other: Voiding Method Indwelling Catheter Indwelling Catheter # Bowel Movements 1 1 - Exam GENERAL DESCRIPTION: An elderly FEmale lying in bed in no distress RESPIRATORY SYSTEM: Unlabored breathing , decreased breath sounds at bases HEART: S1 S2 regular rate and rhythm , ABDOMEN: Soft , no tenderness EXTREMITIES: Swelling to the leg no redness - Labs CBC & Chem 7: 02/09/25 08:19 02/09/25 08:19 Labs: Abnormal Lab Results - Last 24 Hours (Table) 02/08/25 02/08/25 Range/Units 12:44 12:44 WBC 13.50 H (4.50-10.00) 10*3/uL RBC 3.39 L (4.10-5.20) 10*6/uL Hgb 10.6 L (12.0-15.0) g/dL Hct 32.3 L (37.2-46.3) % Immature Gran # 0.65 H (0.00-0.04) 10*3/uL Neutrophils # 10.43 H (1.80-7.70) 10*3/uL Eosinophils # 0.38 H (0.04-0.35) 10*3/uL Sodium 129 L (137-145) mmol/L BUN 30 H (7-17) mg/dL Creatinine 1.99 H (0.52-1.04) mg/dL Glucose 100 H (74-99) mg/dL Creatine Kinase 856 H (30-135) U/L Assessment and Plan (1) UTI (urinary tract infection) Current Visit: Yes Status: Acute Code(s): N39.0 - URINARY TRACT INFECTION, SITE NOT SPECIFIED SNOMED Code(s): 15893465 (2) Leukocytosis Current Visit: Yes Status: Acute Code(s): D72.829 - ELEVATED WHITE BLOOD CELL COUNT, UNSPECIFIED SNOMED Code(s): 451534219 Plan: 1patient presented hospital with weakness and fall in this patient who did have elevated white count on admission some mental status changes positive UA concerning for symptomatic UTI with urine growing Pseudomonas aeruginosa that is a sensitive pathogen 2-patient is afebrile white count is trending down continue cefepime and monitor clinical course closely Dictation was produced using [employer] dictation software. please excuse any grammatical, word or spelling errors. Time with Patient: Less than 30
--- NOTE | 2025-02-09 14:32 | P.PN ---
Subjective Progress Note Date: 02/09/25 Principal diagnosis: Reason for follow-up Pseudomonas UTI Patient is 79-year-old female with a past medical history significant for hypertension neuropathy chronic back pain patient has been brought to the hospital after the patient did have a fall noticed to been rhabdomyolysis also found to have UTI urine with a Pseudomonas for this consultation. On today's evaluation that is 02/10/2024, patient did have a temperature of 98.1 F this morning and denies having any chills, patient is on room air and breathing comfortably no chest pain did have some dry cough, the patient did not have any nausea vomiting abdominal pain, diarrhea slowed down. Patient white count is down to 12.95 creatinine 2.73 Objective - Vital Signs Vital signs: Vital Signs Temp 98.1 F 02/09/25 03:07 Pulse 66 02/09/25 08:00 Resp 16 02/09/25 08:00 BP 122/74 02/09/25 08:00 Pulse Ox 97 02/09/25 08:00 FiO2 2 01/31/25 23:15 Intake & Output 02/08/25 02/09/25 02/09/25 18:59 06:59 18:59 Intake Total 1000 240 Output Total 2402 352 Balance -1402 -352 240 Weight 117 kg Intake: Oral 600 240 Hemodialysis 400 Output: Urine 350 Stool 2 2 Hemodialysis 1400 Hemodialysis Net Amount 1000 Other: Voiding Method Indwelling Catheter Indwelling Catheter Indwelling Catheter # Bowel Movements 1 1 1 - Exam GENERAL DESCRIPTION: An elderly FEmale lying in bed in no distress RESPIRATORY SYSTEM: Unlabored breathing , decreased breath sounds at bases HEART: S1 S2 regular rate and rhythm , ABDOMEN: Soft , no tenderness EXTREMITIES: Swelling to the leg no redness - Labs CBC & Chem 7: 02/09/25 08:19 02/09/25 08:19 Labs: Abnormal Lab Results - Last 24 Hours (Table) 02/09/25 02/09/25 Range/Units 08:19 08:19 WBC 12.95 H (4.50-10.00) 10*3/uL RBC 3.04 L (4.10-5.20) 10*6/uL Hgb 9.5 L (12.0-15.0) g/dL Hct 29.0 L (37.2-46.3) % Immature Gran # 0.49 H (0.00-0.04) 10*3/uL Neutrophils # 9.63 H (1.80-7.70) 10*3/uL Sodium 130 L (137-145) mmol/L BUN 41 H (7-17) mg/dL Creatinine 2.73 H (0.52-1.04) mg/dL Assessment and Plan (1) UTI (urinary tract infection) Current Visit: Yes Status: Acute Code(s): N39.0 - URINARY TRACT INFECTION, SITE NOT SPECIFIED SNOMED Code(s): 93298325 (2) Leukocytosis Current Visit: Yes Status: Acute Code(s): D72.829 - ELEVATED WHITE BLOOD CELL COUNT, UNSPECIFIED SNOMED Code(s): 049633873 Plan: 1patient presented hospital with weakness and fall in this patient who did have elevated white count on admission some mental status changes positive UA concer kat for symptomatic UTI with urine growing Pseudomonas aeruginosa that is a sensitive pathogen 2-patient is afebrile white count is trending down but has not normalized, we will continue cefepime and add Questran for symptomatic relief of diarrhea Dictation was produced using [employer] dictation software. please excuse any grammatical, word or spelling errors. Time with Patient: Less than 30
--- NOTE | 2025-02-09 14:46 | P.PN ---
Subjective Progress Note Date: 02/09/25 Patient is a 79-year-old female with hypertension here for evaluation after a fall. Patient reported that night before admission, patient fell after getting out of her into bed and that she lost consciousness. She was found on the floor with her right leg wedged with associated pain. She has been complaining of generalized weakness for about a few weeks now and it has worsened over the past week to the point that she drags her right leg. She denied chest pain, shortness of breath, palpitations, headaches, facial asymmetry, speech changes, abdominal pain, extremity swelling. On admission: Vitals: Temp 97.7 F, pulse rate 104, RR 20, BP 109/86, oxygen 95% on room air Labs: WBC 25.3, hemoglobin 15.7, platelet count 301,000, sodium 136, potassium 4.5, bicarb 20, BUN 33, creatinine 1.3, glucose 162, lactic acid 4.6, calcium 11.1, phosphorus 4.6, magnesium 2.6, AST 514, ALT 133, alk phos 77, total bilirubin 1.4, creatinine kinase 44,157, troponin 6, proBNP 1540, albumin 15.1. Urinalysis shows cloudy appearance +1 protein, large blood, large leukocyte esterase, WBC greater than 182, hyaline cast 10, occasional urine yeast.. Imaging: Pelvic x-ray showed no acute displaced fracture. Chest x-ray showed possible fluid overloaded state with persistent cardiomegaly and central vascular congestion. Head cervical spine CT showed no acute intracranial process with age-related atrophy, no acute posttraumatic changes in the cervical spine, with degenerative and vertebral joint changes. Face CT showed no acute posttraumatic osseous abnormality. EKG showed sinus tachycardia with a rate of 107, normal axis, ST elevation noted on lead III, notable intraventricular delay in V2 and V6, QTc 495 MS. Second EKG showed sinus tachycardia with occasional PVC, rate of [address]-T changes, QTc 431 MS. 02/01/2025 patient seen and examined at bedside. Rapid response was recalled yesterday on 01/30 as patient was hypotensive on the cardiac stepdown floor. Fluid bolus was given but patient had marginal response. She was also quite lethargic on reevaluation. Pulmonology decided to admit patient to the ICU due to concerns for hypotension related to sepsis. Still having labile BP. Still low UO with positive fluid balance. Still lethargic but cooperative. Labs: WBC 19.13, hemoglobin 12.6, platelet count 208,000, sodium 133, potassium 4.4, chloride 96, bicarb 23, BUN 73, glucose 118, calcium 72, magnesium 2.6 Imaging; liver ultrasound ordered showed no intrahepatic mass or ductal dilation. Echocardiogram showed LV ejection fraction of 10 to 15% with severely reduced global LV systolic dysfunction, RV dilated with reduced systolic function, moderate mitral regurgitation, mild LA dilatation with elevated LA filling pressures 02/02/2025 patient seen and examined at bedside. Patient seen in the ICU. Still having low urine output with positive fluid balance. Blood pressures still labile. 1 L bolus 0.9 normal saline given 02/01 Labs: WBC 20.1, hemoglobin 11, platelet count 195,000, sodium 131, potassium 3.8, chloride 93, BUN 85, creatinine 4, glucose 103, calcium 6.8 Imaging: Renal US showed possible mild right hydronephrosis 02/03/2025 Patient is in MICU. Awake alert with mild confusion. Lethargic and weak. Patient is on low-dose norepinephrine drip. Decreased urine output even after IV Lasix doses. Renal function is worsening. Nephrology is planning for renal replacement therapy. Otherwise patient is on antibiotics per urinary tract infection. Urine cultures showed Pseudomonas. Lab data showed WBC 22.7 hemoglobin 10.9 and platelets 200, sodium 129 potassium 4.3 chloride 87 bicarb is 33 BUN 93 and creatinine 4.58. CPK level 30,365 and calcium 6.7. Myoglobin elevated [id number] Nephrology and critical care team is on board. 02/04/2025 patient seen and examined at bedside. Patient still in the ICU. More alert and conversant today. Levophed weaned off this morning. UO improved. Labs: WBCs 13.2, hemoglobin 10, sodium 127, potassium 4.4, bicarb 23, BUN 96, creatinine 5, glucose 70, AST 735, ALT 394, alk phos 124, creatinine kinase 67394, albumin 2.1 02/05/2025 patient seen and examined at bedside. Patient still in the ICU. Did not require any pressor support overnight. Dialysis was done yesterday 500 mL fluid was taken off. UO still low but improving. More awake and alert today. Labs: WBC 11.06, hemoglobin 10.1, MCV 94, platelet count 1 90,000, sodium 130, potassium 4.4, bicarb 27, BUN 70, creatinine 3.96, glucose 75, [place] [id number] 02/06/2025 patient seen and examined at bedside. Patient has been downgraded to stepdown unit. UO improving. Dialysis again today Labs: WBC 13.9, hemoglobin 9.8, MCV 94.5, platelet count 1 83,000, sodium 129, potassium 4.1, chloride 95, bicarb 26, BUN 61, creatinine 3.3, glucose 83, calcium 8.2, AST 487, ALT 317, alk phos 130, albumin 2.1 02/07/2025 patient seen and examined at bedside. Patient had hemodialysis removed 1 L of fluid yesterday. UO still low despite improvement of creatinine levels. Patient having about 13 episodes of diarrhea overnight. Labs: WBC 14.06, hemoglobin 9.7, MCV 93.9, platelet count 212,000, sodium 128, potassium 3.8, chloride 95, BUN 42, creatinine 2.8, glucose 74, calcium 8.2 02/08/2025 patient seen and examined at bedside. For dialysis today. Removed 1L Still having diarrhea but has improved. UO still low Labs: WBC 13.5, hemoglobin 10.6, platelet count 206,000, sodium 129, potassium 4.1, BUN 30, creatinine 1.99, glucose 108, calcium 8.5, ending 2756. Repeat C. difficile negative. Imaging; echocardiogram showed severely impaired systolic function with segme ntal wall motion abnormality LVEF 25 to 30% 02/09/2025 patient seen and examined at bedside. No acute events overnight. Diarrhea improving only had 2 bowel movements throughout the past 24 hours. U rine output still low but improving. Swelling has improved on upper extremities and lower extremities. Labs: WBC 12.9, hemoglobin 9.5, MCV 95.4, platelet count 231,000, sodium 130, potassium 4.2, bicarb 28, BUN 41, creatinine 2.7, glucose 84, calcium 8.4 Review of systems: Pertinent positives and negatives as discussed in HPI, a complete review of systems was performed and all other systems are negative. Physical examination: Vital signs reviewed General: non toxic, no distress, appears at stated age, cooperative and conversant Derm: no unusual rashes/lesions, warm, noted right zoroastrian and left lower jaw bruises Head: atraumatic, normocephalic, symmetric Eyes: EOMI, anicteric sclera, pupils equal round reactive to light ENT: Nose and ears atraumatic Neck: No cervical lymphadenopathy, trachea midline, supple Mouth: no lip lesion, mucus membranes moist Cardiovascular: S1S2 reg, no murmur Lungs: fine rales on RL lung, no rhonchi, no rales, no accessory muscle use Abdominal: soft, nondistended, nontender to palpation, no guarding Ext: muscle strength 5 out of 5 in all 4 extremities grossly, no gross muscle atrophy, no contractures, positive dorsalis pedis pulse bilateral, b/l lower ext +2 pitting edema Neuro: CN II-XI grossly intact, no gross focal neuro deficits Psych: Alert and oriented x 2, appropriate affect and mood Assessment/Plan: The patient is admitted with an anticipated greater than 2 midnight stay for evaluation of syncope, CATHIE and sepsis Active: #. CATHIE, secondary to ATN which is secondary to sepsis, acute rhabdomyolysis and contrast injury. Improvring #. Sepsis secondary to complicated UTI. Urine culture showed Pseudomonas. #. Acute rhabdomyolysis. Status post fall, resolved #. Lactic acidosis, resolved #. Anion gap metabolic acidosis secondary to above, improved # Acute metabolic encephalopathy secondary to above Creatinine now 2.7 Monitor urine output and renal function Blood cultures negative. Urine culture showed Pseudomonas. Discontinue Cefepime IV. Start on oral Ciprofloxacin for 3 more days ID consult for further evaluation, rec appreciated Nephrology is following, rec appreciated. Vascular consulted for temp cath placement Pulmonology consulted for ICU management of hypotnesion. Now downgraded to stepdown unit #. Diarrhea, ruled out C. Diff, improved C. Diff EIA negative on 02/05. Negative on repeat Added Loperamide po prn #. Shocked liver secondary to above, improved AST 487, ALT 317 have improved Liver ultrasound unremarkable #. Syncope, likley due to sepsis #. Mechanical fall secondary to above #. NSTEMI s/p cardiac cath with no coronary occlusions #. Nonischemic cardiomyopathy EF 25-30% Pelvic x-ray, head CT, cervical spine CT and face CT so no acute fractures or osseous abnormality. EKG showed sinus tachycardia with a rate of 107, normal axis, ST elevation noted on lead III, notable intraventricular delay in V2 and V6 Second EKG showed sinus tachycardia with occasional PVC, no noted ST-T changes Continue cardiac monitoring Supplemental oxygen as needed Echocardiogram showed LV ejection fraction of 10 to 15% with severely reduced global LV systolic dysfunction. Follow up echo showed improved LVEF 25 to 30% Consult cardiology. Heart cath done showed normal coronary arteries. metoprolol tartrate 12.5mg BID ordered. Have signed off Chronic Conditions: #. Hypertension #. Anxiety Hold statins, gabapentin and NSAIDs for now DVT ppx: Heparin SQ CODE STATUS: Full Discussed with: patient and family Anticipated discharge place: pending clinical course Poornima Pat MD PGY-1 Internal Medicine Dictation was produced using [employer] dictation software. please excuse any grammatical, word or spelling errors. Attestation: I have seen and examined this patient with my resident, assessment and plan discussed with the resident, agree with assessment and plan as written above. Dr. Hernandez Objective - Vital Signs Vital signs: Vital Signs Temp 98.1 F 02/09/25 03:07 Pulse 71 02/09/25 03:07 Resp 18 02/09/25 03:07 BP 110/72 02/09/25 03:07 Pulse Ox 96 02/09/25 03:07 FiO2 2 01/31/25 23:15 Intake & Output 02/08/25 02/09/25 02/09/25 18:59 06:59 18:59 Intake Total 1000 Output Total 2402 352 Balance -1402 -352 Weight 117 kg Intake: Oral 600 Hemodialysis 400 Output: Urine 350 Stool 2 2 Hemodialysis 1400 Hemodialysis Net Amount 1000 Other: Voiding Method Indwelling Catheter Indwelling Catheter # Bowel Movements 1 1 - Labs CBC & Chem 7: 02/09/25 08:19 02/09/25 08:19 Labs: Abnormal Lab Results - Last 24 Hours (Table) 02/08/25 02/08/25 Range/Units 12:44 12:44 WBC 13.50 H (4.50-10.00) 10*3/uL RBC 3.39 L (4.10-5.20) 10*6/uL Hgb 10.6 L (12.0-15.0) g/dL Hct 32.3 L (37.2-46.3) % Immature Gran # 0.65 H (0.00-0.04) 10*3/uL Neutrophils # 10.43 H (1.80-7.70) 10*3/uL Eosinophils # 0.38 H (0.04-0.35) 10*3/uL Sodium 129 L (137-145) mmol/L BUN 30 H (7-17) mg/dL Creatinine 1.99 H (0.52-1.04) mg/dL Glucose 100 H (74-99) mg/dL Creatine Kinase 856 H (30-135) U/L
[2025-02-09] MEDS: CHOLESTYRAMINE RESIN 4 GM PACKET PO SCH (17:41)
[2025-02-09] MEDS ORDERED: ZINC OXIDE PASTE (Z-GUARD) 1 APPLIC TOPICAL PRN (18:09)
[2025-02-09] MEDS: CIPROFLOXACIN HCL 500 MG TAB PO SCH (21:39)
[2025-02-10 03:19] LABS: Basophils # (A) 0.07 10*3/uL (0.00-0.10); Basophils % (A) 0.5 %; Eosinophils # (A) 0.33 10*3/uL (0.04-0.35); Eosinophils % (A) 2.5 %; HCT 29.2 % (37.2-46.3); HGB 9.4 g/dL (12.0-15.0); Lymphocytes # (A) 1.46 10*3/uL (0.90-5.00); Lymphocytes % (A) 10.9 %; MCH 30.5 pg (27.0-32.0); MCHC 32.2 g/dL (32.0-37.0); MCV 94.8 fL (80.0-97.0); Mean Platelet Volume 10.7 fL (9.5-12.2); Monocytes # (A) 0.95 10*3/uL (0.20-1.00); Monocytes % (A) 7.1 %; Neutrophils # (A) 10.15 10*3/uL (1.80-7.70); Neutrophils % (A) 75.9 %; Platelet Count 243 10*3/uL (140-440); RBC 3.08 10*6/uL (4.10-5.20); RDW 13.4 % (11.5-14.5); WBC 13.37 10*3/uL (4.50-10.00)
[2025-02-10 03:39] LABS: African American GFR (CKD) 15 (>60 ml/min/1.73 sqM); Anion Gap 5 mmol/L; Blood Urea Nitrogen 49 mg/dL (7-17); Calcium 8.6 mg/dL (8.4-10.2); Carbon Dioxide 25 mmol/L (22-30); Chloride 98 mmol/L (98-107); Glucose 82 mg/dL (74-99); Non-African American GFR(CKD) 13 (>60 ml/min/1.73 sqM); Potassium 4.4 mmol/L (3.5-5.1); Sodium 128 mmol/L (137-145)
[2025-02-10] MEDS: LOPERAMIDE 2 MG CAP PO PRN (09:02)
--- NOTE | 2025-02-10 10:31 | P.PN ---
Subjective Progress Note Date: 02/10/25 Patient is seen for follow-up for acute kidney injury and rhabdomyolysis. Started hemodialysis on 02/03/2025 for severe oliguric renal failure.. Patient is awake No significant complaints making urine, 800 ml charted Objective - Vital Signs Vital signs: Vital Signs Temp 97.4 F L 02/10/25 07:10 Pulse 71 02/10/25 07:10 Resp 18 02/10/25 07:10 BP 124/65 02/10/25 07:10 Pulse Ox 96 02/10/25 07:10 FiO2 2 01/31/25 23:15 Intake & Output 02/09/25 02/10/25 02/10/25 18:59 06:59 18:59 Intake Total 240 Output Total 800 Balance 240 -800 Intake: Oral 240 Output: Urine 800 Other: Voiding Method Indwelling Catheter Indwelling Catheter # Bowel Movements 2 3 - Exam Patient is awake, comfortable No acute distress AExamination of the heart S1 and S2 Examination of the lungs bilateral breath sounds are heard Abdomen is soft obese Examination of lower extremities showed trace edema [employer] exam grossly intact - Labs CBC & Chem 7: 02/10/25 02:27 02/10/25 02:27 Labs: Abnormal Lab Results - Last 24 Hours (Table) 02/10/25 02/10/25 Range/Units 02:27 02:27 WBC 13.37 H (4.50-10.00) 10*3/uL RBC 3.08 L (4.10-5.20) 10*6/uL Hgb 9.4 L (12.0-15.0) g/dL Hct 29.2 L (37.2-46.3) % Immature Gran # 0.41 H (0.00-0.04) 10*3/uL Neutrophils # 10.15 H (1.80-7.70) 10*3/uL Sodium 128 L (137-145) mmol/L BUN 49 H (7-17) mg/dL Creatinine 3.22 H (0.52-1.04) mg/dL Assessment and Plan Assessment: 1. Acute kidney injury, ATN, oliguric secondary to hypotension and rhabdomyolys is. Patient also received IV contrast for cardiac catheterization. Currently maintained on IV hydration. UA suggestive of UTI. Ultrasound of the kidneys shows mild right hydronephrosis versus extrarenal pelvis. Started hemodialysis on 02/04/2025 2. Severe rhabdomyolysis status post fall 3. Anion gap metabolic acidosis associated with acute kidney injury and hypotension 4. UTI maintained on antibiotics. Urine culture is pending. 5. Mental status changes secondary to sepsis 6. Cardiomyopathy with ejection fraction of 10 to 15% Plan: making more urine, monitor renal recovery, will assess the need for HD tomorrow Continue to avoid nephrotoxic agents Repeat labs in a.m.
--- NOTE | 2025-02-10 14:18 | P.PN ---
Subjective Progress Note Date: 02/10/25 Patient is a 79-year-old female with hypertension here for evaluation after a fall. Patient reported that night before admission, patient fell after getting out of her into bed and that she lost consciousness. She was found on the floor with her right leg wedged with associated pain. She has been complaining of generalized weakness for about a few weeks now and it has worsened over the past week to the point that she drags her right leg. She denied chest pain, shortness of breath, palpitations, headaches, facial asymmetry, speech changes, abdominal pain, extremity swelling. On admission: Vitals: Temp 97.7 F, pulse rate 104, RR 20, BP 109/86, oxygen 95% on room air Labs: WBC 25.3, hemoglobin 15.7, platelet count 301,000, sodium 136, potassium 4.5, bicarb 20, BUN 33, creatinine 1.3, glucose 162, lactic acid 4.6, calcium 11.1, phosphorus 4.6, magnesium 2.6, AST 514, ALT 133, alk phos 77, total bilirubin 1.4, creatinine kinase 44,157, troponin 6, proBNP 1540, albumin 15.1. Urinalysis shows cloudy appearance +1 protein, large blood, large leukocyte esterase, WBC greater than 182, hyaline cast 10, occasional urine yeast.. Imaging: Pelvic x-ray showed no acute displaced fracture. Chest x-ray showed possible fluid overloaded state with persistent cardiomegaly and central vascular congestion. Head cervical spine CT showed no acute intracranial process with age-related atrophy, no acute posttraumatic changes in the cervical spine, with degenerative and vertebral joint changes. Face CT showed no acute posttraumatic osseous abnormality. EKG showed sinus tachycardia with a rate of 107, normal axis, ST elevation noted on lead III, notable intraventricular delay in V2 and V6, QTc 495 MS. Second EKG showed sinus tachycardia with occasional PVC, rate of [address]-T changes, QTc 431 MS. 02/01/2025 patient seen and examined at bedside. Rapid response was recalled yesterday on 01/30 as patient was hypotensive on the cardiac stepdown floor. Fluid bolus was given but patient had marginal response. She was also quite lethargic on reevaluation. Pulmonology decided to admit patient to the ICU due to concerns for hypotension related to sepsis. Still having labile BP. Still low UO with positive fluid balance. Still lethargic but cooperative. Labs: WBC 19.13, hemoglobin 12.6, platelet count 208,000, sodium 133, potassium 4.4, chloride 96, bicarb 23, BUN 73, glucose 118, calcium 72, magnesium 2.6 Imaging; liver ultrasound ordered showed no intrahepatic mass or ductal dilation. Echocardiogram showed LV ejection fraction of 10 to 15% with severely reduced global LV systolic dysfunction, RV dilated with reduced systolic function, moderate mitral regurgitation, mild LA dilatation with elevated LA filling pressures 02/02/2025 patient seen and examined at bedside. Patient seen in the ICU. Still having low urine output with positive fluid balance. Blood pressures still labile. 1 L bolus 0.9 normal saline given 02/01 Labs: WBC 20.1, hemoglobin 11, platelet count 195,000, sodium 131, potassium 3.8, chloride 93, BUN 85, creatinine 4, glucose 103, calcium 6.8 Imaging: Renal US showed possible mild right hydronephrosis 02/03/2025 Patient is in MICU. Awake alert with mild confusion. Lethargic and weak. Patient is on low-dose norepinephrine drip. Decreased urine output even after IV Lasix doses. Renal function is worsening. Nephrology is planning for renal replacement therapy. Otherwise patient is on antibiotics per urinary tract infection. Urine cultures showed Pseudomonas. Lab data showed WBC 22.7 hemoglobin 10.9 and platelets 200, sodium 129 potassium 4.3 chloride 87 bicarb is 33 BUN 93 and creatinine 4.58. CPK level 30,365 and calcium 6.7. Myoglobin elevated [id number] Nephrology and critical care team is on board. 02/04/2025 patient seen and examined at bedside. Patient still in the ICU. More alert and conversant today. Levophed weaned off this morning. UO improved. Labs: WBCs 13.2, hemoglobin 10, sodium 127, potassium 4.4, bicarb 23, BUN 96, creatinine 5, glucose 70, AST 735, ALT 394, alk phos 124, creatinine kinase 95980, albumin 2.1 02/05/2025 patient seen and examined at bedside. Patient still in the ICU. Did not require any pressor support overnight. Dialysis was done yesterday 500 mL fluid was taken off. UO still low but improving. More awake and alert today. Labs: WBC 11.06, hemoglobin 10.1, MCV 94, platelet count 1 90,000, sodium 130, potassium 4.4, bicarb 27, BUN 70, creatinine 3.96, glucose 75[place] [id number] 02/06/2025 patient seen and examined at bedside. Patient has been downgraded to stepdown unit. UO improving. Dialysis again today Labs: WBC 13.9, hemoglobin 9.8, MCV 94.5, platelet count 1 83,000, sodium 129, potassium 4.1, chloride 95, bicarb 26, BUN 61, creatinine 3.3, glucose 83, calcium 8.2, AST 487, ALT 317, alk phos 130, albumin 2.1 02/07/2025 patient seen and examined at bedside. Patient had hemodialysis removed 1 L of fluid yesterday. UO still low despite improvement of creatinine levels. Patient having about 13 episodes of diarrhea overnight. Labs: WBC 14.06, hemoglobin 9.7, MCV 93.9, platelet count 212,000, sodium 128, potassium 3.8, chloride 95, BUN 42, creatinine 2.8, glucose 74, calcium 8.2 02/08/2025 patient seen and examined at bedside. For dialysis today. Removed 1L Still having diarrhea but has improved. UO still low Labs: WBC 13.5, hemoglobin 10.6, platelet count 206,000, sodium 129, potassium 4.1, BUN 30, creatinine 1.99, glucose 108, calcium 8.5, ending 2756. Repeat C. difficile negative. Imaging; echocardiogram showed severely impaired systolic function with segmen paty wall motion abnormality LVEF 25 to 30% 02/09/2025 patient seen and examined at bedside. No acute events overnight. Diarrhea improving only had 2 bowel movements throughout the past 24 hours. Ur ine output still low but improving. Swelling has improved on upper extremities and lower extremities. Labs: WBC 12.9, hemoglobin 9.5, MCV 95.4, platelet count 231,000, sodium 130, potassium 4.2, bicarb 28, BUN 41, creatinine 2.7, glucose 84, calcium 8.4 02/10/2025 Patient evaluated in follow-up of medical floor. Diarrhea improving. Urine output not accurately documented although patient does have an indwelling Griffiths catheter in place. Continues on course of antibiotics for the Pseudomonas UTI and currently transition to oral Cipro daily for 6 days. Patient had a repeat limited echocardiogram completed which reveals EF 25 to 30%. She is currently on metoprolol 12.5 mg twice daily. Patient is currently undergoing hemodialysis per nephrology. Her labs reveal a BUN of 49 creatinine of 3.22 today sodium level of 128. Assessment/Plan: The patient is admitted with an anticipated greater than 2 midnight stay for evaluation of syncope, CATHIE and sepsis Active: #. CATHIE, secondary to ATN which is secondary to sepsis, acute rhabdomyolysis and contrast injury. Improvring #. Sepsis secondary to complicated UTI. Urine culture showed Pseudomonas. #. Acute rhabdomyolysis. Status post fall, resolved #. Lactic acidosis, resolved #. Anion gap metabolic acidosis secondary to above, improved # Acute metabolic encephalopathy secondary to above Creatinine now 2.7 Monitor urine output and renal function Blood cultures negative. Urine culture showed Pseudomonas. Discontinue Cefepime IV. Start on oral Ciprofloxacin for 3 more days ID consult for further evaluation, rec appreciated Nephrology is following, rec appreciated. Vascular consulted for temp cath placement Pulmonology consulted for ICU management of hypotnesion. Now downgraded to stepdown unit #. Diarrhea, ruled out C. Diff, improved C. Diff EIA negative on 02/05. Negative on repeat Added Loperamide po prn #. Shocked liver secondary to above, improved AST 487, ALT 317 have improved Liver ultrasound unremarkable #. Syncope, likley due to sepsis #. Mechanical fall secondary to above #. NSTEMI s/p cardiac cath with no coronary occlusions #. Nonischemic cardiomyopathy EF 25-30% Pelvic x-ray, head CT, cervical spine CT and face CT so no acute fractures or osseous abnormality. EKG showed sinus tachycardia with a rate of 107, normal axis, ST elevation noted on lead III, notable intraventricular delay in V2 and V6 Second EKG showed sinus tachycardia with occasional PVC, no noted ST-T changes Continue cardiac monitoring Supplemental oxygen as needed Echocardiogram showed LV ejection fraction of 10 to 15% with severely reduced global LV systolic dysfunction. Follow up echo showed improved LVEF 25 to 30% Consult cardiology. Heart cath done showed normal coronary arteries. metoprolol tartrate 12.5mg BID ordered. Have signed off Chronic Conditions: #. Hypertension #. Anxiety Hold statins, gabapentin and NSAIDs for now DVT ppx: Heparin SQ CODE STATUS: Full Discussed with: patient and family Anticipated discharge place: pending clinical course Insert Objective - Vital Signs Vital signs: Vital Signs Temp 97.4 F L 02/10/25 07:10 Pulse 71 02/10/25 07:10 Resp 18 02/10/25 07:10 BP 124/65 02/10/25 07:10 Pulse Ox 96 02/10/25 07:10 FiO2 2 01/31/25 23:15 Intake & Output 02/09/25 02/10/25 02/10/25 18:59 06:59 18:59 Intake Total 240 Output Total 800 Balance 240 -800 Intake: Oral 240 Output: Urine 800 Other: Voiding Method Indwelling Catheter Indwelling Catheter # Bowel Movements 2 3 - Labs CBC & Chem 7: 02/10/25 02:27 02/10/25 02:27 Labs: Abnormal Lab Results - Last 24 Hours (Table) 02/10/25 02/10/25 Range/Units 02:27 02:27 WBC 13.37 H (4.50-10.00) 10*3/uL RBC 3.08 L (4.10-5.20) 10*6/uL Hgb 9.4 L (12.0-15.0) g/dL Hct 29.2 L (37.2-46.3) % Immature Gran # 0.41 H (0.00-0.04) 10*3/uL Neutrophils # 10.15 H (1.80-7.70) 10*3/uL Sodium 128 L (137-145) mmol/L BUN 49 H (7-17) mg/dL Creatinine 3.22 H (0.52-1.04) mg/dL
[2025-02-11 08:10] LABS: Basophils # (A) 0.08 X 10*3/uL (0.00-0.10); Basophils % (A) 0.6 %; HCT 31.3 % (37.2-46.3); HGB 9.9 g/dL (12.0-15.0); Lymphocytes # (A) 1.31 X 10*3/uL (0.90-5.00); Lymphocytes % (A) 9.9 %; MCH 30.5 pg (27.0-32.0); MCHC 31.6 g/dL (32.0-37.0); MCV 96.3 FL (80.0-97.0); Mean Platelet Volume 11.3 FL (9.5-12.2); Monocytes # (A) 0.99 X 10*3/uL (0.20-1.00); Monocytes % (A) 7.5 %; NRBC Per 100 WBC 0 X 10*3/uL (0.00-0.01); Neutrophils # (A) 10.17 X 10*3/uL (1.80-7.70); Platelet Count 285 X 10*3/uL (140-440); RBC 3.25 X 10*6/uL (4.10-5.20); RDW 13.4 % (11.5-14.5); WBC 13.22 X 10*3/uL (4.50-10.00)
[2025-02-11 08:28] LABS: BUN/Creat Ratio 12.65 Ratio (12.00-20.00); Blood Urea Nitrogen 54.4 mg/dL (9.0-27.0); Calcium 8.6 mg/dL (8.7-10.3); Carbon Dioxide 23.9 mmol/L (21.6-31.8); Chloride 96 mmol/L (96-109); Glucose 75 mg/dL (70-110); Potassium 4.8 mmol/L (3.5-5.5); Sodium 131 mmol/L (135-145)
--- NOTE | 2025-02-11 11:47 | P.PN ---
Subjective Patient is seen in follow-up for acute kidney injury. Started on hemodialysis February 03, 2025 via right femoral catheter. Last dialysis was February 08, 2025. Creatinine 4.3 today. Urine output documented as 650 cc in the last 24 hours. Somewhat confused. Working with physical therapy. Vital signs are stable. General: No acute distress. HEENT: Head exam is unremarkable. LUNGS: No audible rhonchi or wheezes. HEART: Rate and Rhythm are regular. ABDOMEN: Nontender. EXTREMITITES: 2+ edema. Objective - Vital Signs Vital signs: Vital Signs Temp 97.6 F 02/11/25 07:51 Pulse 78 02/11/25 07:51 Resp 17 02/11/25 07:51 BP 145/82 02/11/25 07:51 Pulse Ox 98 02/11/25 07:51 FiO2 2 01/31/25 23:15 Intake & Output 02/10/25 02/11/25 02/11/25 18:59 06:59 18:59 Output Total 250 400 Balance -250 -400 Output: Urine 250 400 Uretheral (Griffiths) 400 Other: Voiding Method Indwelling Catheter Indwelling Catheter # Bowel Movements 3 1 1 - Labs CBC & Chem 7: 02/11/25 02:42 02/11/25 02:42 Labs: Abnormal Lab Results - Last 24 Hours (Table) 02/11/25 02/11/25 Range/Units 02:42 02:42 WBC 13.22 H (4.50-10.00) X 10*3/uL RBC 3.25 L (4.10-5.20) X 10*6/uL Hgb 9.9 L (12.0-15.0) g/dL Hct 31.3 L (37.2-46.3) % MCHC 31.6 L (32.0-37.0) g/dL Immature Gran # 0.27 H (0.00-0.04) X 10*3/uL Neutrophils # 10.17 H (1.80-7.70) X 10*3/uL Eosinophils # 0.40 H (0.04-0.35) X 10*3/uL Sodium 131 L (135-145) mmol/L BUN 54.4 H (9.0-27.0) mg/dL Creatinine 4.3 H (0.6-1.5) mg/dL Est GFR (CKD-EPI) 10 L (>=60) Calcium 8.6 L (8.7-10.3) mg/dL Assessment and Plan Plan: Assessment: 1. Acute kidney injury secondary to ATN secondary to hypotension and rhabdomyolysis. Also received IV contrast for cardiac catheterization. Started on hemodialysis February 04, 2025 via right femoral catheter. Creatinine rising and urine output remains low. 2. Severe rhabdomyolysis status post fall. 3. Metabolic acidosis secondary to acute kidney injury. 4. Acute on chronic systolic CHF ejection fraction of 10 to 15%. 5. Pseudomonas UTI on antibiotics. Plan: Hemodialysis today. Add torsemide 60 mg once daily. Check phosphorus level. Vascular surgery will be notified for permacath placement and removal of femoral catheter. manager welding to set up outpatient hemodialysis.
[2025-02-11] MEDS: TORSEMIDE 20 MG TAB PO SCH (12:12)
--- NOTE | 2025-02-11 13:36 | P.PN ---
Progress Note - Text 79-year-old female we placed a left femoral catheter for dialysis. Patient will be arranged for permanent catheter tomorrow in the [employer] patient to have a morning breakfast then n.p.o. we will arrange for permanent dialysis catheter placement
[2025-02-11] MEDS: HYDROmorphone 1 MG/ML 1 ML SYRINGE IVP STA (14:07)
--- NOTE | 2025-02-11 16:30 | P.PN ---
Subjective Progress Note Date: 02/11/25 Patient is a 79-year-old female with hypertension here for evaluation after a fall. Patient reported that night before admission, patient fell after getting out of her into bed and that she lost consciousness. She was found on the floor with her right leg wedged with associated pain. She has been complaining of generalized weakness for about a few weeks now and it has worsened over the past week to the point that she drags her right leg. She denied chest pain, shortness of breath, palpitations, headaches, facial asymmetry, speech changes, abdominal pain, extremity swelling. On admission: Vitals: Temp 97.7 F, pulse rate 104, RR 20, BP 109/86, oxygen 95% on room air Labs: WBC 25.3, hemoglobin 15.7, platelet count 301,000, sodium 136, potassium 4.5, bicarb 20, BUN 33, creatinine 1.3, glucose 162, lactic acid 4.6, calcium 11.1, phosphorus 4.6, magnesium 2.6, AST 514, ALT 133, alk phos 77, total bilirubin 1.4, creatinine kinase 44,157, troponin 6, proBNP 1540, albumin 15.1. Urinalysis shows cloudy appearance +1 protein, large blood, large leukocyte esterase, WBC greater than 182, hyaline cast 10, occasional urine yeast.. Imaging: Pelvic x-ray showed no acute displaced fracture. Chest x-ray showed possible fluid overloaded state with persistent cardiomegaly and central vascular congestion. Head cervical spine CT showed no acute intracranial process with age-related atrophy, no acute posttraumatic changes in the cervical spine, with degenerative and vertebral joint changes. Face CT showed no acute posttraumatic osseous abnormality. EKG showed sinus tachycardia with a rate of 107, normal axis, ST elevation noted on lead III, notable intraventricular delay in V2 and V6, QTc 495 MS. Second EKG showed sinus tachycardia with occasional PVC, rate of [address]-T changes, QTc 431 MS. 02/01/2025 patient seen and examined at bedside. Rapid response was recalled yesterday on 01/30 as patient was hypotensive on the cardiac stepdown floor. Fluid bolus was given but patient had marginal response. She was also quite lethargic on reevaluation. Pulmonology decided to admit patient to the ICU due to concerns for hypotension related to sepsis. Still having labile BP. Still low UO with positive fluid balance. Still lethargic but cooperative. Labs: WBC 19.13, hemoglobin 12.6, platelet count 208,000, sodium 133, potassium 4.4, chloride 96, bicarb 23, BUN 73, glucose 118, calcium 72, magnesium 2.6 Imaging; liver ultrasound ordered showed no intrahepatic mass or ductal dilation. Echocardiogram showed LV ejection fraction of 10 to 15% with severely reduced global LV systolic dysfunction, RV dilated with reduced systolic function, moderate mitral regurgitation, mild LA dilatation with elevated LA filling pressures 02/02/2025 patient seen and examined at bedside. Patient seen in the ICU. Still having low urine output with positive fluid balance. Blood pressures still labile. 1 L bolus 0.9 normal saline given 02/01 Labs: WBC 20.1, hemoglobin 11, platelet count 195,000, sodium 131, potassium 3.8, chloride 93, BUN 85, creatinine 4, glucose 103, calcium 6.8 Imaging: Renal US showed possible mild right hydronephrosis 02/03/2025 Patient is in MICU. Awake alert with mild confusion. Lethargic and weak. Patient is on low-dose norepinephrine drip. Decreased urine output even after IV Lasix doses. Renal function is worsening. Nephrology is planning for renal replacement therapy. Otherwise patient is on antibiotics per urinary tract infection. Urine cultures showed Pseudomonas. Lab data showed WBC 22.7 hemoglobin 10.9 and platelets 200, sodium 129 potassium 4.3 chloride 87 bicarb is 33 BUN 93 and creatinine 4.58. CPK level 30,365 and calcium 6.7. Myoglobin elevated [id number] Nephrology and critical care team is on board. 02/04/2025 patient seen and examined at bedside. Patient still in the ICU. More alert and conversant today. Levophed weaned off this morning. UO improved. Labs: WBCs 13.2, hemoglobin 10, sodium 127, potassium 4.4, bicarb 23, BUN 96, creatinine 5, glucose 70, AST 735, ALT 394, alk phos 124, creatinine kinase 74704, albumin 2.1 02/05/2025 patient seen and examined at bedside. Patient still in the ICU. Did not require any pressor support overnight. Dialysis was done yesterday 500 mL fluid was taken off. UO still low but improving. More awake and alert today. Labs: WBC 11.06, hemoglobin 10.1, MCV 94, platelet count 1 90,000, sodium 130, potassium 4.4, bicarb 27, BUN 70, creatinine 3.96, glucose 75, [place] [id number] 02/06/2025 patient seen and examined at bedside. Patient has been downgraded to stepdown unit. UO improving. Dialysis again today Labs: WBC 13.9, hemoglobin 9.8, MCV 94.5, platelet count 1 83,000, sodium 129, potassium 4.1, chloride 95, bicarb 26, BUN 61, creatinine 3.3, glucose 83, calcium 8.2, AST 487, ALT 317, alk phos 130, albumin 2.1 02/07/2025 patient seen and examined at bedside. Patient had hemodialysis removed 1 L of fluid yesterday. UO still low despite improvement of creatinine levels. Patient having about 13 episodes of diarrhea overnight. Labs: WBC 14.06, hemoglobin 9.7, MCV 93.9, platelet count 212,000, sodium 128, potassium 3.8, chloride 95, BUN 42, creatinine 2.8, glucose 74, calcium 8.2 02/08/2025 patient seen and examined at bedside. For dialysis today. Removed 1L Still having diarrhea but has improved. UO still low Labs: WBC 13.5, hemoglobin 10.6, platelet count 206,000, sodium 129, potassium 4.1, BUN 30, creatinine 1.99, glucose 108, calcium 8.5, ending 2756. Repeat C. difficile negative. Imaging; echocardiogram showed severely impaired systolic function with segmen paty wall motion abnormality LVEF 25 to 30% 02/09/2025 patient seen and examined at bedside. No acute events overnight. Diarrhea improving only had 2 bowel movements throughout the past 24 hours. Ur ine output still low but improving. Swelling has improved on upper extremities and lower extremities. Labs: WBC 12.9, hemoglobin 9.5, MCV 95.4, platelet count 231,000, sodium 130, potassium 4.2, bicarb 28, BUN 41, creatinine 2.7, glucose 84, calcium 8.4 02/10/2025 Patient evaluated in follow-up of medical floor. Diarrhea improving. Urine output not accurately documented although patient does have an indwelling Griffiths catheter in place. Continues on course of antibiotics for the Pseudomonas UTI and currently transition to oral Cipro daily for 6 days. Patient had a repeat limited echocardiogram completed which reveals EF 25 to 30%. She is currently on metoprolol 12.5 mg twice daily. Patient is currently undergoing hemodialysis per nephrology. Her labs reveal a BUN of 49 creatinine of 3.22 today sodium level of 128. 02/11/2025 patient seen and examined at bedside. No acute events overnight. UO slightly improved. Patient had 4 bowel movements in the past 24 hours. Labs: WBC 13.2, hemoglobin 9.9, platelet count 285,000, sodium 131, potassium 4.8, BUN 54, creatinine 4.3, glucose 75, calcium 8.6 Review of systems: Pertinent positives and negatives as discussed in HPI, a complete review of systems was performed and all other systems are negative. Physical examination: Vital signs reviewed General: non toxic, no distress, appears at stated age, cooperative and conv ersant Derm: no unusual rashes/lesions, warm, noted right pentecostal and left lower jaw bruises Head: atraumatic, normocephalic, symmetric Eyes: EOMI, anicteric sclera, pupils equal round reactive to light ENT: Nose and ears atraumatic Neck: No cervical lymphadenopathy, trachea midline, supple Mouth: no lip lesion, mucus membranes moist Cardiovascular: S1S2 reg, no murmur Lungs: fine rales on RL lung, no rhonchi, no rales, no accessory muscle use Abdominal: soft, nondistended, nontender to palpation, no guarding Ext: muscle strength 5 out of 5 in all 4 extremities grossly, no gross muscle atrophy, no contractures, positive dorsalis pedis pulse bilateral, b/l lower ext +2 pitting edema had decreased to mid calf area Neuro: CN II-XI grossly intact, no gross focal neuro deficits Psych: Alert and oriented x 2, appropriate affect and mood Assessment/Plan: The patient is admitted with an anticipated greater than 2 midnight stay for evaluation of syncope, CATHIE and sepsis Active: #. CATHIE, secondary to ATN which is secondary to sepsis, acute rhabdomyolysis and contrast injury. Improvring #. Sepsis secondary to complicated UTI #. Acute rhabdomyolysis. Status post fall, resolved #. Lactic acidosis, resolved #. Anion gap metabolic acidosis secondary to above, improved # Acute metabolic encephalopathy secondary to above Creatinine now increasing to 4.3 Monitor urine output and renal function Blood cultures negative. Urine culture showed Pseudomonas. Cefepime IV discontinued. Start on oral Ciprofloxacin for 3 more days ID consult for further evaluation, rec appreciated Nephrology is following, rec appreciated. Hemodialysis planned today. Plan for dialysis outpatient Vascular consulted for permanent cath placement Pulmonology consulted for ICU management of hypotnesion. Now downgraded to stepdown unit #. Diarrhea, ruled out C. Diff, improved C. Diff EIA negative on 02/05. Negative on repeat Added Loperamide po prn #. Shocked liver secondary to above, improved AST 487, ALT 317 have improved Liver ultrasound unremarkable #. Syncope, likley due to sepsis #. Mechanical fall secondary to above #. NSTEMI s/p cardiac cath with no coronary occlusions #. Nonischemic cardiomyopathy EF 25-30% Pelvic x-ray, head CT, cervical spine CT and face CT so no acute fractures or osseous abnormality. EKG showed sinus tachycardia with a rate of 107, normal axis, ST elevation noted on lead III, notable intraventricular delay in V2 and V6 Second EKG showed sinus tachycardia with occasional PVC, no noted ST-T changes Continue cardiac monitoring Supplemental oxygen as needed Echocardiogram showed LV ejection fraction of 10 to 15% with severely reduced global LV systolic dysfunction. Follow up echo showed improved LVEF 25 to 30% Consulted cardiology. Heart cath done showed normal coronary arteries. metoprolol tartrate 12.5mg BID ordered. Have signed off Chronic Conditions: #. Hypertension #. Anxiety Hold statins, gabapentin and NSAIDs for now DVT ppx: Heparin SQ CODE STATUS: Full Discussed with: patient and family Anticipated discharge place: pending clinical course Attestation: I have seen and examined this patient with my resident, assessment and plan discussed with the resident, agree with assessment and plan as written above. Dr. Hernandez Objective - Vital Signs Vital signs: Vital Signs Temp 97.6 F 02/11/25 07:51 Pulse 78 02/11/25 07:51 Resp 17 02/11/25 07:51 BP 145/82 02/11/25 07:51 Pulse Ox 98 02/11/25 07:51 FiO2 2 01/31/25 23:15 Intake & Output 02/10/25 02/11/25 02/11/25 18:59 06:59 18:59 Output Total 250 400 Balance -250 -400 Output: Urine 250 400 Uretheral (Griffiths) 400 Other: Voiding Method Indwelling Catheter # Bowel Movements 3 1 - Labs CBC & Chem 7: 02/11/25 02:42 02/11/25 02:42
[2025-02-12 04:25] LABS: Basophils # (A) 0.08 10*3/uL (0.00-0.10); Basophils % (A) 0.8 %; Eosinophils # (A) 0.25 10*3/uL (0.04-0.35); Eosinophils % (A) 2.5 %; HCT 30.1 % (37.2-46.3); HGB 9.8 g/dL (12.0-15.0); Lymphocytes # (A) 1.17 10*3/uL (0.90-5.00); Lymphocytes % (A) 11.9 %; MCHC 32.6 g/dL (32.0-37.0); MCV 95.3 fL (80.0-97.0); Mean Platelet Volume 10.4 fL (9.5-12.2); Monocytes # (A) 0.85 10*3/uL (0.20-1.00); Monocytes % (A) 8.6 %; Neutrophils # (A) 7.36 10*3/uL (1.80-7.70); Neutrophils % (A) 74.7 %; Platelet Count 269 10*3/uL (140-440); RBC 3.16 10*6/uL (4.10-5.20); RDW 13.3 % (11.5-14.5); WBC 9.86 10*3/uL (4.50-10.00)
[2025-02-12 05:26] LABS: African American GFR (CKD) 20 (>60 ml/min/1.73 sqM); Anion Gap 8 mmol/L; Blood Urea Nitrogen 37 mg/dL (7-17); Calcium 8.7 mg/dL (8.4-10.2); Carbon Dioxide 24 mmol/L (22-30); Chloride 95 mmol/L (98-107); Glucose 67 mg/dL (74-99); Non-African American GFR(CKD) 17 (>60 ml/min/1.73 sqM); Potassium 3.9 mmol/L (3.5-5.1); Sodium 127 mmol/L (137-145)
--- NOTE | 2025-02-12 11:35 | P.PN ---
Subjective Patient is seen in follow-up for acute kidney injury. Started on hemodialysis February 03, 2025 via right femoral catheter. Tolerated 1.5 L ultrafiltration yesterday. Urine output documented as 500 cc in the last 24 hours. Somewhat confused. Permacath scheduled for today. Vital signs are stable. General: No acute distress. HEENT: Head exam is unremarkable. LUNGS: No audible rhonchi or wheezes. HEART: Rate and Rhythm are regular. ABDOMEN: Nontender. EXTREMITITES: 2+ edema. Objective - Vital Signs Vital signs: Vital Signs Temp 97.6 F 02/12/25 07:17 Pulse 85 02/12/25 07:17 Resp 20 02/12/25 10:16 BP 100/61 02/12/25 07:17 Pulse Ox 97 02/12/25 07:17 FiO2 2 01/31/25 23:15 Intake & Output 02/11/25 02/12/25 02/12/25 18:59 06:59 18:59 Intake Total 500 480 Output Total 4100 500 Balance -3600 -20 Intake: Oral 480 Hemodialysis 500 Output: Urine 600 500 Hemodialysis 2000 Hemodialysis Net Amount 1500 Other: Voiding Method Indwelling Catheter Indwelling Catheter Indwelling Catheter # Bowel Movements 1 - Labs CBC & Chem 7: 02/12/25 04:06 02/12/25 04:06 Labs: Abnormal Lab Results - Last 24 Hours (Table) 02/12/25 02/12/25 Range/Units 04:06 04:06 RBC 3.16 L (4.10-5.20) 10*6/uL Hgb 9.8 L (12.0-15.0) g/dL Hct 30.1 L (37.2-46.3) % Immature Gran # 0.15 H (0.00-0.04) 10*3/uL Sodium 127 L (137-145) mmol/L Chloride 95 L (98-107) mmol/L BUN 37 H (7-17) mg/dL Creatinine 2.57 H (0.52-1.04) mg/dL Glucose 67 L (74-99) mg/dL Assessment and Plan Plan: Assessment: 1. Acute kidney injury secondary to ATN secondary to hypotension and rhabdomyolysis. Also received IV contrast for cardiac catheterization. Started on hemodialysis February 04, 2025 via right femoral catheter. Creatinine rising and urine output remains low. 2. Severe rhabdomyolysis status post fall. 3. Metabolic acidosis secondary to acute kidney injury. Improved postdialysis. 4. Acute on chronic systolic CHF ejection fraction of 10 to 15%. 5. Pseudomonas UTI on antibiotics. Plan: Hemodialysis tomorrow. Maintain torsemide. Phosphorus level 5.0 dated February 11, 2025. Permacath placement scheduled for today. Femoral catheter will be removed. technology services manager to set up outpatient hemodialysis.
[2025-02-12] MEDS: fentaNYL (PF) 50 MCG/1 ML VIAL IVP ONE (14:01)
[2025-02-12] MEDS: LIDOCAINE 1% INJ 10MG/ML (20 ML MDV) SQ ONE ×2 (14:03→14:19)
[2025-02-12] MEDS: SODIUM CHLORIDE 0.9% 1,000 ML IV ONE (14:08)
[2025-02-12] MEDS: HEPARIN SODIUM 1,000 UN/ML (10ML VL) IVP ONE (14:10)
--- NOTE | 2025-02-12 14:48 | P.PN ---
Subjective Progress Note Date: 02/10/25 Principal diagnosis: Reason for follow-up Pseudomonas UTI Patient is 79-year-old female with a past medical history significant for hypertension neuropathy chronic back pain patient has been brought to the hospital after the patient did have a fall noticed to been rhabdomyolysis also found to have UTI urine with a Pseudomonas for this consultation. On today's evaluation that is 02/10/2025, patient has been afebrile, patient is breathing comfortably and is currently on room air, patient denies having any chest pain and cough, patient denies nausea vomiting or abdominal pain diarrhea slowed down. Patient white count is 13.37, creatinine 3.22 Objective - Vital Signs Vital signs: Vital Signs Temp 97.4 F L 02/10/25 13:56 Pulse 77 02/10/25 13:56 Resp 19 02/10/25 13:56 BP 115/65 02/10/25 13:56 Pulse Ox 99 02/10/25 13:56 FiO2 2 01/31/25 23:15 Intake & Output 02/09/25 02/10/25 02/10/25 18:59 06:59 18:59 Intake Total 240 Output Total 800 Balance 240 -800 Intake: Oral 240 Output: Urine 800 Other: Voiding Method Indwelling Catheter Indwelling Catheter # Bowel Movements 2 3 - Exam GENERAL DESCRIPTION: An elderly FEmale lying in bed in no distress RESPIRATORY SYSTEM: Unlabored breathing , decreased breath sounds at bases HEART: S1 S2 regular rate and rhythm , ABDOMEN: Soft , no tenderness EXTREMITIES: Swelling to the leg no redness - Labs CBC & Chem 7: 02/12/25 04:06 02/12/25 04:06 Labs: Abnormal Lab Results - Last 24 Hours (Table) 02/10/25 02/10/25 Range/Units 02:27 02:27 WBC 13.37 H (4.50-10.00) 10*3/uL RBC 3.08 L (4.10-5.20) 10*6/uL Hgb 9.4 L (12.0-15.0) g/dL Hct 29.2 L (37.2-46.3) % Immature Gran # 0.41 H (0.00-0.04) 10*3/uL Neutrophils # 10.15 H (1.80-7.70) 10*3/uL Sodium 128 L (137-145) mmol/L BUN 49 H (7-17) mg/dL Creatinine 3.22 H (0.52-1.04) mg/dL Assessment and Plan (1) UTI (urinary tract infection) Current Visit: Yes Status: Acute Code(s): N39.0 - URINARY TRACT INFECTION, SITE NOT SPECIFIED SNOMED Code(s): 08512775 (2) Leukocytosis Current Visit: Yes Status: Acute Code(s): D72.829 - ELEVATED WHITE BLOOD CELL COUNT, UNSPECIFIED SNOMED Code(s): 955601198 Plan: 1patient presented hospital with weakness and fall in this patient who did have elevated white count on admission some mental status changes positive UA concer kat for symptomatic UTI with urine growing Pseudomonas aeruginosa that is a sensitive pathogen 2-patient is afebrile white count is trending down antibiotic has been switched over to oral Cipro to continue along with the question antibiotic clinical course closely Dictation was produced using [employer] dictation software. please excuse any grammatical, word or spelling errors. Time with Patient: Less than 30
--- NOTE | 2025-02-12 14:50 | P.PN ---
Subjective Progress Note Date: 02/12/25 Principal diagnosis: Reason for follow-up Pseudomonas UTI Patient is 79-year-old female with a past medical history significant for hypertension neuropathy chronic back pain patient has been brought to the hospital after the patient did have a fall noticed to been rhabdomyolysis also found to have UTI urine with a Pseudomonas for this consultation. On today's evaluation that is 02/12/2025, Patient is afebrile this morning patient denies having any chest pain shortness of breath or cough, the patient is currently on room air, patient denies any abdominal pain no diarrhea no nausea no vomiting mention feeling better. Patient white count normalized to 9.86, creatinine 2.57 Objective - Vital Signs Vital signs: Vital Signs Temp 97.6 F 02/12/25 07:17 Pulse 85 02/12/25 07:17 Resp 20 02/12/25 10:16 BP 100/61 02/12/25 07:17 Pulse Ox 97 02/12/25 07:17 FiO2 2 01/31/25 23:15 Intake & Output 02/11/25 02/12/25 02/12/25 18:59 06:59 18:59 Intake Total 500 480 Output Total 4100 500 Balance -3600 -20 Intake: Oral 480 Hemodialysis 500 Output: Urine 600 500 Hemodialysis 2000 Hemodialysis Net Amount 1500 Other: Voiding Method Indwelling Catheter Indwelling Catheter Indwelling Catheter # Bowel Movements 1 - Exam GENERAL DESCRIPTION: An elderly FEmale lying in bed in no distress RESPIRATORY SYSTEM: Unlabored breathing , decreased breath sounds at bases HEART: S1 S2 regular rate and rhythm , ABDOMEN: Soft , no tenderness EXTREMITIES: Swelling to the leg no redness - Labs CBC & Chem 7: 02/12/25 04:06 02/12/25 04:06 Labs: Abnormal Lab Results - Last 24 Hours (Table) 02/12/25 02/12/25 Range/Units 04:06 04:06 RBC 3.16 L (4.10-5.20) 10*6/uL Hgb 9.8 L (12.0-15.0) g/dL Hct 30.1 L (37.2-46.3) % Immature Gran # 0.15 H (0.00-0.04) 10*3/uL Sodium 127 L (137-145) mmol/L Chloride 95 L (98-107) mmol/L BUN 37 H (7-17) mg/dL Creatinine 2.57 H (0.52-1.04) mg/dL Glucose 67 L (74-99) mg/dL Assessment and Plan (1) UTI (urinary tract infection) Current Visit: Yes Status: Acute Code(s): N39.0 - URINARY TRACT INFECTION, SITE NOT SPECIFIED SNOMED Code(s): 54361012 (2) Leukocytosis Current Visit: Yes Status: Acute Code(s): D72.829 - ELEVATED WHITE BLOOD CELL COUNT, UNSPECIFIED SNOMED Code(s): 794812229 Plan: 1patient presented hospital with weakness and fall in this patient who did have elevated white count on admission some mental status changes positive UA concerning for symptomatic UTI with urine growing Pseudomonas aeruginosa that is a sensitive pathogen 2-patient is afebrile white count has normalized continue with a short course of oral Cipro. Family at the bedside multiple question answered Dictation was produced using [employer] dictation software. please excuse any grammatical, word or spelling errors. Time with Patient: Less than 30
--- NOTE | 2025-02-12 15:32 | XR ---
EXAMINATION TYPE: XR chest 1V portable DATE OF EXAM: 02/12/2025 3:24 PM COMPARISON: Chest radiographs from 02/01/2025. CLINICAL INDICATION: Female, 79 years old with history of New Dialysis port right chest; [facility] TECHNIQUE: XR chest 1V portable Frontal view of the chest. FINDINGS: Lungs/Pleura: There is no evidence of pleural effusion, focal consolidation, or pneumothorax. Pulmonary vascularity: Pulmonary vascular congestion. Heart/mediastinum: Cardiomediastinal silhouette is prominent in size. Musculoskeletal: No acute osseous pathology. Left shoulder arthroplasty appears intact. Other findings: None Lines/Tubes: Right internal jugular central venous catheter with distal tip at the cavoatrial junction. Left central venous catheter with distal tip at the superior vena cava brachiocephalic vein junction. IMPRESSION: mild pulmonary vascular congestion. Correlate for volume overload. [facility], , 02/12/2025 3:29 PM
--- NOTE | 2025-02-12 16:10 | P.PN ---
Subjective Progress Note Date: 02/12/25 Patient is a 79-year-old female with hypertension here for evaluation after a fall. Patient reported that night before admission, patient fell after getting out of her into bed and that she lost consciousness. She was found on the floor with her right leg wedged with associated pain. She has been complaining of generalized weakness for about a few weeks now and it has worsened over the past week to the point that she drags her right leg. She denied chest pain, shortness of breath, palpitations, headaches, facial asymmetry, speech changes, abdominal pain, extremity swelling. On admission: Vitals: Temp 97.7 F, pulse rate 104, RR 20, BP 109/86, oxygen 95% on room air Labs: WBC 25.3, hemoglobin 15.7, platelet count 301,000, sodium 136, potassium 4.5, bicarb 20, BUN 33, creatinine 1.3, glucose 162, lactic acid 4.6, calcium 11.1, phosphorus 4.6, magnesium 2.6, AST 514, ALT 133, alk phos 77, total bilirubin 1.4, creatinine kinase 44,157, troponin 6, proBNP 1540, albumin 15.1. Urinalysis shows cloudy appearance +1 protein, large blood, large leukocyte esterase, WBC greater than 182, hyaline cast 10, occasional urine yeast.. Imaging: Pelvic x-ray showed no acute displaced fracture. Chest x-ray showed possible fluid overloaded state with persistent cardiomegaly and central vascular congestion. Head cervical spine CT showed no acute intracranial process with age-related atrophy, no acute posttraumatic changes in the cervical spine, with degenerative and vertebral joint changes. Face CT showed no acute posttraumatic osseous abnormality. EKG showed sinus tachycardia with a rate of 107, normal axis, ST elevation noted on lead III, notable intraventricular delay in V2 and V6, QTc 495 MS. Second EKG showed sinus tachycardia with occasional PVC, rate of [address]-T changes, QTc 431 MS. 02/01/2025 patient seen and examined at bedside. Rapid response was recalled yesterday on 01/30 as patient was hypotensive on the cardiac stepdown floor. Fluid bolus was given but patient had marginal response. She was also quite lethargic on reevaluation. Pulmonology decided to admit patient to the ICU due to concerns for hypotension related to sepsis. Still having labile BP. Still low UO with positive fluid balance. Still lethargic but cooperative. Labs: WBC 19.13, hemoglobin 12.6, platelet count 208,000, sodium 133, potassium 4.4, chloride 96, bicarb 23, BUN 73, glucose 118, calcium 72, magnesium 2.6 Imaging; liver ultrasound ordered showed no intrahepatic mass or ductal dilation. Echocardiogram showed LV ejection fraction of 10 to 15% with severely reduced global LV systolic dysfunction, RV dilated with reduced systolic function, moderate mitral regurgitation, mild LA dilatation with elevated LA filling pressures 02/02/2025 patient seen and examined at bedside. Patient seen in the ICU. Still having low urine output with positive fluid balance. Blood pressures still labile. 1 L bolus 0.9 normal saline given 02/01 Labs: WBC 20.1, hemoglobin 11, platelet count 195,000, sodium 131, potassium 3.8, chloride 93, BUN 85, creatinine 4, glucose 103, calcium 6.8 Imaging: Renal US showed possible mild right hydronephrosis 02/03/2025 Patient is in MICU. Awake alert with mild confusion. Lethargic and weak. Patient is on low-dose norepinephrine drip. Decreased urine output even after IV Lasix doses. Renal function is worsening. Nephrology is planning for renal replacement therapy. Otherwise patient is on antibiotics per urinary tract infection. Urine cultures showed Pseudomonas. Lab data showed WBC 22.7 hemoglobin 10.9 and platelets 200, sodium 129 potassium 4.3 chloride 87 bicarb is 33 BUN 93 and creatinine 4.58. CPK level 30,365 and calcium 6.7. Myoglobin elevated [id number] Nephrology and critical care team is on board. 02/04/2025 patient seen and examined at bedside. Patient still in the ICU. More alert and conversant today. Levophed weaned off this morning. UO improved. Labs: WBCs 13.2, hemoglobin 10, sodium 127, potassium 4.4, bicarb 23, BUN 96, creatinine 5, glucose 70, AST 735, ALT 394, alk phos 124, creatinine kinase 42387, albumin 2.1 02/05/2025 patient seen and examined at bedside. Patient still in the ICU. Did not require any pressor support overnight. Dialysis was done yesterday 500 mL fluid was taken off. UO still low but improving. More awake and alert today. Labs: WBC 11.06, hemoglobin 10.1, MCV 94, platelet count 1 90,000, sodium 130, potassium 4.4, bicarb 27, BUN 70, creatinine 3.96, glucose 75[place] [id number] 02/06/2025 patient seen and examined at bedside. Patient has been downgraded to stepdown unit. UO improving. Dialysis again today Labs: WBC 13.9, hemoglobin 9.8, MCV 94.5, platelet count 1 83,000, sodium 129, potassium 4.1, chloride 95, bicarb 26, BUN 61, creatinine 3.3, glucose 83, calcium 8.2, AST 487, ALT 317, alk phos 130, albumin 2.1 02/07/2025 patient seen and examined at bedside. Patient had hemodialysis removed 1 L of fluid yesterday. UO still low despite improvement of creatinine levels. Patient having about 13 episodes of diarrhea overnight. Labs: WBC 14.06, hemoglobin 9.7, MCV 93.9, platelet count 212,000, sodium 128, potassium 3.8, chloride 95, BUN 42, creatinine 2.8, glucose 74, calcium 8.2 02/08/2025 patient seen and examined at bedside. For dialysis today. Removed 1L Still having diarrhea but has improved. UO still low Labs: WBC 13.5, hemoglobin 10.6, platelet count 206,000, sodium 129, potassium 4.1, BUN 30, creatinine 1.99, glucose 108, calcium 8.5, ending 2756. Repeat C. difficile negative. Imaging; echocardiogram showed severely impaired systolic function with segmen paty wall motion abnormality LVEF 25 to 30% 02/09/2025 patient seen and examined at bedside. No acute events overnight. Diarrhea improving only had 2 bowel movements throughout the past 24 hours. Ur ine output still low but improving. Swelling has improved on upper extremities and lower extremities. Labs: WBC 12.9, hemoglobin 9.5, MCV 95.4, platelet count 231,000, sodium 130, potassium 4.2, bicarb 28, BUN 41, creatinine 2.7, glucose 84, calcium 8.4 02/10/2025 Patient evaluated in follow-up of medical floor. Diarrhea improving. Urine output not accurately documented although patient does have an indwelling Griffiths catheter in place. Continues on course of antibiotics for the Pseudomonas UTI and currently transition to oral Cipro daily for 6 days. Patient had a repeat limited echocardiogram completed which reveals EF 25 to 30%. She is currently on metoprolol 12.5 mg twice daily. Patient is currently undergoing hemodialysis per nephrology. Her labs reveal a BUN of 49 creatinine of 3.22 today sodium level of 128. 02/11/2025 patient seen and examined at bedside. No acute events overnight. UO slightly improved. Patient had 4 bowel movements in the past 24 hours. Labs: WBC 13.2, hemoglobin 9.9, platelet count 285,000, sodium 131, potassium 4.8, BUN 54, creatinine 4.3, glucose 75, calcium 8.6 02/12/2025 patient seen and examined at bedside. No acute events overnight. Hemodialysis yesterday removed 1500 mL. Urine output improving. PermCath placement today. Labs: WBC 9.8, hemoglobin 9.8, sodium 127, potassium 3.9, sodium 35, BUN 37, creatinine 2.5, glucose 67, calcium 8.7 Review of systems: Pertinent positives and negatives as discussed in HPI, a complete review of syst ems was performed and all other systems are negative. Physical examination: Vital signs reviewed General: non toxic, no distress, appears at stated age, cooperative and conversant Derm: no unusual rashes/lesions, warm, noted right adventist and left lower jaw bruises Head: atraumatic, normocephalic, symmetric Eyes: EOMI, anicteric sclera, pupils equal round reactive to light ENT: Nose and ears atraumatic Neck: No cervical lymphadenopathy, trachea midline, supple Mouth: no lip lesion, mucus membranes moist Cardiovascular: S1S2 reg, no murmur Lungs: fine rales on RL lung, no rhonchi, no rales, no accessory muscle use Abdominal: soft, nondistended, nontender to palpation, no guarding Ext: muscle strength 5 out of 5 in all 4 extremities grossly, no gross muscle atrophy, no contractures, positive dorsalis pedis pulse bilateral, b/l lower ext +2 pitting edema had decreased to mid calf area Neuro: CN II-XI grossly intact, no gross focal neuro deficits Psych: Alert and oriented x 2, appropriate affect and mood Assessment/Plan: The patient is admitted with an anticipated greater than 2 midnight stay for evaluation of syncope, CATHIE and sepsis Active: #. CATHIE, secondary to ATN which is secondary to sepsis, acute rhabdomyolysis and contrast injury. Improvring #. Sepsis secondary to complicated UTI #. Acute rhabdomyolysis. Status post fall, resolved #. Lactic acidosis, resolved #. Anion gap metabolic acidosis secondary to above, improved # Acute metabolic encephalopathy secondary to above Creatinine 2.57 Monitor urine output and renal function Blood cultures negative. Urine culture showed Pseudomonas. Cefepime IV discontinued. on oral Ciprofloxacin until 02/14 ID consult for further evaluation, rec appreciated Nephrology is following, rec appreciated. Hemodialysis planned tomorrow. Plan for dialysis outpatient Vascular consulted for permanent cath placement Pulmonology consulted for ICU management of hypotnesion. Now downgraded to stepdown unit #. Diarrhea, ruled out C. Diff, improved C. Diff EIA negative on 02/05. Negative on repeat Added Loperamide po prn #. Shocked liver secondary to above, improved AST 487, ALT 317 have improved Liver ultrasound unremarkable #. Syncope, likley due to sepsis #. Mechanical fall secondary to above #. NSTEMI s/p cardiac cath with no coronary occlusions #. Nonischemic cardiomyopathy EF 25-30% Pelvic x-ray, head CT, cervical spine CT and face CT so no acute fractures or osseous abnormality. EKG showed sinus tachycardia with a rate of 107, normal axis, ST elevation noted on lead III, notable intraventricular delay in V2 and V6 Second EKG showed sinus tachycardia with occasional PVC, no noted ST-T changes Continue cardiac monitoring Supplemental oxygen as needed Echocardiogram showed LV ejection fraction of 10 to 15% with severely reduced global LV systolic dysfunction. Follow up echo showed improved LVEF 25 to 30% Consulted cardiology. Heart cath done showed normal coronary arteries. metoprolol tartrate 12.5mg BID ordered. Have signed off Chronic Conditions: #. Hypertension #. Anxiety Hold statins, gabapentin and NSAIDs for now DVT ppx: Heparin SQ CODE STATUS: Full Discussed with: patient and family Anticipated discharge place: pending clinical course Attestation: I have seen and examined this patient with my resident, assessment and plan discussed with the resident, agree with assessment and plan as written above. Dr. Hernandez Objective - Vital Signs Vital signs: Vital Signs Temp 97.5 F L 02/12/25 00:20 Pulse 73 02/12/25 00:20 Resp 18 02/12/25 00:20 BP 134/76 02/12/25 00:20 Pulse Ox 95 02/12/25 00:20 FiO2 2 01/31/25 23:15 Intake & Output 02/11/25 02/12/25 02/12/25 18:59 06:59 18:59 Intake Total 500 480 Output Total 4100 500 Balance -3600 -20 Intake: Oral 480 Hemodialysis 500 Output: Urine 600 500 Hemodialysis 2000 Hemodialysis Net Amount 1500 Other: Voiding Method Indwelling Catheter Indwelling Catheter # Bowel Movements 1 - Labs CBC & Chem 7: 02/12/25 04:06 02/12/25 04:06 Labs: Abnormal Lab Results - Last 24 Hours (Table) 02/12/25 02/12/25 Range/Units 04:06 04:06 RBC 3.16 L (4.10-5.20) 10*6/uL Hgb 9.8 L (12.0-15.0) g/dL Hct 30.1 L (37.2-46.3) % Immature Gran # 0.15 H (0.00-0.04) 10*3/uL Sodium 127 L (137-145) mmol/L Chloride 95 L (98-107) mmol/L BUN 37 H (7-17) mg/dL Creatinine 2.57 H (0.52-1.04) mg/dL Glucose 67 L (74-99) mg/dL
--- NOTE | 2025-02-12 21:24 | OP ---
OPERATIVE REPORT DATE OF SERVICE : PREOPERATIVE DIAGNOSIS: Acute on chronic renal failure. OPERATION: Placement of a 9 cm dialysis catheter, right jugular approach. Removal of the temporary dialysis catheter, left femoral approach. NARRATIVE: The patient was brought to the vat house laborer. Right side of the neck and groin was prepped and draped in the usual sterile manner. 1% lidocaine was infiltrated in the neck incision area. Ultrasound-guided micropuncture introduced to the right jugular micropuncture. Guidewire was passed and 4-Peruvian dilator advanced on top of the guidewire. Then, we passed a regular guidewire, which was parked at the inferior vena cava. Then, we created a tunnel, through the tunnel, we brought a 19 cm straight dialysis catheter. The dilator was advanced on top of the guidewire then we placed a sheath on the top of the guidewire. Through the sheath, we introduced the dialysis catheter. Tip of the catheter in superior vena cavoatrial junction, flushed with heparin saline and hep-locked, secured with 3-0 nylon. Dressing applied. The left groin was prepped, stitches was removed. Left temporary dialysis catheter removed. Pressure held. The patient tolerated the procedure well. MMODL / IJN: [id number] /
[2025-02-13 04:07] LABS: HCT 27.8 % (37.2-46.3); MCH 30.9 pg (27.0-32.0); MCHC 32.4 g/dL (32.0-37.0); MCV 95.5 fL (80.0-97.0); Mean Platelet Volume 10.1 fL (9.5-12.2); Platelet Count 302 10*3/uL (140-440); RBC 2.91 10*6/uL (4.10-5.20); RDW 13.5 % (11.5-14.5); WBC 9.38 10*3/uL (4.50-10.00)
[2025-02-13 04:22] LABS: ALT 97 U/L (4-34); AST 59 U/L (14-36); African American GFR (CKD) 14 (>60 ml/min/1.73 sqM); Albumin 2.2 g/dL (3.5-5.0); Alkaline Phosphatase 70 U/L (38-126); Anion Gap 9 mmol/L; Blood Urea Nitrogen 47 mg/dL (7-17); Calcium 8.8 mg/dL (8.4-10.2); Carbon Dioxide 24 mmol/L (22-30); Chloride 94 mmol/L (98-107); Globulin 2.3 g/dL; Glucose 68 mg/dL (74-99); Non-African American GFR(CKD) 13 (>60 ml/min/1.73 sqM); Potassium 4.2 mmol/L (3.5-5.1); Sodium 127 mmol/L (137-145); Total Bilirubin 0.6 mg/dL (0.2-1.3); Total Protein 4.5 g/dL (6.3-8.2)
--- NOTE | 2025-02-13 10:04 | P.PN ---
Subjective Patient is seen in follow-up for acute kidney injury. Started on hemodialysis February 03, 2025 via right femoral catheter. Permacath placed February 12, 2025. Scheduled for dialysis today. Vital signs are stable. General: No acute distress. HEENT: Head exam is unremarkable. LUNGS: No audible rhonchi or wheezes. HEART: Rate and Rhythm are regular. ABDOMEN: Nontender. EXTREMITITES: 2+ edema. Objective - Vital Signs Vital signs: Vital Signs Temp 97.3 F L 02/13/25 07:16 Pulse 77 02/13/25 07:16 Resp 18 02/13/25 07:16 BP 108/53 02/13/25 07:16 Pulse Ox 96 02/13/25 07:16 FiO2 2 01/31/25 23:15 Intake & Output 02/12/25 02/13/25 02/13/25 18:59 06:59 18:59 Intake Total 600 Output Total 710 400 Balance -110 -400 Intake: IV 200 Oral 400 Output: Urine 710 400 Uretheral (Griffiths) 100 400 Other: Voiding Method Indwelling Catheter Indwelling Catheter # Bowel Movements 1 - Labs CBC & Chem 7: 02/13/25 03:22 02/13/25 03:22 Labs: Abnormal Lab Results - Last 24 Hours (Table) 02/13/25 02/13/25 Range/Units 03:22 03:22 RBC 2.91 L (4.10-5.20) 10*6/uL Hgb 9.0 L (12.0-15.0) g/dL Hct 27.8 L (37.2-46.3) % Sodium 127 L (137-145) mmol/L Chloride 94 L (98-107) mmol/L BUN 47 H (7-17) mg/dL Creatinine 3.29 H (0.52-1.04) mg/dL Glucose 68 L (74-99) mg/dL AST 59 H (14-36) U/L ALT 97 H (4-34) U/L Total Protein 4.5 L (6.3-8.2) g/dL Albumin 2.2 L (3.5-5.0) g/dL Assessment and Plan Plan: Assessment: 1. Acute kidney injury secondary to ATN secondary to hypotension and rhabdomyolysis. Also received IV contrast for cardiac catheterization. Started on hemodialysis February 04, 2025 via right femoral catheter. Permacath placed February 12, 2025. Creatinine rising without dialysis and urine output remains low. 2. Severe rhabdomyolysis status post fall. 3. Metabolic acidosis secondary to acute kidney injury. Improved postdialysis. 4. Acute on chronic systolic CHF ejection fraction of 10 to 15%. 5. Pseudomonas UTI on antibiotics. 6. Anemia due to component of acute illness and also renal failure. Plan: Hemodialysis today. Maintain torsemide. Phosphorus level 5.0 dated February 11, 2025. Check iron studies. trauma program manager to set up outpatient hemodialysis. Monitor for renal recovery outpatient.
--- NOTE | 2025-02-13 10:42 | IR ---
Fluoroscopy INDICATION: Pain FINDINGS: Fluoroscopy time: 1.3 minutes Total dose area product (DAP) in uGy*m?, mGy*cm? (or similar): 1.25 Images obtained: 175. Images document catheter placement IMPRESSION: 1. Documentation of fluoroscopy. [facility], , 02/13/2025 10:39 AM
[2025-02-13 11:47] VITALS: BMI 41.6
[2025-02-13 15:13] VITALS: PULSE 90
--- NOTE | 2025-02-13 15:31 | P.DS ---
Providers Date of admission: 01/30/25 13:22 Attending physician: Jose Beaulieu Consults: 01/31/25 10:33 Consult Physician Urgent Consulting Provider: Haley Landaverde Consult Reason/Comments: ICU management Do you want consulting provider notified?: Yes 01/31/25 10:43 Consult Physician Stat Consulting Provider: Haley Landaverde Consult Reason/Comments: UTI/Sepsis Do you want consulting provider notified?: Already Contacted 01/31/25 23:56 Consult Physician Routine Consulting Provider: Jessica Diaz Consult Reason/Comments: CATHIE, RHABDO Do you want consulting provider notified?: Yes, Notify in am 02/03/25 09:21 Consult Physician Routine Consulting Provider: Melvin Rdz Consult Reason/Comments: temporary HD catheter placement Do you want consulting provider notified?: Yes 02/03/25 22:06 Consult Physician Routine Consulting Provider: Ari Whittaker Consult Reason/Comments: Pseudomonas UTI Do you want consulting provider notified?: Yes Primary care physician: Kulwant Bernal Hospital Course: Hospital Course: Patient is a 79-year-old female with hyperlipidemia, hypertension here for evaluation after a fall. Patient reported that night before admission, patient fell after getting out of her into bed and that she lost consciousness. She was found on the floor with her right leg wedged with associated pain. She has been complaining of generalized weakness for about a few weeks now and it has worsened over the past week to the point that she drags her right leg. She denied chest pain, shortness of breath, palpitations, headaches, facial asymmetry, speech changes, abdominal pain, extremity swelling. On admission: Vitals: Temp 97.7 F, pulse rate 104, RR 20, BP 109/86, oxygen 95% on room air Labs: WBC 25.3, hemoglobin 15.7, platelet count 301,000, sodium 136, potassium 4.5, bicarb 20, BUN 33, creatinine 1.3, glucose 162, lactic acid 4.6, calcium 11.1, phosphorus 4.6, magnesium 2.6, AST 514, ALT 133, alk phos 77, total bilirubin 1.4, creatinine kinase 44,157, troponin 6, proBNP 1540, albumin 15.1. Urinalysis shows cloudy appearance +1 protein, large blood, large leukocyte esterase, WBC greater than 182, hyaline cast 10, occasional urine yeast.. Imaging: Pelvic x-ray showed no acute displaced fracture. Chest x-ray showed possible fluid overloaded state with persistent cardiomegaly and central vascular congestion. Head cervical spine CT showed no acute intracranial process with age-related atrophy, no acute posttraumatic changes in the cervical spine, with degenerative and vertebral joint changes. Face CT showed no acute posttraumatic osseous abnormality. EKG showed sinus tachycardia with a rate of 107, normal axis, ST elevation noted on lead III, notable intraventricular delay in V2 and V6, QTc 495 MS. Second EKG showed sinus tachycardia with occasional PVC, rate of [address]-T changes, QTc 431 MS. Patient was admitted for the evaluation of patient was admitted for an evaluation of CATHIE complicated by sepsis secondary to UTI, acute rhabdomyolysis status post mechanical fall from presyncope. IV fluids, IV antibiotics, heparin drip, cardiac monitoring, supplemental oxygenation, blood cultures, urine cultures, echocardiogram were ordered. Elevated liver enzymes was also noted on admission and liver ultrasound was ordered but was unremarkable and is now attributed to shock liver due to hypoperfusion. Cardiology, nephrology and infectious disease were consulted. Patient underwent cardiac cath and showed normal coronary arteries. Echocardiogram done showed LV EF of 10 to 15% with severely reduced global systolic dysfunction. Blood cultures were negative. Urine culture showed pansensitive Pseudomonas. IV antibiotics were adjusted for appropriate coverage and subsequently transition to oral antibiotics to complete the course. Patient became hypotensive during hospital stay despite fluid resuscitation and required an admission to the ICU for a few days for pressor support. Renal ultrasound was done and showed possible mild right-sided nephrosis. Dialysis was recommended by nephrology as renal was worsening despite decreasing levels of creatinine kinase and IV fluids. Repeat echo showed improved EF of 25 to 30% and cardiology recommended initiation of metoprolol tartrate. Patient has had 7 sessions of dialysis inpatient but her urine output has not improved despite improvement of creatinine levels and normal CK levels and clearance of infection, hence was recommended to continue dialysis outpatient and permacath was placed. Her symptoms improved throughout her stay inpatient. She developed diarrhea throughout hospital stay but was C. difficile negative and has improved with loperamide. PT OT was ordered to determine patient discharge placement and she is evaluated to need subacute rehab on discharge. Patient is cleared to discharge today and is prescribed torsemide, aspirin, loperamide and metoprolol tartrate. Discontinued her naproxen and baclofen at this time to prevent kidney injury. She is advised to follow-up with expert witness, poultry pinner during dialysis and her PCP on outpatient basis. #. CATHIE, secondary to ATN which is secondary to sepsis, acute rhabdomyolysis and contrast injury, improving #. Sepsis secondary to complicated UTI #. Acute rhabdomyolysis. Status post fall, resolved #. Lactic acidosis, resolved #. Anion gap metabolic acidosis secondary to above, resolved # Acute metabolic encephalopathy secondary to above #. Shocked liver secondary to above, resolved #. Syncope, likley due to sepsis #. Mechanical fall secondary to above #. NSTEMI s/p cardiac cath with no coronary occlusions #. Nonischemic cardiomyopathy EF 25-30% #. Diarrhea, ruled out C. Diff, improved #. Hypertension #. Hyperlipidemia #. Anxiety Physical examination: Vital signs reviewed General: non toxic, no distress, appears at stated age, cooperative and conversant Derm: no unusual rashes/lesions, warm, noted right yazidism and left lower jaw bruises Head: atraumatic, normocephalic, symmetric Eyes: EOMI, anicteric sclera, pupils equal round reactive to light ENT: Nose and ears atraumatic Neck: No cervical lymphadenopathy, trachea midline, supple Mouth: no lip lesion, mucus membranes moist Cardiovascular: S1S2 reg, no murmur Lungs: CTA bilaterally, no rhonchi, no rales, no accessory muscle use Abdominal: soft, nondistended, nontender to palpation, no guarding Ext: muscle strength 5 out of 5 in all 4 extremities grossly, no gross muscle atrophy, no contractures, positive dorsalis pedis pulse bilateral, b/l lower ext +1 pitting edema had decreased to mid calf area Neuro: CN II-XI grossly intact, no gross focal neuro deficits Psych: Alert and oriented x 3, appropriate affect and mood Patient Condition at Discharge: Stable Plan - Discharge Summary New Discharge Prescriptions: New Aspirin 81 mg PO DAILY #30 tab Torsemide [Demadex] 60 mg PO DAILY #30 tab Ciprofloxacin HCl [Cipro] 500 mg PO Q24H #1 tab Loperamide [Imodium] 2 mg PO QID PRN #20 cap PRN Reason: Diarrhea Metoprolol Tartrate [Lopressor] 12.5 mg PO BID #30 tab Continue Diclofenac Sodium Gel [Voltaren 1% Gel] 1 applic TOPICAL BID Selenomethionine [Selenium] 200 mcg PO DAILY Magnesium Oxide [Magnesium] 500 mg PO DAILY Folic Acid 0.4 mg PO DAILY hydroCHLOROthiazide [Hydrodiuril] 25 mg PO DAILY Triamcinolone 0.5% Cream [Kenalog 0.5% Cream] 1 applic TOPICAL BID Acetaminophen/Diphenhydramine [Tylenol PM 500-25mg] 1 tab PO HS Hydrocortisone Cream [Hydrocortisone 2.5% Cream] 1 applic TOPICAL DAILY PRN PRN Reason: Skin Irritation Gabapentin [Neurontin] 600 mg PO BID HYDROcodone/APAP 10-325MG [[place] 10-325] 1 tab PO Q6HR PRN #18 tab PRN Reason: Pain ALPRAZolam [Xanax] 0.25 mg PO BID #14 tab Theraworx Muscle And Spasm Relief Foam 1 applic TOPICAL HS Famotidine [Pepcid] 20 mg PO DAILY Cyanocobalamin (Vitamin B-12) [Vitamin B-12] 1,000 mcg PO DAILY Cholecalciferol [Vitamin D3 (125 Mcg = 5000 Iu)] 125 mcg PO DAILY Zinc 15mg 1 tab PO DAILY Ubidecarenone [Co Q-10] 30 mg PO DAILY Nystatin 100,000 Unit/gm Powd [Mycostatin Powder] 1 applic TOPICAL BID Ascorbic Acid [Vitamin C] 500 mg PO DAILY Olopatadine HCl [Pataday] 1 drop BOTH EYES DAILY Lovastatin [Mevacor] 20 mg PO W/SUPPER Fesoterodine Fumarate [Fesoterodine Fumarate ER] 8 mg PO HS Latanoprost [Latanoprost 0.005%] 1 drop BOTH EYES HS Discontinued Naproxen Sodium [Aleve] 220 mg PO BID Baclofen 10 mg PO BID Discharge Medication List Acetaminophen/Diphenhydramine [Tylenol PM 500-25mg] 1 tab PO HS 01/30/25 [History] Ascorbic Acid [Vitamin C] 500 mg PO DAILY 01/30/25 [History] Cholecalciferol [Vitamin D3 (125 Mcg = 5000 Iu)] 125 mcg PO DAILY 01/30/25 [History] Cyanocobalamin (Vitamin B-12) [Vitamin B-12] 1,000 mcg PO DAILY 01/30/25 [History] Diclofenac Sodium Gel [Voltaren 1% Gel] 1 applic TOPICAL BID 01/30/25 [History] Famotidine [Pepcid] 20 mg PO DAILY 01/30/25 [History] Fesoterodine Fumarate [Fesoterodine Fumarate ER] 8 mg PO HS 01/30/25 [History] Folic Acid 0.4 mg PO DAILY 01/30/25 [History] Gabapentin [Neurontin] 600 mg PO BID 01/30/25 [History] Hydrocortisone Cream [Hydrocortisone 2.5% Cream] 1 applic TOPICAL DAILY PRN 01/30/25 [History] Latanoprost [Latanoprost 0.005%] 1 drop BOTH EYES HS 01/30/25 [History] Lovastatin [Mevacor] 20 mg PO W/SUPPER 01/30/25 [History] Magnesium Oxide [Magnesium] 500 mg PO DAILY 01/30/25 [History] Nystatin 100,000 Unit/gm Powd [Mycostatin Powder] 1 applic TOPICAL BID 01/30/25 [History] Olopatadine HCl [Pataday] 1 drop BOTH EYES DAILY 01/30/25 [History] Selenomethionine [Selenium] 200 mcg PO DAILY 01/30/25 [History] Theraworx Muscle And Spasm Relief Foam 1 applic TOPICAL HS 01/30/25 [History] Triamcinolone 0.5% Cream [Kenalog 0.5% Cream] 1 applic TOPICAL BID 01/30/25 [History] Ubidecarenone [Co Q-10] 30 mg PO DAILY 01/30/25 [History] Zinc 15mg 1 tab PO DAILY 01/30/25 [History] hydroCHLOROthiazide [Hydrodiuril] 25 mg PO DAILY 01/30/25 [History] ALPRAZolam [Xanax] 0.25 mg PO BID #14 tab 02/13/25 [Rx] Aspirin 81 mg PO DAILY #30 tab 02/13/25 [Rx] Ciprofloxacin HCl [Cipro] 500 mg PO Q24H #1 tab 02/13/25 [Rx] HYDROcodone/APAP 10-325MG [[place] 10-325] 1 tab PO Q6HR PRN #18 tab 02/13/25 [Rx] Loperamide [Imodium] 2 mg PO QID PRN #20 cap 02/13/25 [Rx] Metoprolol Tartrate [Lopressor] 12.5 mg PO BID #30 tab 02/13/25 [Rx] Torsemide [Demadex] 60 mg PO DAILY #30 tab 02/13/25 [Rx] Follow up Appointment(s)/Referral(s): [facility] [NON-STAFF] - 02/14/25 6:00 am (Chair time is 6:15a.m. on Tuesdays, , and Saturdays. Arrive 15 minutes early to first appointment. ) Kulwant Bernal MD [Primary Care Provider] - 1-2 days Geovani Herrera MD [Medical Doctor] - 1 Week Patient Instructions/Handouts: Dilated Cardiomyopathy (DC), Acute Kidney Injury (GEN), Perma-cath Placement (DC), Hemodialysis for Acute Kidney Failure (DC) Discharge Disposition: TRANSFER TO SNF/ECF
[2025-02-13 16:05] VITALS: BP 160/79; RESP 18; TEMP 98
[2025-02-13 17:10] LABS: % Iron Saturation 14.71 (12.00-45.00)
--- NOTE | 2025-02-15 16:14 | P.PN ---
Subjective Progress Note Date: 02/11/25 Principal diagnosis: Reason for follow-up Pseudomonas UTI Patient is 79-year-old female with a past medical history significant for hypertension neuropathy chronic back pain patient has been brought to the hospital after the patient did have a fall noticed to been rhabdomyolysis also found to have UTI urine with a Pseudomonas for this consultation. On today's evaluation that is 02/11/2025, patient has been afebrile, patient is breathing comfortably and is currently on room air, patient denies having any chest pain and cough, patient denies nausea vomiting or abdominal pain and improvement in her diarrhea. Patient white count is down to 13.22 creatinine is 4.3 Objective - Vital Signs Vital signs: Vital Signs Temp 97.6 F 02/11/25 07:51 Pulse 78 02/11/25 07:51 Resp 17 02/11/25 07:51 BP 145/82 02/11/25 07:51 Pulse Ox 98 02/11/25 07:51 FiO2 2 01/31/25 23:15 Intake & Output 02/10/25 02/11/25 02/11/25 18:59 06:59 18:59 Output Total 250 400 Balance -250 -400 Output: Urine 250 400 Uretheral (Griffiths) 400 Other: Voiding Method Indwelling Catheter Indwelling Catheter # Bowel Movements 3 1 1 - Exam GENERAL DESCRIPTION: An elderly FEmale lying in bed in no distress RESPIRATORY SYSTEM: Unlabored breathing , decreased breath sounds at bases HEART: S1 S2 regular rate and rhythm , ABDOMEN: Soft , no tenderness EXTREMITIES: Swelling to the leg no redness - Labs CBC & Chem 7: 02/12/25 04:06 02/12/25 04:06 Labs: Abnormal Lab Results - Last 24 Hours (Table) 02/11/25 02/11/25 Range/Units 02:42 02:42 WBC 13.22 H (4.50-10.00) X 10*3/uL RBC 3.25 L (4.10-5.20) X 10*6/uL Hgb 9.9 L (12.0-15.0) g/dL Hct 31.3 L (37.2-46.3) % MCHC 31.6 L (32.0-37.0) g/dL Immature Gran # 0.27 H (0.00-0.04) X 10*3/uL Neutrophils # 10.17 H (1.80-7.70) X 10*3/uL Eosinophils # 0.40 H (0.04-0.35) X 10*3/uL Sodium 131 L (135-145) mmol/L BUN 54.4 H (9.0-27.0) mg/dL Creatinine 4.3 H (0.6-1.5) mg/dL Est GFR (CKD-EPI) 10 L (>=60) Calcium 8.6 L (8.7-10.3) mg/dL Assessment and Plan (1) UTI (urinary tract infection) Current Visit: Yes Status: Acute Code(s): N39.0 - URINARY TRACT INFECTION, SITE NOT SPECIFIED SNOMED Code(s): 84177615 (2) Leukocytosis Current Visit: Yes Status: Acute Code(s): D72.829 - ELEVATED WHITE BLOOD CELL COUNT, UNSPECIFIED SNOMED Code(s): 077682733 Plan: 1patient presented hospital with weakness and fall in this patient who did have elevated white count on admission some mental status changes positive UA concerning for symptomatic UTI with urine growing Pseudomonas aeruginosa that is a sensitive pathogen 2-patient is afebrile white count is trending down patient is currently being treated with oral Cipro to continue and monitor clinical course closely Dictation was produced using [employer] software. please excuse any grammatical, word or spelling errors. Time with Patient: Less than 30
--- NOTE | 2025-02-15 16:14 | P.PN ---
Subjective Progress Note Date: 02/13/25 Principal diagnosis: Reason for follow-up Pseudomonas UTI Patient is 79-year-old female with a past medical history significant for hypertension neuropathy chronic back pain patient has been brought to the hospital after the patient did have a fall noticed to been rhabdomyolysis also found to have UTI urine with a Pseudomonas for this consultation. On today's evaluation that is 02/13/2025,the patient denies any fever or any chills, patient is breathing comfortably on room air, the patient denies chest pain shortness of breath and no significant cough, patient denies abdominal pain, no nausea vomiting or diarrhea. Patient white count 9.38, creatinine 3.29 Objective - Vital Signs Vital signs: Vital Signs Temp 98.0 F 02/13/25 16:04 Pulse 90 02/13/25 15:00 Resp 18 02/13/25 16:04 BP 160/79 02/13/25 16:04 Pulse Ox 95 02/13/25 15:00 FiO2 2 01/31/25 23:15 Intake & Output 02/12/25 02/13/25 02/13/25 18:59 06:59 18:59 Intake Total 600 2400 Output Total 679 771 0395 Balance -110 -400 0 Weight 117 kg Intake: IV 200 Oral 400 Hemodialysis 2400 Output: Urine 710 400 Uretheral (Griffiths) 100 400 Hemodialysis 400 Hemodialysis Net Amount 2000 Other: Voiding Method Indwelling Catheter Indwelling Catheter Diaper Incontinent # Bowel Movements 1 - Exam GENERAL DESCRIPTION: An elderly FEmale lying in bed in no distress RESPIRATORY SYSTEM: Unlabored breathing , decreased breath sounds at bases HEART: S1 S2 regular rate and rhythm , ABDOMEN: Soft , no tenderness EXTREMITIES: Swelling to the leg no redness - Labs CBC & Chem 7: 02/13/25 03:22 02/13/25 03:22 Labs: Abnormal Lab Results - Last 24 Hours (Table) 02/13/25 02/13/25 Range/Units 03:22 03:22 RBC 2.91 L (4.10-5.20) 10*6/uL Hgb 9.0 L (12.0-15.0) g/dL Hct 27.8 L (37.2-46.3) % Sodium 127 L (137-145) mmol/L Chloride 94 L (98-107) mmol/L BUN 47 H (7-17) mg/dL Creatinine 3.29 H (0.52-1.04) mg/dL Glucose 68 L (74-99) mg/dL AST 59 H (14-36) U/L ALT 97 H (4-34) U/L Total Protein 4.5 L (6.3-8.2) g/dL Albumin 2.2 L (3.5-5.0) g/dL Assessment and Plan (1) UTI (urinary tract infection) Status: Acute Code(s): N39.0 - URINARY TRACT INFECTION, SITE NOT SPECIFIED SNOMED Code(s): 36712328 (2) Leukocytosis Status: Acute Code(s): D72.829 - ELEVATED WHITE BLOOD CELL COUNT, UNSPECIFIED SNOMED Code(s): 296823707 Plan: 1patient presented hospital with weakness and fall in this patient who did have elevated white count on admission some mental status changes positive UA concerning for symptomatic UTI with urine growing Pseudomonas aeruginosa that is a sensitive pathogen 2-patient is afebrile white count has normalized she is currently on oral Cipro to finish her course of therapy and monitor clinical course closely Dictation was produced using [email or web address] dictation software. please excuse any grammatical, word or spelling errors. Time with Patient: Less than 30
== END 2025-02-13 19:01 | DRG 871 ==
LOC: CATHCVL 11:10 → 3SCARD 13:22 → 2SICU 01-31 10:30 → 3SCARD 02-05 21:10 → 4SSUR 02-09 14:12
PROVIDERS: ADMIT Hospitalist; ATTEND Hospitalist
PROC: B2111ZZ Fluoroscopy of Multiple Coronary Arteries using Low Osmolar Contrast (ICD-10-PCS; 2025-01-30)
PROC: 4A023N7 Measurement of Cardiac Sampling and Pressure, Left Heart, Percutaneous Approach (ICD-10-PCS; principal; 2025-01-30 13:25)
PROC: 06PYX3Z Removal of Infusion Device from Lower Vein, External Approach (ICD-10-PCS; 2025-02-01)
PROC: 04HK33Z Insertion of Infusion Device into Right Femoral Artery, Percutaneous Approach (ICD-10-PCS; 2025-02-03)
PROC: 5A1D70Z Performance of Urinary Filtration, Intermittent, Less than 6 Hours Per Day (ICD-10-PCS; 2025-02-04)
PROC: 06H033Z Insertion of Infusion Device into Inferior Vena Cava, Percutaneous Approach (ICD-10-PCS; 2025-02-12 14:15)
PROC: 0JH63XZ Insertion of Tunneled Vascular Access Device into Chest Subcutaneous Tissue and Fascia, Percutaneous Approach (ICD-10-PCS; 2025-02-13)
PROC: 02HV33Z Insertion of Infusion Device into Superior Vena Cava, Percutaneous Approach (ICD-10-PCS; 2025-02-13)
PROC: B5181ZA Fluoroscopy of Superior Vena Cava using Low Osmolar Contrast, Guidance (ICD-10-PCS; 2025-02-13)
PROC: B548ZZA Ultrasonography of Superior Vena Cava, Guidance (ICD-10-PCS; 2025-02-13)
DX: A41.52 Sepsis due to Pseudomonas (principal); G93.41 Metabolic encephalopathy; I21.4 Non-ST elevation (NSTEMI) myocardial infarction; K72.00 Acute and subacute hepatic failure without coma; N17.0 Acute kidney failure with tubular necrosis; R65.21 Severe sepsis with septic shock; I50.23 Acute on chronic systolic (congestive) heart failure; E87.20 Acidosis, unspecified; D63.1 Anemia in chronic kidney disease; I13.0 Hypertensive heart and chronic kidney disease with heart failure and stage 1 through stage 4 chronic kidney disease, or unspecified chronic kidney disease; E66.01 Morbid (severe) obesity due to excess calories; N18.9 Chronic kidney disease, unspecified; I34.0 Nonrheumatic mitral (valve) insufficiency; G31.9 Degenerative disease of nervous system, unspecified; I42.8 Other cardiomyopathies; Z68.41 Body mass index [BMI] 40.0-44.9, adult; N39.0 Urinary tract infection, site not specified; S00.83XA Contusion of other part of head, initial encounter; T79.6XXA Traumatic ischemia of muscle, initial encounter; T50.8X5A Adverse effect of diagnostic agents, initial encounter; N14.11 Contrast-induced nephropathy; M47.812 Spondylosis without myelopathy or radiculopathy, cervical region; F41.9 Anxiety disorder, unspecified; G89.29 Other chronic pain; M54.9 Dorsalgia, unspecified; X58.XXXA Exposure to other specified factors, initial encounter; E78.5 Hyperlipidemia, unspecified; E86.1 Hypovolemia; I25.10 Atherosclerotic heart disease of native coronary artery without angina pectoris; I49.3 Ventricular premature depolarization; I95.89 Other hypotension; W06.XXXA Fall from bed, initial encounter; Z79.899 Other long term (current) drug therapy
CPT/HCPCS: 36415; 36558; 51702; 70450; 70486; 71045; 72125; 72170; 76705; 76770; 76937; 77001; 80048; 80053; 81001; 82550; 82728; 83540; 83550; 83605; 83735; 83874; 83880; 84100; 84484; 85025; 85027; 85610; 85730; 86706; 87040; 87077; 87086; 87186; 87324; 87340; 90935; 93005; 93306; 93308; 93458; 94760; 96361; 96374; 96375; 99291

== ENCOUNTER 2025-02-18 07:43 | Emergency (ER) | payer MEDICARE ==
--- NOTE | 2025-02-18 08:06 | ED ---
General Adult HPI - General Chief complaint: Recheck/Abnormal Lab/Rx Stated complaint: Dialysis port issue Time Seen by Provider: 02/18/25 07:44 Source: patient, EMS, RN notes reviewed, old records reviewed Mode of arrival: EMS Limitations: no limitations - History of Present Illness Initial comments: 79-year-old female presents for evaluation of bleeding around her right chest wall dialysis port. This port was placed on the . Staff at the [facility] report that they noted blood on the dressing. Uncertain if this was dislodged. Patient herself denies any complaints. Patient states they have not use a dialysis port. She denies use of any blood thinners. - Related Data Home Medications Medication Instructions Recorded Confirmed Acetaminophen/Diphenhydramine 1 tab PO HS 01/30/25 01/30/25 [Tylenol PM 500-25mg] Ascorbic Acid [Vitamin C] 500 mg PO DAILY 01/30/25 01/30/25 Cholecalciferol [Vitamin D3 (125 125 mcg PO DAILY 01/30/25 01/30/25 Mcg = 5000 Iu)] Cyanocobalamin (Vitamin B-12) 1,000 mcg PO DAILY 01/30/25 01/30/25 [Vitamin B-12] Diclofenac Sodium Gel [Voltaren 1% 1 applic TOPICAL BID 01/30/25 01/30/25 Gel] Famotidine [Pepcid] 20 mg PO DAILY 01/30/25 01/30/25 Fesoterodine Fumarate 8 mg PO HS 01/30/25 01/30/25 [Fesoterodine Fumarate ER] Folic Acid 0.4 mg PO DAILY 01/30/25 01/30/25 Gabapentin [Neurontin] 600 mg PO BID 01/30/25 01/30/25 Hydrocortisone Cream 1 applic TOPICAL DAILY PRN 01/30/25 01/30/25 [Hydrocortisone 2.5% Cream] Latanoprost [Latanoprost 0.005%] 1 drop BOTH EYES HS 01/30/25 01/30/25 Lovastatin [Mevacor] 20 mg PO W/SUPPER 01/30/25 01/30/25 Magnesium Oxide [Magnesium] 500 mg PO DAILY 01/30/25 01/30/25 Nystatin 100,000 Unit/gm Powd 1 applic TOPICAL BID 01/30/25 01/30/25 [Mycostatin Powder] Olopatadine HCl [Pataday] 1 drop BOTH EYES DAILY 01/30/25 01/30/25 Selenomethionine [Selenium] 200 mcg PO DAILY 01/30/25 01/30/25 Theraworx Muscle And Spasm Relief 1 applic TOPICAL HS 01/30/25 01/30/25 Foam Triamcinolone 0.5% Cream [Kenalog 1 applic TOPICAL BID 01/30/25 01/30/25 0.5% Cream] Ubidecarenone [Co Q-10] 30 mg PO DAILY 01/30/25 01/30/25 Zinc 15mg 1 tab PO DAILY 01/30/25 01/30/25 hydroCHLOROthiazide [Hydrodiuril] 25 mg PO DAILY 01/30/25 01/30/25 Previous Rx's Medication Instructions Recorded ALPRAZolam [Xanax] 0.25 mg PO BID #14 tab 02/13/25 Aspirin 81 mg PO DAILY #30 tab 02/13/25 Ciprofloxacin HCl [Cipro] 500 mg PO Q24H #1 tab 02/13/25 HYDROcodone/APAP 10-325MG [[place] 1 tab PO Q6HR PRN #18 tab 02/13/25 10-325] Loperamide [Imodium] 2 mg PO QID PRN #20 cap 02/13/25 Metoprolol Tartrate [Lopressor] 12.5 mg PO BID #30 tab 02/13/25 Torsemide [Demadex] 60 mg PO DAILY #30 tab 02/13/25 Allergies Allergy/AdvReac Type Severity Reaction Status Date / Time No Known Allergies Allergy Verified 02/18/25 07:53 Review of Systems ROS Statement: Those systems with pertinent positive or pertinent negative responses have been documented in the HPI. ROS Other: All systems not noted in ROS Statement are negative. Past Medical History Past Medical History: Hypertension Additional Past Medical History / Comment(s): neuropathy, chronic back issues History of Any Multi-Drug Resistant Organisms: None Reported Past Surgical History: Orthopedic Surgery Past Psychological History: No Psychological Hx Reported Smoking Status: Never smoker Past Alcohol Use History: None Reported Past Drug Use History: None Reported General Exam Limitations: no limitations General appearance: alert, in no apparent distress Head exam: Present: atraumatic, normocephalic Eye exam: Present: normal appearance, PERRL Respiratory exam: Present: normal lung sounds bilaterally. Absent: respiratory distress Cardiovascular Exam: Present: regular rate, normal rhythm Neurological exam: Present: alert, oriented X3, CN II-XII intact. Absent: motor sensory deficit Skin exam: Present: warm, dry, normal color (There is a small amount of blood clot at the puncture site right anterior chest wall of the tunneled catheter. No active bleeding. Minimal surrounding ecchymosis. No crepitus.) Course Vital Signs 02/18/25 02/18/25 07:48 08:33 Temperature 98.4 F Pulse Rate 70 72 Respiratory 20 20 Rate Blood Pressure 94/51 104/52 O2 Sat by Pulse 94 L 94 L Oximetry Medical Decision Making - Medical Decision Making Was pt. sent in by a medical professional or institution (, [facility], [facility], urgent care, hospital, or [facility]...) When possible be specific @ -No Did you speak to anyone other than the patient for history (EMS, parent, family, police, friend...)? What history was obtained from this source @ -No Did you review nursing and triage notes (agree or disagree)? Why? @ -I reviewed and agree with nursing and triage notes Were old charts reviewed (outside hosp., previous admission, EMS record, old EKG, old radiological studies, urgent care reports/EKG's, [facility] records)? Report findings @ -No old charts were reviewed Differential Diagnosis: Dialysis port malfunction, bleeding from site. EKG interpreted by me (3pts min.). @ -As above X-rays interpreted by me (1pt min.). @ -None done CT interpreted by me (1pt min.). @ -None done U/S interpreted by me (1pt. min.). @ -None done What testing was considered but not performed or refused? (CT, X-rays, U/S, labs)? Why? @ -None What meds were considered but not given or refused? Why? @ -None Did you discuss the management of the patient with other professionals (professionals i.e. [facility], [facility] [employer], lab, RT, psych nurse, social service liaison, new home sales consultant, teacher, chief diversity officer, disease case manager)? Give summary @ -No Was smoking cessation discussed for >3mins.? @ -No Was critical care preformed (if so, how long)? @ -No Were there social determinants of health that impacted care today? How? (Homelessness, low income, unemployed, alcoholism, drug addiction, transportation, low edu. Level, literacy, decrease access to med. care, senior care, rehab)? @ -No Was there de-escalation of care discussed even if they declined (Discuss DNR or withdrawal of care, Hospice)? DNR status @ -No What co-morbidities impacted this encounter? (DM, HTN, Smoking, COPD, CAD, Cancer, CVA, ARF, Chemo, Hep., AIDS, mental health diagnosis, sleep apnea, morbid obesity)? @ -None Was patient admitted / discharged? Hospital course, mention meds given and route, prescriptions, significant lab abnormalities, going to OR and other pertinent info. @ -[79-year-old female with recent permacath placement in the right anterior chest with some minimal bleeding. Direct pressure is applied with reduction in bleeding however there was persistent small amount of venous oozing at the site was injected with lidocaine with epi and all bleeding stopped. The dressing was changed and the patient was stable for discharge back to the [facility]. Undiagnosed new problem with uncertain prognosis? @ -No Drug Therapy requiring intensive monitoring for toxicity (Heparin, Nitro, Insulin, Cardizem)? @ -No Were any procedures done? @ -No Diagnosis/symptom? @ -Bleeding from dialysis port puncture site Acute, or Chronic, or Acute on Chronic? @ -Acute Uncomplicated (without systemic symptoms) or Complicated (systemic symptoms)? @ -Default Side effects of treatment? @ -No Exacerbation, Progression, or Severe Exacerbation? @ -No Poses a threat to life or bodily function? How? (Chest pain, [place], [place], pneumonia, PE, COPD, DKA, ARF, appy, cholecystitis, CVA, Diverticulitis, Homicidal, Suicidal, threat to staff... and all critical care pts) @ -No Disposition Clinical Impression: Status post insertion of dialysis catheter Disposition: HOME SELF-CARE Condition: Fair Instructions (If sedation given, give patient instructions): Peritoneal Dialysis Catheter Care (ED) Is patient prescribed a controlled substance at d/c from ED?: No Referrals: Marleni Ramirez MD [Primary Care Provider] - 1-2 days Time of Disposition: 09:42
[2025-02-18 08:42] VITALS: RESP 20; TEMP 98.4
[2025-02-18] MEDS: LIDOCAINE 1%-EPI 1:100,000 20 ML VIAL SQ STA (09:24)
[2025-02-18 10:07] VITALS: BP 104/56; PULSE 89
== END 2025-02-18 11:06 | disposition home or self-care (01) ==
LOC: EC 07:43
DX: Z49.01 Encounter for fitting and adjustment of extracorporeal dialysis catheter (principal)
CPT/HCPCS: 99283